=== PATIENT | female | born 2005 | race Caucasian/White ===

== ENCOUNTER 2024-12-19 14:57 | Emergency (ER) | payer OTHER, SELFPAY ==
[2024-12-19 14:59] VITALS: BP 91/61; PULSE 83; RESP 18; TEMP 36.4; O2SAT 100; BMI 17.6
--- NOTE | 2024-12-19 16:05 | ED.VIS.GI ---
HPI HPI - GI History of Present Illness Chief Complaint: Abd Pain Detail of Chief Complaint: Abdominal pain Informant: patient Narrative Narrative: Patient presents with abdominal pain started several days ago. She was seen by her [facility]LET [facility]ER in the office yesterday and had an ultrasound that showed cyst on her right ovary. Patient states that there was some dilatation of the bowel and there was some concern for appendicitis but was told monitor her symptoms. She has had some nausea but no vomiting. She denies fever. She denies diarrhea. She denies urinary symptoms. Today she continues to have cramping to the lower abdomen worse on the right and presents for evaluation. She thinks she is 5 weeks and 3 days . Her period was November 10. She is G1, P0. [facility] Medical History (Updated 12/19/24 @ 17:[address] Kelly Peterson, ) Abdominal pain Home Medications ?Medication ?Instructions ?Recorded ?Last Taken ?Type prochlorperazine maleate 10 mg 10 mg PO Q8H PRN nausea and 12/18/24 Unknown Rx tablet (Compazine) vomiting #90 tabs hydrocodone-acetaminophen 5-325mg 1 tab PO Q4H PRN PRN Pain 2 days 12/19/24 Unknown Rx 5mg-325mg #10 TABLETS Allergy/AdvReac Type Severity Reaction Status Date / Time No Known Allergies Allergy Verified 12/19/24 14:58 Social History Smoking Status: Unknown if ever smoked ROS ROS ED Review of Systems ROS Unobtainable: other Constitutional Constitutional ED: Reports lethargy; Denies chills, fever(s), sweats or weight loss Eyes Eyes: Denies blurry vision, change in vision or diplopia ENT ENT ED: Denies rhinorrhea or sore throat Cardiovascular Cardiovascular: Denies chest pain, orthopnea or racing heartbeat Respiratory/Chest Respiratory/Chest: Denies cough, dyspnea, dyspnea on exertion, orthopnea or sputum Gastrointestinal Gastrointestinal: Reports abdominal pain and nausea; Denies diarrhea or vomiting Genitourinary Genitourinary ED: Denies dysuria, hematuria or urinary frequency Musculoskeletal Musculoskeletal: Denies arthralgias, back pain, myalgias or neck pain Integumentary Denies abscess, Abrasions or rash Neurologic Neurologic: Denies headache(s) or weakness Psychiatric Psychiatric: Denies anxiety, depression or suicidal thoughts Endocrine Endocrinology: Denies polydipsia, polyphagia or polyuria Hematologic/Lymphatic Hematologic/Lymphatic: Denies easy bleeding, easy bruising or lymphadenopathy Allergic/Immunologic Allergic/Immunologic ED: Denies mouth swelling, tongue swelling or urticaria EXAM Physical Exam Const Vital Signs: 12/19/24 14:59 12/19/24 16:56 Temperature 97.6 F L 98.6 F Temperature Source Oral Oral Pulse Rate 83 66 Respiratory Rate 18 16 Blood Pressure 91/61 107/60 Blood Pressure Mean 71 75 Pulse Ox 100 100 Oxygen Delivery Method Room Air Room Air Positive well nourished and well developed General Appearance ED: well developed and NAD HEENT Reports TM's clear and moist mucous membranes normocephalic and atraumatic; Negative for trauma or tenderness Tympanic Membrane ED: Yes TM's clear Eyes PERRL and EOMs intact bilaterally General Eye ED: Negative for pale conjunctiva or scleral icterus Neck no lymphadenopathy, supple and no JVD General: Negative for tenderness Chest Wall inspection of chest normal and palpation of chest normal Chest: Negative for tenderness Resp normal respiratory effort and clear to auscultation bilaterally Effort and Inspection: Negative for respiratory distress or pain with movement Auscultation: Negative for rhonchi, wheezes or diminished lung sounds Cardio regular rate, regular rhythm, S1 normal heart sound, S2 normal heart sound and no murmurs Peripheral Pulses: pulses 2+ throughout GI normal to inspection, nondistended, normoactive bowel sounds, soft to palpation, non-distended and no masses GI Narrative: Mild diffuse tenderness over the right lower quadrant and left lower quadrant with some guarding. She has got a positive Tovar sign on the right. No rebound or rigidity. Back/Spine no CVA tenderness and no thoracic nor lumbar tenderness Extremity normal to inspection General Extremety ED: Negative for edema General Extremity: Negative for edema Neuro oriented x3, CN's II-XII intact bilaterally, no sensory deficits noted and gait normal Sensorium / Orientation: awake, alert, oriented to person, oriented to place and oriented to time Motor Exam: strength 5/5 throughout and strength abnormal Psych mental status grossly normal Skin no rashes or lesions noted and no wounds MDM MDM MDM Narrative Medical decision making narrative: Patient presents with abdominal pain and seen in the HYDRA[employer]ILLET MAKER's office yesterday and had an ultrasound that showed an intrauterine with cyst in the right ovary. Clinically she looks well. She has had no fever or vomiting although she has had some nausea. She is G1, P0. She has 5 weeks and 3 days . In the differential would be appendicitis versus UTI versus other etiology. IV line established. She was medicated with morphine and Zofran for pain. CBC with differential obtained showed white count of 5.2 with hemoglobin 12.6 and platelet count of 259. Sed rate was normal at 13. Chemistries unremarkable. Quantitative hCG was 4035. C-reactive protein was elevated at 9.6. Urinalysis showed 100 leukocyte esterase and 5-10 WBCs with +2 bacteria. She does not have UTI symptoms. I did send off a culture. Patient will be given a prescription for few [place] for pain. She will be seen by HYDRA[employer]ILLET MAKER in the office in 2 days. Patient is advised to return if worsening pain, fever, vomiting, or condition should worsen anyway. We discussed obtaining a CT scan of the abdomen pelvis versus expected waiting as suspicion for appendicitis is low at this time and given her state. Patient is comfortable with plan. Lab Data Attestation: I reviewed the patient's lab results. Labs: Laboratory Results - last 24 hr 12/19/24 12/19/24 16:00 16:31 WBC 5.2 RBC 3.99 L Hgb 12.6 Hct 38.0 MCV 95.2 MCH 31.6 MCHC 33.2 RDW Std Deviation 43.1 RDW Coeff of Kevin 12.4 Plt Count 259 MPV 9.8 Immature Gran % (Auto) 0.200 Neut % (Auto) 57.3 Lymph % (Auto) 31.2 [place] % (Auto) 10.5 H Eos % (Auto) 0.6 Baso % (Auto) 0.2 Absolute Neuts (auto) 3.0 Absolute Lymphs (auto) 1.61 Nucleated RBC % 0 ESR 13 Sodium 137 Potassium 3.8 Chloride 104 Carbon Dioxide 22.4 Anion Gap 11 BUN 10 Creatinine 0.69 L Estim Creat Clear Calc 96.11 Est GFR (MDRD) Non-Af 127 BUN/Creatinine Ratio 15.0 Glucose 83 Calcium 9.0 Total Bilirubin 0.21 AST 16 ALT 10 Alkaline Phosphatase 66 C-React Prot Ext Range 9.60 H Total Protein 7.7 Albumin 4.1 Globulin 3.5 Albumin/Globulin Ratio 1.2 HCG, Quant 4035 H Urine Color Yellow Urine Clarity Sl. Cloudy Urine pH 6.0 Ur Specific [place] 1.025 Urine Protein 15 H Urine Glucose (UA) Normal Urine Ketones 15 H Urine Occult Blood Negative Urine Nitrite Negative Urine Bilirubin Negative Urine Urobilinogen Normal Ur Leukocyte Esterase 100 H Urine RBC 0 SEEN Urine WBC 5-10 SEEN Ur Squamous Epith Cells 0-5 SEEN Urine Bacteria 2+ Urine Mucus 2+ Discharge Plan Triage Chief Complaint: Abd Pain ED Provider: Kelly Peterson Dx/Rx/DC Orders Clinical Impression: Abdominal pain Instructions: ED Abdominal Pain Unkn Cause Fem Prescriptions: New hydrocodone-acetaminophen 5-325 mg tablet 1 tab PO Q4H PRN PRN (Reason: Pain) 2 Days Qty: 10 0RF No Action prochlorperazine maleate [Compazine] 10 mg tablet 10 mg PO Q8H PRN (Reason: nausea and vomiting) Qty: 90 3RF Primary Care Provider: Care Physician,No Primary Referrals: Antonia Connolly MD [Med Staff - Active Staff] - 2 Days Care Physician,No Primary [Primary Care Provider] - Print Language: Ghanaian Disposition Disposition: Home, Self Care
[2024-12-19] MEDS: Morphine 4 MG/ML Syringe IV (16:14)
[2024-12-19] MEDS: 0.9% Normal Saline (1000mL) 1,000 ML 125 ML IV (16:14)
[2024-12-19 16:41] LABS: Red Blood Cells-Urine 0 SEEN /hpf (0-5)
[2024-12-19 16:42] LABS: ALB/GLOB Ratio 1.2 RATIO (0.9-2.4); AST(SGOT) 16 U/L (<=31); Alanine Aminotransfer ALT/SGPT 10 U/L (<=34); Albumin, Serum 4.1 g/dL (3.5-5.0); Alkaline Phosphatase 66 U/L (35-104); Anion Gap 11 (5-15); BUN 10 mg/dL (4-19); Carbon Dioxide 22.4 mmol/L (21.0-32.0); Chloride 104 mmol/L (98-108); Creatinine, Serum 0.69 mg/dL (0.70-1.20); EST Glomerular Filtration Rate 127 (>60); Estimated Creatinine Clearance 96.11 ml/min (50-250); Globulin 3.5 g/dL (2.2-4.2); Glucose 83 mg/dL (70-99); Potassium 3.8 mmol/L (3.3-5.1); Protein, Total 7.7 g/dL (5.9-8.4); Sodium Level 137 mmol/L (133-145); Total Bilirubin 0.21 mg/dL (0.00-1.30)
[2024-12-19 16:48] LABS: hCG Titer Quant., Serum 4035 mIU/mL (<9 non-preg)
[2024-12-19 16:51] LABS: Erythrocyte Sedimentation Rate 13 mm/hr (0-30)
[2024-12-19 16:54] LABS: Absolute Lymphocyte Count 1.61 X10^3/uL (0.83-4.51); Basophil# 0.01 X10^3/uL; Basophil% 0.2 % (0-1); Eosinophil# 0.03 X10^3/uL; Eosinophils% 0.6 % (0-5); Hemoglobin 12.6 g/dL (12.0-15.0); Lymphocyte # 1.61 X10^3/ul (0.83-4.51); Lymphocyte % 31.2 % (19-41); Mean Corp Hgb Conc 33.2 g/dL (32-36); Mean Corpuscular Hgb 31.6 pg (27.0-32.0); Mean Corpuscular Volume 95.2 fL (81-99); Mean Platelet Vol. 9.8 fl (6.2-12.0); Monocyte# 0.54 X10^3/uL; Monocyte% 10.5 % (0-10); NRBC Flagged by Analyzer 0 % (0-5); Neutrophil # 2.96 X10^3/uL (2.7-7.7); Neutrophil % 57.3 % (47-70); Platelet Count 259 K/mm3 (150-450); RBC Distribution Width CV 12.4 % (11.6-14.6); RBC Distribution Width SD 43.1 fl (35.1-43.9); Red Blood Count 3.99 M/mm3 (4.2-5.4); White Blood Count 5.2 K/mm3 (4.4-11.0)
[2024-12-19 16:56] VITALS: BP 107/60; PULSE 66; RESP 16; TEMP 37; O2SAT 100
[2024-12-19 16:56] LABS: Color, Urine Yellow (Yellow); Glucose, Dipstick Normal (Normal); Ketone-Dipstick 15 mg/dl (Negative); Leukocyte Esterase-Dipstick 100 /ul (Negative); Nitrite-Dipstick Negative (Negative); Occult Blood-Urine Negative /ul (Negative); Protein-Dipstick 15 mg/dl (Negative); Specific Gravity, Urine 1.025 (1.002-1.030); Urine Bilirubin Dipstick Negative (Negative); Urine Clarity Sl. Cloudy (Clear); Urine Urobilinogen Normal (Normal)
[2024-12-19 17:20] LABS: Bacteria 2+ /hpf (None Seen); Mucous, Urine 2+ /hpf (<or=2+); Squamous Epithelial Cells - UA 0-5 SEEN /hpf (5-10); White Blood Cells 5-10 SEEN /hpf (0-5)
[2024-12-19 17:55] VITALS: BP 101/66; PULSE 61; RESP 16; TEMP 36.8; O2SAT 99
== END 2024-12-19 17:56 | disposition home or self-care (01) ==
PROVIDERS: Emergency Provider Emergency Medicine; Visit Provider Emergency Medicine
DX: O99.891 Other specified diseases and conditions complicating pregnancy (principal); R79.82 Elevated C-reactive protein (CRP); Z3A.01 Less than 8 weeks gestation of pregnancy; R10.9 Unspecified abdominal pain
CPT/HCPCS: 80053; 81001; 84702; 85025; 85652; 86140; 87086; 87088; 96361; 96374; 99283; A4216

== ENCOUNTER 2024-12-30 17:37 | Emergency (ER) | payer OTHER, SELFPAY ==
[2024-12-30 17:38] VITALS: BP 95/65; PULSE 77; RESP 18; TEMP 36.8; O2SAT 100; BMI 18.0
--- NOTE | 2024-12-30 18:35 | US_ITS ---
PROCEDURE: TRANSVAGINAL W/PREG US 12/30/2024 REASON FOR EXAM: PELVIC PAIN TECHNIQUE: TRANSVAGINAL W/PREG US COMPARISON: None. FINDINGS Single live intrauterine which measures 6 weeks and 5 days by crown- rump length. heart rate of 121 beats per minute. A yolk sac is present. Estimated gestational age by last menstrual period of 7 weeks and 1 day. Uterus measures 7.6 x 4.7 x 3.7 cm. No visualized fibroids. Closed cervix. No fluid in the cul-de-sac. Right ovary measures 3.5 x 2.8 x 2.1 cm with preserved vascular flow. Right ovarian 2.1 x 1.9 cm heterogeneous lesion with peripheral color Doppler flow. No definite internal fluid or granulation to confirm a corpus luteum. Left ovary measures 2.4 x 1.5 x 1.4 cm with preserved vascular flow. US/Transvaginal w/Preg US IMPRESSION: Right ovarian lesion equivocal for a corpus luteum. Short interval follow-up u ltrasound to characterize is recommended. Single live intrauterine . Reading Location: [id number]
--- NOTE | 2024-12-30 18:43 | EX.ED.DYSGE1 ---
HPI History of Present Illness Chief Complaint: Abd Pain Narrative Narrative: Chief complaint and HPI: Lower abdominal pain. 19-year-old female who is and 7 weeks presents for evaluation of lower abdominal pain. Patient states she has been having lower abdominal pain for the past 2 to 3 weeks, worse on the right. States pain started around her positive test. Patient states she follows with [facility] in which she had an ultrasound a couple weeks ago that showed a cyst on her right ovary IUP. Patient states there was some dilation of the bowel and told her to monitor for symptoms of appendicitis. Patient states that the pain has continued intermittently. Patient states she was seen in our emergency department for the pain previously she states she had unremarkable laboratory workup and the ED physician have low suspicion for appendicitis so CT abdomen pelvis was foregone. Patient states she had another checkup with her [facility] today in which she saw a nurse. States she told them that the pain was continuing and then was told that she needs to come to emergency department for CT abdomen pelvis to rule out appendicitis. Patient denies any fever, chills, shortness of breath, chest pain, nausea, vomiting, constipation, diarrhea, dysuria, vaginal bleeding, vaginal discharge. States she is eating and drinking well. Review of systems: See HPI Medications: As listed on the chart Allergies: As listed on the chart PFSH: Per chart Vital signs: As listed on the chart. Reviewed. Physical exam: Gen: A&O x3, NAD Head: Normocephalic, atraumatic Eyes: No sclera icterus, conjunctiva clear ENT: Moist mucous membranes Neck: Trachea midline, No JVD CV: RRR, no murmurs, no peripheral edema Resp: Lungs CTA BL, no w/r/c GI: Abd soft, non-distended, mildly tender to palpation in the bilateral lower quadrant, negative McBurney sign, no r/r/g : No CVA tenderness Musc: Full ROM, no deformity Skin: Warm, dry Neuro: Alert, oriented, grossly intact, sensation intact Psych: Cooperative, appropriate mood and affect [facility] Medical History (Updated 12/30/24 @ 20:[address] Allan Clayton, DO) Abdominal pain Home Medications ?Medication ?Instructions ?Recorded ?Last Taken ?Type prochlorperazine maleate 10 mg 10 mg PO Q8H PRN nausea and 12/18/24 Unknown Rx tablet (Compazine) vomiting #90 tabs Allergy/AdvReac Type Severity Reaction Status Date / Time No Known Allergies Allergy Verified 12/30/24 17:40 Family History (Updated 12/30/24 @ 11:15 by Aicha Nieves RN) Grandmother Uterine cancer Diabetes Grandfather Brain aneurysm Diabetes Social History (Updated 12/30/24 @ 11:21 by Aicha Nieves RN) adopted: No household members: significant other and friend(s) number of children: 0 current occupational status: employed current occupation: [employer] current occupational exposures/hazards: No pets and animals: Yes pets and animals: dog(s) and other details: Duck (3) history of recent travel: No sexually active: Yes Smoking Status: Current some day smoker tobacco type: e-cigarettes second hand exposure: No quit status: considering quitting alcohol intake: current alcohol intake frequency: holidays/special occasions only details: Not while substance use type: does not use well-balanced diet: about half the time caffeine: No eating out: 4 or more times/week during the past year weight has: remained stable what type of physical activity do you participate in: walking frequency: 3-4 times per week duration: < 15 minutes/day sarah/mormon: Pentecostalism seatbelt use: always do you feel safe at home: Yes additional social history: BF: Jeremiah - Traffic systems mechanic/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 Patient states she has been having lower abdominal pain for the past 2 to 3 weeks, worse on the right. States pain started around her positive test. Patient states she follows with [facility] in which she had an ultrasound a couple weeks ago that showed a cyst on her right ovary with an IUP. On chart review, I was unable to find the ultrasound. Patient states there was some dilation of the bowel and told to monitor for symptoms of appendicitis. The pain is continued so she was seen in our emergency department on 12/19. I reviewed the ED note. Unremarkable labs and discharged home without CT abdomen pelvis. Patient states she sent in here today with CT abdomen/pelvis. Given that patient's symptoms have been ongoing for several weeks and coincide around the time she had a positive test, have a low suspicion for appendicitis. She denies fever, chills, nausea, vomiting, diarrhea, constipation. Her abdominal exam is not consistent with appendicitis. Patient was given the risks and benefits to CT scan to rule out appendicitis in . She was educated that without a CT abdomen and pelvis I cannot rule out appendicitis. Patient declined this. I do think this is reasonable. I suspect her pain is more pelvic in nature. Will get pelvic ultrasound with basic labs and urine. Differential diagnosis includes abdominal cramping in , ovarian cyst, ovarian torsion, UTI, low suspicion for pancreatitis, cholecystitis, appendicitis. Tylenol ordered for pain. CBC without leukocytosis or anemia. Platelets unremarkable. CMP unremarkable. Lipase unremarkable. UA negative for bacteria or UTI. Pelvic ultrasound shows right ovarian lesion equivocal for a corpus luteum. Single live IUP. No ovarian torsion. Given that patient has had this pain for multiple weeks and corresponds with test, I do think that her pain may be secondary to versus this corporal luteal cyst. Recommend following up with [facility]. Patient was updated of all results and the plan. Return precautions explained. Patient stable to discharge home. She confirmed understanding. Impression: 1. Chronic episodic pelvic pain 2. First trimester 3. Right corpus luteum cyst Lab Data Labs: Laboratory Results - last 24 hr 12/30/24 12/30/24 17:47 18:15 WBC 7.7 RBC 3.97 L Hgb 12.4 Hct 38.0 MCV 95.7 MCH 31.2 MCHC 32.6 RDW Std Deviation 43.9 RDW Coeff of Kevin 12.5 Plt Count 284 MPV 10.7 Immature Gran % (Auto) 0.100 Neut % (Auto) 62.4 Lymph % (Auto) 30.4 [place] % (Auto) 6.9 Eos % (Auto) 0.1 Baso % (Auto) 0.1 Absolute Neuts (auto) 4.8 Absolute Lymphs (auto) 2.35 Nucleated RBC % 0 Sodium 137 Potassium 3.8 Chloride 103 Carbon Dioxide 22.5 Anion Gap 11 BUN 12 Creatinine 0.53 L Estim Creat Clear Calc 127.61 Est GFR (MDRD) Non-Af 136 BUN/Creatinine Ratio 22.8 H Glucose 79 Calcium 9.3 Total Bilirubin 0.22 AST 14 ALT 10 Alkaline Phosphatase 54 Total Protein 7.6 Albumin 4.3 Globulin 3.3 Albumin/Globulin Ratio 1.3 Lipase 24 Urine Color Straw Urine Clarity Clear Urine pH 6.5 Ur Specific [place] 1.015 Urine Protein Negative Urine Glucose (UA) Normal Urine Ketones Negative Urine Occult Blood Negative Urine Nitrite Negative Urine Bilirubin Negative Urine Urobilinogen Normal Ur Leukocyte Esterase Negative Urine RBC 0-5 SEEN Urine WBC 0-5 SEEN Ur Squamous Epith Cells 0-5 SEEN Urine Bacteria RARE Urine Mucus 0 SEEN Radiography Diagnostic Testing: Clinical Impression(s) from Imaging Studies Obstetrics Ultrasound 12/30/24 18:35 IMPRESSION: Right ovarian lesion equivocal for a corpus luteum. Short interval follow-up ultrasound to characterize is recommended. Single live intrauterine . Reading Location: [place] [id number] Discharge Plan Triage Chief Complaint: Abd Pain ED Provider: Allan Clayton Dx/Rx/DC Orders Clinical Impression: Pelvic pain during Instructions: ED Pelvic Pain, Unknown Cause Prescriptions: No Action prochlorperazine maleate [Compazine] 10 mg tablet 10 mg PO Q8H PRN (Reason: nausea and vomiting) Qty: 90 3RF Primary Care Provider: Care Physician,No Primary Referrals: Antonia Connolly MD [Med Staff - Active Staff] - 3-5 Days Activity Restrictions/Additional Instructions: At this point in time, no clear reason for your pelvic pain although may be secondary to as well as your corpus luteum on your right ovary. Follow-up with your [facility]. Return back to the ED if symptoms change or worsen. Tylenol as needed for pain. You did receive Tylenol here in the emergency department. No Tylenol for 6 hours. Print Language: [place] Citizen Disposition Disposition: Home, Self Care
[2024-12-30 18:58] LABS: Mucous, Urine 0 SEEN /hpf (<or=2+)
[2024-12-30 19:09] LABS: Hematocrit 38.0 % (37-47); Hemoglobin 12.4 g/dL (12.0-15.0); Immature Granulocytes Count 0.010 X10^3/uL (0.0-0.0); Mean Corp Hgb Conc 32.6 g/dL (32-36); Mean Corpuscular Volume 95.7 fL (81-99); Mean Platelet Vol. 10.7 fl (6.2-12.0); NRBC Flagged by Analyzer 0 % (0-5); Platelet Count 284 K/mm3 (150-450); RBC Distribution Width CV 12.5 % (11.6-14.6); RBC Distribution Width SD 43.9 fl (35.1-43.9); Red Blood Count 3.97 M/mm3 (4.2-5.4); White Blood Count 7.7 K/mm3 (4.4-11.0)
[2024-12-30 19:14] LABS: Color, Urine Straw (Yellow); Glucose, Dipstick Normal (Normal); Ketone-Dipstick Negative (Negative); Leukocyte Esterase-Dipstick Negative /ul (Negative); Nitrite-Dipstick Negative (Negative); Occult Blood-Urine Negative /ul (Negative); Protein-Dipstick Negative (Negative); Specific Gravity, Urine 1.015 (1.002-1.030); Urine Bilirubin Dipstick Negative (Negative)
[2024-12-30 19:30] LABS: AST(SGOT) 14 U/L (<=31); Alanine Aminotransfer ALT/SGPT 10 U/L (<=34); Albumin, Serum 4.3 g/dL (3.5-5.0); Alkaline Phosphatase 54 U/L (35-104); Anion Gap 11 (5-15); BUN 12 mg/dL (4-19); BUN/Creat Ratio 22.8 RATIO (10-20); Calcium,Total 9.3 mg/dL (7.6-11.0); Carbon Dioxide 22.5 mmol/L (21.0-32.0); Chloride 103 mmol/L (98-108); Estimated Creatinine Clearance 127.61 ml/min (50-250); Globulin 3.3 g/dL (2.2-4.2); Glucose 79 mg/dL (70-99); Lipase 24 U/L (13-75); Potassium 3.8 mmol/L (3.3-5.1)
[2024-12-30 19:40] LABS: Red Blood Cells-Urine 0-5 SEEN /hpf (0-5); Squamous Epithelial Cells - UA 0-5 SEEN /hpf (5-10)
[2024-12-30 19:45] VITALS: BP 90/62; PULSE 62; RESP 16; O2SAT 100
[2024-12-30 20:45] VITALS: BP 96/62; PULSE 63; RESP 18; TEMP 36.3; O2SAT 100
== END 2024-12-30 20:50 | disposition home or self-care (01) ==
PROVIDERS: Emergency Provider Surgery; Visit Provider Surgery
DX: O26.891 Other specified pregnancy related conditions, first trimester (principal); R10.2 Pelvic and perineal pain; O34.81 Maternal care for other abnormalities of pelvic organs, first trimester; N83.11 Corpus luteum cyst of right ovary; Z3A.01 Less than 8 weeks gestation of pregnancy
CPT/HCPCS: 76817; 80053; 81001; 83690; 85025; 99282; A4216

== ENCOUNTER → 2025-01-12 | Outpatient (CLI) | payer OTHER, SELFPAY ==
[2025-01-14 05:07] LABS: Chlamydia By Nucleic Acid AMP Positive (Negative); Gonococcus By Nucleic Acid AMP Negative (Negative)
== END | disposition home or self-care (01) ==
LOC: LABSPEC 12:10
PROVIDERS: Referring Provider Obstetrics & Gynecology; Visit Provider Obstetrics & Gynecology
DX: Z34.90 Encounter for supervision of normal pregnancy, unspecified, unspecified trimester (principal)
CPT/HCPCS: 87086; 87491; 87591

== ENCOUNTER → 2025-01-20 | Outpatient (CLI) | payer OTHER, SELFPAY ==
[2025-01-20 12:33] LABS: Hematocrit 33.4 % (37-47); Hemoglobin 11.0 g/dL (12.0-15.0); Immature Granulocytes Count 0.010 X10^3/uL (0.0-0.0); Mean Corp Hgb Conc 32.9 g/dL (32-36); Mean Corpuscular Volume 94.6 fL (81-99); Mean Platelet Vol. 11.6 fl (6.2-12.0); NRBC Flagged by Analyzer 0 % (0-5); Platelet Count 165 K/mm3 (150-450); RBC Distribution Width CV 12.6 % (11.6-14.6); RBC Distribution Width SD 43.6 fl (35.1-43.9); Red Blood Count 3.53 M/mm3 (4.2-5.4); White Blood Count 6.0 K/mm3 (4.4-11.0)
[2025-01-20 13:26] LABS: Ferritin 193 ng/mL (22-378); HIV Nonreactive (Nonreactive); Hepatitis B Surface Antigen Nonreactive (Nonreactive); Hepatitis C Antibody Nonreactive (Nonreactive); Iron 111 ug/dL (50-170); Iron Binding Capacity,Total 254 ug/dL (250-450); Iron Binding Capacity,Unsat 143 ug/dL (228-428); Syphilis Antibodies Nonreactive (Nonreactive); Vitamin B12 393 pg/mL (180-914)
[2025-01-22 22:07] LABS: Vitamin B1, Thiamine 98.0 nmol/L (66.5-200.0)
== END | disposition home or self-care (01) ==
LOC: BWCLAB 10:13
PROVIDERS: Visit Provider Obstetrics & Gynecology
DX: O26.891 Other specified pregnancy related conditions, first trimester (principal); R63.6 Underweight; Z3A.00 Weeks of gestation of pregnancy not specified
CPT/HCPCS: 36415; 82607; 82728; 83540; 83550; 84425; 85025; 86703; 86762; 86780; 86803; 86850; 86900; 86901; 87340

== ENCOUNTER 2025-02-09 00:07 | Emergency (ER) | payer SELFPAY ==
[2025-02-09 00:08] VITALS: BP 100/62; PULSE 72; RESP 14; TEMP 37; O2SAT 100; BMI 21.2
--- NOTE | 2025-02-09 00:24 | EKG12_ITS ---
Test Reason : CP Blood Pressure : */* mmHG Vent. Rate : 65 BPM Atrial Rate : 65 BPM P-R Int : 96 ms QRS Dur : 82 ms QT Int : 400 ms P-R-T Axes : 24 66 59 degrees QTcB Int : 416 ms Sinus rhythm with short NH Otherwise normal ECG Confirmed by RACHAEL RABAGO, KIKI ([id number]), electronic news gathering editor [address] ([id number]) on 02/10/2025 6:13:20 AM Referred By: Confirmed By: KIKI CANO MD
--- NOTE | 2025-02-09 00:25 | EDS_ITS ---
HPI History of Present Illness Chief Complaint: Chest Pain Informant: patient Onset/Context/Timing Onset: Today Activity at onset: gradual Timing: Continuous Quality: Positive for Aching and Pain Location: Left Chest Current Severity: Mild Maximum Severity: Mild Worsened By: - (Worse supine. Not exertional.) Relieved By: Nothing Associated Symptoms: Negative for Nausea, Vomiting, Diaphoresis, Dyspnea, Cough, Fever, Lightheadedness, Acid Reflux or Palpitations Narrative Narrative: Healthy 20-year-old female currently 13 weeks , G1, P0 Ab0 with a due date of August 17, 2025. Tonight was at home chest discomfort on the left with palpitations. Said it was a burning at times it felt like heaviness. Did not radiate anywhere. No radiation to her jaw back or arm. No history of DVT or PE. Or other risk factors or . She has had no recent travel, surgery or hospitalization. Denies any calf pain or swelling. No hemoptysis. Pain is not pleuritic. She has had no recent exertional symptoms. Prior Similar Symptoms: No Recent Illness/Hospitalization: No CVD Risk Factors: Negative for Hypertension, Diabetes or Hypercholesterolemia PE Risk Factors: Negative for Recent Travel/Surgery, Recent Immobilization, Prior DVT or PE, Cancer or OCP + Smoking + >/=35 TAD Risk Factors: Negative for Marfan's Syndrome [facility] Medical History Abdominal pain Home Medications ?Medication ?Instructions ?Recorded ?Last Taken ?Type NK 02/09/25 Unknown History Allergy/AdvReac Type Severity Reaction Status Date / Time No Known Allergies Allergy Verified 01/12/25 10:43 Family History Grandmother Uterine cancer Diabetes Grandfather Brain aneurysm Diabetes Social History adopted: No household members: significant other and friend(s) number of children: 0 current occupational status: employed current occupation: [employer] current occupational exposures/hazards: No pets and animals: Yes pets and animals: dog(s) and other details: Duck (3) history of recent travel: No sexually active: Yes Smoking Status: Former smoker second hand exposure: No quit status: considering quitting alcohol intake: current alcohol intake frequency: holidays/special occasions only details: Not while substance use type: does not use well-balanced diet: about half the time caffeine: No eating out: 4 or more times/week during the past year weight has: remained stable what type of physical activity do you participate in: walking frequency: 3-4 times per week duration: < 15 minutes/day sarah/moravian: Worship seatbelt use: always do you feel safe at home: Yes additional social history: BF: Jeremiah - Traffic aircraft mechanic electrical and radio/construction ROS ROS ED ROS Narrative No recent illness. Chest pain tonight. Constitutional Constitutional ED: Denies chills or fever(s) Eyes Eyes: Reports none ENT ENT ED: Denies ear pain Cardiovascular Cardiovascular: Reports as per HPI, chest pain and palpitations; Denies orthopnea or paroxysmal nocturnal dyspnea Respiratory/Chest Respiratory/Chest: Denies cough, dyspnea, dyspnea on exertion, orthopnea, paroxysmal nocturnal dyspnea or sputum Gastrointestinal Gastrointestinal: Denies abdominal pain Genitourinary Genitourinary ED: Denies dysuria or hematuria Musculoskeletal Musculoskeletal: Denies arthralgias Integumentary Denies abscess Neurologic Neurologic: Denies headache(s) Psychiatric Psychiatric: Denies anxiety Endocrine Endocrinology: Denies cold intolerance Hematologic/Lymphatic Hematologic/Lymphatic: Denies easy bleeding, easy bruising or lymphadenopathy Allergic/Immunologic Allergic/Immunologic ED: Denies mouth swelling, tongue swelling or urticaria EXAM Physical Exam Narrative Exam Narrative: Well-appearing 20-year-old female. Vital signs stable afebrile. Pulse ox 100% on room air no hypoxia. Significant other at bedside. H EENT exam pupils round reactive light. Moist mucous membranes. Neck nontender no JVD. Back nontender. Lungs clear to auscultation bilaterally. Equal and symmetrical breath sounds bilaterally. Heart regular rhythm rate about 70 no murmur. Chest wall and ribs nontender. No ecchymosis or bruising. No rash. No crepitus or subcu air. No reproducible chest wall pain. Abdomen is soft, nontender, nondistended normal bowel sounds without peritoneal signs. Moving all 4 extremities. Nontender no edema. Calves are nontender without edema or cords. Normal dorsi plantarflexion. 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 Equal symmetrical radial pulses. Neurologically she is awake and alert. Answer questions following commands. Very benign exam. Const Vital Signs: 02/09/25 00:08 02/09/25 00:10 02/09/25 00:41 Temperature 98.6 F Temperature Source Oral Pulse Rate 72 Respiratory Rate 14 Respiratory Effort Normal Non-Labored Blood Pressure 100/62 Blood Pressure Mean 74 Pulse Ox 100 Oxygen Delivery Method Room Air Room Air Positive well nourished and well developed; Negative for obese, cachectic, contractures or unkempt General Appearance ED: well developed and NAD; Negative for unkempt, cachectic, contractures or pallor Nutritional Appearance: Negative for cachectic or obese HEENT Reports moist mucous membranes normocephalic and atraumatic Eyes PERRL and EOMs intact bilaterally Neck no lymphadenopathy, supple and no JVD Chest Wall inspection of chest normal and palpation of chest normal Resp normal respiratory effort and clear to auscultation bilaterally Cardio regular rate, regular rhythm, S1 normal heart sound, S2 normal heart sound and no murmurs Peripheral Pulses: pulses 2+ throughout GI normal to inspection, nondistended, normoactive bowel sounds, soft to palpation, non-tender, non-distended and no masses Back/Spine no CVA tenderness and no thoracic nor lumbar tenderness Extremity normal to inspection General Extremety ED: Negative for edema, pulses abnormal or tenderness General Extremity: Negative for edema or pulses abnormal Neuro oriented x3 and CN's II-XII intact bilaterally Sensorium / Orientation: awake, alert, oriented to person, oriented to place and oriented to time Motor Exam: strength 5/5 throughout Psych mental status grossly normal Appearance: Negative for unkempt Mood & Affect: Negative for depressed, anxious or tearful Skin no rashes or lesions noted and no wounds General Skin Exam: Negative for jaundice or pallor Heart Score History: Slightly/Non-Suspicious ECG: Normal Age: </= 45 years Risk Factors: No Risk Factors Troponin: </= Normal Limit Score: 0 MDM MDM MDM Narrative Medical decision making narrative: 20-year-old female with 13 weeks with atypical nonreproducible left-sided chest pain. Clinically it do not think this is cardiac. Does not appear to be pericarditis. Is not really reproducible such as chest wall pain. Clinically does not sound like a pulmonary embolus but that something considered given her . She undergo cardiac workup. And a D-dimer. I do not think she needs a chest x-ray currently. Repeat exam patient is doing well around 1:54 AM. We went over test results she clinically looks well. She will be discharged home with outpatient follow-up. Chest pain uncertain etiology. History & Record Review Discussion w/independent historian: Patient and Family Lab Data Attestation: I reviewed the patient's lab results. Lab results narrative: CBC shows white blood 5.6. H&H 10.8 and 32.3 she has had a similar anemia before. Platelets 218. Chemistries show a gap of 10. BUN and creatinine of 12 and 0.5. Glucose 103. Troponin less than 6. D dimer less than 0.27. Labs: Laboratory Results - last 24 hr 02/09/25 00:38 WBC 5.6 RBC 3.43 L Hgb 10.8 L Hct 32.3 L MCV 94.2 MCH 31.5 MCHC 33.4 RDW Std Deviation 44.5 H RDW Coeff of Kevin 12.8 Plt Count 218 MPV 9.7 Immature Gran % (Auto) 0.200 Neut % (Auto) 44.9 L Lymph % (Auto) 45.1 H Brewster % (Auto) 8.7 Eos % (Auto) 0.7 Baso % (Auto) 0.4 Absolute Neuts (auto) 2.5 Absolute Lymphs (auto) 2.53 Nucleated RBC % 0 D-Dimer Quant (PE/DVT) < 0.27 L Sodium 138 Potassium 3.7 Chloride 107 Carbon Dioxide 21.4 Anion Gap 10 BUN 12 Creatinine 0.51 L Estim Creat Clear Calc 150.68 Est GFR (MDRD) Non-Af 136 BUN/Creatinine Ratio 24.2 H Glucose 103 H Calcium 9.0 Troponin T High Sens < 6 Rhythm Strip Rhythm Strip: Sinus Rhythm Rate: 65 Ectopy: None EKG Initial EKG: Attestation: I personally reviewed and interpreted this EKG as follows: Interpretation: Sinus Rhythm and No Acute Injury Pattern Comments: Normal sinus rhythm rate of 65 no acute signs of LA or ischemia. Discharge Plan Triage Chief Complaint: Chest Pain ED Provider: Fredi Sorenson Dx/Rx/DC Orders Clinical Impression: Chest pain, First trimester Instructions: ED Chest Pain, Uncertain Cause Prescriptions: No Action NK Primary Care Provider: Care Physician,No Primary Referrals: Antonia Connolly MD [Med Staff - Active Staff] - As soon as possible Care Physician,No Primary [Primary Care Provider] - Activity Restrictions/Additional Instructions: Tylenol for pain. 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 Your labs tonight look good. Your heart enzyme was normal. Your D-dimer which is the test for a blood clot was negative also. Print Language: Upper Sorbian Disposition Disposition: Home, Self Care
--- OUTSIDE RECORDS SUMMARY | 2025-02-09 00:42 | XMS RPT_ITS | CCD ---
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 Comment on above: Performed By: #### L 509.4006, L3890.6102, L900.0098, L3890.6301, L3300.8000, L100.0100, L503.6030, BTS, L3890.6006, L503.0106, L509.8002, L503.6550 #### Laboratory [address] [place], [address] Vitamin B12 ser/plasOrdered By: Antonia Connolly on 01-20-2025 Cobalamin (Vitamin B12) [Mass/Vol] 393 pg/mL 180-914 White blood cell (WBC) count Ordered By: Antonia Connolly on 01-20-2025 WBC (Bld) [#/Vol] 6.0 10*3/uL 4.4-11.0 [facility] Chlamydia/GC DEVIKA aptimaon CHLAMY,NUC ACID Positive Abnormal Negative Comment on above: Result Comment: Clie nt Requested Flag Performed By: #### M 100.2200, L7000.1800 #### Laboratory [address] [place], [address] GC BY NUC ACID Negative Normal Negative Comment on above: Result Comment: Perf ormed at: =G - [facility] [address] [id number] Wrapper Stemmer Hand: Jacquelyn Clay MD, Phone: [phone] Performed By: #### M 100.2200, L7000.1800 #### Laboratory [address] [place], [address] Urine Cultureon 01-13-2025 URC Culture exhibits no growth. Normal Comment on above: Performed By: #### M 100.2200, L7000.1800 #### Laboratory [address] [place], [address] Chlamydia trachomatis rRNA d etection by probe and target amplification methodOrdered By: Antonia Connolly on 01-12-2025 C. trachomatis rRNA DEVIKA+probe Ql (Unsp spec) Positive High Negative Comment on above: Client Requested Fla g Neisseria gonorrhoeae nuclei c acid detection by amplified probe techniqueOrdered By: Antonia Connolly on 01-12-2025 N. gonorrhoeae DNA DEVIKA+probe Ql (Unsp spec) Negative Negative Comment on above: Performed at: =G - [facility] [address] [id number] Director: Jacquelyn Clay MD, Phone: [phone] Actuarial Associate Office Visit Reporton 01-12-2025 Actuarial Associate Office Visit Report [address], [address] [place] [address] OFFICE VISIT Date of Service: 01/12/25 MR#: [id number] Acct: [id number] Name: NORBERTO COTTON Rep #: [id number] : 2005 Provider: Dr. 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 Antonia Connolly MD) Abdominal pain Family History Grandmother Uterine cancer Diabetes Grandfather Brain aneurysm Diabetes Social History adopted: No household members: significant other and friend(s) number of children: 0 current occupational status: employed current occupation: [employer] current occupational exposures/hazards: No pets and animals: Yes pets and animals: dog(s) and other details: Duck (3) history of recent travel: No sexually active: Yes Smoking Status: Current some day smoker tobacco type: e-cigarettes second hand exposure: No quit status: considering quitting alcohol intake: current alcohol intake frequency: holidays/special occasions only details: Not while substance use type: does not use well-balanced diet: about half the time caffeine: No eating out: 4 or more times/week during the past year weight has: remained stable what type of physical activity do you participate in: walking frequency: 3-4 times per week duration: < 15 minutes/day sarah/buddhist: Druze seatbelt use: always do you feel safe at home: Yes additional social history: BF: Jeremiah - Traffic escalator service mechanic/construction History 1 Elective abortions 0 Hx Para 0 Spontaneous abortions 0 Hx # Term Pregnancies Ectopic pregnancies Hx # Pregnancies Multiple births # of living children 0 HPI *NEW* NEW OB LMP 11/10 TELLO 08/17 Details: NORBERTO COTTON is a 19 year old who presents for New OB visit. OB Visit TELLO Calculator Estimated Delivery Date Method Current WG Current Estimate 08/17/25 LMP (Certain) 9w 0d Other Estimates 08/18/25 Ultrasound #1 8w 6d Estimated Due Date: 08/17/25 Expected Delivery Route/Plan Labor Preferences- CB/BF classes: [] labor support person: [] labor intervention preferences: [] pain management options preferred: [] cut cord/dad catch: [] : [] PP control planned: [] discussed possible routes of delivery and associated risks: [] special requests: [] Specific Issue/Plans Covid status: [] Flu vaccine: [] Tdap vaccine: [] Rhogam: [] LARC form signed: [] Problem list reviewed and updated with the most current plan of care details and appropriate orders placed. Relevant counseling for the gestational age provided. Continue routine care and follow up unless otherwise noted in visit notes/problem list details Initial Weight: Not Recorded Date -???-???-???-???-???-???-? ??-???-???-???-???-???- EGA Weight BP Urine Prot -???-???-???-???-???-???-? ??-???-???-???-???-???- Glucose FHR FuHt Pres Dilation -???-???-???-???-???-???-? ??-???-???-???-???-???- Effaced St Visit Note 01/12/25 -???-???-???-???-???-???-? ??-???-???-???-???-???- 9w 0d 105 lb 8 oz 100/65 -???-???-???-???-???-???-? ??-???-???-???-???-???- 170 -???-???-???-???-???-???-? ??-???-???-???-???-???- SM- no vb no w, having some morning anxiety episodes. Menstrual History Last Menstrual Period: 11/10/24 Reported LMP: definite Normal amount/duration: Yes Frequency in days: 28 On hormonal BC at conception: No hCG+: 12/06/24 Antepartum Record Genetic Screening: Congenital Heart Defect: Other, Neural Tube Defect: Other, Hemoglobinopathy Or Carrier: Other, Cystic Fibrosis: Other, Chromosome Abnormality: Other, Brennen-Sachs: Other, Hemophilia: Other, Intellectual Disability/Autism: Other, Recurrent Loss/Stillbirth: Patient (Sister with multiple miscarriages), Other Structural Defect: Other, Other Genetic Disease: Other and Maternal Metabolic Disorder: Other Infection History: Live with someone with TB or Exposed to TB: No, Patient or Pa (more content not included)... Normal Urine cultureOrdered By: Shorty Connolly on 01-12-2025 Bacteria identified Cx Nom (U) Culture exhibits no growth. Absolute lymphocyte countOrd ered By: Allan Clayton on 12-30-2024 Lymphocytes Auto (Unsp spec) [#/Vol] 2.35 10*3/uL 0.83-4.51 Absolute neutrophil countOrd ered By: Allan Clayton on 12-30-2024 Neutrophils (Bld) [#/Vol] 4.8 10*3/uL 2.0-7.7 Anion gap in Serum or Plasma Ordered By: Allan Clayton on 12-30-2024 Anion gap [Moles/Vol] 11 mmol/L 5-15 [facility] Automated lymphocyte count a s percentage of total leukocytesOrdered By: Allan Clayton on 12-30-2024 Lymphocytes/100 WBC Auto (Unsp spec) 30.4 % 19-41 BUN/creatinine ratioOrdered By: Allannik Clayton on 12-30-2024 Urea nitrogen/Creatinine [Mass ratio] 22.8 mg/mg High 10-20 Basophil percentageOrdered B y: Allan Clayton on 12-30-2024 Basophils/100 WBC (Bld) 0.1 % 0-1 Bilirubin Test strip Ql (U)O rdered By: Allan Clayton on 12-30-2024 Bilirubin Ql (U) Negative Negative Bilirubin, totalOrdered By: Allan Clayton on 12-30-2024 Bilirubin [Mass/Vol] 0.22 mg/dL 0.00-1.30 [facility] CBC W/Diff, Automatedon Absolute Lymph 2.35 X10 3/uL Normal 0.83-4.51 Comment on above: Performed By: #### M 100.2200, L7000.1800 #### Laboratory [address] [place], [address] Absolute Neut 4.8 X10 3/uL Normal 2.0-7.7 Comment on above: Performed By: #### M 100.2200, L7000.1800 #### Laboratory [address] [place], [address] Basophils/100 WBC (Bld) 0.1 % Normal 0-1 Comment on above: Performed By: #### M 100.2200, L7000.1800 #### Laboratory [address] [facility] [place], [address] Eosinophils/100 WBC (Bld) 0.1 % Normal 0-5 Comment on above: Performed By: #### M 100.2200, L7000.1800 #### Laboratory [address] [place], [address] Erythrocyte distribution width (RBC) [Ratio] 12.5 % Normal 11.6-14.6 Comment on above: Performed By: #### M 100.2200, L7000.1800 #### Laboratory [address] [place], [address] Hematocrit (Bld) [Volume fraction] 38.0 % Normal 37-47 Comment on above: Performed By: #### M 100.2200, L7000.1800 #### Laboratory [address] [place], [address] Hemoglobin (Bld) [Mass/Vol] 12.4 g/dL Normal 12.0-15.0 Comment on above: Performed By: #### M 100.2200, L7000.1800 #### Laboratory [address] [place], [address] IG% 0.100 Normal 0.0-0.9 Comment on above: Result Comment: IG% - Immature Granulocytes (promyelocytes, myelocytes and metamyelocytes) > 1% indicates that a LEFT SHIFT is Present. Performed By: #### M 100.2200, L7000.1800 #### Laboratory [address] [place], [address] Lymphocytes/100 WBC (Bld) 30.4 % Normal 19-41 Comment on above: Performed By: #### M 100.2200, L7000.1800 #### Laboratory [address] [place], [address] MCH (RBC) [Entitic mass] 31.2 pg Normal 27.0-32.0 Comment on above: Performed By: #### M 100.2200, L7000.1800 #### Laboratory [address] [place], [address] MCHC (RBC) [Mass/Vol] 32.6 g/dL Normal 32-36 [facility] Comment on above: Performed By: #### M 100.2200, L7000.1800 #### Laboratory [address] [place], [address] MCV (RBC) [Entitic vol] 95.7 fL Normal 81-99 Comment on above: Performed By: #### M 100.2200, L7000.1800 #### Laboratory [address] [place], [address] Monocytes/100 WBC (Bld) 6.9 % Normal 0-10 Comment on above: Performed By: #### M 100.2200, L7000.1800 #### Laboratory [address] [place], [address] Neutrophils/100 WBC (Bld) 62.4 % Normal 47-70 Comment on above: Performed By: #### M 100.2200, L7000.1800 #### Laboratory [address] [place], [address] Nucleated RBC (Bld) [#/Vol] 0 10*3/uL Normal 0-5 Comment on above: Performed By: #### M 100.2200, L7000.1800 #### Laboratory [address] [place], [address] Platelet mean volume (Bld) [Entitic vol] 10.7 fL Normal 6.2-12.0 Comment on above: Performed By: #### M 100.2200, L7000.1800 #### Laboratory [address] [place], [address] Platelets (Bld) [#/Vol] 284 10*3/uL Normal 150-450 Comment on above: Performed By: #### M 100.2200, L7000.1800 #### Laboratory [address] [place], [address] RBC (Bld) [#/Vol] 3.97 10*6/uL Low 4.2-5.4 [facility] Comment on above: Performed By: #### M 100.2200, L7000.1800 #### Laboratory [address] [place], [address] RDW SD 43.9 fl Normal 35.1-43.9 Comment on above: Performed By: #### M 100.2200, L7000.1800 #### Laboratory [address] [place], [address] WBC (Bld) [#/Vol] 7.7 10*3/uL Normal 4.4-11.0 [facility] Comment on above: Performed By: #### M 100.2200, L7000.1800 #### Laboratory [address] [place], [address] Carbon dioxide, total [Moles /volume] in Central venous bloodOrdered By: Allan Clayton on 12-30-2024 CO2 [Moles/Vol] 22.5 mmol/L 21.0-32.0 Chloride assayOrdered By: Sergei Clayton on 12-30-2024 Chloride [Moles/Vol] 103 mmol/L 98-108 [facility] Comprehensive Metabolic Prof ilon 12-30-2024 Albumin [Mass/Vol] 4.3 g/dL Normal 3.5-5.0 [facility] Comment on above: Performed By: #### M 100.2200, L7000.1800 #### Laboratory [address] [place], [address] Albumin/Globulin [Mass ratio] 1.3 {ratio} Normal 0.9-2.4 Comment on above: Performed By: #### M 100.2200, L7000.1800 #### Laboratory [address] [place], [address] ALK PHOS 54 U/L Normal 35-104 Comment on above: Performed By: #### M 100.2200, L7000.1800 #### Laboratory [address] [place], [address] ALT [Catalytic activity/Vol] 10 U/L Normal <=34 Comment on above: Performed By: #### M 100.2200, L7000.1800 #### Laboratory [address] [place], [address] AST [Catalytic activity/Vol] 14 U/L Normal <=31 Comment on above: Performed By: #### M 100.2200, L7000.1800 #### Laboratory [address] [place], [address] Bilirubin [Mass/Vol] 0.22 mg/dL Normal 0.00-1.30 [facility] Comment on above: Performed By: #### M 100.2200, L7000.1800 #### Laboratory [address] [place], [address] BUN/CRE 22.8 RATIO High 10-20 Comment on above: Performed By: #### M 100.2200, L7000.1800 #### Laboratory [address] [place], [address] Calcium [Mass/Vol] 9.3 mg/dL Normal 7.6-11.0 [facility] Comment on above: Performed By: #### M 100.2200, L7000.1800 #### Laboratory [address] [place], [address] Chloride [Moles/Vol] 103 mmol/L Normal 98-108 [facility] Comment on above: Performed By: #### M 100.2200, L7000.1800 #### Laboratory [address] [place], [address] CO2 [Moles/Vol] 22.5 mmol/L Normal 21.0-32.0 Comment on above: Performed By: #### M 100.2200, L7000.1800 #### Laboratory [address] [place], [address] Creatinine [Mass/Vol] 0.53 mg/dL Low 0.70-1.20 [facility] Comment on above: Performed By: #### M 100.2200, L7000.1800 #### Laboratory [address] [place], [address] ECRCL 127.61 ml/min Normal 50-250 Comment on above: Performed By: #### M 100.2200, L7000.1800 #### Laboratory [address] [place], [address] GAP 11 Normal 5-15 Comment on above: Performed By: #### M 100.2200, L7000.1800 #### Laboratory [address] [place], [address] GFR/1.73 sq M.predicted among non-blacks MDRD (S/P/Bld) [Vol rate/Area] 136 mL/min/{1.73_m2} Normal >60 Comment on above: Result Comment: mL/m in/1.73m2 CKD-EPI Creatinine Equation (2020) Performed By: #### M 100.2200, L7000.1800 #### Laboratory [address] [place], [address] Globulin (S) [Mass/Vol] 3.3 g/dL Normal 2.2-4.2 Comment on above: Performed By: #### M 100.2200, L7000.1800 #### Laboratory [address] [place], [address] Glucose [Mass/Vol] 79 mg/dL Normal 70-99 [facility] Comment on above: Performed By: #### M 100.2200, L7000.1800 #### Laboratory [address] [place], [address] Potassium [Moles/Vol] 3.8 mmol/L Normal 3.3-5.1 [facility] Comment on above: Performed By: #### M 100.2200, L7000.1800 #### Laboratory [address] [place], [address] Sodium [Moles/Vol] 137 mmol/L Normal 133-145 [facility] Comment on above: Performed By: #### M 100.2200, L7000.1800 #### Laboratory [address] [place], [address] T PROT 7.6 g/dL Normal 5.9-8.4 Comment on above: Performed By: #### M 100.2200, L7000.1800 #### Laboratory [address] [place], [address] Urea nitrogen [Mass/Vol] 12 mg/dL Normal 4-19 Comment on above: Performed By: #### M 100.2200, L7000.1800 #### Laboratory [address] [place], [address] Emergency Department Summary on 12-30-2024 Emergency Department Summary [facility] Medical Records Department [address] [place] [address] Emergency Department Summary 12/30/24 MR#: [id number] Acct: [id number] Name: NORBERTO COTTON #: [id number] : 2005 19 From: Allan Clayton DO PCP: Care Physician,No Primary Status:REG ER Location: ED HPI History of Present Illness Chief Complaint: Abd Pain Narrative Narrative: Chief complaint and HPI: Lower abdominal pain. 19-year-old female who is and 7 weeks presents for evaluation of lower abdominal pain. Patient states she has been having lower abdominal pain for the past 2 to 3 weeks, worse on the right. States pain started around her positive test. Patient states she follows with [place] [facility] RN in which she had an ultrasound a couple weeks ago that showed a cyst on her right ovary IUP. Patient states there was some dilation of the bowel and told her to monitor for symptoms of appendicitis. Patient states that the pain has continued intermittently. Patient states she was seen in our emergency department for the pain previously she states she had unremarkable laboratory workup and the ED physician have low suspicion for appendicitis so CT abdomen pelvis was foregone. Patient states she had another checkup with her CRITICAL CARE RN today in which she saw a nurse. States she told them that the pain was continuing and then was told that she needs to come to emergency department for CT abdomen pelvis to rule out appendicitis. Patient denies any fever, chills, shortness of breath, chest pain, nausea, vomiting, constipation, diarrhea, dysuria, vaginal bleeding, vaginal discharge. States she is eating and drinking well. Review of systems: See HPI Medications: As listed on the chart Allergies: As listed on the chart PFSH: Per chart Vital signs: As listed on the chart. Reviewed. Physical exam: Gen: A O x3, NAD Head: Normocephalic, atraumatic Eyes: No sclera icterus, conjunctiva clear ENT: Moist mucous membranes Neck: Trachea midline, No JVD CV: RRR, no murmurs, no peripheral edema Resp: Lungs CTA BL, no w/r/c GI: Abd soft, non-distended, mildly tender to palpation in the bilateral lower quadrant, negative McBurney sign, no r/r/g : No CVA tenderness Musc: Full ROM, no deformity Skin: Warm, dry Neuro: Alert, oriented, grossly intact, sensation intact Psych: Cooperative, appropriate mood and affect [facility] Medical History (Updated 12/30/24 @ 20:[address] Allan Clayton, DO) Abdominal pain Home Medications ???Medication ???Instructions ???Recorded ???Last Taken ???Type prochlorperazine maleate 10 mg 10 mg PO Q8H PRN nausea and Unknown Rx tablet (Compazine) vomiting #90 tabs Allergy/AdvReac Type Severity Reaction Status Date / Time No Known Allergies Allergy Verified 12/30/24 17:40 Family History (Updated 12/30/24 @ 11:15 by Aicha Nieves RN) Grandmother Uterine cancer Diabetes Grandfather Brain aneurysm Diabetes Social History (Updated 12/30/24 @ 11:21 by Aicha Nieves RN) adopted: No household members: significant other and friend(s) number of children: 0 current occupational status: employed current occupation: [employer] current occupational exposures/hazards: No pets and animals: Yes pets and animals: dog(s) and other details: Duck (3) history of recent travel: No sexually active: Yes Smoking Status: Current some day smoker tobacco type: e-cigarettes second hand exposure: No quit status: considering quitting alcohol intake: current alcohol intake frequency: holidays/special occasions only details: Not while substance use type: does not use well-balanced diet: about half the time caffeine: No eating out: 4 or more times/week during the past year weight has: remained stable what type of physical activity do you participate in: walking frequency: 3-4 times per week duration: < 15 minutes/day sarah/buddhist: Druze seatbelt use: always do you feel safe at home: Yes additional social history: BF: Jeremiah - Traffic 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 Patient states she has been having lower abdominal pain for the past 2 to 3 weeks, worse on the right. States pain started around her positive test. Patient states she follows with [place] [facility] RN in which she had an ultr (more content not included)... Normal Eosinophil percentageOrdered By: Allan Clayton on 12-30-2024 Eosinophils/100 WBC (Bld) 0.1 % 0-5 Erythrocyte distribution wid th ratioOrdered By: Allannik Clayton on 12-30-2024 Erythrocyte distribution width (RBC) [Ratio] 12.5 % 11.6-14.6 Erythrocyte distribution wid th standard deviationOrdered By: Allan nina Busch on 12-30-2024 Erythrocyte distribution width (RBC) [Ratio] 43.9 fl 35.1-43.9 Glomerular filtration rate ( GFR) estimation/1.73 sq m using serum, plasma, or whole bOrdered By: Allan Clayton on 12-30-2024 GFR/1.73 sq M.predicted among non-blacks MDRD (S/P/Bld) [Vol rate/Area] 136 mL/min/{1.73_m2} >60 Comment on above: mL/min/1.73m2 CKD-EP I Creatinine Equation (2020) Hematocrit Auto (Bld) [Volum e fraction]Ordered By: Allan Clayton on 12-30-2024 Hematocrit (Bld) [Volume fraction] 38.0 % 37-47 Hemoglobin measurementOrdere d By: Allan Clayton on 12-30-2024 Hemoglobin (Bld) [Mass/Vol] 12.4 g/dL 12.0-15.0 Immature granulocytes/100 WB C Auto (Bld)Ordered By: Allan Clayton on 12-30-2024 Immature granulocytes/100 WBC (Bld) 0.100 % 0.0-0.9 Comment on above: IG% - Immature Granu locytes (promyelocytes, myelocytes and metamyelocytes) > 1% indicates that a LEFT SHIFT is Present. Ketones Test strip Ql (U)Ord ered By: Allan Clayton on 12-30-2024 Ketones Ql (U) Negative Negative Laboratory - Chemistry and C hemistry - challengeOrdered By: Allan Clayton on 12-30-2024 AST [Catalytic activity/Vol] 14 U/L <32 Laboratory - Chemistry and C hemistry - challengeOrdered By: Antonia Connolly on 12-30-2024 HCG ( test) Ql (U) Positive Lipaseon 12-30-2024 Lipase [Catalytic activity/Vol] 24 U/L Normal 13-75 Comment on above: Result Comment: Delfino franco note: LIPASE revised reference range effective 22. New Lipase methodology. Expected to produce lower values than the previous assay method. NEW Reference Range: 13 - 75 U/L Performed By: #### M 100.2200, L7000.1800 #### Laboratory [address] [place], [address] Lipase measurementOrdered By : Allan Clayton on 12-30-2024 Lipase [Catalytic activity/Vol] 24 U/L 13-75 Comment on above: Please note:LIPASE r evised reference range effective 22. New Lipase methodology. Expected to produce lower values than the previous assay method. NEW Reference Range: 13 - 75 U/L MCV (mean corpuscular volume ) determinationOrdered By: Allan Clayton on 12-30-2024 MCV (RBC) [Entitic vol] 95.7 fL 81-99 Mean corpuscular hemoglobin (MCH) determinationOrdered By: Allan Clayton on 12-30-2024 MCH (RBC) [Entitic mass] 31.2 pg 27.0-32.0 Mean corpuscular hemoglobin concentration (MCHC) determinationOrdered By: Allan Clayton on 12-30-2024 MCHC (RBC) [Mass/Vol] 32.6 g/dL 32-36 [facility] Mean platelet volume determi nationOrdered By: Allan Clayton on 12-30-2024 Platelet mean volume (Bld) [Entitic vol] 10.7 fL 6.2-12.0 Microscopic analysis of urin e for red blood cells (RBC)Ordered By: Allan Clayton on 12-30-2024 Microscopic analysis of urine for red blood cells (RBC) 0-5 SEEN /hpf 0-5 Monocyte percentageOrdered B y: Allan Clayton on 12-30-2024 Monocytes/100 WBC (Bld) 6.9 % 0-10 Mucus LM Ql (Urine sed)Order ed By: Allan Clayton on 12-30-2024 Mucus Ql (Urine sed) 0 SEEN /hpf [facility] Neutrophil percentageOrdered By: [facility] HospitalpedroCarlos AlbertoNarayan on 12-30-2024 Neutrophils/100 WBC (Bld) 62.4 % 47-70 Nitrite Test strip Ql (U)Ord ered By: Allan GaviriaNarayan on 12-30-2024 Nitrite Ql (U) Negative Negative Nucleated red blood cell per centageOrdered By: [facility] HospitalbárbaraNarayan on 12-30-2024 Nucleated RBC/100 WBC (Bld) [Ratio] 0 % 0-5 Office Visit Reporton 2024 Office Visit Report [facility] [address] [place] [address] OFFICE VISIT Date of Service: 12/30/24 MR#: [id number] Acct: [id number] Patient: NORBERTO COTTON Rep #: [id number] : 2005 Provider: TU khoury Age/Sex: 19/F Location: [facility] [facility] Status: Signed Intake Vital Signs 12/19/24 14:59 12/30/24 11:49 Height 5 ft 4 in 5 ft 4 in Weight: 105 lb 4 oz BMI 18.0 BP 90/62 Intake Visit Reasons: PNOB Confirm , Vitals Chief Complaint: Inperson PNOB Accompanied by: Friend Allergies No Known Allergies Allergy (Verified 12/30/24 11:50) Medications ???Medication ???Instructions ???Recorded ???Confirmed ???Type prochlorperazine maleate 10 mg 10 mg PO Q8H PRN nausea and 12/30/24 Rx tablet (Compazine) vomiting #90 tabs Is last menstrual period known: Yes Post menopausal: No Patient : Yes Nurse's Note: Pt here for secondary amenorrhea. Office UPT: positive. Vitals WNL. PNOB questions completed. Problem list, allergies, and medications updated. First trimester ACOG education completed. Results POC Urine Office , Urine Positive Last Edit by Aicha Nieves RN on 12/30/24 11:51 Assessment and Plan Assessment and Plan (1) Amenorrhea: Orders: Orders POC Urine Today N91.1 - Secondary amenorrhea CBC W/Diff, Automated Today Z34.90 - Encounter for supervision of normal , unspecified, unspecified trimester Type Screen Today Z34.90 - Encounter for supervision of normal , unspecified, unspecified trimester Rubella IgG Today Z34.90 - Encounter for supervision of normal , unspecified, unspecified trimester Hepatitis C Antibody Today Z34.90 - Encounter for supervision of normal , unspecified, unspecified trimester Hepatitis B Surface Antigen Today Z34.90 - Encounter for supervision of normal , unspecified, unspecified trimester Culture, Urine Today Z34.90 - Encounter for supervision of normal , unspecified, unspecified trimester Syphilis Antibodies Today Z34.90 - Encounter for supervision of normal , unspecified, unspecified trimester Chlamydia/GC DEVIKA aptima Today Z34.90 - Encounter for supervision of normal , unspecified, unspecified trimester HIV Today Z34.90 - Encounter for supervision of normal , unspecified, unspecified trimester FERNANDO Today Z34.90 - Encounter for supervision of normal , unspecified, unspecified trimester Vitamin B12 Today R63.6 - Underweight, Z34.90 - Encounter for supervision of normal , unspecified, unspecified trimester, Z68.1 - Body mass index [BMI] 19.9 or less, adult Vitamin B1, Thiamine Today R63.6 - Underweight, Z34.90 - Encounter for supervision of normal , unspecified, unspecified trimester, Z68.1 - Body mass index [BMI] 19.9 or less, adult Iron+Iron Binding Capacity Today R63.6 - Underweight, Z34.90 - Encounter for supervision of normal , unspecified, unspecified trimester, Z68.1 - Body mass index [BMI] 19.9 or less, adult Ferritin Today R63.6 - Underweight, Z34.90 - Encounter for supervision of normal , unspecified, unspecified trimester, Z68.1 - Body mass index [BMI] 19.9 or less, adult Plan Confirmed . RTO NOB appt 12/30/24 1323 Date Deepti Woosung CHEF PASSENGER VESSEL CHEF PASSENGER VESSEL-C Cosigner Signature: Date (if applicable) CC: Normal Platelet countOrdered By: Sergei Clayton on 12-30-2024 Platelets (Bld) [#/Vol] 284 10*3/uL 150-450 Potassium measurement (mass/ volume)Ordered By: Allan Clayton on 12-30-2024 Potassium (Unsp spec) [Mass/Vol] 3.8 mmol/L 3.3-5.1 Protein Test strip Ql (U)Ord ered By: Allan Clayton on 12-30-2024 Protein Ql (U) Negative Negative RBC Auto (Bld) [#/Vol]Ordere d By: Allan Clayton on 12-30-2024 RBC (Bld) [#/Vol] 3.97 10*6/uL Low 4.2-5.4 [facility] Serum creatinine measurement (mass/volume)Ordered By: Allan Clayton on 12-30-2024 Creatinine [Mass/Vol] 0.53 mg/dL Low 0.70-1.20 [facility] Serum globulin measurementOr dered By: Allan Clayton on 12-30-2024 Globulin (S) [Mass/Vol] 3.3 g/dL 2.2-4.2 Serum glucose measurement (m ass/volume)Ordered By: Allan Clayton on 12-30-2024 Glucose [Mass/Vol] 79 mg/dL 70-99 [facility] Serum or plasma alanine lozano otransferase (ALT) measurementOrdered By: Allan Clayton on 12-30-2024 ALT [Catalytic activity/Vol] 10 U/L <35 Serum or plasma albumin nancy urement (mass/volume)Ordered By: Allan Busch on 12-30-2024 Albumin [Mass/Vol] 4.3 g/dL 3.5-5.0 [facility] Serum or plasma albumin/glob ulin mass ratioOrdered By: Allan Clayton on 12-30-2024 Albumin/Globulin [Mass ratio] 1.3 {ratio} 0.9-2.4 Serum or plasma alkaline jose manuel sphatase measurementOrdered By: Allan Clayton on 12-30-2024 ALP [Catalytic activity/Vol] 54 U/L 35-104 Serum or plasma calcium nancy urement (mass/volume)Ordered By: Allan Busch on 12-30-2024 Calcium [Mass/Vol] 9.3 mg/dL 7.6-11.0 [facility] Serum or plasma urea nitroge n measurement (mass/volume)Ordered By: Allan Clayton on 12-30-2024 Urea nitrogen [Mass/Vol] 12 mg/dL 4-19 Sodium levelOrdered By: Dexter Clayton on 12-30-2024 Sodium [Moles/Vol] 137 mmol/L 133-145 [facility] Squamous epithelial cells de tection in urine sediment by light microscopyOrdered By: Allan Clayton on 12-30-2024 Epithelial cells.squamous LM Ql (Urine sed) 0-5 SEEN /hpf 5-10 Total proteinOrdered By: Constantino Clayton on 12-30-2024 Protein [Mass/Vol] 7.6 g/dL 5.9-8.4 [facility] Transvaginal w/Preg USon Transvaginal w/Preg US [facility] [address] [place], [place] [address] Transvaginal w/Preg US MR#: [id number] Acct: [id number] Name: NORBERTO COTTON Rep #: [id number] : 2005 F 19 From: Ezequiel Villanueva MD PCP: Care Physician,No Primary Status: REG ER Study: Transvaginal w/Preg US Date of Exam: 12/30/24 Exam# [id number] Ordering Dr: Allan Clayton DO PROCEDURE: TRANSVAGINAL W/PREG US 12/30/2024 REASON FOR EXAM: PELVIC PAIN TECHNIQUE: TRANSVAGINAL W/PREG US COMPARISON: None. FINDINGS Single live intrauterine which measures 6 weeks and 5 days by crown-rump length. heart rate of 121 beats per minute. A yolk sac is present. Estimated gestational age by last menstrual period of 7 weeks and 1 day. Uterus measures 7.6 x 4.7 x 3.7 cm. No visualized fibroids. Closed cervix. No fluid in the cul-de-sac. Right ovary measures 3.5 x 2.8 x 2.1 cm with preserved vascular flow. Right ovarian 2.1 x 1.9 cm heterogeneous lesion with peripheral color Doppler flow. No definite internal fluid or granulation to confirm a corpus luteum. Left ovary measures 2.4 x 1.5 x 1.4 cm with preserved vascular flow. US/Transvaginal w/Preg US IMPRESSION: Right ovarian lesion equivocal for a corpus luteum. Short interval follow-up ultrasound to characterize is recommended. Single live intrauterine . Reading Location: [id number] CC: Dr. Allan Clayton DO; No Primary Care Physician Social Work Associate: Signed Normal Urinalysis, Completeon 12-30 BACTERIA RARE Normal None Seen Comment on above: Order Comment: CLEAN CATCH Performed By: #### L 400.0001 #### Laboratory [address] [place], [address] EPI,SQUAMOUS 0-5 SEEN Normal 5-10 Comment on above: Order Comment: CLEAN CATCH Performed By: #### L 400.0001 #### Laboratory [address] [place], [address] RBC 0-5 SEEN Normal 0-5 Comment on above: Order Comment: CLEAN CATCH Performed By: #### L 400.0001 #### Laboratory [address] [place], [address] WBC 0-5 SEEN Normal 0-5 Comment on above: Order Comment: CLEAN CATCH Performed By: #### L 400.0001 #### Laboratory [address] [place], [address] Mucus Ql (Urine sed) 0 SEEN Normal [facility] Comment on above: Order Comment: CLEAN CATCH Performed By: #### L 400.0001 #### Laboratory [address] [place], [address] Urine clarityOrdered By: Constantino Clayton on 12-30-2024 Clarity (U) Clear Clear Urine color determinationOrd ered By: Allan Clayton on 12-30-2024 Color (U) Straw Yellow Urine glucose detectionOrder ed By: Allan Clayton on 12-30-2024 Glucose Ql (U) Normal mg/dl Normal Urine leukocyte esterase det ection by dipstickOrdered By: Allan Clayton on 12-30-2024 Leukocyte esterase Test strip Ql (U) Negative Negative Urine pHOrdered By: Allan Biggs on 12-30-2024 pH (U) 6.5 [pH] 5.0 - 8.0 Urine sediment bacteria coun t by microscopy (number/high power field)Ordered By: Allan Clayton on 12-30-2024 Bacteria LM.HPF (Urine sed) [#/Area] RARE /hpf None Seen Urine specific gravity measu rementOrdered By: Allan Clayton on 12-30-2024 Specific gravity (U) [Rel density] 1.015 1.002-1.030 Urine urobilinogen measureme ntOrdered By: Allan Clayton on 12-30-2024 Urobilinogen Ql (U) Normal mg/dl Normal [facility] White blood cell (WBC) count Ordered By: [facility] on 12-30-2024 WBC (Bld) [#/Vol] 7.7 10*3/uL 4.4-11.0 [facility] White blood cell countOrdere d By: Allan Clayton on 12-30-2024 White blood cell count 0-5 SEEN /hpf 0-5 Urine Cultureon 12-21-2024 URC Below infection leve l. Mixed Gram Positive Organisms [place]awk Count 1000-10,000 MIXC Mixed contaminants. Submit a new specimen if indicated. Normal Comment on above: Performed By: #### M 100.2200 #### Laboratory [address] [place], [address] Absolute lymphocyte countOrd ered By: Kelly Peterson on 12-19-2024 Lymphocytes Auto (Unsp spec) [#/Vol] 1.61 10*3/uL 0.83-4.51 Absolute neutrophil countOrd ered By: Remus Nicholas on 12-19-2024 Neutrophils (Bld) [#/Vol] 3.0 10*3/uL 2.0-7.7 Anion gap in Serum or Plasma Ordered By: Remus Nicholas on 12-19-2024 Anion gap [Moles/Vol] 11 mmol/L 5-15 [facility] Automated blood erythrocyte countOrdered By: Remus Nicholas on 12-19-2024 RBC (Bld) [#/Vol] 3.99 10*6/uL Low 4.2-5.4 [facility] Comment on above: Performed By: #### M 100.2200, L7000.1800 #### Laboratory [address] [place], [address] Automated blood hematocrit ( percentage)Ordered By: Kelly Peterson on 12-19-2024 Hematocrit (Bld) [Volume fraction] 38.0 % Normal 37-47 Comment on above: Performed By: #### M 100.2200, L7000.1800 #### Laboratory [address] [place], [place], [id number] Automated lymphocyte count a s percentage of total leukocytesOrdered By: Kelly Peterson on 12-19-2024 Lymphocytes/100 WBC Auto (Unsp spec) 31.2 % 19-41 BUN/creatinine ratioOrdered By: Kelly Peterson on 12-19-2024 Urea nitrogen/Creatinine [Mass ratio] 15.0 mg/mg 10-20 Basophil percentageOrdered B y: Kelly Peterson on 12-19-2024 Basophils/100 WBC (Bld) 0.2 % Normal 0-1 Comment on above: Performed By: #### M 100.2200, L7000.1800 #### Laboratory [address] [place], [place], [id number] Bilirubin Test strip Ql (U)O rdered By: Kelly Peterson on 12-19-2024 Bilirubin Ql (U) Negative Negative Bilirubin, totalOrdered By: Kelly Peterson on 12-19-2024 Bilirubin [Mass/Vol] 0.21 mg/dL Normal 0.00-1.30 [facility] Comment on above: Performed By: #### M 100.2200, L7000.1800 #### Laboratory [address] [place], [place], [id number] CBC W/Diff, Automatedon - Absolute Lymph 1.61 X10 3/uL Normal 0.83-4.51 Comment on above: Performed By: #### M 100.2200, L7000.1800 #### Laboratory [address] [place], [address] Absolute Neut 3.0 X10 3/uL Normal 2.0-7.7 Comment on above: Performed By: #### M 100.2200, L7000.1800 #### Laboratory [address] [place], [address] IG% 0.200 Normal 0.0-0.9 Comment on above: Result Comment: IG% - Immature Granulocytes (promyelocytes, myelocytes and metamyelocytes) > 1% indicates that a LEFT SHIFT is Present. Performed By: #### M 100.2200, L7000.1800 #### Laboratory [address] [place], [address] Lymphocytes/100 WBC (Bld) 31.2 % Normal 19-41 Comment on above: Performed By: #### M 100.2200, L7000.1800 #### Laboratory [address] [place], [address] Nucleated RBC (Bld) [#/Vol] 0 10*3/uL Normal 0-5 Comment on above: Performed By: #### M 100.2200, L7000.1800 #### Laboratory [address] [place], [address] RDW SD 43.1 fl Normal 35.1-43.9 Comment on above: Performed By: #### M 100.2200, L7000.1800 #### Laboratory [address] [place], [address] CRPon 12-19-2024 C-REACTIVE PROT 9.60 mg/L High 0.0-3.0 Comment on above: Performed By: #### M 100.2200, L7000.1800 #### Laboratory [address] [place], [address] Carbon dioxide, total [Moles /volume] in Central venous bloodOrdered By: Kelly Peterson on 12-19-2024 CO2 [Moles/Vol] 22.4 mmol/L Normal 21.0-32.0 Comment on above: Performed By: #### M 100.2200, L7000.1800 #### Laboratory [address] [place], [address] Chloride assayOrdered By: Leanne Peterson on 12-19-2024 Chloride [Moles/Vol] 104 mmol/L Normal 98-108 [facility] Comment on above: Performed By: #### M 100.2200, L7000.1800 #### Laboratory [address] [place], [address] Comprehensive Metabolic Prof ilon 12-19-2024 ALK PHOS 66 U/L Normal 35-104 Comment on above: Performed By: #### M 100.2200, L7000.1800 #### Laboratory [address] [place], [address] BUN/CRE 15.0 RATIO Normal 10-20 Comment on above: Performed By: #### M 100.2200, L7000.1800 #### Laboratory [address] [place], [address] ECRCL 96.11 ml/min Normal 50-250 Comment on above: Performed By: #### M 100.2200, L7000.1800 #### Laboratory [address] [place], [address] GAP 11 Normal 5-15 Comment on above: Performed By: #### M 100.2200, L7000.1800 #### Laboratory [address] [place], [address] Potassium [Moles/Vol] 3.8 mmol/L Normal 3.3-5.1 [facility] Comment on above: Performed By: #### M 100.2200, L7000.1800 #### Laboratory [address] [place], [address] T PROT 7.7 g/dL Normal 5.9-8.4 Comment on above: Performed By: #### M 100.2200, L7000.1800 #### Laboratory [address] [place], [address] Comprehensive Metabolic Prof ilOrdered By: Kelly Peterson on 12-19-2024 AST [Catalytic activity/Vol] 16 U/L Normal <=31 Comment on above: Performed By: #### M 100.2200, L7000.1800 #### Laboratory [address] [place], [address] Emergency Department Summary on 12-19-2024 Emergency Department Summary [facility] Medical Records Department [address] [place] [address] Emergency Department Summary 12/19/24 MR#: [id number] Acct: [id number] Name: NORBERTO COTTON Rep #: [id number] : 2005 19 From: Kelly Peterson DO PCP: Care Physician,No Primary Status:DEP ER Location: ED HPI HPI - GI History of Present Illness Chief Complaint: Abd Pain Detail of Chief Complaint: Abdominal pain Informant: patient Narrative Narrative: Patient presents with abdominal pain started several days ago. She was seen by her CRITICAL CARE RN in the office yesterday and had an ultrasound that showed cyst on her right ovary. Patient states that there was some dilatation of the bowel and there was some concern for appendicitis but was told monitor her symptoms. She has had some nausea but no vomiting. She denies fever. She denies diarrhea. She denies urinary symptoms. Today she continues to have cramping to the lower abdomen worse on the right and presents for evaluation. She thinks she is 5 weeks and 3 days . Her period was November 10. She is G1, P0. [facility] Medical History (Updated 12/19/24 @ 17:[address] Kelly Peterson, DO) Abdominal pain Home Medications ???Medication ???Instructions ???Recorded ???Last Taken ???Type prochlorperazine maleate 10 mg 10 mg PO Q8H PRN nausea and Unknown Rx tablet (Compazine) vomiting #90 tabs hydrocodone-acetaminophen 5-325mg 1 tab PO Q4H PRN PRN Pain 2 days 12/19/24 Unknown Rx 5mg-325mg #10 TABLETS Allergy/AdvReac Type Severity Reaction Status Date / Time No Known Allergies Allergy Verified 12/19/24 14:58 Social History Smoking Status: Unknown if ever smoked ROS ROS ED Review of Systems ROS Unobtainable: other Constitutional Constitutional ED: Reports lethargy; Denies chills, fever(s), sweats or weight loss Eyes Eyes: Denies blurry vision, change in vision or diplopia ENT ENT ED: Denies rhinorrhea or sore throat Cardiovascular Cardiovascular: Denies chest pain, orthopnea or racing heartbeat Respiratory/Chest Respiratory/Chest: Denies cough, dyspnea, dyspnea on exertion, orthopnea or sputum Gastrointestinal Gastrointestinal: Reports abdominal pain and nausea; Denies diarrhea or vomiting Genitourinary Genitourinary ED: Denies dysuria, hematuria or urinary frequency Musculoskeletal Musculoskeletal: Denies arthralgias, back pain, myalgias or neck pain Integumentary Denies abscess, Abrasions or rash Neurologic Neurologic: Denies headache(s) or weakness Psychiatric Psychiatric: Denies anxiety, depression or suicidal thoughts Endocrine Endocrinology: Denies polydipsia, polyphagia or polyuria Hematologic/Lymphatic Hematologic/Lymphatic: Denies easy bleeding, easy bruising or lymphadenopathy Allergic/Immunologic Allergic/Immunologic ED: Denies mouth swelling, tongue swelling or urticaria EXAM Physical Exam Const Vital Signs: 12/19/24 14:59 12/19/24 16:56 Temperature 97.6 F L 98.6 F Temperature Source Oral Oral Pulse Rate 83 66 Respiratory Rate 18 16 Blood Pressure 91/61 107/60 Blood Pressure Mean 71 75 Pulse Ox 100 100 Oxygen Delivery Method Room Air Room Air Positive well nourished and well developed General Appearance ED: well developed and NAD HEENT Reports TM's clear and moist mucous membranes normocephalic and atraumatic; Negative for trauma or tenderness Tympanic Membrane ED: Yes TM's clear Eyes PERRL and EOMs intact bilaterally General Eye ED: Negative for pale conjunctiva or scleral icterus Neck no lymphadenopathy, supple and no JVD General: Negative for tenderness Chest Wall inspection of chest normal and palpation of chest normal Chest: Negative for tenderness Resp normal respiratory effort and clear to auscultation bilaterally Effort and Inspection: Negative for respiratory distress or pain with movement Auscultation: Negative for rhonchi, wheezes or diminished lung sounds Cardio regular rate, regular rhythm, S1 normal heart sound, S2 normal heart sound and no murmurs Peripheral Pulses: pulses 2+ throughout GI normal to inspection, nondistended, normoactive bowel sounds, soft to palpation, non-distended and no masses GI Narrative: Mild diffuse tenderness over the right lower quadrant and left lower quadrant with some guarding. She has got a positive Tovar sign on the right. No rebound or rigidity. Back/Spine no CVA tenderness and no thoracic nor lumbar tenderness Extremity normal to inspection General Extremety ED: Negative for edema General Extremity: Negative for edema Neuro oriented x3, CN's II-XII intact bilaterally, no sensory deficits noted and gait normal Sensorium / Orientation: awake, alert, oriented to person, oriented to place and oriented to time Motor Exam: strength 5/5 throughout and strength abnor (more content not included)... Normal Eosinophil percentageOrdered By: Kelly Peterson on 12-19-2024 Eosinophils/100 WBC (Bld) 0.6 % Normal 0-5 Comment on above: Performed By: #### M 100.2200, L7000.1800 #### Laboratory [address] [place], [place], [id number] Erythrocyte Sed Rateon 12-19 SED RATE 13 mm/hr Normal 0-30 Comment on above: Performed By: #### M 100.2200, L7000.1800 #### Laboratory [address] [place], [address] Erythrocyte distribution wid th ratioOrdered By: Kelly Peterson on 12-19-2024 Erythrocyte distribution width (RBC) [Ratio] 12.4 % Normal 11.6-14.6 Comment on above: Performed By: #### M 100.2200, L7000.1800 #### Laboratory [address] [place], [place], [address] Erythrocyte distribution wid th standard deviationOrdered By: Kelly Peterson on 12-19-2024 Erythrocyte distribution width (RBC) [Ratio] 43.1 fl 35.1-43.9 Erythrocyte sedimentation ra teOrdered By: Kelly Peterson on 12-19-2024 ESR (Bld) [Velocity] 13 mm/h 0-30 [facility] Glomerular filtration rate ( GFR) estimation/1.73 sq m using serum, plasma, or whole bOrdered By: Kelly Peterson on 12-19-2024 GFR/1.73 sq M.predicted among non-blacks MDRD (S/P/Bld) [Vol rate/Area] 127 mL/min/{1.73_m2} Normal >60 Comment on above: mL/min/1.73m2 CKD-EP I Creatinine Equation (2020) Result Comment: mL/m in/1.73m2 CKD-EPI Creatinine Equation (2020) Performed By: #### M 100.2200, L7000.1800 #### Laboratory [address] [place], [place], [id number] Hemoglobin measurementOrdere d By: Kelly Peterson on 12-19-2024 Hemoglobin (Bld) [Mass/Vol] 12.6 g/dL Normal 12.0-15.0 Comment on above: Performed By: #### M 100.2200, L7000.1800 #### Laboratory [address] [facility] [place], [address] Immature granulocytes/100 WB C Auto (Bld)Ordered By: Kelly Peterson on 12-19-2024 Immature granulocytes/100 WBC (Bld) 0.200 % 0.0-0.9 Comment on above: IG% - Immature Granu locytes (promyelocytes, myelocytes and metamyelocytes) > 1% indicates that a LEFT SHIFT is Present. Ketones Test strip Ql (U)Ord ered By: Kelly Peterson on 12-19-2024 Ketones Ql (U) 15 mg/dl High Negative MCV (mean corpuscular volume ) determinationOrdered By: Kelly Peterson on 12-19-2024 MCV (RBC) [Entitic vol] 95.2 fL Normal 81-99 Comment on above: Performed By: #### M 100.2200, L7000.1800 #### Laboratory [address] [place], [place], [id number] Mean corpuscular hemoglobin (MCH) determinationOrdered By: Kelly Peterson on 12-19-2024 MCH (RBC) [Entitic mass] 31.6 pg Normal 27.0-32.0 Comment on above: Performed By: #### M 100.2200, L7000.1800 #### Laboratory [address] [place], [place], [address] Mean corpuscular hemoglobin concentration (MCHC) determinationOrdered By: Kelly Peterson on 12-19-2024 MCHC (RBC) [Mass/Vol] 33.2 g/dL Normal 32-36 [facility] Comment on above: Performed By: #### M 100.2200, L7000.1800 #### Laboratory [address] [place], [address] Mean platelet volume determi nationOrdered By: Kelly Peterson on 12-19-2024 Platelet mean volume (Bld) [Entitic vol] 9.8 fL Normal 6.2-12.0 Comment on above: Performed By: #### M 100.2200, L7000.1800 #### Laboratory [address] [place], [place], [id number] ([address] Microscopic analysis of urin e for red blood cells (RBC)Ordered By: Kelly Peterson on 12-19-2024 Microscopic analysis of urine for red blood cells (RBC) 0 SEEN /hpf 0-5 Monocyte percentageOrdered B y: Sabineus Valentinann on 12-19-2024 Monocytes/100 WBC (Bld) 10.5 % High 0-10 Comment on above: Performed By: #### M 100.2200, L7000.1800 #### Laboratory [address] [place], [place], [address] Mucus LM Ql (Urine sed)Order ed By: Kelly Peterson on 12-19-2024 Mucus Ql (Urine sed) 2+ /hpf [facility] Neutrophil percentageOrdered By: Kelly Peterson on 12-19-2024 Neutrophils/100 WBC (Bld) 57.3 % Normal 47-70 Comment on above: Performed By: #### M 100.2200, L7000.1800 #### Laboratory [address] [place], [place], [id number] Nitrite Test strip Ql (U)Ord ered By: Sabine Nicholas on 12-19-2024 Nitrite Ql (U) Negative Negative Nucleated red blood cell per centageOrdered By: Kelly Peterson on 12-19-2024 Nucleated RBC/100 WBC (Bld) [Ratio] 0 % 0-5 Platelet countOrdered By: Leanne Peterson on 12-19-2024 Platelets (Bld) [#/Vol] 259 10*3/uL Normal 150-450 Comment on above: Performed By: #### M 100.2200, L7000.1800 #### Laboratory [address] [place], [place], [address] Potassium measurement (mass/ volume)Ordered By: Kelly Peterson on 12-19-2024 Potassium (Unsp spec) [Mass/Vol] 3.8 mmol/L 3.3-5.1 Protein Test strip Ql (U)Ord ered By: Kelly Peterson on 12-19-2024 Protein Ql (U) 15 mg/dl High Negative Serum creatinine measurement (mass/volume)Ordered By: Kelly Peterson on 12-19-2024 Creatinine [Mass/Vol] 0.69 mg/dL Low 0.70-1.20 [facility] Comment on above: Performed By: #### M 100.2200, L7000.1800 #### Laboratory [address] [place], [place], [address] Serum globulin measurementOr dered By: Kelly Peterson on 12-19-2024 Globulin (S) [Mass/Vol] 3.5 g/dL Normal 2.2-4.2 Comment on above: Performed By: #### M 100.2200, L7000.1800 #### Laboratory [address] [place], [address] Serum glucose measurement (m ass/volume)Ordered By: Kelly Peterson on 12-19-2024 Glucose [Mass/Vol] 83 mg/dL Normal 70-99 [facility] Comment on above: Performed By: #### M 100.2200, L7000.1800 #### Laboratory [address] [facility] [place], [place], [address] Serum human chorionic gonado tropin detection for pregnancyOrdered By: Kelly Peterson on 12-19-2024 HCG ( test) Ql 4035 mIU/mL High <9 Comment on above: Gestational Age0.2-1 Week: 5-50 mIU/mL1-2 Weeks: 50-500 mIU/mL2-3 Weeks: 100-5000 mIU/mL3-4 Weeks: 500-10,000 mIU/mL4-5 Weeks:1000-50,000 mIU/mL5-6 Weeks: 10,000-100,000 mIU/mL6-8 Weeks: 15,000-200,000 mIU/mL2-3 Months:10,000-100,000 mIU/mL Serum or plasma C reactive p rotein measurement (mass/volume)Ordered By: Kelly Peterson on 12-19-2024 CRP [Mass/Vol] 9.60 mg/L High 0.0-3.0 Serum or plasma alanine lozano otransferase (ALT) measurementOrdered By: Remus Nicholas on 12-19-2024 ALT [Catalytic activity/Vol] 10 U/L Normal <=34 Comment on above: Performed By: #### M 100.2200, L7000.1800 #### Laboratory [address] [place], [address] Serum or plasma albumin nancy urement (mass/volume)Ordered By: Remus Nicholas on 12-19-2024 Albumin [Mass/Vol] 4.1 g/dL Normal 3.5-5.0 [facility] Comment on above: Performed By: #### M 100.2200, [id number] #### Laboratory [address] [place], [address] Serum or plasma albumin/glob ulin mass ratioOrdered By: Remus Nicholas on 12-19-2024 Albumin/Globulin [Mass ratio] 1.2 {ratio} Normal 0.9-2.4 Comment on above: Performed By: #### M 100.2200, L7000.1800 #### Laboratory [address] [place], [address] Serum or plasma alkaline jose manuel sphatase measurementOrdered By: Remus Nicholas on 12-19-2024 ALP [Catalytic activity/Vol] 66 U/L 35-104 Serum or plasma calcium nancy urement (mass/volume)Ordered By: Remus Ungann on 12-19-2024 Calcium [Mass/Vol] 9.0 mg/dL Normal 7.6-11.0 [facility] Comment on above: Performed By: #### M 100.2200, [id number] #### Laboratory [address] [place], [address] Serum or plasma urea nitroge n measurement (mass/volume)Ordered By: Remus Nicholas on 12-19-2024 Urea nitrogen [Mass/Vol] 10 mg/dL Normal 4-19 Comment on above: Performed By: #### M 100.2200, L7000.1800 #### Laboratory [address] [place], [address] Sodium levelOrdered By: Sabineu s Nicholas on 12-19-2024 Sodium [Moles/Vol] 137 mmol/L Normal 133-145 [facility] Comment on above: Performed By: #### M 100.2200, L7000.1800 #### Laboratory [address] [place], [address] Squamous epithelial cells de tection in urine sediment by light microscopyOrdered By: Remus Nicholas on 12-19-2024 Epithelial cells.squamous LM Ql (Urine sed) 0-5 SEEN /hpf 5-10 Total proteinOrdered By: Rem us Ungann on 12-19-2024 Protein [Mass/Vol] 7.7 g/dL 5.9-8.4 [facility] Urinalysis, Completeon 12-19 BACTERIA 2+ /hpf Normal None Seen Comment on above: Order Comment: CLEAN CATCH Performed By: #### M 100.2200, L7000.1800 #### Laboratory [address] [place], [address] EPI,SQUAMOUS 0-5 SEEN Normal 5-10 Comment on above: Order Comment: CLEAN CATCH Performed By: #### M 100.2200, L7000.1800 #### Laboratory [address] [place], [address] Mucus Ql (Urine sed) 2+ /hpf Normal [facility] Comment on above: Order Comment: CLEAN CATCH Performed By: #### M 100.2200, L7000.1800 #### Laboratory [address] [place], [address] WBC 5-10 SEEN Normal 0-5 Comment on above: Order Comment: CLEAN CATCH Performed By: #### M 100.2200, L7000.1800 #### Laboratory [address] [place], [address] RBC 0 SEEN Normal 0-5 Comment on above: Order Comment: CLEAN CATCH Performed By: #### M 100.2200, L7000.1800 #### Laboratory [address] [place], [place], [address] Urine clarityOrdered By: Rem us Nicholas on 12-19-2024 Clarity (U) Sl. Cloudy Clear Urine color determinationOrd ered By: Kelly Peterson on 12-19-2024 Color (U) Yellow Yellow Urine cultureOrdered By: Rem us Nicholas on 12-19-2024 Bacteria identified Cx Nom (U) Positive Abnormal Urine glucose detectionOrder ed By: Kelly Peterson on 12-19-2024 Glucose Ql (U) Normal mg/dl Normal Urine leukocyte esterase det ection by dipstickOrdered By: Remus Peterson on 12-19-2024 Leukocyte esterase Test strip Ql (U) 100 /ul High Negative Urine pHOrdered By: Kelly Un gur on 12-19-2024 pH (U) 6.0 [pH] 5.0 - 8.0 Urine sediment bacteria coun t by microscopy (number/high power field)Ordered By: Kelly Peterson on 12-19-2024 Bacteria LM.HPF (Urine sed) [#/Area] 2 /[HPF] None Seen Urine specific gravity measu rementOrdered By: Remus Nicholas on 12-19-2024 Specific gravity (U) [Rel density] 1.025 1.002-1.030 Urine urobilinogen measureme ntOrdered By: Remus Nicholas on 12-19-2024 Urobilinogen Ql (U) Normal mg/dl Normal [facility] White blood cell (WBC) count Ordered By: Remus Nicholas on 12-19-2024 WBC (Bld) [#/Vol] 5.2 10*3/uL Normal 4.4-11.0 [facility] Comment on above: Performed By: #### M 100.2200, L7000.1800 #### Laboratory [address] [place], [place], [address] White blood cell countOrdere d By: Kelly Peterson on 12-19-2024 White blood cell count 5-10 SEEN /hpf 0-5 hCG Titer Quant., Serumon HCG QUANT. 4035 mIU/mL High <9 non-preg Comment on above: Result Comment: Gest ational Age 0.2-1 Week: 5-50 mIU/mL 1-2 Weeks: 50-500 mIU/mL 2-3 Weeks: 100-5000 mIU/mL 3-4 Weeks: 500-10,000 mIU/mL 4-5 Weeks:1000-50,000 mIU/mL 5-6 Weeks: 10,000-100,000 mIU/mL 6-8 Weeks: 15,000-200,000 mIU/mL 2-3 Months:10,000-100,000 mIU/mL Performed By: #### M 100.2200, L7000.1800 #### Laboratory [address] [place], [place], [address] Laboratory - Chemistry and C hemistry - challengeOrdered By: Antonia Connolly on 12-18-2024 HCG ( test) Ql (U) Positive Actuarial Associate Office Visit Reporton 12-18-2024 Actuarial Associate Office Visit Report [facility] [address], [address] [place] [address] OFFICE VISIT Date of Service: 12/18/24 MR#: [id number] Acct: [id number] Name: NORBERTO COTTON Rep #: [id number] : 2005 Provider: Dr. Antonia lorenz MD Age/Sex: 19/F Location[place] [facility] [place] Status: Signed Intake Vital Signs 12/18/24 10:39 12/18/24 10:52 Height 5 ft 4 in 5 ft 4 in Weight: 104 lb 8 oz BMI 17.9 BP 97/66 Intake Visit Reasons: Confirm UPT, Vitals Chief Complaint: COnfirm UPT, vitals Soil Conservation Teacher Required: No Is patient in pain?: No Allergies No Known Allergies Allergy (Verified 12/18/24 10:38) Medications ???Medication ???Instructions ???Recorded ???Confirmed ???Type NK 12/18/24 12/18/24 History prochlorperazine maleate 10 mg 10 mg PO Q8H PRN nausea and 12/18/24 Rx tablet (Compazine) vomiting #90 tabs Is last menstrual period known: Yes Last Menstrual Period: 11/10/24 Post menopausal: No Patient : Yes : No HPI Confirm UPT, Vitals Details: NORBERTO COTTON is a 19 year old who presents for early . she is having pain on the right side for the last week intermittently. she hasn't taken anything for it, no bleeding. she denies any fevers, co some diizness. she co severe nausea and some emesis. bedside ultrasound shows early IUP 5w2d GS 5.6cm and with YS seen. left adnexa not well visualized no free fluid and right ovary has 1.9cm cyst seen Female Reproductive History Last Menstrual Period: 11/10/24 ROS Const Constitutional: Denies fatigue, fever(s), headache(s), increased appetite, poor appetite, weight gain or weight loss Cardio Card: Denies chest pain Resp Resp: Denies cough or dyspnea GI GI: Reports as per HPI; Denies constipation : Reports as per HPI Skin Skin/Breast: Denies change in hair, breast mass, breast pain or breast skin changes Exam Const General: cooperative, healthy appearing, comfortable, no acute distress and well developed Nutritional Appearance: average body habitus Orientation: alert HENMT Head: normal to inspection and normocephalic Neck Neck: normal visual inspection and trachea midline Thyroid: thyroid normal Resp Effort Inspection: normal respiratory effort GI Inspection: normal to inspection and non-distended Palpation: soft and no hepatosplenomegaly General: bladder normal to palpation External Female Exam: normal external appearance and normal appearance of the urethra Urethra: normal appearance of the urethra, normal palpation and no discharge Speculum Exam - Vagina: normal appearance of the vagina and normal vaginal discharge Speculum Exam - Cervix: normal appearance of the cervix and nontender Bimanual Exam- Vagina Uterus: normal bimanual exam, uterine size normal, bladder normal to palpation, uterine shape normal, No tender, uterine mobility normal, consistency normal, normal palpation and non-tender Bimanual Exam- Adnexa, other: normal adnexae, adnexae mobile, no masses and normal Pelvic Support: normal Skin General: no rashes or lesions noted Results POC Urine Office , Urine Positive Last Edit by Heidy Miller on 12/18/24 10:53 Coding Level of Care Code Off vis,new,level 3 Diagnoses Z34.90 Abdominal pain affecting O26.899; R10.9 Assessment and Plan Assessment and Plan (1) : Status: Acute (2) Abdominal pain affecting : Status: Acute Orders: Orders POC Urine Today N91.2 - Amenorrhea, unspecified Medications: New prochlorperazine maleate (Compazine) 10 mg PO Q8H PRN 90 tabs 3RF nausea and vomiting Plan Problem list updated and treatment plans were reviewed with the patient and relevant educational handouts given. See problem list details for specific plan information. reviewed precautions for appendicitis and recommend ER evaluation if develops signficiant RLQ pain fever or diarrhea 12/18/24 1117 Date Antonia Benoit Signature: Date (if applicable) CC: Normal CNOVon 06-29-2024 CNOV Office Visit ([facility] ) -- NORBERTO COTTON ([id number]) 3 F Date Time Provider Department 06/29/24 1:25 PM МАРИНА MILLER During your visit today, we recorded the following information about you: Temperature Pulse Blood pressure Weight 99.2 degrees 95/minute 105/80 46.8 kg Марина Miller APRN.CNP 06/29/2024 1:48 PM Signed This note was created using AppSame. Subjective Norberto Cotton is a 19 year old female. HPI by patient: Norberto Cotton is a 19 year old presenting to the office with the complaint of viral symptoms. Started approximately 4 days ago. Associated symptoms include cough, congestion, feeling hot/cold, body aches, fatigue, headaches, and ear pain. Covid Immunization Dates Overdue - Covid-19 Vaccine ( season) Never done No completion, postpone, frequency change, or communication history exists for this topic. Sick contacts: none. Smoking history/second hand smoke: none. OTC not helping. No antibiotic use in the last 60 days. ALLERGIES No Known Allergies No family history on file. Social History Tobacco Use Smoking status: Every Day Packs/day: 25.00 Types: Cigarettes Vaping Use Vaping status: current everyday user Substances: Nicotine, THC Alcohol use: Yes Comment: weekends no more than 5 at a time. Drug use: Yes Types: Marijuana Active Ambulatory Problems No Active Ambulatory Problems Resolved Ambulatory Problems No Resolved Ambulatory Problems No Additional Past Medical History Review of Systems Constitutional: Positive for chills and diaphoresis. HENT: Positive for congestion and ear pain. Eyes: Negative. Respiratory: Positive for cough. Cardiovascular: Negative. Gastrointestinal: Positive for diarrhea and nausea. Endocrine: Negative. Genitourinary: Negative. Musculoskeletal: Negative. Skin: Negative. Neurological: Positive for headaches. Hematological: Negative. Objective BP 105/80 Pulse 95 Temp 37.3 ?C (99.2 ?F) Wt 46.8 kg (103 lb 2.8 oz) LMP 01/27/2024 SpO2 98% BMI 17.71 kg/m? Physical Exam Vitals reviewed. Constitutional: General: She is not in acute distress. Appearance: She is ill-appearing. She is not toxic-appearing or diaphoretic. HENT: Head: Normocephalic and atraumatic. Right Ear: Tympanic membrane, ear canal and external ear normal. Left Ear: Tympanic membrane, ear canal and external ear normal. Nose: Nose normal. Right Sinus: No maxillary sinus tenderness or frontal sinus tenderness. Left Sinus: No maxillary sinus tenderness or frontal sinus tenderness. Mouth/Throat: Mouth: Mucous membranes are moist. Pharynx: Oropharynx is clear. No oropharyngeal exudate or posterior oropharyngeal erythema. Cardiovascular: Rate and Rhythm: Normal rate and regular rhythm. Pulmonary: Effort: Pulmonary effort is normal. Breath sounds: Normal breath sounds. Lymphadenopathy: Head: Right side of head: No submandibular or tonsillar adenopathy. Left side of head: No submandibular or tonsillar adenopathy. Cervical: Cervical adenopathy present. Right cervical: Superficial cervical adenopathy present. Left cervical: Superficial cervical adenopathy present. Psychiatric: Behavior: Behavior is cooperative. Assessment and Plan (J06.9) Viral upper respiratory tract infection with cough (primary encounter diagnosis) Plan: Brompheniramine-Pseudoeph- DM (BROMFED DM) 2-30-10 mg/5 mL syrup, COVID AND INFLUENZA A/B AND RSV PCR, ROUTINE (R19.7) Diarrhea, unspecified type Plan: COVID AND INFLUENZA A/B AND RSV PCR, ROUTINE (R11.0) Nausea Plan: ondansetron orally disintegrating (ZOFRAN ODT) 4 mg disintegrating tablet Education on viral vs bacterial infections. Most viral infections will last 10 days, sometimes 14. It is possible to have back to back viral infections. An antibiotic will not treat a virus. -Covid/flu/rsv test for rule out, results in 24 hours, isolation in the interim. [facility] -Bromfed for cough/congestion. -Drink lots of fluids and get plenty of rest. BRAT diet as tolerated. Zofran for nausea. -Vaporizers, cool mist humidifiers, warm showers, and warm fluids help open respiratory and sinus passages. Clean humidifiers daily. -OTC tylenol as directed on the bottle. -Saline nasal spray as needed. Flonase twice daily can help reduce inflammation through the sinus cavities. -Cough/deep breathing education, promote clearing of the airways and good lung expansion. -Make follow up with primary care for monitoring and resolution in symptoms. -Signs that warrant an ER evaluation: Sudden change/worsening in condition, lethargy, signs of dehydration, fever greater than 102 F that is not responding to Tylenol or ibuprofen (Motrin, Advil), drooling, difficulty swallowing, difficulty breathing, shortness of breath, chest pain, evidence of airway compromise (tripod posit (more content not included)... Normal [facility] COVID AND INFLUENZA A/B AND RSV PCR, ROUTINEon 06-29-2024 SARS-CoV-2 (COVID-19) RNA DEVIKA+probe Ql (Unsp spec) SARS-COV-2 (AGENT OF COVID-19) RNA: Not detected INFLUENZA A RNA: Detected INFLUENZA B RNA: Not detected RESPIRATORY SYNCYTIAL VIRUS (RSV) RNA: Not detected Abnormal [facility] Comment on above: Performed By: #### C VFLRS #### [facility] CLIA [id number] [address] [place] [address] [place] BASIC METABOLIC PANELon 11-2 Anion gap [Moles/Vol] 7 mmol/L Normal 3-13 [facility] Comment on above: Performed By: #### L [id number], LAB15 #### Pharmacy Graduate Intern: NAVA GONZALEZ ([id number]) [facility] ([facility]) [address] [place] [address] [place] Calcium [Mass/Vol] 9.9 mg/dL Normal 8.4-10.4 [facility] Comment on above: Performed By: #### L AB129, LAB15 #### Pharmacy Graduate Intern: NAVA GONZALEZ ([id number]) [facility] ([place]) [address] [place] [address] [place] Chloride [Moles/Vol] 105 mmol/L Normal 98-107 [facility] Comment on above: Performed By: #### L AB129, LAB15 #### Pharmacy Graduate Intern: NAVA GONZALEZ ([id number]) [facility] [place] ([place]) [address] [place] [address] [place] CO2 [Moles/Vol] 26 mmol/L Normal 22-30 [facility] Comment on above: Performed By: #### L AB129, LAB15 #### Pharmacy Graduate Intern: NAVA GONZALEZ ([id number]) [facility] ([place]) [address] [place] [address] Creatinine [Mass/Vol] 0.73 mg/dL Normal 0.52-1.04 [facility] Comment on above: Performed By: #### L AB129, LAB15 #### Pharmacy Graduate Intern: NAVA GONZALEZ ([id number]) [facility] [place] ([place]) [address] [place] [address] GLOMERULAR FILTRATION RATE ML/MIN/1.73 SQ M.PREDICTED >90.0 Normal >60.0 [facility] Comment on above: Result Comment: Calc ulation based on the Chronic Kidney Disease Epidemiology Collaboration (CKD-EPI) equation refit without adjustment for race Performed By: #### L AB129, LAB15 #### Pharmacy Graduate Intern: NAVA GONZALEZ ([id number]) [facility] [place] ([place]) [address] [place] [address] Glucose [Mass/Vol] 109 mg/dL High 70-100 [facility] Comment on above: Performed By: #### L AB129, LAB15 #### Pharmacy Graduate Intern: NAVA GONZALEZ ([id number]) [facility] [place] ([place]) [address] [place] [address] Potassium [Moles/Vol] 3.8 mmol/L Normal 3.5-5.1 [facility] Comment on above: Performed By: #### L AB129, LAB15 #### Pharmacy Graduate Intern: NAVA GONZALEZ ([id number]) [facility] [place] ([facility]) [address] [place] [address] [place] Sodium [Moles/Vol] 138 mmol/L Normal 135-145 [facility] Comment on above: Performed By: #### L AB129, LAB15 #### Pharmacy Graduate Intern: NAVA GONZALEZ ([id number]) [facility] [place] ([place]) [address] [place] [address] [place] Urea nitrogen [Mass/Vol] 14 mg/dL Normal 7-17 [facility] Comment on above: Performed By: #### L AB129, LAB15 #### Pharmacy Graduate Intern: NAVA GONZALEZ ([id number]) [facility] ([facility]) [address] Basic metabolic 1998 panelon 05-19-2024 Anion gap [Moles/Vol] 7 mmol/L 3 - 13 mmol/L [facility] Calcium [Mass/Vol] 9.9 mg/dL 8.4 - 10. 4 mg/dL [facility] Chloride [Moles/Vol] 105 mmol/L 98 - 10 7 mmol/L [facility] CO2 [Moles/Vol] 26 mmol/L 22 - 30 mmol/L [facility] Creatinine [Mass/Vol] 0.73 mg/dL 0.52 - 1.04 mg/dL [facility] GFR/1.73 sq M.predicted (S/P/Bld) [Vol rate/Area] - PINF [facility] Comment on above: Calculation based on the Chronic Kidney Disease Epidemiology Collaboration (CKD-EPI) equation refit without adjustment for race Glucose [Mass/Vol] 109 mg/dL High 70 - 100 mg/dL [facility] Interpretation and review of laboratory results Abnormal [facility] Potassium [Moles/Vol] 3.8 mmol/L 3.5 - 5.1 mmol/L [facility] Sodium [Moles/Vol] 138 mmol/L 135 - 145 mmol/L [facility] Urea nitrogen [Mass/Vol] 14 mg/dL 7 - 17 mg/dL [facility] CBC W Auto Differential pane l (Bld)on 05-19-2024 Basophils (Bld) [#/Vol] 0 10*3/uL 0.0 - 0.2 10*3/uL [facility] Basophils/100 WBC (Bld) 0.1 % 0.0 - 2.0 % [facility] Eosinophils (Bld) [#/Vol] 0 10*3/uL 0.0 - 0.5 10*3/uL [facility] Eosinophils/100 WBC (Bld) 0.1 % 0.0 - 6.0 % [facility] Erythrocyte distribution width (RBC) [Ratio] 12.5 % 11.5 - 15.0 % [facility] Hematocrit (Bld) [Volume fraction] 36.4 % 35.0 - 47.0 % [facility] Hemoglobin (Bld) [Mass/Vol] 12.2 g/dL 11.7 - 16.0 g/dL [facility] Immature granulocytes (Bld) [#/Vol] 0 10*3/uL NINF - 0.1 10*3/uL [facility] Immature granulocytes/100 WBC (Bld) 0.1 % 0.0 - 2.0 % [facility] Interpretation and review of laboratory results Normal [facility] Lymphocytes (Bld) [#/Vol] 1.5 10*3/uL 1.0 - 4.3 10*3/uL [facility] Lymphocytes/100 WBC (Bld) 22 % 15.0 - 45.0 % [facility] MCH (RBC) [Entitic mass] 31.9 pg 26.0 - 34.0 pg [facility] MCHC (RBC) [Mass/Vol] 33.5 % 30.5 - 36.0 % [facility] MCV (RBC) [Entitic vol] 95 fL 77.0 - 99.0 fL [facility] Monocytes (Bld) [#/Vol] 0.6 10*3/uL 0.0 - 0.9 10*3/uL [facility] Monocytes/100 WBC (Bld) 8.6 % 5.0 - 13.0 % [facility] Neutrophils (Bld) [#/Vol] 4.6 10*3/uL 1.8 - 7.5 10*3/uL [facility] Neutrophils/100 WBC (Bld) 69.1 % 38.0 - 82.0 % [facility] Nucleated RBC/100 WBC (Bld) [Ratio] 0 % [facility] Platelet mean volume (Bld) [Entitic vol] 9.4 fL 9.0 - 12.7 fL [facility] Comment on above: MPV is a calculated measurement using platelet volume ratio Platelets (Bld) [#/Vol] 261 10*3/uL 140 - 440 10*3/uL [facility] RBC (Bld) [#/Vol] 3.83 10*6/uL 3.80 - 5.2 0 10*6/uL [facility] WBC (Bld) [#/Vol] 6.7 10*3/uL 3.6 - 10.7 10*3/uL [facility] CBC WITH AUTO DIFFERENTIALon 05-19-2024 Basophils (Bld) [#/Vol] 0.0 10*3/uL Normal 0.0-0.2 [facility] Comment on above: Performed By: #### L [id number] #### Pharmacy Graduate Intern: NAVA GONZALEZ ([id number]) [facility] [address] [place] [address] [place] Basophils/100 WBC (Bld) 0.1 % Normal 0.0-2.0 [facility] Comment on above: Performed By: #### L [id number] #### Pharmacy Graduate Intern: NAVA GONZALEZ ([id number]) [facility] [address] [place] [address] Eosinophils (Bld) [#/Vol] 0.0 10*3/uL Normal 0.0-0.5 [facility] Comment on above: Performed By: #### L [id number] #### Pharmacy Graduate Intern: NAVA GONZALEZ ([id number]) [facility] [address] [place] [address] Eosinophils/100 WBC (Bld) 0.1 % Normal 0.0-6.0 [facility] Comment on above: Performed By: #### L [id number] #### Pharmacy Graduate Intern: NAVA GONZALEZ ([id number]) [facility] [address] [place] [address] Erythrocyte distribution width (RBC) [Ratio] 12.5 % Normal 11.5-15.0 [facility] Comment on above: Performed By: #### L [id number] #### Pharmacy Graduate Intern: NAVA GONZALEZ ([id number]) [facility] [address] [place] [address] Hematocrit (Bld) [Volume fraction] 36.4 % Normal 35.0-47.0 [facility] Comment on above: Performed By: #### L [id number] #### Pharmacy Graduate Intern: NAVA GONZALEZ ([id number]) [facility] ([facility]) [address] [place] [address] Hemoglobin (Bld) [Mass/Vol] 12.2 g/dL Normal 11.7-16.0 [facility] Comment on above: Performed By: #### L [id number] #### Pharmacy Graduate Intern: NAVA GONZALEZ ([id number]) [facility] [facility] ([facility]) [address] [place] [address] IMMATURE GRANS % 0.1 % Normal 0.0-2.0 [facility] Comment on above: Performed By: #### L [id number] #### Pharmacy Graduate Intern: NAVA GONZALEZ ([id number]) [facility] ([facility]) [address] [place] [address] IMMATURE GRANS ABSOLUTE 0.0 10*3/uL Normal <0.1 [facility] Comment on above: Performed By: #### L [id number] #### Pharmacy Graduate Intern: NAVA GONZALEZ ([id number]) [facility] ([facility]) [address] [place] [address] Lymphocytes (Bld) [#/Vol] 1.5 10*3/uL Normal 1.0-4.3 [facility] Comment on above: Performed By: #### L [id number] #### Pharmacy Graduate Intern: NAVA GONZALEZ ([id number]) [facility] ([facility]) [address] [place] [address] [place] Lymphocytes/100 WBC (Bld) 22.0 % Normal 15.0-45.0 [facility] Comment on above: Performed By: #### L [id number] #### Pharmacy Graduate Intern: NAVA GONZALEZ ([id number]) [facility] ([facility]) [address] [place] [address] MCH (RBC) [Entitic mass] 31.9 pg Normal 26.0-34.0 [facility] Comment on above: Performed By: #### L [id number] #### Pharmacy Graduate Intern: NAVA GONZALEZ ([id number]) [facility] [place] ([facility]) [address] [place] [address] MCHC 33.5 % Normal 30.5-36.0 [facility] Comment on above: Performed By: #### L [id number] #### Pharmacy Graduate Intern: NAVA GONZALEZ ([id number]) [facility]) [address] [place] [address] MCV (RBC) [Entitic vol] 95.0 fL Normal 77.0-99.0 [facility] Comment on above: Performed By: #### L [id number] #### Pharmacy Graduate Intern: NAVA GONZALEZ ([id number]) [facility] ([facility] [address] [place] [address] [place] Monocytes (Bld) [#/Vol] 0.6 10*3/uL Normal 0.0-0.9 [facility] Comment on above: Performed By: #### L [id number] #### Pharmacy Graduate Intern: NAVA GONZALEZ ([id number]) [facility] ([facility]) [address] [place] [address] [place] Monocytes/100 WBC (Bld) 8.6 % Normal 5.0-13.0 [facility] Comment on above: Performed By: #### L [id number] #### Pharmacy Graduate Intern: NAVA GONZALEZ ([id number]) [facility] ([facility]) [address] [place] [address] [place] NEUTROPHILS ABSOLUTE 4.6 10*3/uL Normal 1.8-7.5 [facility] Comment on above: Performed By: #### L [id number] #### Pharmacy Graduate Intern: NAVA GONZALEZ ([id number]) [facility] ([facility]) [address] [place] [address] [place] Neutrophils/100 WBC (Bld) 69.1 % Normal 38.0-82.0 [facility] Comment on above: Performed By: #### L [id number] #### Pharmacy Graduate Intern: NAVA GONZALEZ ([id number]) [facility] ([facility]) [address] [place] [address] NRBC 0.0 /100 WBCs Normal 0.0-2.0 [facility] Comment on above: Performed By: #### L [id number] #### Pharmacy Graduate Intern: NAVA GONZALEZ ([id number]) [facility] ([facility]) [address] [place] [address] Platelet mean volume (Bld) [Entitic vol] 9.4 fL Normal 9.0-12.7 [facility] Comment on above: Result Comment: MPV is a calculated measurement using platelet volume ratio Performed By: #### L [id number] #### Pharmacy Graduate Intern: NAVA GONZALEZ ([id number]) [facility] ([facility]) [address] [place] [address] [place] Platelets (Bld) [#/Vol] 261 10*3/uL Normal 140-440 [facility] Comment on above: Performed By: #### L [id number] #### Pharmacy Graduate Intern: NAVA GONZALEZ ([id number]) [facility] ([facility]) [address] [place] [address] [place] RBC (Bld) [#/Vol] 3.83 10*6/uL Normal 3.80-5.20 [facility] Comment on above: Performed By: #### L [id number] #### Pharmacy Graduate Intern: NAVA GONZALEZ ([id number]) [facility] ([facility]) [address] [place] [address] [place] WBC (Bld) [#/Vol] 6.7 10*3/uL Normal 3.6-10.7 [facility] Comment on above: Performed By: #### L [id number] #### Pharmacy Graduate Intern: NAVA GONZALEZ ([id number]) [facility] ([facility]) [address] ECG 12-LEADon 05-19-2024 ECG 12-LEAD IMPRESSION: Sinus rhythm RSR' in V1 or V2, probably normal variant Borderline T wave abnormalities No significant changes from previous ECG Electronically Signed On 05-19-2024 01:11:01 EST by Rashad Carbajal [facility] ED Provider Noteon ED Provider Note EMERGENCY DEPARTMENT ENCOUNTER Pt Name: Norberto Cotton Birthdate 2005 Date of evaluation: 05/19/2024 ED Provider: Rashad Carbajal MD CHIEF COMPLAINT No chief complaint on file. HISTORY OF PRESENT ILLNESS (Location/Symptom, Timing/Onset, Context/Setting, Quality, Duration, Modifying Factors, Severity) Note limiting factors. I wore appropriate PPE for the entirety of this encounter. HPI Norberto Cotton is a 19 y.o. who presents to the emergency department with chief complaint of patient with a history of anxiety not on medications has episodes of palpitations and rapid heartbeat intermittent over the last month but got worse today. She is also had some upper sharp chest wall pain into her neck. That is since resolved. No shortness of breath, nausea, vomiting, diarrhea or fever. Denies cough. Last menstrual period was May 05 denies possible . She has no leg swelling and no current chest pain Nursing Notes were reviewed. Limitations to history: None Outside historians: None REVIEW OF SYSTEMS Review of Systems Constitutional: Negative for chills and fever. HENT: Negative for ear pain and sore throat. Eyes: Negative for pain and visual disturbance. Respiratory: Positive for chest tightness. Negative for cough, shortness of breath and wheezing. Cardiovascular: Positive for palpitations. Negative for chest pain. Gastrointestinal: Negative for abdominal pain and vomiting. Genitourinary: Negative for dysuria, hematuria and vaginal bleeding. Musculoskeletal: Negative for arthralgias and back pain. Skin: Negative for color change and rash. Neurological: Negative for dizziness, syncope, light-headedness, numbness and headaches. Psychiatric/Behavioral: Negative for behavioral problems. The patient is nervous/anxious. All other systems reviewed and are negative. Pertinent positives and negatives as per HPI. PAST MEDICAL HISTORY Past Medical History: Diagnosis Date ? Asthma SURGICAL HISTORY No past surgical history on file. CURRENT MEDICATIONS Previous Medications No medications on file ALLERGIES Patient has no known allergies. FAMILY HISTORY No family history on file. SOCIAL HISTORY Social History Socioeconomic History ? Marital status: Single Tobacco Use ? Smoking status: Never ? Smokeless tobacco: Never Substance and Sexual Activity ? Alcohol use: Yes ? Drug use: Not Currently Types: Marijuana SCREENINGS PHYSICAL EXAM ED Triage Vitals [05/19/24 0112] Temp Heart Rate Resp BP 37.2 ?C (98.9 ?F) 85 12 116/74 SpO2 Temp Source Heart Rate Source Patient Position 100 %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 has been noted to have enlarged tonsils. She reports a history of tonsil stones. She occasionally snores, mostly when sick. There has not been witnessed apnea events. She does not have chronic nasal congestion. Norberto is not a 'mouth breather'. She has not had episodes of enuresis. She is a restless sleeper. Norberto does display signs of excessive daytime somnolence or irritability. She has not displayed signs of environmental allergies. She has not had recurring episodes of purulent drainage/sinusitis. She has not had recurring episodes of Strep tonsillitis (2 strep infections 2 years ago). History reviewed. No pertinent past medical history. History reviewed. No pertinent surgical history. Meds: No current outpatient medications on file. Current Facility-Administered Medications: medroxyPROGESTERone (DEPO-PROVERA) injection 150 mg, 150 mg, Intramuscular, L.A.M., Rashad Bajwa MD, 150 mg at 05/14/23 1528 Allergies: No Known Allergies Family History Problem Relation Age of Onset No known problems Father Anesth Problems Neg Hx Bleeding Disorder Neg Hx Social History Socioeconomic History Marital status: Single Spouse name: Not on file Number of children: Not on file Years of education: Not on file Highest education level: Not on file Occupational History Not on file Tobacco Use Smoking status: Never Passive exposure: Never Smokeless tobacco: Never Substance and Sexual Activity Alcohol use: Not on file Drug use: Not on file Sexual activity: Not on file Other Topics Concern Not on file Social History Narrative Not on file : REVIEW OF SYSTEMS: Eyes: Within normal limits Ears: Within normal limits Nose: Within normal limits Throat: Frequent sore throat and tonsil stones Lungs: Within normal limits Heart: Within normal limits Gastrointestinal: Within normal limits Genitourinary: Within normal limits Nervous System: Within normal limits Endocrine: Within normal limits Hematology: Within normal limits Musculoskeletal: Within normal limits PHYSICAL EXAM: On physical examination, this is a well developed well nourished child in no apparent distress. Height is 163 cm (48 %, Z= -0.05, Source: [facility] (Girls, 2-20 Years)). Weight is (!) 48.5 kg (11 %, Z= -1.23, Source: [facility] (Girls, 2-20 Years)). Cranium is normocephalic. Eyes show normal extraocular mobility without nystagmus, and the sclerae are clear. The auricles are normal in size, shape, and position bilaterally. The right external auditory canal is without swelling, cerumen impaction, or otorrhea. The tympanic membrane is intact. There is no effusion present in the middle ear. The left external auditory canal is without swelling, cerumen impaction, or otorrhea. The tympanic membrane is intact. There is no effusion present in the middle ear. The external nose is without deformity by visualization and palpation. Anterior rhinoscopy reveals a midline septum, inferior turbinates that are normal size and position, a patent nasal airway bilaterally, and no mucoid drainage bilaterally. There is no drainage from the nasopharynx. There is normal mandibular position with no trismus. Oral examination shows pink mucosa withoutlesions, tonsils that are 2+ bilaterally without exudate, and a palate that is intact and rises symmetrically. Palpation of the neck reveals no masses or lymphadenopathy, a midline trachea, and thyroid gland without nodules or enlargement. Breathing unlabored and well perfused. Carotid pulses are normal. Major salivary glands are without masses or tenderness to palpation. Cranial nerves II-XII are grossly intact. Vocalizations are normal without stridor or stertor. There are no retractions and no wheezing. Cutaneous exam reveals no jaundice or cyanosis. IMPRESSION/PLAN: Norberto is a 18 y.o. female with a history of tonsil stones, restless sleep, and daytime sleepiness. I have placed an order for a sleep study. She does not have tonsillar hypertrophy, sleep disordered breathing, or recurrent strep infections. Therefore, I do not recommend tonsillectomy. I encouraged her to increase hydration, gargle salt water, and do not pick at her tonsil stones as this can increase the amount of tonsil stones. We will contact her after her sleep study with the results. We will see her back as needed. 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 female. Her chief complaint(s) include: Pharyngitis Assessment 1. Sore throat 2. Tonsillith Plan Norberto was seen today for pharyngitis. Diagnoses and associated orders for this visit: Sore throat - POCT ID NOW Rapid Strep A NAAT Tonsillith - AMB Referral To ENT; Future Discussed salt gargles. Pt would like referral to ent Return if symptoms worsen or fail to improve. Subjective HPI Comments: 18 y/o here for sore throat States she has tonsil stones and it has been bothering her. On and off for a long time She is unaccompanied. Pharyngitis The patient's symptoms have included no fever, no congestion, no rhinorrhea, no shortness of breath, no abdominal pain (no reflux. no burning sensation upwards), no vomiting, no diarrhea and no decreased urination. (tonsil stones, saids she feels the stones). The patient has been exposed to no sick contacts. Primary Care Review of Systems Objective Vital Signs 07/06/23 1314 Temp: 36.7 C (98 F) TempSrc: Temporal Weight: (!) 47.6 kg There is no height or weight on file to calculate BMI. Physical Exam Constitutional: She appears well. She is active. No distress. HENT: Head: Atraumatic. Ears: Right Ear: Tympanic membrane normal. Left Ear: Tympanic membrane normal. Nose: No nasal discharge. Mouth/Throat: Mucous membranes are moist. Pharynx erythema (mild erythema) present. No tonsillar exudate. Cardiovascular: Normal rate, regular rhythm, S1 normal and S2 normal. Heart murmur not heard. Pulmonary/Chest: Effort normal and breath sounds normal. There is normal air entry. No stridor. No respiratory distress. Air movement is not decreased. She has no wheezes. She has no rhonchi. She has no rales. Exhibits no retraction. Musculoskeletal: Cervical back: Normal range of motion. Lymphadenopathy: No right anterior cervical adenopathy present. No left anterior cervical adenopathy present. Neurological: She is alert. Skin: Capillary refill takes less than 3 seconds. Skin is warm. Vitals reviewed: Temperature 36.7 C (98 F), temperature source Temporal, weight (!) 47.6 kg. Last Result POCT ID NOW Rapid Strep A NAAT Collection Time: 07/06/23 1:35 PM Result Value Ref Range STREP A POC RESULT Negative Negative PROCEDURAL CONTROL POCT Control - Valid Lot Number [id number] Normal [facility] C. trachomatis/GC PCR Panel on Gene[employer] 05-14-2023 C. trachomatis/GC PCR Panel on GeneXpert Reason for preventing automatic release->Other Is this specimen being sent to an external lab?->No Release to patient->Manual release only [id number]&Urine^^^Urine&Urine C. trachomatis PCR on GeneXpert: NEGATIVE-Chlamydia trachomatis DNA: NOT DETECTED. Source: URINE Collected: 05/14/23 15:09 Site: Urine Received : 05/14/23 20:38 C. trachomatis PCR on Gene[employer]pert FINAL 05/15/23 09:35 NEGATIVE-Chlamydia trachomatis DNA: NOT DETECTED. - GC PCR on GeneXpert FINAL 05/15/23 09:35 NEGATIVE-Neisseria gonorrhea DNA: NOT DETECTED. - Method: DNA detection by RT PCR on a GeneXpert analyzer. - NOTE: This Amplified DNA Assay should not be used for the evaluation of suspected sexual abuse or for other medico-legal indications. - Screening urine specimens for Chlamydia trachomatis and Neisseria gonorrhoeae using nucleic acid amplification is an accurate and sensitive method compared to standard techniques of detection of these pathogens. Because the pathogen is diluted in urine, it is somewhat less sensitive than a direct swab specimen evaluated by nucleic acid amplification techniques. Interpret results with caution! Volume of urine submitted for testing was greater than 50mL, which may result in reduced assay sensitivity. Normal [facility] Comment on above: Performed By: #### C TNG #### [place] [address] Ferritinon 05-14-2023 Ferritin [Mass/Vol] 135 ng/mL Normal 22-378 [facility] Comment on above: Order Comment: TIBC will not be run. Is this specimen being sent to an external lab?->No Release to patient->Automatic [id number]&Blood^\S\^Venous&Venous TIBC will be run. Is this specimen being sent to an external lab?->No Release to patient->Automatic [id number]&Blood^\S\^Venous&Venous Performed By: #### F ERTN #### [place] [address] Hemogramon 05-14-2023 Erythrocyte distribution width (RBC) [Ratio] 12.9 % Normal 0.0-14.4 [facility] Comment on above: Order Comment: Is th is specimen being sent to an external lab?->No Release to patient->Automatic [id number]&Blood^\S\^Venous&Venous Performed By: #### H EGRM #### [place] [address] Hematocrit (Bld) [Volume fraction] 42.1 % Normal 36.0-44.0 [facility] Comment on above: Order Comment: Is th is specimen being sent to an external lab?->No Release to patient->Automatic 07754&Blood^\S\^Venous&Venous Performed By: #### H EGRM #### [place] [address] Hemoglobin (Bld) [Mass/Vol] 13.7 g/dL Normal 12.0-15.0 [facility] Comment on above: Order Comment: Is th is specimen being sent to an external lab?->No Release to patient->Automatic [id number]&Blood^\S\^Venous&Venous Performed By: #### H EGRM #### [place] [address] MCH (RBC) [Entitic mass] 30.9 pg Normal 26.0-34.0 [facility] Comment on above: Order Comment: Is th is specimen being sent to an external lab?->No Release to patient->Automatic [id number]&Blood^\S\^Venous&Venous Performed By: #### H EGRM #### [place] [address] MCHC 32.5 % Normal 31.0-37.0 [facility] Comment on above: Order Comment: Is th is specimen being sent to an external lab?->No Release to patient->Automatic 25940&Blood^\S\^Venous&Venous Performed By: #### H EGRM #### [place] [address] MCV (RBC) [Entitic vol] 95.0 fL Normal 80.0-100.0 [facility] Comment on above: Order Comment: Is th is specimen being sent to an external lab?->No Release to patient->Automatic [id number]&Blood^\S\^Venous&Venous Performed By: #### H EGRM #### [place] [address] Nucleated RBC/100 WBC (Bld) [Ratio] 0.0 % Normal -1.0-0.0 [facility] Comment on above: Order Comment: Is th is specimen being sent to an external lab?->No Release to patient->Automatic [id number]&Blood^\S\^Venous&Venous Performed By: #### H EGRM #### [address] [id number] Platelet mean volume (Bld) [Entitic vol] 10.7 fL Normal [facility] Comment on above: Order Comment: Is th is specimen being sent to an external lab?->No Release to patient->Automatic 78210&Blood^\S\^Venous&Venous Result Comment: MPV is platelet range and age dependent Performed By: #### H EGRM #### [place] [address] Platelets (Bld) [#/Vol] 234 10*3/uL Normal 150-450 [facility] Comment on above: Order Comment: Is th is specimen being sent to an external lab?->No Release to patient->Automatic [id number]&Blood^\S\^Venous&Venous Performed By: #### H EGRM #### [address] [address] RBC 4.43 10E12/L Normal 4.00-4.90 [facility] Comment on above: Order Comment: Is th is specimen being sent to an external lab?->No Release to patient->Automatic [id number]&Blood^\S\^Venous&Venous Performed By: #### H EGRM #### [address] [id number] WBC (Bld) [#/Vol] 7.1 10*3/uL Normal 4.5-11.0 [facility] Comment on above: Order Comment: Is th is specimen being sent to an external lab?->No Release to patient->Automatic 45076&Blood^\S\^Venous&Venous Performed By: #### H EGRM #### [place] [address] Ironon 05-14-2023 %Saturation 30 % Normal 13-59 [facility] Comment on above: Order Comment: TIBC will not be run. Is this specimen being sent to an external lab?->No Release to patient->Automatic 25427&Blood^\S\^Venous&Venous TIBC will be run. Is this specimen being sent to an external lab?->No Release to patient->Automatic 72242&Blood^\S\^Venous&Venous Performed By: #### I KATELYN #### [place] [address] TIBC 292 ug/dL Normal 228-428 [facility] Comment on above: Order Comment: TIBC will not be run. Is this specimen being sent to an external lab?->No Release to patient->Automatic 79882&Blood^\S\^Venous&Venous TIBC will be run. Is this specimen being sent to an external lab?->No Release to patient->Automatic 15793&Blood^\S\^Venous&Venous Performed By: #### I KATELYN #### [place] [address] Iron [Mass/Vol] 88 ug/dL Normal 30-160 [facility] Comment on above: Order Comment: TIBC will not be run. Is this specimen being sent to an external lab?->No Release to patient->Automatic 23821&Blood^\S\^Venous&Venous TIBC will be run. 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 female. Her chief complaint(s) include: Loss of Consciousness (Fainted 2 times on (05/10/23). She states she has been dizzy & lightheaded for the last 2 weeks.) Assessment 1. Syncope, unspecified syncope type 2. Nausea 3. Encounter for surveillance of injectable contraceptive Plan Norberto was seen today for loss of consciousness. Diagnoses and associated orders for this visit: Syncope, unspecified syncope type - Orthostatic blood pressure - Venipuncture - Complete Blood Count without Differential (Hemogram) (Clinic Collect) - Ferritin (Clinic Collect) - Vitamin D 25 hydroxy (Clinic Collect) - Iron & TIBC (Clinic Collect) Nausea - POCT urine HCG - C.trachomatis/GC PCR Panel Encounter for surveillance of injectable contraceptive - medroxyPROGESTERone (DEPO-PROVERA) injection 150 mg No follow-ups on file. - Orthostatic vitals positive for HR. - Will obtain iron studies, a CBC, and vitamin D level to look for other causes of syncope, lightheadedness. - Wanted to restart Depo today so ordered. - Return with worsening symptoms. I saw patient [id number] with Rashad Bajwa MD in the PM. Roberta Terry, 05/14/2023 3:34 PM Subjective HPI Comments: Over the past 2 weeks, has been lightheaded and dizzy. She's had nausea and decreased appetite over the past month. It's been hard to eat. She's lost 10lbs in the past month. No particular food triggers. She had a low-grade fever to 100F early last week. Also with hot flashes for 1 week. On last week, had 2 episodes of syncope. She felt lightheaded before passing out. No vision changes prior. Had been on the cough, got up and walked up the stairs and then passed out. Had vomiting x1 that morning. She has congestion and watery eyes since the weekend. Has occasional blurred vision. Denies chest pain, palpitations. Admits that she isn't that great at staying hydrated - drinks 2 bottles of water daily. Has occasional shortness of breath but thinks it's related to anxiety. Notes that she has been bruising easily the last few weeks. Notices bruises on her arms/legs. Has gum bleeding but this is not new. Getting monthly periods but they've been different - more dark, rust-colored discharge instead of blood. Most recent was 1 week ago. She's sexually active with 1 male partner. Intermittently using condoms. Denies STI concerns. Wanting to restart Depo shot, last received in 07/2022. No new medications. No prior episodes of syncope. No known FHx of arrhthymias. She is unaccompanied. Loss of Consciousness The patient's symptoms have included decreased appetite and congestion. The patient's symptoms have included no decreased fluid intake, no cough, no abdominal pain, no diarrhea and no rash. Review of Systems Cardiovascular: Positive for syncope. Objective Vital Signs 05/14/23 1415 05/14/23 1452 BP: 113/67 Pulse: 92 Temp: 36.3 C (97.3 F) Weight: (!) 46.6 kg Blood pressure (lay flat for > or equal to 5 minutes): 100/65 Pulse (lay flat for > or equal to 5 minutes): 64 Blood Pressure (stand at 1 minute interval): 105/72 Pulse (stand at 1 minute interval): 98 Blood Pressure (stand at 3 minute interval): 114/73 Pulse (stand at 3 minute interval): 107 There is no height or weight on file to calculate BMI. Physical Exam Constitutional: She appears well. She is active. No distress. HENT: Head: Atraumatic. Ears: Right Ear: Tympanic membrane and external ear normal. Left Ear: Tympanic membrane and external ear normal. Nose: Nose normal. Mouth/Throat: Mucous membranes are moist. Dentition is normal. No pharynx erythema. No tonsillar exudate. Oropharynx is clear. Eyes: EOM are normal. Pupils are equal, round, and reactive to light. Neck: Neck supple. Thyroid normal. Cardiovascular: Normal rate, regular rhythm, S1 normal and S2 normal. Pulses are palpable. Heart murmur not heard. Pulmonary/Chest: Effort normal and breath sounds normal. There is normal air entry. No respiratory distress. Air movement is not decreased. She has no wheezes. She has no rhonchi. She has no rales. Exhibits no deformity. Abdominal: Soft. Bowel sounds are normal. She exhibits no distension and no mass. There is no hepatosplenomegaly. There is abdominal tenderness (diffuse, mild). Musculoskeletal: Cervical back: Normal range of motion and neck supple. General: Normal range of motion. Lymphadenopathy: No right anterior cervical adenopathy present. No left anterior cervical adenopathy present. Neurological: She is alert. She has normal strength. She exhibits normal muscle tone. Gait normal. Skin: Skin is warm. Skin is not pale. Findings: No rash. Last Result POCT urine HCG Collection Time: 05/14/23 3:11 PM Result Value Ref Range hCG Urine POCT Negative Negative Control Line *Present Clear Background *Present LOT # [id number] Rashad Bajwa MD Normal [facility] Vitamin D 25 OHon 05-14-2023 25 OH Vitamin D 21 ng/mL Low 30-100 [facility] Comment on above: Order Comment: TIBC will not be run. Is this specimen being sent to an external lab?->No Release to patient->Automatic [id number]&Blood^\S\^Venous&Venous TIBC will be run. Is this specimen being sent to an external lab?->No Release to patient->Automatic [id number]&Blood^\S\^Venous&Venous Result Comment: Refe rence ranges provided by [facility] are based on Endocrine Society Guidelines: Level: Characterization < 21 ng/mL: Vitamin D deficiency 21-29 ng/mL: Suboptimal Vitamin D status 30-100 ng/mL: Optimal Vitamin D status >100 ng/mL: Potentially toxic Vitamin D effects Performed By: #### V 25DH #### [address] [address] GASTROINTESTINAL PCR PANELon 02-04-2022 GASTROINTESTINAL PCR PANEL GASTROINTESTINAL PCR PANEL --> Status: F POSITIVE: Cryptosporidium. _ The [employer] Gastrointestinal PCR Panel can detect the following targets: Campylobacter, Plesiomonas shigelloides, Salmonella, Vibrio species, Vibrio cholerae, Yersinia enterocolitica, Shiga toxin-producing E coli (STEC) including E coli O157, Enterotoxigenic E coli (ETEC), Shigella/Enteroinvasive E coli (EIEC), Cryptosporidium, Cyclospora cayetanensis, Entamoeba histolytica, Giardia lamblia, Adenovirus F 40/41, Astrovirus, Norovirus GI/GII, Rotavirus A, Sapovirus _ The [employer] Gastrointestinal PCR Panel can detect the following targets: Campylobacter, Plesiomonas shigelloides, Salmonella, Vibrio species, Vibrio cholerae, Yersinia enterocolitica, Shiga toxin-producing E coli (STEC) including E coli O157, Enterotoxigenic E coli (ETEC), Shigella/Enteroinvasive E coli (EIEC), Cryptosporidium, Cyclospora cayetanensis, Entamoeba histolytica, Giardia lamblia, Adenovirus F 40/41, Astrovirus, Norovirus GI/GII, Rotavirus A, Sapovirus Abnormal [facility] Comment on above: Performed By: #### B FGI #### [facility] [address] [place] [address] Basic Metabolic Panel 01-23 eGFR Not Calculated Normal >60 [facility] Comment on above: Performed By: #### B MP3 #### [facility] [address] [place] [address] eGFR OTHER Not Calculated Normal >60 [facility] Comment on above: Result Comment: KDIG O guidelines provide the following GFR categories: Stage GFR(ml/min/1.73 m2) Terms G1 >=90 Normal or high G2 60-89 Mildly decreased* G3a 45-59 Mildly to moderately decreased G3b 30-44 Moderately to severely decreased G4 15-29 Severely decreased G5 <15 Kidney failure *Relative to young adult level. In the absence of evidence of kidney damage, neither GFR category G1 nor G2 fulfill the criteria for CKD. The CKD-EPI equation is validated in individuals 18 years of age and older. Currently the best equation for estimating glomerular filtration rate (GFR) from serum creatinine in children is the Bedside Campuzano equation. It is less accurate in patients with extremes of muscle mass, restriction of dietary protein, ingestion of creatine, extra-renal metabolism of creatinine, or treatment with medications that affect renal tubular creatinine secretion. Performed By: #### B MP3 #### [facility] [address] [place] [address] Calcium [Mass/Vol] 9.3 mg/dL Normal 8.4-10.4 [facility] Comment on above: Performed By: #### B MP3 #### [facility] [address] [place] [address] Anion gap [Moles/Vol] 9 mmol/L Normal 3-13 [facility] Comment on above: Performed By: #### B MP3 #### [facility] [address] [place] [address] CO2 [Moles/Vol] 25 mmol/L Normal 22-30 [facility] Comment on above: Performed By: #### B MP3 #### [facility] [address] [place] [address] Creatinine [Mass/Vol] 0.80 mg/dL Normal 0.52-1.25 [facility] Comment on above: Performed By: #### B MP3 #### [facility] [address] [place] [address] Glucose [Mass/Vol] 91 mg/dL Normal 70-100 [facility] Comment on above: Performed By: #### B MP3 #### [facility] [address] [place] [address] Urea nitrogen [Mass/Vol] 17 mg/dL Normal 9-20 [facility] Comment on above: Performed By: #### B MP3 #### [facility] [address] [place] [address] Chloride [Moles/Vol] 100 mmol/L Normal 98-107 [facility] Comment on above: Performed By: #### B MP3 #### [facility] [address] [place] [address] Potassium [Moles/Vol] 3.7 mmol/L Normal 3.5-5.1 [facility] Comment on above: Performed By: #### B MP3 #### [facility] [address] [place] [address] Sodium [Moles/Vol] 134 mmol/L Low 135-145 [facility] Comment on above: Performed By: #### B MP3 #### [facility] [address] [place] [address] Anion gap [Moles/Vol] 9 mmol/L 3 - 13 mmol/L [facility] Work Phone: Calcium [Mass/Vol] 9.3 mg/dL 8.4 - 10. 4 mg/dL [facility] Work Phone: Chloride [Moles/Vol] 100 mmol/L 98 - 10 7 mmol/L [facility] Work Phone: [phone] CO2 [Moles/Vol] 25 mmol/L 22 - 30 mmol/L [facility] Work Phone: [phone] Creatinine [Mass/Vol] 0.8 mg/dL 0.52 - 1.25 mg/dL [facility] Work Phone: [phone] eGFR Not Calculated 60 - PINF mL/min [facility] Work Phone: )[phone] EGFR IF NonAfrican Northern Irish Not Calculated 60 - PINF mL/min [facility] Work Phone: [phone] Comment on above: KDIGO guidelines pro vide the following GFR categories: Stage GFR(ml/min/1.73 m2) Terms G1 >=90 Normal or high G2 60-89 Mildly decreased* G3a 45-59 Mildly to moderately decreased G3b 30-44 Moderately to severely decreased G4 15-29 Severely decreased G5 <15 Kidney failure *Relative to young adult level. In the absence of evidence of kidney damage, neither GFR category G1 nor G2 fulfill the criteria for CKD. The CKD-EPI equation is validated in individuals 18 years of age and older. Currently the best equation for estimating glomerular filtration rate (GFR) from serum creatinine in children is the Bedside Campuzano equation. It is less accurate in patients with extremes of muscle mass, restriction of dietary protein, ingestion of creatine, extra-renal metabolism of creatinine, or treatment with medications that affect renal tubular creatinine secretion. Glucose [Mass/Vol] 91 mg/dL 70 - 100 mg/dL [facility] Work Phone: Interpretation and review of laboratory results Abnormal [facility] Work Phone: [phone] Potassium [Moles/Vol] 3.7 mmol/L 3.5 - 5.1 mmol/L [facility] Work Phone: [phone] Sodium [Moles/Vol] 134 mmol/L Low 135 - 145 mmol/L [facility] Work Phone: [phone] Urea nitrogen (BldV) [Mass/Vol] 17 mg/dL 9 - 20 mg/dL [facility] Work Phone: Test Performed by [facility], [facility] [place] , [address] [facility] Work Phone: Complete Urinalysison 2021 Bacteria Few (1-5) Abnormal Negative [facility] Comment on above: Result Comment: . Performed By: #### H CGANN, CUA2 #### [facility] [address] [place] [address] RBC, Urine 0 - 2 Normal 0-2 [facility] Comment on above: Result Comment: . Performed By: #### H CGANN, CUA2 ####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 signed by Allan Clayton DO> Cosigner Signature (if applicable): CC: No Primary Care Physician ~ Signed Work Phone: 1(460) 116-128206-26-2025 Evaluation note* Diagnosis Onset Date Resolution Status Admit Date Abdominal pain affecting acute December 18, 2024 10:51am acute December 18 10:51am Work Phone: 1(886) 782-908406-26-2025 Evaluation note* Diagnosis Onset Date Resolution Status Admit Date Abdominal pain affecting acute December 18, 2024 10:51am acute December 18 10:51am Amenorrhea noneactive December 30, 2024 10:58am Work Phone: 1(486) 743-907606-26-2025 Evaluation note* Diagnosis Onset Date Resolution Status Admit Date acute December 18 10:51am Abdominal pain affecting resolved December 18, 2024 10:51am Amenorrhea noneactive December 30, 2024 10:58am Depression with anxiety acute J 2024 10:40am acute January 12 10:40am Supervision of normal acute January 12, 2025 10:40am Underweight (BMI < 18.5) acute January 12, 2025 10:40am [facility] Work Phone: 1([phone]) 252-488501-05-2025 Instructions* Patient Instructions* Марина Miller APRN.MARQUET[employer] WORKER - 06/29/2024 1:41 PM EST (J06.9) Viral upper respiratory tract infection with cough (primary encounter diagnosis) Plan: Lyawfwfpwxymwbg-Zxdhyndwh-QI (BROMFED DM) 2-30-10 mg/5 mL syrup, COVID & INFLUENZA A/B & RSV PCR, ROUTINE (R19.7) Diarrhea, unspecified type Plan: COVID & INFLUENZA A/B & RSV PCR, ROUTINE (R11.0) Nausea Plan: ondansetron orally disintegrating (ZOFRAN ODT) 4 mg disintegrating tablet Education on viral vs bacterial infections. Most viral infections will last 10 days, sometimes 14. It is possible to have back to back viral infections. An antibiotic will not treat a virus. -Covid/flu/rsv test for rule out, results in 24 hours, isolation in the interim. Result to mychart. -Bromfed for cough/congestion. -Drink lots of fluids and get plenty of rest. BRAT diet as tolerated. Zofran for nausea. -Vaporizers, cool mist humidifiers, warm showers, and warm fluids help open respiratory and sinus passages. Clean humidifiers daily. -OTC tylenol as directed on the bottle. -Saline nasal spray as needed. Flonase twice daily can help reduce inflammation through the sinus cavities. -Cough/deep breathing education, promote clearing of the airways and good lung expansion. -Make follow up with primary care for monitoring and resolution in symptoms. -Signs that warrant an ER evaluation: Sudden change/worsening in condition, lethargy, signs of dehydration, fever greater than 102 F thatis not responding to Tylenol or ibuprofen (Motrin, Advil), drooling, difficulty swallowing, difficulty breathing, shortness of breath, chest pain, evidence of airway compromise (tripod position, neck extension, retractions), seizures, changes in mental status, or other concerns. BRAT DIET Bananas Applesauce [place] Saltine Cracker Animal Crackers Vanilla Wafers Pretzels Oatmeal Unsweetened Dry Cereal (Rice Krispies,Cheerios) Plain Baked or Boiled Potato Plain White Rice Plain Noodles All clear liquids listed below CLEAR LIQUID DIET Broth Keanu Popsiholley Pedialyte Gatorade NO Juices No milk or diary products documented [facility] NoteHNO ID: [id number] Author: МАРИНА MILLER APRN.KINA Service: ? Author Type: Nurse Practitioner Type: Progress Notes Filed: 06/29/2024 13:48 Note Text: This note was created using Rocawearriter. Subjective Norberto Cotton is a 19 year old female. HPI by patient: Norberto Cotton is a 19 year old presenting to the office with the complaint of viral symptoms. Started approximately 4 days ago. Associated symptoms include cough, congestion, feeling hot/cold, body aches, fatigue, headaches, and ear pain. Covid Immunization Dates Overdue - Covid-19 Vaccine () Never done No completion, postpone, frequency change, or communication history exists for this topic. Sick contacts: none. Smoking history/second hand smoke: none. OTC not helping. No antibiotic use in the last 60 days. ALLERGIES No Known Allergies No family history on file. Social History Tobacco Use Smoking status: Every Day Packs/day: 25.00 Types: Cigarettes Vaping Use Vaping status: current everyday user Substances: Nicotine, THC Alcohol use: Yes Comment: weekends no more than 5 at a time. Drug use: Yes Types: Marijuana Active Ambulatory Problems No Active Ambulatory Problems Resolved Ambulatory Problems No Resolved Ambulatory Problems No Additional Past Medical History Review of Systems Constitutional: Positive for chills and diaphoresis. HENT: Positive for congestion and ear pain. Eyes: Negative. Respiratory: Positive for cough. Cardiovascular: Negative. Gastrointestinal: Positive for diarrhea and nausea. Endocrine: Negative. Genitourinary: Negative. Musculoskeletal: Negative. Skin: Negative. Neurological: Positive for headaches. Hematological: Negative. Objective BP 105/80 Pulse 95 Temp 37.3 ?C (99.2 ?F) Wt 46.8 kg (103 lb 2.8 oz) LMP 01/27/2024 SpO2 98% BMI 17.71 kg/m? Physical Exam Vitals reviewed. Constitutional: General: She is not in acute distress. Appearance: She is ill-appearing. She is not toxic-appearing or diaphoretic. HENT: Head: Normocephalic and atraumatic. Right Ear: Tympanic membrane, ear canal and external ear normal. Left Ear: Tympanic membrane, ear canal and external ear normal. Nose: Nose normal. Right Sinus: No maxillary sinus tenderness or frontal sinus tenderness. Left Sinus: No maxillary sinus tenderness or frontal sinus tenderness. Mouth/Throat: Mouth: Mucous membranes are moist. Pharynx: Oropharynx is clear. No oropharyngeal exudate or posterior oropharyngeal erythema. Cardiovascular: Rate and Rhythm: Normal rate and regular rhythm. Pulmonary: Effort: Pulmonary effort is normal. Breath sounds: Normal breath sounds. Lymphadenopathy: Head: Right side of head: No submandibular or tonsillar adenopathy. Left side of head: No submandibular or tonsillar adenopathy. Cervical: Cervical adenopathy present. Right cervical: Superficial cervical adenopathy present. Left cervical: Superficial cervical adenopathy present. Psychiatric: Behavior: Behavior is cooperative. Assessment and Plan (J06.9) Viral upper respiratory tract infection with cough (primary encounter diagnosis) Plan: Qinmsiensdsrbbm-Chdrmlasb-AG (BROMFED DM) 2-30-10 mg/5 mL syrup, COVID AND INFLUENZA A/B AND RSV PCR, ROUTINE (R19.7) Diarrhea, unspecified type Plan: COVID AND INFLUENZA A/B AND RSV PCR, ROUTINE (R11.0) Nausea Plan: ondansetron orally disintegrating (ZOFRAN ODT) 4 mg disintegrating tablet Education on viral vs bacterial infections. Most viral infections will last 10 days, sometimes 14. It is possible to have back to back viral infections. An antibiotic will not treat a virus. -Covid/flu/rsv test for rule out, results in 24 hours, isolation in the interim. Result to [facility]. -Bromfed for cough/congestion. -Drink lots of fluids and get plenty of rest. BRAT diet as tolerated. Zofran for nausea. -Vaporizers, cool mist humidifiers, warm showers, and warm fluids help open respiratory and sinus passages. Clean humidifiers daily. -OTC tylenol as directed on the bottle. -Saline nasal spray as needed. Flonase twice daily can help reduce inflammation through the sinus cavities. -Cough/deep breathing education, promote clearing of the airways and good lung expansion. -Make follow up with primary care for monitoring and resolution in symptoms. -Signs that warrant an ER evaluation: Sudden change/worsening in condition, lethargy, signs of dehydration, fever greater than 102 F that is not responding to Tylenol or ibuprofen (Motrin, Advil), drooling, difficulty swallowing, difficulty breathing, shortness of breath, chest pain, evidence of airway compromise (tripod position, neck extension, retractions), seizures, changes in mental status, or other concerns. The patient will pursue further outpatient evaluation with the primary care physician or another Urgent Care/Express Care as outlined in the after visit summa (more content not included)...[facility]01-05-2025 History of Present illness Narrative* Марина Miller APRN.[facility] - 06/29/2024 1:34 PM EST This note was created using AppSame. Subjective Norberto Cotton is a 19 year old female. HPI by patient: Norberto Cotton is a 19 year old presenting to the office with the complaint of viral symptoms. Started approximately 4 days ago. Associated symptoms include cough, congestion, feeling hot/cold, body aches, fatigue, headaches, and ear pain. Covid Immunization Dates Overdue - Covid-19 Vaccine ( season) Never done No completion, postpone, frequency change, or communication history exists for this topic. Sick contacts: none. Smoking history/second hand smoke: none. OTC not helping. No antibiotic use in the last 60 days. ALLERGIES No Known Allergies No family history on file. Social History Tobacco Use Smoking status: Every Day Packs/day: 25.00 Types: Cigarettes Vaping Use Vaping status: current everyday user Substances: Nicotine, THC Alcohol use: Yes Comment: weekends no more than 5 at a time. Drug use: Yes Types: Marijuana Active Ambulatory Problems No Active Ambulatory Problems Resolved Ambulatory Problems No Resolved Ambulatory Problems No Additional Past Medical History Review of Systems Constitutional: Positive for chills and diaphoresis. HENT: Positive for congestion and ear pain. Eyes: Negative. Respiratory: Positive for cough. Cardiovascular: Negative. Gastrointestinal: Positive for diarrhea and nausea. Endocrine: Negative. Genitourinary: Negative. Musculoskeletal: Negative. Skin: Negative. Neurological: Positive for headaches. Hematological: Negative. Objective BP 105/80 Pulse 95 Temp 37.3 C (99.2 F) Wt 46.8 kg (103 lb 2.8 oz) LMP 01/27/2024 SpO2 98% BMI 17.71 kg/m Physical Exam Vitals reviewed. Constitutional: General: She is not in acute distress. Appearance: She is ill-appearing. She is not toxic-appearing or diaphoretic. HENT: Head: Normocephalic and atraumatic. Right Ear: Tympanic membrane, ear canal and external ear normal. Left Ear: Tympanic membrane, ear canal and external ear normal. Nose: Nose normal. Right Sinus: No maxillary sinus tenderness or frontal sinus tenderness. Left Sinus: No maxillary sinus tenderness or frontal sinus tenderness. Mouth/Throat: Mouth: Mucous membranes are moist. Pharynx: Oropharynx is clear. No oropharyngeal exudate or posterior oropharyngeal erythema. Cardiovascular: Rate and Rhythm: Normal rate and regular rhythm. Pulmonary: Effort: Pulmonary effort is normal. Breath sounds: Normal breath sounds. Lymphadenopathy: Head: Right side of head: No submandibular or tonsillar adenopathy. Left side of head: No submandibular or tonsillar adenopathy. Cervical: Cervical adenopathy present. Right cervical: Superficial cervical adenopathy present. Left cervical: Superficial cervical adenopathy present. Psychiatric: Behavior: Behavior is cooperative. Assessment and Plan (J06.9) Viral upper respiratory tract infection with cough (primary encounter diagnosis) Plan: Seymdylupdjasxb-Ogfghbiss-BH (BROMFED DM) 2-30-10 mg/5 mL syrup, COVID & INFLUENZA A/B & RSV PCR, ROUTINE (R19.7) Diarrhea, unspecified type Plan: COVID & INFLUENZA A/B & RSV PCR, ROUTINE (R11.0) Nausea Plan: ondansetron orally disintegrating (ZOFRAN ODT) 4 mg disintegrating tablet Education on viral vs bacterial infections. Most viral infections will last 10 days, sometimes 14. It is possible to have back to back viral infections. An antibiotic will not treat a virus. -Covid/flu/rsv test for rule out, results in 24 hours, isolation in the interim. Result to mychart. -Bromfed for cough/congestion. -Drink lots of fluids and get plenty of rest. BRAT diet as tolerated. Zofran for nausea. -Vaporizers, cool mist humidifiers, warm showers, and warm fluids help open respiratory and sinus passages. Clean humidifiers daily. -OTC tylenol as directed on the bottle. -Saline nasal spray as needed. Flonase twice daily can help reduce inflammation through the sinus cavities. -Cough/deep breathing education, promote clearing of the airways and good lung expansion. -Make follow up with primary care for monitoring and resolution in symptoms. -Signs that warrant an ER evaluation: Sudden change/worsening in condition, lethargy, signs of dehydration, fever greater than 102 F thatis not responding to Tylenol or ibuprofen (Motrin, Advil), drooling, difficulty swallowing, difficulty breathing, shortness of breath, chest pain, evidence of airway compromise (tripod position, neck extension, retractions), seizures, changes in mental status, or other concerns. The patient will pursue further outpatient evaluation with the primary care physician or another Urgent Care/Express Care as outlined in the after visit summary. The patient is agreeable to this planof care and follow-up instructions have been explained in detail. The patient has received these instructions in written format and have expressed an understanding of the after visit summary. Medical Decision Making: Level: 4 - Moderate I spent a total of 20 minutes on the date of the service which included preparing to see the patient, [id number] patient care, completing clinical documentation, obtaining and/or reviewing separately obtained history, performing a medically appropriate examination, counseling and educating the pat ient/family/caregiver, and ordering medications, tests, or procedures. This patient encounter involved the screening or treatment of novel coronavirus infection (COVID-19). [facility]* Discharge Instructions* Rashad Carbajal MD - 05/19/2024 2:38 AM EST Make sure you hydrate yourself well. Should you have worsening chest pain return to the emergency department or call your primary care physician * Attachments The following attachments cannot be sent through Care Everywhere. * Palpitations Discharge Instructions (Indonesian) documented in this [facility]11-25-2024 Emergency department Note* Rashad Carbajal MD - 05/19/2024 12:59 AM EST EMERGENCY DEPARTMENT ENCOUNTER Pt Name: Norberto Cotton Birthdate 2005 Date of evaluation: 05/19/2024 ED Provider: Rashad Carbajal MD CHIEF COMPLAINT No chief complaint on file. HISTORY OF PRESENT ILLNESS (Location/Symptom, Timing/Onset, Context/Setting, Quality, Duration, Modifying Factors, Severity) Note limiting factors. I wore appropriate PPE for the entirety of this encounter. HPI Norberto Cotton is a 19 y.o. who presents to the emergency department with chief complaint of patientwith a history of anxiety not on medications has episodes of palpitations and rapid heartbeat intermittent over the last month but got worse today. She is also had some upper sharp chest wall pain into her neck. That is since resolved. No shortness of breath, nausea, vomiting, diarrhea or fever. Den ies cough. Last menstrual period was May 05 denies possible . She has no leg swellingand no current chest pain Nursing Notes were reviewed. Limitations to history: None Outside historians: None REVIEW OF SYSTEMS Review of Systems Constitutional: Negative for chills and fever. HENT: Negative for ear pain and sore throat. Eyes: Negative for pain and visual disturbance. Respiratory: Positive for chest tightness. Negative for cough, shortness of breath and wheezing. Cardiovascular: Positive for palpitations. Negative for chest pain. Gastrointestinal: Negative for abdominal pain and vomiting. Genitourinary: Negative for dysuria, hematuria and vaginal bleeding. Musculoskeletal: Negative for arthralgias and back pain. Skin: Negative for color change and rash. Neurological: Negative for dizziness, syncope, light-headedness, numbness and headaches. Psychiatric/Behavioral: Negative for behavioral problems. The patient is nervous/anxious. All other systems reviewed and are negative. Pertinent positives and negatives as per HPI. PAST MEDICAL HISTORY Past Medical History: Diagnosis Date Asthma SURGICAL HISTORY No past surgical history on file. CURRENT MEDICATIONS Previous Medications No medications on file ALLERGIES Patient has no known allergies. FAMILY HISTORY No family history on file. SOCIAL HISTORY Social History Socioeconomic History Marital status: Single Tobacco Use Smoking status: Never Smokeless tobacco: Never Substance and Sexual Activity Alcohol use: Yes Drug use: Not Currently Types: Marijuana SCREENINGS PHYSICAL EXAM ED Triage Vitals [05/19/24 0112] Temp Heart Rate Resp BP 37.2 C (98.9 F) 85 12 116/74 SpO2 Temp Source Heart Rate Source Patient Position 100 % Oral Monitor Sitting BP Location FiO2 (%) Right arm -- Physical Exam Vitals and nursing note reviewed. Constitutional: Appearance: Normal appearance. HENT: Head: Normocephalic and atraumatic. Nose: Nose normal. No rhinorrhea. Mouth/Throat: Mouth: Mucous membranes are moist. Pharynx: No posterior oropharyngeal erythema. Eyes: Extraocular Movements: Extraocular movements intact. Conjunctiva/sclera: Conjunctivae normal. Pupils: Pupils are equal, round, and reactive to light. Cardiovascular: Rate and Rhythm: Normal rate. Heart sounds: No murmur heard. Pulmonary: Effort: No respiratory distress. Breath sounds: Normal breath sounds. No wheezing. Abdominal: General: Abdomen is flat. Palpations: Abdomen is soft. Tenderness: There is no abdominal tenderness. There is no rebound. Musculoskeletal: General: Normal range of motion. Cervical back: Normal range of motion and neck supple. Right lower leg: No edema. Left lower leg: No edema. Skin: General: Skin is warm and dry. Capillary Refill: Capillary refill takes less than 2 seconds. Findings: No rash. Neurological: General: No focal deficit present. Mental Status: She is alert and oriented to person, place, and time. Sensory: No sensory deficit. Motor: No weakness. Psychiatric: Mood and Affect: Mood normal. Behavior: Behavior normal. DIAGNOSTIC RESULTS Procedures/EKG: ECG notes normal sinus rhythm with a rate 83. There is an RR RR prime pattern in V1 V2 which probable normal variant. There is no ST or T wave changes but does have some flattening of the T waves in V1 through V3 EKG was reviewed by myself. Physician EKG interpretation can be found in [facility] RADIOLOGY (Per Emergency Physician): Interpretation per the Radiologist below, if available at the time of this note: No orders to display ED BEDSIDE ULTRASOUND: Performed by ED Physician - none LABS: Labs Reviewed CBC WITH AUTO DIFFERENTIAL - Normal Result Value Auto WBC 6.7 RBC 3.83 Hemoglobin 12.2 Hematocrit 36.4 MCV 95.0 MCH 31.9 MCHC 33.5 RDW 12.5 Platelets 261 MPV 9.4 nRBC 0.0 Neutrophils Relative 69.1 Lymphocytes Relative 22.0 Monocytes Relative 8.6 Eosinophils Relative 0.1 Basophils Relative 0.1 Immature Grans % 0.1 Neutrophils Absolute 4.6 Lymphocytes Absolute 1.5 Monocytes Absolute 0.6 Eosinophils Absolute 0.0 Basophils Absolute 0.0 Immature Grans Absolute 0.0 BASIC METABOLIC PANEL HCG QUALITATIVE URINE THYROID STIMULATING HORMONE All other labs were within normal range or not returned as of this dictation. EMERGENCY DEPARTMENT COURSE and DIFFERENTIAL DIAGNOSIS/MDM: Vitals: Vitals: 05/19/24 0112 BP: 116/74 BP Location: Right arm Patient Position: Sitting Pulse: 85 Resp: 12 Temp: 37.2 C (98.9 F) TempSrc: Oral SpO2: 100% Weight: 47.6 kg (105 lb) Height: 1.626 m (5' 4) Diagnoses as of 05/19/24 0652 Palpitations The patient presented with chief complaint of patient presents with tachycardia palpitations and episode of chest pain which is all resolved now. Does have a history of anxiety not on medications. The differential diagnosis associated with this patient's presentation includes palpitations, electrolyte abnormality, anxiety less likely would be thyroid disease was even unlikely would be acute coronary syndrome. Our workup consisted of ordering/reviewing: CBC BMP TSH and EKG. Will also give her a liter of fluid. Diagnostic tests considered but not performed: Does not need a chest x-ray at this point To aid in management, I performed an independent interpretation of EKG(s) as [facility] I also reviewed external records from Outpatient labs and studies past medical history and medications. The patient will be Discharged. Patient is in agreement with this plan. Medications sodium chloride 0.9 % bolus 1,000 mL (1,000 mL IntraVENous New Bag 05/19/24 0134) REVAL: Reexam 30: Patient is feeling better after liter fluid. CBC BMP TSH and test are all normal EKG is normal. Feel that she can be discharged home went over her instructions make sure she hydrates well. If she continues to have palpitations she should follow-up with her primary care physician. Patient creased plan to be discharged. CRITICAL CARE TIME None CONSULTS: None PROCEDURES: Unless otherwise noted below, none Procedures Patients symptoms are consistent with sepsis, severe sepsis, or septic shock (If yes use .sepsiscoremeasure): no FINAL IMPRESSION No diagnosis found. DISPOSITION PATIENT REFERRED TO: No follow-up provider specified. DISCHARGE MEDICATIONS: New Prescriptions No medications on file (Comment: Please note this report has been produced using speech recognition software and may contain errors related to that system including errors in grammar, punctuation, and spelling, as well as words and phrases that may be inappropriate. If there are any questions or concerns please feel freeto contact the dictating provider for clarification.) Rashad Carbajal MD (electronically signed) Emergency Medicine Provider Rashad Carbajal MD 05/19/24 0652 documented in this [facility]11-25-2024 Physician Emergency department Note* Rashad Carbajal MD - 05/19/2024 12:59 AM EST EMERGENCY DEPARTMENT ENCOUNTER Pt Name: Norberto Cotton Birthdate 2005 Date of evaluation: 05/19/2024 ED Provider: Rashad Carbajal MD CHIEF COMPLAINT No chief complaint on file. HISTORY OF PRESENT ILLNESS (Location/Symptom, Timing/Onset, Context/Setting, Quality, Duration, Modifying Factors, Severity) Note limiting factors. I wore appropriate PPE for the entirety of this encounter. HPI Norberto Cotton is a 19 y.o. who presents to the emergency department with chief complaint of patientwith a history of anxiety not on medications has episodes of palpitations and rapid heartbeat intermittent over the last month but got worse today. She is also had some upper sharp chest wall pain into her neck. That is since resolved. No shortness of breath, nausea, vomiting, diarrhea or fever. Den ies cough. Last menstrual period was May 05 denies possible . She has no leg swellingand no current chest pain Nursing Notes were reviewed. Limitations to history: None Outside historians: None REVIEW OF SYSTEMS Review of Systems Constitutional: Negative for chills and fever. HENT: Negative for ear pain and sore throat. Eyes: Negative for pain and visual disturbance. Respiratory: Positive for chest tightness. Negative for cough, shortness of breath and wheezing. Cardiovascular: Positive for palpitations. Negative for chest pain. Gastrointestinal: Negative for abdominal pain and vomiting. Genitourinary: Negative for dysuria, hematuria and vaginal bleeding. Musculoskeletal: Negative for arthralgias and back pain. Skin: Negative for color change and rash. Neurological: Negative for dizziness, syncope, light-headedness, numbness and headaches. Psychiatric/Behavioral: Negative for behavioral problems. The patient is nervous/anxious. All other systems reviewed and are negative. Pertinent positives and negatives as per HPI. PAST MEDICAL HISTORY Past Medical History: Diagnosis Date Asthma SURGICAL HISTORY No past surgical history on file. CURRENT MEDICATIONS Previous Medications No medications on file ALLERGIES Patient has no known allergies. FAMILY HISTORY No family history on file. SOCIAL HISTORY Social History Socioeconomic History Marital status: Single Tobacco Use Smoking status: Never Smokeless tobacco: Never Substance and Sexual Activity Alcohol use: Yes Drug use: Not Currently Types: Marijuana SCREENINGS PHYSICAL EXAM ED Triage Vitals [05/19/24 0112] Temp Heart Rate Resp BP 37.2 C (98.9 F) 85 12 116/74 SpO2 Temp Source Heart Rate Source Patient Position 100 % Oral Monitor Sitting BP Location FiO2 (%) Right arm -- Physical Exam Vitals and nursing note reviewed. Constitutional: Appearance: Normal appearance. HENT: Head: Normocephalic and atraumatic. Nose: Nose normal. No rhinorrhea. Mouth/Throat: Mouth: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 ered Medications (unrecognized section and content) Medication Order 07/23/2021 07/24/2021 07/25/2021 amoxicillin-clavulanate (AUGMENTIN) 875-125 MG per tablet 1 tablet 1 tablet, Oral, EVERY 12 HOURS SCHEDULED (2 times per day), First dose on 07/25/21 at 2207 2218 (Given - Provid er: Yolette Epperson RN) Scheduled Medication Order 02/01/2022 02/02/202202/03/2022 0.9 % sodium chloride bolus (COMPLETED) 1,000 mL, IntraVENous, at 983.6 mL/hr, Administer over 61 Minutes, ONCE, On Sun02/03/22 at 1721, For 1 dose 1746 (New Bag - Prov ider: Parul Veliz RN)1858 (Stopped - Provider: Parul Veliz RN) 0.9 % sodium chloride bolus (COMPLETED) 1,000 mL (20 mL/kg), IntraVENous, at 983.6 mL/hr, Administer over 61 Minutes, ONCE, On Sun02/03/22 at 1840, For 1 dose 1858 (New Bag - Prov ider: Parul Veliz RN)1959 (Stopped - Provider: Lucy Sanchez RN) ondansetron (ZOFRAN) injection 4 mg (COMPLETED) 4 mg, IntraVENous, ONCE, 1 dose, On Sun02/03/22 at 1721 1747 (Given - Provid er: Parul Veliz RN) Scheduled Medication Order 05/17/2024 05/18/2024 05/19/2024 sodium chloride 0.9 % bolus 1,000 mL (COMPLETED) 1,000 mL, IntraVENous, at 1,000 mL/hr, Administer over 1 Hours, Once, On 05/19/24 at 0125, For 1 dose 0134 (New Bag - Prov ider: Martina Cowan)0234 (Stopped - Provider: Ivy Clemente RN) Care Teams (unrecognized sec tion and content) Ostomy Rn Relationship Specialty Start Date End Date Rashad Bajwa MD [address] [place] [address] PCP - General 07/29/16 Ostomy Rn Relationship Specialty Start Date End Date Rashad Bajwa MD [address] [place] [address] PCP - General 07/29/16 Ostomy Rn Relationship Specialty Start Date End Date Rashad Bajwa MD [address] [place] [address] PCP - General 07/29/16 Ostomy Rn Relationship Specialty Start Date End Date Laverne Chapman [address] [place] [address] [place] [id number] PCP - General Pediatrics 07/28/23 Ostomy Rn Relationship Specialty Start Date End Date [facility], [place] [address] [place] [address] PCP - General Pediatrics 12/09/23 Team Status: Inactive Member Role Status Dates Dr. Antonia Connolly MD Attending Provider Active Start: December 18, 2024 End: December 18, 2024 Team Status: Active Member Role/Relationship Status Dates No Primary Care Physician Primary Care Provider Active Team Status: Inactive Member Role/Relationship Status Dates Dr. Antonia Connolly MD Attending Provider Active Start: December 18, 2024 End: December 18, 2024 Team Status: Inactive Member Role/Relationship Status Dates Dr. Kelly Peterson DO Emergency Provider Active S tart: December 19, 2024 End: December 19, 2024 No Primary Care Physician Primary Care Provider Active Start: December 19, 2024 End: December 19, 2024 Team Status: Inactive Member Role/Relationship Status Dates Dr. Kelly Peterson DO Attending Provider Active S tart: December 19, 2024 End: December 19, 2024 Dr. Kelly Peterson DO Emergency Provider Active S tart: December 19, 2024 End: December 19, 2024 No Primary Care Physician Primary Care Provider Active Start: December 19, 2024 End: December 19, 2024 Team Status: Inactive Member Role/Relationship Status Dates No Primary Care Physician Primary Care Provider Active Start: December 30, 2024 End: December 30, 2024 No Primary Care Physician Referring Provider Active Start: December 30, 2024 End: December 30, 2024 Deepti Snyder NP, CHEF PASSENGER VESSEL-C Attending Provider Active Start: December 30, 2024 End: December 30, 2024 Team Status: Inactive Member Role/Relationship Status Dates No Primary Care Physician Primary Care Provider Active Start: December 30, 2024 End: December 30, 2024 Dr. Allan Clayton DO Emergency Provider Activ e Start: December 30, 2024 End: December 30, 2024 Team Status: Inactive Member Role/Relationship Status Dates No Primary Care Physician Primary Care Provider Active Start: December 30, 2024 End: December 30, 2024 Dr. Allan Clayton , DO Attending Provider Activ e Start: December 30, 2024 End: December 30, 2024 Dr. Allan Clayton , DO Emergency Provider Activ e Start: December 30, 2024 End: December 30, 2024 Team Status: Inactive Member Role/Relationship Status Dates Dr. Antonia Connolly MD Attending Provider Active Start: January 12, 2025 End: January 12, 2025 No Primary Care Physician Primary Care Provider Active Start: January 12, 2025 End: January 12, 2025 No Primary Care Physician Referring Provider Active Start: January 12, 2025 End: January 12, 2025 Team Status: Inactive Member Role/Relationship Status Dates No Primary Care Physician Primary Care Provider Active Start: January 12, 2025 End: January 12, 2025 Dr. Antonia Connolly MD Attending Provider Active Start: January 12, 2025 End: January 12, 2025 Dr. Antonia Connolly MD Referring Provider Active Start: January 12, 2025 End: January 12, 2025 Team Status: Inactive Member Role/Relationship Status Dates No Primary Care Physician Primary Care Provider Active Start: January 20, 2025 End: January 20, 2025 Dr. Antonia Connolly MD Attending Provider Active Start: January 20, 2025 End: January 20, 2025 INFORMATION SOURCE (unrecogn ized section and content) DATE CREATED AUTHOR 02/15/2022 [employer] DATE CREATED AUTHOR AUTHOR'S ORGANIZ ATION 02/26/2024 [facility] DATE CREATED AUTHOR AUTHOR'S ORGANIZ ATION 03/06/2024 [facility] DATE CREATED AUTHOR AUTHOR'S ORGANIZ ATION 05/20/2024 [employer] [facility] DATE CREATED AUTHOR AUTHOR'S ORGANIZ ATION 07/06/2024 [facility] DATE CREATED AUTHOR AUTHOR'S ORGANIZ ATION 2025 [facility] Source Comments (unrecognize d section and content) In the event this informatio n is protected by the Federal Confidentiality of Alcohol and Drug Abuse Patient Records regulations: The Federal rules restrict any use of the information to criminally investigate or prosecute any alcohol or drug abuse patient.[facility] Goals (unrecognized section and content) Goals may be documented in a n alternate sectionGoals may be documented in an alternate sectionGoals may be documented in an alternate sectionGoals may be documented in an alternate sectionGoals may be documented in an alternate sectionGoals may be documented in an alternate sectionGoals may be documented in an alternate section FOR RECORDS PERTAINING TO PATIENTS WHO ARE OR HAVE BEEN ENROLLED IN A CHEMICAL DEPENDENCY/SUBSTANCEABUSE PROGRAM, SOME INFORMATION MAY BE OMITTED. This clinical summary was aggregated from multiple sources. Caution should be exercised in using it in the provision of clinical care. This summary normalizes information from multiple sources, and as a consequence, information in this document may materially change the coding, format and clinical context of patient data. In addition, data may be omitted in some cases. CLINICAL DECISIONS SHOULD BE BASED ON THE PRIMARY CLINICAL RECORDS. [employer] [facility]. provides no warranty or guarantee of the accuracy or completeness of information in this document.
[2025-02-09 00:44] LABS: Hematocrit 32.3 % (37-47); Hemoglobin 10.8 g/dL (12.0-15.0); Immature Granulocytes Count 0.010 X10^3/uL (0.0-0.0); Mean Corp Hgb Conc 33.4 g/dL (32-36); Mean Corpuscular Volume 94.2 fL (81-99); Mean Platelet Vol. 9.7 fl (6.2-12.0); NRBC Flagged by Analyzer 0 % (0-5); Platelet Count 218 K/mm3 (150-450); RBC Distribution Width CV 12.8 % (11.6-14.6); RBC Distribution Width SD 44.5 fl (35.1-43.9); Red Blood Count 3.43 M/mm3 (4.2-5.4); White Blood Count 5.6 K/mm3 (4.4-11.0)
[2025-02-09 01:03] LABS: Anion Gap 10 (5-15); BUN 12 mg/dL (4-19); BUN/Creat Ratio 24.2 RATIO (10-20); Calcium,Total 9.0 mg/dL (7.6-11.0); Carbon Dioxide 21.4 mmol/L (21.0-32.0); Chloride 107 mmol/L (98-108); Estimated Creatinine Clearance 150.68 ml/min (50-250); Glucose 103 mg/dL (70-99); Potassium 3.7 mmol/L (3.3-5.1); Troponin T High Sensitivity < 6 ng/L (<=14)
[2025-02-09 01:12] LABS: D-Dimer Quantitative (DVT/PE) < 0.27 FEU/ug/m (0.27-0.49)
[2025-02-09 02:06] VITALS: BP 92/61; PULSE 73; RESP 18; TEMP 36.6; O2SAT 99
== END 2025-02-09 02:10 | disposition home or self-care (01) ==
PROVIDERS: Emergency Provider Emergency Medicine; Visit Provider Emergency Medicine
DX: O99.891 Other specified diseases and conditions complicating pregnancy (principal); R07.9 Chest pain, unspecified; Z3A.13 13 weeks gestation of pregnancy; Z87.891 Personal history of nicotine dependence
CPT/HCPCS: 80048; 84484; 85025; 85379; 93005; 99283; A4216

== ENCOUNTER 2025-02-12 06:09 | Day surgery (SDC) | payer MEDICAID, SELFPAY ==
--- NOTE | 2025-02-11 12:49 | PAT.ANE_ITS ---
Pre-Assessment Diagnosis/Proposed Procedure Planned Operative Procedure(s): SUCTION D&C Anesthesia History Anesthesia History - seismology technical officer: Anesthesia History - seismology technical officer Hx Hospitalization No 02/11/25 08:12 Any Problems With Anesthesia No 02/11/25 08:12 Cholinesterase deficiency No 02/11/25 08:12 You/Your Family Experience No 02/11/25 08:12 fever (hyperthermia) with Relationship Recent Exposure to Contagious Disease Does patient have nerve No 02/11/25 08:12 stimulator Patient instructed to have device shut off --Does patient have Pacemaker or ICD? When Was Last Pacemaker Check QUESTION #4 FULL TEXT: You/Your Family Experience fever (hyperthermia) with Anesthesia Last Oral Intake Last Oral intake: Last Oral Intake NPO since Meds taken in AM with sips of water? Meds patient instructed to take am of surgery PONV PONV - seismology technical officer: PONV - seismology technical officer Female Yes 02/11/25 08:12 HX of Motion Sickness No 02/11/25 08:12 HX of N/V After Surgery No 02/11/25 08:12 Non-Smoker Yes 02/11/25 08:12 Duration of Surgery greater No 02/11/25 08:12 than 60 minutes Number of Risk Factors 2 02/11/25 08:12 PONV Score Moderate Risk 02/11/25 08:12 Height & Weight Height & Weight: Anesthesia: Height & Weight Height 5 ft 4 in 02/10/25 14:09 Respiratory Assessment Respiratory Assessment - seismology technical officer: Respiratory Tract Infection Hx - seismology technical officer Hx Respiratory Tract Infection No 02/11/25 08:12 STOP Sleep Apnea STOP Sleep Apnea - seismology technical officer: STOP Sleep Apnea - seismology technical officer Hx Hypertension No 02/11/25 08:12 Hx Sleep Apnea No 02/11/25 08:12 CPAP BIPAP Do you snore loudly (louder No 02/11/25 08:12 than talking or can be heard Do you often feel tired/ No 02/11/25 08:12 fatigued/ sleepy during daytime? Has anyone observed you stop No 02/11/25 08:12 breathing during sleep? STOP Results Negative 02/11/25 08:12 QUESTION #5 FULL TEXT : Do you snore loudly (louder than talking or can be heard through closed doors)? Tobacco Use History Tobacco Use History - seismology technical officer: Tobacco Use History - seismology technical officer Tobacco Use Smoking Status Former smoker 02/11/25 08:12 Hx Tobacco Use No 02/11/25 08:12 Years Smoking Packs Smoked per Day Smoking Cessation Date was Yes - quit smoking within 15 02/11/25 08:12 within the last 15 years years Hx Smoking Cessation Date Hx Smoking Cessation Counseling Hematologic Medial History Hematologic Hx - seismology technical officer: Hematologic Medical Hx - repertoire manager Hx of Blood Transfusion No 02/11/25 08:12 Hx of Transfusion in last 3 No 02/11/25 08:12 Months Date of Last Transfusion (if within last 3 months) Ever experience any problems No 02/11/25 08:12 with transfusion(s)? Specify any problems Hx of Preganancy in last 3 No 02/11/25 08:12 Months Nurse Filling Out Transfusion [email or web address] 02/11/25 08:12 & Questions: Date: 02/11/25 02/11/25 08:12 Time: 08:16 02/11/25 08:12 Patient unable to answer at this time (ie. confused, unrespo /Reproduction History /Reproductive History - seismology technical officer: /Reproductive Hx- seismology technical officer Hx Now SUCTION D&C 02/11/25 08:12 Gestational Age (in weeks): EDC: Hx Hx Para Hx Section SAB No 02/10/25 14:09 Active Medications Active Medications: Current Medications Generic Name Dose Route Start Last Admin Trade Name Freq PRN Reason Stop Dose Admin Doxycycline Monohydrate 100 mg 02/12/25 07:00 Doxycycline 100 Mg Capsule PO X1 DARNELL PFSH Medical History (Updated 02/11/25 @ 08:20 by Alli Guerra) Depression Anxiety History of Holter monitoring Chest pain Abdominal pain Home Medications ?Medication ?Instructions ?Recorded ?Last Taken ?Type NK 02/09/25 Unknown History Allergy/AdvReac Type Severity Reaction Status Date / Time No Known Allergies Allergy Verified 02/11/25 08:12 Family History Grandmother Uterine cancer Diabetes Grandfather Brain aneurysm Diabetes Social History adopted: No household members: significant other and friend(s) number of children: 0 current occupational status: employed current occupation: [employer] current occupational exposures/hazards: No pets and animals: Yes pets and animals: dog(s) and other details: Duck (3) history of recent travel: No sexually active: Yes Smoking Status: Former smoker second hand exposure: No quit status: considering quitting alcohol intake: current alcohol intake frequency: holidays/special occasions only details: Not while substance use type: does not use well-balanced diet: about half the time caffeine: No eating out: 4 or more times/week during the past year weight has: remained stable what type of physical activity do you participate in: walking frequency: 3-4 times per week duration: < 15 minutes/day sarah/bahai: Restoration seatbelt use: always do you feel safe at home: Yes additional social history: BF: 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 Sinus rhythm with short OK interval. Otherwise normal EKG. Recommendation Anesthesia Recommendation Anesthesia recommendation: OPTIMIZED for anesthesia
[2025-02-12] VITALS (10 sets, daily range): BP systolic 95–125; BP diastolic 61–79; PULSE 58–75; RESP 16; TEMP 36.2–36.9; O2SAT 95–100; BMI 18.3
--- OUTSIDE RECORDS SUMMARY | 2025-02-12 06:16 | XMS RPT_ITS | CCD ---
Author Organization [facility] CliniSyme Care Team Providers Care Inbound Call Center Agent Name Role Phone Rashad Bajwa MD Primary Care Provider [phone] Laverne Chapman Primary Care Provider RICHARD YODER Attending Unavailable REFERRED, SELF Referring Unavailable RASHAD BAJWA Attending Unavailable CHAPMAN, LAVERNE Primary Care Unavailable REFERRED, SELF Referring Unavailable CHAPMAN, LAVERNE Primary Care Unavailable CHAPMAN, LAVERNE Attending Unavailable MELINDA FAIRCHILDISSA Cliff Attending Unavailable CHAPMAN, LAVERNE Primary Care Unavailable [...] Attending Unavailable CHAPMAN, LAVERNE Primary Care Unavailable [facility], [facility] Care Provider Dr. Antonia Connolly MD Attending Provider Dr. Kelly Peterson DO Emergency Provider [phone] Care Physician, No Primary Primary Care Provider Unavailable Dr. Kelly Peterson DO Attending Provider Care Physician, No Primary Referring Provider Un available Deepti Mon Attending Provider Dr. Allan Clayton DO Emergency Provider Dr. Allan Clayton DO Attending Provider Dr. Antonia Connolly MD Referring Provider Dr. Fredi Sorenson MD Emergency Provider [phone] Dr. Daisy Garner DO Attending Provider Care Physician, No Primary Primary Care Unava ilable Antonia Connolly Attending Unavailable Care Physician, No Primary Referring Unava ilable Care Physician, No Primary Referring Unava ilable Care Physician, No Primary Primary Care Unava ilable Daisy Garner Attending Unavailabl e Care Physician, No Primary Primary Care Unava ilable Allan Clayton Attending Unavailabl e Care Physician, No Primary Primary Care Unava ilable Cathleen, Antonia Attending Unavailable Cathleen, Antonia Referring Unavailable Care Physician, No Primary Primary Care Unava ilable Cathleen, Antonia Attending Unavailable Care Physician, No Primary Primary Care Unava ilable Cathleen, Antonia Attending Unavailable Delta, Fredi Attending Unavailable Care Physician, No Primary Primary Care Unava ilable Care Physician, No Primary Primary Care Unava ilable Kelly Peterson Attending Unavailable Cathleen, Antonia Attending Unavailable Care Physician, No Primary Primary Care Unava ilable Care Physician, No Primary Referring Unava ilable Claudio CONTACT CENTRE SUPERVISOR, Deepti Attending Unavailable Medications Current Medications Medication Drug Class(es) Dates [...] days 20 tablet 0 07/25/2021 08/04/2021 Active brompheniramine maleate 0.4 mg/ml / dextromethorphan hydrobromide 2 mg/ml / pseudoephedrine hydrochloride 6 mg/ml oral solution (1 source) alpha-Adrenergic Agonist, Uncompetitive I-asuxen-H-aspartate Receptor Antagonist, Sigma-1 Agonist Start: 06-29-2024 take 10 mL by mouth four times daily as needed Buzrvcevqxwrsxc-Snziuhezl-DZ (BROMFED DM) 2-30-10 mg/5 mL syrup Indications: Viral upper respiratory tract infection with cough Take 10 mL by mouth four times a day as needed. 118 mL 06/29/2024 Active [place] (Nk) (3 sources) Start: 02-09-2025 [place] (Nk) Active February 09, 2025 12:00am Start: 12-18-2024 [place] (Nk) A ctive December 18, 2024 12:00am ondansetron 4 mg [...] or Vomiting 21 tablet 0 02/03/2022 Active Completed/Discontinued Medications Medication Drug Class(es) Dates Sig (Normalized) Sig (Original) acetaminophen 325 mg / HYDROcodone bitartrate 5 mg oral tablet (8 sources) Opioid Agonist Start: 12-19-2024 End: 12-30-2024 Hydrocodone-Acetamin ophen 5-325 mg tablet Discontinued 1 {tbl} PO EVERY 4 HOURS NEEDED as needed for Pain 10 2 0 December 19, 2024 December 30, 2024 11:11am Abdominal pain Unspecified abdominal pain azithromycin 500 mg oral tablet (8 sources) Macrolide Antimicrobial Start: 01-15-2025 End: 02-09-2025 take 2 tablets by mouth once Azithromycin 500 mg tablet Discontinued 1000 mg PO ONCE 2 0 January 16, 2025 3:50pm February 09, 2025 12:09am prochlorperazine 10 mg oral tablet (9 sources) Phenothiazine Start: 12-18-2024 End: 02-09-2025 take 1 tablet by mouth every eight hours as needed for nausea and vomiting Prochlorperazine Maleate (Compazine) 10 mg tablet Discontinued 10 mg PO Q8H as needed for nausea and vomiting 90 3 December 18, 2024 12:00am February 09, 2025 12:09am 50 ml sodium chloride 9 mg/ml injection (4 sources) Start: 05-19-2024 End: 05-19-2024 1,000 mL, IntraVENous, at 1,000 mL/hr, Administer over 1 Hours, Once, On Sun05/19/24 at 0125, For 1 dose Start: 02-03-2022 End: 02-03-2022 0.9 % sodium chloride bolus Problems Active Problems Problem Classification Problem Date Documented Da te Episodic/Chronic Abdominal pain (9 sources) Abdominal pain; Translations: [Unspecified abdominal pain] Onset: 01-05-2025 12-19-2024 Episodic Anxiety disorders (13 sources) Mixed anxiety and depressive disorder; Translations: [Other specified anxiety disorders] 12-30-2024 Chronic Comment on above: refer to counseling Cardiac dysrhythmias (8 sources) Palpitations; Translations: [Palpitations] Onset: 05-19-2024 05-19-2024 Episodic Fluid and electrolyte disorders (1 source) Dehydration; Translations: [Dehydration] Episodic Menstrual disorders (8 sources) Amenorrhea; Translations: [Amenorrhea, unspecified] Onset: 12-30-2024 12-30-2024 Chronic Nausea and vomiting (2 sources) Nausea; Translations: [Nausea] Episodic Nonspecific chest pain (3 sources) Chest pain; Translations: [Chest pain, unspecified] 02-09-2025 Episodic Other complications of (2 sources) Anemia of ; Translations: [Anemia complicating , unspecified trimester] 02-10-2025 Chronic Other complications of (18 sources) Abdominal pain in ; Translations: [Other specified related conditions, unspecified trimester] 12-18-2024 Episodic Other complications of (6 sources) Pain in female pelvis; Translations: [Other specified related conditions, unspecified trimester] 12-30-2024 Episodic Other complications of (5 sources) Infectious disease in mother complicating , childbirth AND/OR puerperium; Translations: [Other maternal infectious and parasitic diseases complicating , first trimester] 01-15-2025 Episodic Comment on above: Pt/Partner tx azythr o, retest in 6w and 36w Other complications [...] Episodic Other nutritional; endocrine; and metabolic disorders (12 sources) Underweight; Translations: [Underweight] 12-30-2024 Episodic Comment [...] esting, low risk, gender female. Horizon neg. 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 Daisy Pacheco DO Age/Sex: 20/F Location: [facility] [place] Status: Signed Intake Vital Signs 12/19/24 14:59 02/09/25 00:08 02/10/25 14:09 Height 5 ft 4 in 5 ft 4 in 5 ft 4 in Weight: 106 lb 5 oz BMI 18.2 BP 98/64 Intake Visit Reasons: 13wk OB, discuss recent tx for STD Chief Complaint: 13 Week OB/discuss tx for std Heat Set Operator Required: No Is patient in pain?: No Allergies No Known Allergies Allergy (Verified 02/10/25 14:10) Medications ???Medication ???Instructions ???Recorded ???Confirmed ???Type NK 02/09/25 02/10/25 History Last Menstrual Period: 11/10/24 Zika: Zika virus screening: Negative : No PFSH PFSH Medical History Abdominal pain Family History Grandmother Uterine cancer Diabetes Grandfather Brain aneurysm Diabetes Social History adopted: No household members: significant other and friend(s) number of children: 0 current occupational status: employed current occupation: [employer] current occupational exposures/hazards: No pets and animals: Yes pets and animals: dog(s) and other details: Duck (3) history of recent travel: No sexually active: Yes Smoking Status: Former smoker second hand exposure: No quit status: considering [...] times per week duration: < 15 minutes/day sarah/amish: Mormon seatbelt use: always do you feel safe at home: Yes additional social history: BF: Jeremiah - Traffic appliance mechanic/construction History 1 Elective abortions 0 Hx Para 0 Spontaneous abortions 0 Hx # Term Pregnancies Ectopic pregnancies Hx # Pregnancies Multiple births # of living children 0 HPI 13wk OB, discuss recent tx for STD Details: NORBERTO COTTON is a 20 year old who presents for routine OB visit. OB Visit TELLO Calculator Estimated Delivery Date Method Current WG Current Estimate 08/17/25 LMP (Certain) 13w 1d Other Estimates 08/18/25 Ultrasound #1 13w 0d Expected Delivery Route/Plan Labor Preferences- CB/BF classes: [...] no w, having some morning anxiety episodes. 02/10/25 -???-???-???-???-???-???-? ??-???-???-???-???-???- 13w 1d 106 lb 5 oz 98/64 Negative -???-???-???-???-???-???-? ??-???-???-???-???-???- Negative -???-???-???-???-???-???-? ??-???-???-???-???-???- JV- PHOEBE darell calixto is measuring weeks 1 day without heart tones. No signs of DARNELL. patient denies bleeding or cramping. She was seen in the ER recently for heart burn but had no OB complaints. Plan is for suction D C. grief counseling offered and zsjzae-ft-wyw basket given. ACOG First Trimester First Trimester: Desire for , Alcohol, Tobacco Cessation, Illicit/Recreational Drug/Substance Use, Intimate Partner Violence, Barriers to care, Unstable Housing, Communication Barriers, Environmental/Work Hazards, Anticipated Course of Care, Toxoplasmosis P (more content not included)... Normal [facility] 12 Lead EKGon 02-09-2025 12 Lead EKG [facility] Cardiovascular Services [address] [place] [address] 12 Lead EKG 02/09/25 0015 MR#: [id number] Acct: [id number] Name: NORBERTO COTTON Rep #: [id number] : 2005 20 From: Yoshi Downs MD Attending Dr: Status: DEP ER Ordering Dr: Fredi Sorenson MD Date: 02/09/25 Location: ED Sex: F C Admitted: Test Reason : CP Blood Pressure : */* mmHG Vent. Rate : 65 BPM Atrial Rate : 65 BPM P-R Int : 96 ms QRS Dur : 82 ms QT Int : 400 ms P-R-T Axes : 24 66 59 degrees QTcB Int : 416 ms Sinus rhythm with short ID Otherwise normal ECG Confirmed by YOSHI DOWNS MD ([id number]), digital editor [address] ([id number]) on 02/10/2025 6:13:20 AM Referred By: Confirmed By: YOSHI DOWNS MD 02/10/25 0613 Date Yoshi Downs MD CC: Dr. Fredi Sorenson MD; No Primary Care Physician Signed [facility] Absolute lymphocyte countOrd ered By: Fredi Sorenson on 02-09-2025 Lymphocytes Auto (Unsp spec) [#/Vol] 2.53 10*3/uL 0.83-4.51 [facility] Absolute neutrophil countOrd ered By: Fredi Sorenson on 02-09-2025 Neutrophils (Bld) [#/Vol] 2.5 10*3/uL 2.0-7.7 [facility] Anion gap in Serum or Plasma Ordered By: Fredi Sorenson on 02-09-2025 Anion gap [Moles/Vol] 10 mmol/L 5-15 [facility] Automated lymphocyte count a s percentage of total leukocytesOrdered By: Fredi Sorenson on 02-09-2025 Lymphocytes/100 WBC Auto (Unsp spec) 45.1 % High 19-41 [facility] BUN/creatinine ratioOrdered By: Fredi Sorenson on 02-09-2025 Urea nitrogen/Creatinine [Mass ratio] 24.2 mg/mg High 10-20 [facility] Basic Metabolic Profile (BMP )on 02-09-2025 BUN/CRE 24.2 RATIO High - [facility] Comment on above: Performed By: #### L 501.4021, L300.8000, L100.0100, L500.2500 #### [facility] [address] [place], [address] Calcium [Mass/Vol] 9.0 mg/dL Normal 7.6-11.0 [facility] Comment on above: Performed By: #### L 501.4021, L300.8000, L100.0100, L500.2500 #### [facility] [address] [place], [address] Chloride [Moles/Vol] 107 mmol/L Normal 98-108 [facility] Comment on above: Performed By: #### L 501.4021, L300.8000, L100.0100, L500.2500 #### [facility] [address] [place], [address] CO2 [Moles/Vol] 21.4 mmol/L Normal 21.0-32.0 [facility] Comment on above: Performed By: #### L 501.4021, L300.8000, L100.0100, L500.2500 #### [facility] [address] [place], [address] Creatinine [Mass/Vol] 0.51 mg/dL Low 0.70-1.20 [facility] Comment on above: Performed By: #### L 501.4021, L300.8000, L100.0100, L500.2500 #### [facility] [address] [place], [address] ECRCL 150.68 ml/min Normal 50-250 [facility] Comment on above: Performed By: #### L 501.4021, L300.8000, L100.0100, L500.2500 #### [facility] [address] [place], [address] GAP 10 Normal 5-15 [facility] Comment on above: Performed By: #### L 501.4021, L300.8000, L100.0100, L500.2500 #### [facility] [address] [place], [address] GFR/1.73 sq M.predicted among non-blacks MDRD (S/P/Bld) [Vol rate/Area] 136 mL/min/{1.73_m2} Normal >60 [facility] Comment on above: Result Comment: mL/m in/1.73m2 CKD-EPI Creatinine Equation (2020) Performed By: #### L 501.4021, L300.8000, L100.0100, L500.2500 #### [facility] [address] [place], [address] Glucose [Mass/Vol] 103 mg/dL High 70-99 [facility] Comment on above: Performed By: #### L 501.4021, L300.8000, L100.0100, L500.2500 #### [facility] [address] [place], [address] Potassium [Moles/Vol] 3.7 mmol/L Normal 3.3-5.1 [facility] Comment on above: Performed By: #### L 501.4021, L300.8000, L100.0100, L500.2500 #### [facility] [address] [place], [address] Sodium [Moles/Vol] 138 mmol/L Normal 133-145 [facility] Comment on above: Performed By: #### L 501.4021, L300.8000, L100.0100, L500.2500 #### [facility] [address] [place], [address] Urea nitrogen [Mass/Vol] 12 mg/dL Normal 4-19 [facility] Comment on above: Performed By: #### L 501.4021, L300.8000, L100.0100, L500.2500 #### [facility] [address] [place], [address] Basophil percentageOrdered B y: Fredi Sorenson on 02-09-2025 Basophils/100 WBC (Bld) 0.4 % 0-1 [facility] CBC W/Diff, Automatedon 01-23 Absolute Lymph 2.53 X10 3/uL Normal 0.83-4.51 [facility] Comment on above: Performed By: #### L 501.4021, L300.8000, L100.0100, L500.2500 #### [facility] [address] [place], [address] Absolute Neut 2.5 X10 3/uL Normal 2.0-7.7 [facility] Comment on above: Performed By: #### L 501.4021, L300.8000, L100.0100, L500.2500 #### [facility] [address] [place], [address] Basophils/100 WBC (Bld) 0.4 % Normal 0-1 [facility] Comment on above: Performed By: #### L 501.4021, L300.8000, L100.0100, L500.2500 #### [facility] [address] [place], [address] Eosinophils/100 WBC (Bld) 0.7 % Normal 0-5 [facility] Comment on above: Performed By: #### L 501.4021, L300.8000, L100.0100, L500.2500 #### [facility] [address] [place], [address] Erythrocyte distribution width (RBC) [Ratio] 12.8 % Normal 11.6-14.6 [facility] Comment on above: Performed By: #### L 501.4021, L300.8000, L100.0100, L500.2500 #### [facility] [address] [place], [address] Hematocrit (Bld) [Volume fraction] 32.3 % Low 37-47 [facility] Comment on above: Performed By: #### L 501.4021, L300.8000, L100.0100, L500.2500 #### [facility] [address] [place], [address] Hemoglobin (Bld) [Mass/Vol] 10.8 g/dL Low 12.0-15.0 [facility] Comment on above: Performed By: #### L 501.4021, L300.8000, L100.0100, L500.2500 #### [facility] [address] [place], [address] IG% 0.200 Normal 0.0-0.9 [facility] Comment on above: Result Comment: IG% - Immature Granulocytes (promyelocytes, myelocytes and metamyelocytes) > 1% indicates that a LEFT SHIFT is Present. Performed By: #### L 501.4021, L300.8000, L100.0100, L500.2500 #### [facility] [address] [place], [address] Lymphocytes/100 WBC (Bld) 45.1 % High 19-41 [facility] Comment on above: Performed By: #### L 501.4021, L300.8000, L100.0100, L500.2500 #### [facility] [address] [place], [address] MCH (RBC) [Entitic mass] 31.5 pg Normal 27.0-32.0 [facility] Comment on above: Performed By: #### L 501.4021, L300.8000, L100.0100, L500.2500 #### [facility] [address] [place], [address] MCHC (RBC) [Mass/Vol] 33.4 g/dL Normal 32-36 [facility] Comment on above: Performed By: #### L 501.4021, L300.8000, L100.0100, L500.2500 #### [facility] [address] [place], [address] MCV (RBC) [Entitic vol] 94.2 fL Normal 81-99 [facility] Comment on above: Performed By: #### L 501.4021, L300.8000, L100.0100, L500.2500 #### [facility] [address] [place], [address] Monocytes/100 WBC (Bld) 8.7 % Normal 0-10 [facility] Comment on above: Performed By: #### L 501.4021, L300.8000, L100.0100, L500.2500 #### [facility] [address] [place], [address] Neutrophils/100 WBC (Bld) 44.9 % Low 47-70 [facility] Comment on above: Performed By: #### L 501.4021, L300.8000, L100.0100, L500.2500 #### [facility] [address] [place], [address] Nucleated RBC (Bld) [#/Vol] 0 10*3/uL Normal 0-5 [facility] Comment on above: Performed By: #### L 501.4021, L300.8000, L100.0100, L500.2500 #### [facility] [address] [place], [address] Platelet mean volume (Bld) [Entitic vol] 9.7 fL Normal 6.2-12.0 [facility] Comment on above: Performed By: #### L 501.4021, L300.8000, L100.0100, L500.2500 #### [facility] [address] [place], [address] Platelets (Bld) [#/Vol] 218 10*3/uL Normal 150-450 [facility] Comment on above: Performed By: #### L 501.4021, L300.8000, L100.0100, L500.2500 #### [facility] [address] [place], [address] RBC (Bld) [#/Vol] 3.43 10*6/uL Low 4.2-5.4 [facility] Comment on above: Performed By: #### L 501.4021, L300.8000, L100.0100, L500.2500 #### [facility] [address] [place], [address] RDW SD 44.5 fl High 35.1-43.9 [facility] Comment on above: Performed By: #### L 501.4021, L300.8000, L100.0100, L500.2500 #### [facility] [address] [place], [address] WBC (Bld) [#/Vol] 5.6 10*3/uL Normal 4.4-11.0 [facility] Comment on above: Performed By: #### L 501.4021, L300.8000, L100.0100, L500.2500 #### [facility] [address] [place], [address] Carbon dioxide, total [Moles /volume] in Central venous bloodOrdered By: Fredi Sorenson on 02-09-2025 CO2 [Moles/Vol] 21.4 mmol/L 21.0-32.0 [facility] Chloride assayOrdered By: Nate Sorenson on 02-09-2025 Chloride [Moles/Vol] 107 mmol/L 98-108 [facility] D-Dimer Quantitative (DVT/PE )on 02-09-2025 D-DIMER QUANT < 0.27 Low 0.27-0.49 [facility] Comment on above: Result Comment: NORM AL D-Dimer level (<0.50) indicates no DVT or PE. Performed By: #### L 501.4021, L300.8000, L100.0100, L500.2500 #### [facility] [address] [place], [address] Emergency Department Summary on 02-09-2025 Emergency Department Summary [facility] Medical Records Department [address] [place] [address] Emergency Department Summary 02/09/25 MR#: [id number] Acct: [id number] Name: NORBERTO COTTON Rep #: [id number] : 2005 20 From: Fredi Sorenson MD PCP: Care Physician,No Primary Status:REG ER Location: ED HPI History of Present Illness Chief Complaint: Chest Pain Informant: patient Onset/Context/Timing Onset: Today Activity at onset: gradual Timing: Continuous Quality: Positive for Aching and Pain Location: Left Chest Current Severity: Mild Maximum Severity: Mild Worsened By: - (Worse supine. Not exertional.) Relieved By: Nothing Associated Symptoms: Negative for Nausea, Vomiting, Diaphoresis, Dyspnea, Cough, Fever, Lightheadedness, Acid Reflux or Palpitations Narrative Narrative: Healthy 20-year-old female currently 13 weeks , G1, P0 Ab0 with a due date of August 17, 2025. Tonight was at home chest discomfort on the left with palpitations. Said it was a burning at times it felt like heaviness. Did not radiate anywhere. No radiation to her jaw back or arm. No history of DVT or PE. Or other risk factors or . She has had no recent travel, surgery or hospitalization. Denies any calf pain or swelling. No hemoptysis. Pain is not pleuritic. She has had no recent exertional symptoms. Prior Similar Symptoms: No Recent Illness/Hospitalization: No CVD Risk Factors: Negative for Hypertension, Diabetes or Hypercholesterolemia PE Risk Factors: Negative for Recent Travel/Surgery, Recent Immobilization, Prior DVT or PE, Cancer or OCP + Smoking + >/=35 TAD Risk Factors: Negative for Marfan's Syndrome PFSH [facility] Medical History Abdominal pain Home Medications ???Medication ???Instructions ???Recorded ???Last Taken ???Type NK 02/09/25 Unknown History Allergy/AdvReac Type Severity Reaction Status Date / Time No Known Allergies Allergy Verified 01/12/25 10:43 Family History Grandmother Uterine cancer Diabetes Grandfather Brain aneurysm Diabetes Social History adopted: No household members: significant other and friend(s) number of children: 0 current occupational status: employed current occupation: [employer] current occupational exposures/hazards: No pets and animals: Yes pets and animals: dog(s) and other details: Duck (3) history of recent travel: No sexually active: Yes Smoking Status: Former smoker second hand exposure: No quit status: considering [...] times per week duration: < 15 minutes/day sarah/amish: Mormon seatbelt use: always do you feel safe at home: Yes additional social history: BF: Jeremiah - Traffic appliance mechanic/construction ROS ROS ED ROS Narrative No recent illness. Chest pain tonight. Constitutional Constitutional ED: Denies chills or fever(s) Eyes Eyes: Reports none ENT ENT ED: Denies ear pain Cardiovascular Cardiovascular: Reports as per HPI, chest pain and palpitations; Denies orthopnea or paroxysmal nocturnal dyspnea Respiratory/Chest Respiratory/Chest: Denies cough, dyspnea, dyspnea on exertion, orthopnea, paroxysmal nocturnal dyspnea or sputum Gastrointestinal Gastrointestinal: Denies abdominal pain Genitourinary Genitourinary ED: Denies dysuria or hematuria Musculoskeletal Musculoskeletal: Denies arthralgias Integumentary Denies abscess Neurologic Neurologic: Denies headache(s) Psychiatric Psychiatric: Denies anxiety Endocrine Endocrinology: Denies cold intolerance Hematologic/Lymphatic Hematologic/Lymphatic: Denies easy bleeding, easy bruising or lymphadenopathy Allergic/Immunologic Allergic/Immunologic ED: Denies mouth swelling, tongue swelling or urticaria EXAM Physical Exam Narrative Exam Narrative: Well-appearing 20-year-old female. Vital signs stable afebrile. Pulse ox 100% on room air no hypoxia. Significant other at bedside. H EENT exam pupils round reactive light. Moist mucous membranes. Neck nontender no JVD. Back nontender. Lungs clear to auscultation bilaterally. Equal and symmetrical breath sounds bilaterally. Heart regular rhythm rate about 70 no murmur. Chest wall and ribs nontender. No ecchymosis or bruising. No rash. No crepitus or subcu air. No reproducible chest wall pain. Abdomen is soft, nontender, nondistended (more content not included)... Normal [facility] Eosinophil percentageOrdered By: Fredi Sorenson on 02-09-2025 Eosinophils/100 WBC (Bld) 0.7 % 0-5 [facility] Erythrocyte distribution wid th ratioOrdered By: Fredi Sorenson on 02-09-2025 Erythrocyte distribution width (RBC) [Ratio] 12.8 % 11.6-14.6 [facility] Erythrocyte distribution wid th standard deviationOrdered By: Fredi Sorenson on 02-09-2025 Erythrocyte distribution width (RBC) [Ratio] 44.5 fl High 35.1-43.9 [facility] Glomerular filtration rate ( GFR) estimation/1.73 sq m using serum, plasma, or whole bOrdered By: Fredi Sorenson on 02-09-2025 GFR/1.73 sq M.predicted among non-blacks MDRD (S/P/Bld) [Vol rate/Area] 136 mL/min/{1.73_m2} >60 [facility] Comment on above: mL/min/1.73m2 CKD-EP I Creatinine Equation (2020) Hematocrit Auto (Bld) [Volum e fraction]Ordered By: Fredi Sorenson on 02-09-2025 Hematocrit (Bld) [Volume fraction] 32.3 % Low 37-47 [facility] Hemoglobin measurementOrdere d By: Fredi Sorenson on 02-09-2025 Hemoglobin (Bld) [Mass/Vol] 10.8 g/dL Low 12.0-15.0 [facility] Immature granulocytes/100 WB C Auto (Bld)Ordered By: Fredi Sorenson on 02-09-2025 Immature granulocytes/100 WBC (Bld) 0.200 % 0.0-0.9 [facility] Comment on above: IG% - Immature Granu locytes (promyelocytes, myelocytes and metamyelocytes) > 1% indicates that a LEFT SHIFT is Present. L501.4021on 02-09-2025 Trop T High Sen < 6 Normal <=14 [facility] Comment on above: Performed By: #### L 501.4021, L300.8000, L100.0100, L500.2500 #### [facility] [place], [address] MCV (mean corpuscular volume ) determinationOrdered By: Fredi Sorenson on 02-09-2025 MCV (RBC) [Entitic vol] 94.2 fL 81-99 [facility] Mean corpuscular hemoglobin (MCH) determinationOrdered By: Fredi Sorenson on 02-09-2025 MCH (RBC) [Entitic mass] 31.5 pg 27.0-32.0 [facility] Mean corpuscular hemoglobin concentration (MCHC) determinationOrdered By: Fredi Sorenson on 02-09-2025 MCHC (RBC) [Mass/Vol] 33.4 g/dL 32-36 [facility] Mean platelet volume determi nationOrdered By: Fredi Sorenson on 02-09-2025 Platelet mean volume (Bld) [Entitic vol] 9.7 fL 6.2-12.0 [facility] Monocyte percentageOrdered B y: Fredi Sorenson on 02-09-2025 Monocytes/100 WBC (Bld) 8.7 % 0-10 [facility] Neutrophil percentageOrdered By: Fredi Sorenson on 02-09-2025 Neutrophils/100 WBC (Bld) 44.9 % Low 47-70 [facility] Nucleated red blood cell per centageOrdered By: Fredi Sorenson on 02-09-2025 Nucleated RBC/100 WBC (Bld) [Ratio] 0 % 0-5 [facility] Platelet countOrdered By: Nate Sorenson on 02-09-2025 Platelets (Bld) [#/Vol] 218 10*3/uL 150-450 [facility] Potassium measurement (mass/ volume)Ordered By: Fredi Sorenson on 02-09-2025 Potassium (Unsp spec) [Mass/Vol] 3.7 mmol/L 3.3-5.1 [facility] RBC Auto (Bld) [#/Vol]Ordere d By: Fredi Sorenson on 02-09-2025 RBC (Bld) [#/Vol] 3.43 10*6/uL Low 4.2-5.4 [facility] Serum creatinine measurement (mass/volume)Ordered By: Fredi Sorenson on 02-09-2025 Creatinine [Mass/Vol] 0.51 mg/dL Low 0.70-1.20 [facility] Serum glucose measurement (m ass/volume)Ordered By: Fredi Sorenson on 02-09-2025 Glucose [Mass/Vol] 103 mg/dL High 70-99 [facility] Serum or plasma calcium nancy urement (mass/volume)Ordered By: Fredi Sorenson on 02-09-2025 Calcium [Mass/Vol] 9.0 mg/dL 7.6-11.0 [facility] Serum or plasma urea nitroge n measurement (mass/volume)Ordered By: Fredi Sorenson on 02-09-2025 Urea nitrogen [Mass/Vol] 12 mg/dL 4-19 [facility] Sodium levelOrdered By: Fredi Sorenson on 02-09-2025 Sodium [Moles/Vol] 138 mmol/L 133-145 [facility] Troponin T HS 2 HRon 025 Trop T High Sen Normal <=14 [facility] Comment on above: Result Comment: Shelby cordoba via OM: Ordered Performed By: #### L 499.0042 ####[facility] [address] [place], [place], [id number] Troponin T.cardiac [Mass/vol ume] in Serum or Plasma by High sensitivity methodOrdered By: Fredi Sorenson on 02-09-2025 Troponin T.cardiac High sensitivity method [Mass/Vol] < 6 ng/L <14 [facility] White blood cell (WBC) count Ordered By: Fredi Sorenson on 02-09-2025 WBC (Bld) [#/Vol] 5.6 10*3/uL 4.4-11.0 [facility] Vitamin B1, Thiamineon 01-22 VIT B1 THIAMINE 98.0 nmol/L Normal 66.5-200.0 [facility] Comment on above: Order Comment: Test( s) 610359-Mdi. B1, Whole Bloodwas developed and its performance characteristicsdetermined by [employer]. It has not been cleared or approvedby the Food and Drug Administration.NIPT w/gender Result Comment: Perf ormed at: - [facility] [id number] [employer] Supervisor: Elaine Hernández MD, Phone: [phone] Performed By: #### M 100.5641 #### [facility] [address] [place] [address]. [place], [place], [address] Absolute lymphocyte countOrd ered By: Antonia Connolly on 01-20-2025 Lymphocytes Auto (Unsp spec) [#/Vol] 1.87 10*3/uL 0.83-4.51 [facility] Absolute neutrophil countOrd ered By: Antonia Connolly on 01-20-2025 Neutrophils (Bld) [#/Vol] 3.7 10*3/uL 2.0-7.7 [facility] Automated lymphocyte count a s percentage of total leukocytesOrdered By: Antonia Connolly on 01-20-2025 Lymphocytes/100 WBC Auto (Unsp spec) 31.4 % 19-41 [facility] Basophil percentageOrdered B y: Antonia Connolly on 01-20-2025 Basophils/100 WBC (Bld) 0.3 % 0-1 [facility] CBC W/Diff, Automatedon 12-24 Absolute Lymph 1.87 X10 3/uL Normal 0.83-4.51 [facility] Comment on above: Performed By: #### B TS, L3890.6006, L503.6550, L509.4006, L3890.6102, L900.0098, L3890.6301, L3300.8000, L100.0100, L503.6030, L503.0106, L509.8002 ####[facility] [address] [place], [address] Absolute Neut 3.7 X10 3/uL Normal 2.0-7.7 [facility] Comment on above: Performed By: #### B TS, L3890.6006, L503.6550, L509.4006, L3890.6102, L900.0098, L3890.6301, L3300.8000, L100.0100, L503.6030, L503.0106, L509.8002 ####[facility] [address] [place], [place], [phone]) Basophils/100 WBC (Bld) 0.3 % Normal 0-1 [facility] Comment on above: Performed By: #### B TS, L3890.6006, L503.6550, L509.4006, L3890.6102, L900.0098, L3890.6301, L3300.8000, L100.0100, L503.6030, L503.0106, L509.8002 ####[facility] [address] [place], [place], [phone]) Eosinophils/100 WBC (Bld) 0.2 % Normal 0-5 [facility] Comment on above: Performed By: #### B TS, L3890.6006, L503.6550, L509.4006, L3890.6102, L900.0098, L3890.6301, L3300.8000, L100.0100, L503.6030, L503.0106, L509.8002 ####[facility] [address] [place], [place], [phone](105) Erythrocyte distribution width (RBC) [Ratio] 12.6 % Normal 11.6-14.6 [facility] Comment on above: Performed By: #### B TS, L3890.6006, L503.6550, L509.4006, L3890.6102, L900.0098, L3890.6301, L3300.8000, L100.0100, L503.6030, L503.0106, L509.8002 ####[facility] [address] [place], [place], [phone]) Hematocrit (Bld) [Volume fraction] 33.4 % Low 37-47 [facility] Comment on above: Performed By: #### B TS, L3890.6006, L503.6550, L509.4006, L3890.6102, L900.0098, L3890.6301, L3300.8000, L100.0100, L503.6030, L503.0106, L509.8002 ####[facility] [address] [place], [place], [phone]) Hemoglobin (Bld) [Mass/Vol] 11.0 g/dL Low 12.0-15.0 [facility] Comment on above: Performed By: #### B TS, L3890.6006, L503.6550, L509.4006, L3890.6102, L900.0098, L3890.6301, L3300.8000, L100.0100, L503.6030, L503.0106, L509.8002 ####[facility] [address] [place], [place], [address] IG% 0.200 Normal 0.0-0.9 [facility] Comment on above: Result Comment: IG% - Immature Granulocytes (promyelocytes, myelocytes and metamyelocytes) > 1% indicates that a LEFT SHIFT is Present. Performed By: #### B TS, L3890.6006, L503.6550, L509.4006, L3890.6102, L900.0098, L3890.6301, L3300.8000, L100.0100, L503.6030, L503.0106, L509.8002 ####[facility] [address] [place], [address] Lymphocytes/100 WBC (Bld) 31.4 % Normal 19-41 [facility] Comment on above: Performed By: #### B TS, L3890.6006, L503.6550, L509.4006, L3890.6102, L900.0098, L3890.6301, L3300.8000, L100.0100, L503.6030, L503.0106, L509.8002 ####[facility] [address] [facility] [place], [address] MCH (RBC) [Entitic mass] 31.2 pg Normal 27.0-32.0 [facility] Comment on above: Performed By: #### B TS, L3890.6006, L503.6550, L509.4006, L3890.6102, L900.0098, L3890.6301, L3300.8000, L100.0100, L503.6030, L503.0106, L509.8002 ####[facility] [address] [place], [address] MCHC (RBC) [Mass/Vol] 32.9 g/dL Normal 32-36 [facility] Comment on above: Performed By: #### B TS, L3890.6006, L503.6550, L509.4006, L3890.6102, L900.0098, L3890.6301, L3300.8000, L100.0100, L503.6030, L503.0106, L509.8002 ####[facility] [address] [place], [address] MCV (RBC) [Entitic vol] 94.6 fL Normal 81-99 [facility] Comment on above: Performed By: #### B TS, L3890.6006, L503.6550, L509.4006, L3890.6102, L900.0098, L3890.6301, L3300.8000, L100.0100, L503.6030, L503.0106, L509.8002 ####[facility] [address] [place], [address] Monocytes/100 WBC (Bld) 5.9 % Normal 0-10 [facility] Comment on above: Performed By: #### B TS, L3890.6006, L503.6550, L509.4006, L3890.6102, L900.0098, L3890.6301, L3300.8000, L100.0100, L503.6030, L503.0106, L509.8002 ####[facility] [address] [place], [address] Neutrophils/100 WBC (Bld) 62.0 % Normal 47-70 [facility] Comment on above: Performed By: #### B TS, L3890.6006, L503.6550, L509.4006, L3890.6102, L900.0098, L3890.6301, L3300.8000, L100.0100, L503.6030, L503.0106, L509.8002 ####[facility] [address] [place], [address] Nucleated RBC (Bld) [#/Vol] 0 10*3/uL Normal 0-5 [facility] Comment on above: Performed By: #### B TS, L3890.6006, L503.6550, L509.4006, L3890.6102, L900.0098, L3890.6301, L3300.8000, L100.0100, L503.6030, L503.0106, L509.8002 ####[facility] [address] [place], [address] Platelet mean volume (Bld) [Entitic vol] 11.6 fL Normal 6.2-12.0 [facility] Comment on above: Performed By: #### B TS, L3890.6006, L503.6550, L509.4006, L3890.6102, L900.0098, L3890.6301, L3300.8000, L100.0100, L503.6030, L503.0106, L509.8002 ####[facility] [address] [place], [address] Platelets (Bld) [#/Vol] 165 10*3/uL Normal 150-450 [facility] Comment on above: Performed By: #### B TS, L3890.6006, L503.6550, L509.4006, L3890.6102, L900.0098, L3890.6301, L3300.8000, L100.0100, L503.6030, L503.0106, L509.8002 ####[facility] [address] [place], [address] RBC (Bld) [#/Vol] 3.53 10*6/uL Low 4.2-5.4 [facility] Comment on above: Performed By: #### B TS, L3890.6006, L503.6550, L509.4006, L3890.6102, L900.0098, L3890.6301, L3300.8000, L100.0100, L503.6030, L503.0106, L509.8002 ####[facility] [address] [place], [address] RDW SD 43.6 fl Normal 35.1-43.9 [facility] Comment on above: Performed By: #### B TS, L3890.6006, L503.6550, L509.4006, L3890.6102, L900.0098, L3890.6301, L3300.8000, L100.0100, L503.6030, L503.0106, L509.8002 ####[facility] [address] [place], [address] WBC (Bld) [#/Vol] 6.0 10*3/uL Normal 4.4-11.0 [facility] Comment on above: Performed By: #### B TS, L3890.6006, L503.6550, L509.4006, L3890.6102, L900.0098, L3890.6301, L3300.8000, L100.0100, L503.6030, L503.0106, L509.8002 ####[facility] [address] [place], [address] Eosinophil percentageOrdered By: Antonia Connolly on 01-20-2025 Eosinophils/100 WBC (Bld) 0.2 % 0-5 [facility] Erythrocyte distribution wid th ratioOrdered By: Antonia Connolly on 01-20-2025 Erythrocyte distribution width (RBC) [Ratio] 12.6 % 11.6-14.6 [facility] Erythrocyte distribution wid th standard deviationOrdered By: Antonia Connolly on 01-20-2025 Erythrocyte distribution width (RBC) [Ratio] 43.6 fl 35.1-43.9 [facility] Ferritinon 01-20-2025 Ferritin [Mass/Vol] 193 ng/mL Normal 22-378 [facility] Comment on above: Performed By: #### M 100.2200 #### [facility] [address] [place], [address] HIVon 01-20-2025 HIV Non-Reactive Normal Nonreactive [facility] Comment on above: Result Comment: Non- Reactive Reactive Repeatedly reactive samples must be confirmed according to CDC recommended confirmatory algorithms. The subresults for either HIVAG or AHIV can be used as an aid in the selection of the confirmation algorithm for reactive samples. Send out specimens with Reactive results to [facility] for confirmation. Order the HIV antibody detection and differentiation: lc#[id number] Performed By: #### M 100.2200 #### [facility] [address] [place], [place], [address] Hematocrit Auto (Bld) [Volum e fraction]Ordered By: Antonia Connolly on 01-20-2025 Hematocrit (Bld) [Volume fraction] 33.4 % Low 37-47 [facility] Hemoglobin measurementOrdere d By: Antonia Connolly on 01-20-2025 Hemoglobin (Bld) [Mass/Vol] 11.0 g/dL Low 12.0-15.0 [facility] Hepatitis C Antibodyon 01-20 Hepatitis C Ab Non-Reactive Normal Nonreactive [facility] Comment on above: Result Comment: Reac tive: Presumptive evidence of antibodies to HCV. Follow CDC recommendations for supplemental testing. Non-Reactive: Antibodies to HCV were not detected; does not exclude the possibility of exposure to HCV Reactive Results are presumptive evidence of antibodies to HCV. Follow CDC recommendations for supplemental testing. Order confirmation testing: HCV Quant by PCR testing - HCVPCR #[id number] Non Reactive: < 0.8 Equivocal: >/= 0.8 to < 1.0 Reactive: >/= 1.0 The CDC requires that a reactive/equivocal HCV antibody result be sent out for confirmation. HCV Quant by PCR testing. Performed By: #### M 100.2200 #### [facility] [address] [place], [place], [id number] [phone] Immature granulocytes/100 WB C Auto (Bld)Ordered By: Antonia Connolly on 01-20-2025 Immature granulocytes/100 WBC (Bld) 0.200 % 0.0-0.9 [facility] Comment on above: IG% - Immature Granu locytes (promyelocytes, myelocytes and metamyelocytes) > 1% indicates that a LEFT SHIFT is Present. Iron measurement (mass/mass) Ordered By: Antonia Connolly on 01-20-2025 Iron (Unsp spec) [Mass/Mass] 111 ug/dL 50-170 [facility] Iron+Iron Binding Capacityon 01-20-2025 Iron [Mass/Vol] 111 ug/dL Normal 50-170 [facility] Comment on above: Order Comment: NIPT w/gender Performed By: #### M 100.2200 #### [facility] [address] [place], [address] IRON SATURATION 44.0 Normal 13-59 [facility] Comment on above: Order Comment: NIPT w/gender Performed By: #### M 100.2200 #### [facility] [address] [place], [address] TIBC 254 ug/dL Normal 250-450 [facility] Comment on above: Order Comment: NIPT w/gender Performed By: #### M 100.2200 #### [facility] [address] [place], [address] UIBC 143 ug/dL Low 228-428 [facility] Comment on above: Order Comment: NIPT w/gender Performed By: #### M 100.2200 #### [facility] [address] [place], [address] L3890.6102on 01-20-2025 HEP B Surf Ag Non-Reactive Normal Nonreactive [facility] Comment on above: Result Comment: Reac tive: Presumptive evidence of HBV. Repeatedly reactive samples must be confirmed using a neutralization test ([facility] HBsAg Confirmatory Test) Non-Reactive: HBsAg not detected; does not exclude the possibility of exposure to HBV Performed By: #### M 100.2200 #### [facility] [address] [place], [address] L509.4006on 01-20-2025 Rubella IgG REAC Normal Nonreactive [facility] Comment on above: Result Comment: Anti body Result: Interpretation Non-Reactive: Non-Immune Reactive: Immune The following results were obtained with the [employer] Rubella IgG assay. Results from assays of other manufacturers cannot be used interchangeably. Performed By: #### M 100.2200 #### [facility] [address] [place], [address] Laboratory - Microbiology an d Antimicrobial susceptibilityOrdered By: Antonia Connolly on 01-20-2025 HBV surface Ag Ql (S) Non-Reactive Nonreactive [facility] Comment on above: Reactive: Presumptiv e evidence of HBV. Repeatedly reactive samples must be confirmed using a neutralization test ([employer] HBsAg Confirmatory Test)Non-Reactive: HBsAg not detected; does not exclude the possibility of exposure to HBV MCV (mean corpuscular volume ) determinationOrdered By: Antonia Connolly on 01-20-2025 MCV (RBC) [Entitic vol] 94.6 fL 81-99 [facility] Mean corpuscular hemoglobin (MCH) determinationOrdered By: Antonia Connolly on 01-20-2025 MCH (RBC) [Entitic mass] 31.2 pg 27.0-32.0 [facility] Mean corpuscular hemoglobin concentration (MCHC) determinationOrdered By: Antonia Connolly on 01-20-2025 MCHC (RBC) [Mass/Vol] 32.9 g/dL 32-36 [facility] Mean platelet volume determi nationOrdered By: Antonia Connolly on 01-20-2025 Platelet mean volume (Bld) [Entitic vol] 11.6 fL 6.2-12.0 [facility] Monocyte percentageOrdered B y: Antonia Connolly on 01-20-2025 Monocytes/100 WBC (Bld) 5.9 % 0-10 [facility] NATERAon 01-20-2025 NATURA SEE SCANNED REPORT Normal [facility] Comment on above: Order Comment: Comme nts: NIPT w/gender Performed By: #### B TS, L3890.6006, L503.6550, L509.4006, L3890.6102, L900.0098, L3890.6301, L3300.8000, L100.0100, L503.6030, L503.0106, L509.8002 ####[facility] [address] [place], [address] Neutrophil percentageOrdered By: Antonia Connolly on 01-20-2025 Neutrophils/100 WBC (Bld) 62.0 % 47-70 [facility] No Panel InformationOrdered By: Antonia Connolly on 01-20-2025 HIV (1&2) Antibody Non-Reactive Nonreactive [facility] Comment on above: Non-ReactiveReactive Repeatedly reactive samples must be confirmed according to CDC recommended confirmatory algorithms. The subresults for either HIVAG or AHIV can be used as an aid in the selection of the confirmation algorithm for reactive samples.Send out specimens with Reactive results to [facility] for confirmation.Order the HIV antibody detection and differentiation: #[id number] Unsaturated Iron Binding Capacity 143 ug/dL Low 228-428 [facility] Nucleated red blood cell per centageOrdered By: Antonia Connolly on 01-20-2025 Nucleated RBC/100 WBC (Bld) [Ratio] 0 % 0-5 [facility] Platelet countOrdered By: Juanita Connolly on 01-20-2025 Platelets (Bld) [#/Vol] 165 10*3/uL 150-450 [facility] RBC Auto (Bld) [#/Vol]Ordere d By: Antonia Connolly on 01-20-2025 RBC (Bld) [#/Vol] 3.53 10*6/uL Low 4.2-5.4 [facility] Serum or plasma ferritin cameron surement (mass/volume)Ordered By: Antonia Connolly on 01-20-2025 Ferritin [Mass/Vol] 193 ng/mL 22-378 [facility] Serum or plasma iron saturat ion measurement (mass fraction)Ordered By: Antonia Connolly on 01-20-2025 Iron saturation [Mass fraction] 44.0 % 13-59 [facility] Serum or plasma thiamine cameron surement (mass/volume)Ordered By: Antonia Connolly on 01-20-2025 Thiamine [Mass/Vol] 98.0 nmol/L 66.5-200.0 [facility] Comment on above: Performed at: [facility] [address] [id number] Director: Elaine Hernández MD, Phone: [phone] Syphilis Antibodieson 2024 Syphilis Abs Non-Reactive Normal Nonreactive [facility] Comment on above: Performed By: #### M 100.2200 #### [facility] [address] [place], [address] Type AND Screenon 01-20-2025 Ab SCREEN GEL Negative Normal [facility] Comment on above: Order Comment: PN Performed By: #### M 100.2200 #### [facility] [address] [place], [address] Vitamin B12on 01-20-2025 Cobalamin (Vitamin B12) [Mass/Vol] 393 pg/mL Normal 180-914 [facility] Comment on above: Performed By: #### B TS, L3890.6006, L503.6550, L509.4006, L3890.6102, L900.0098, L3890.6301, L3300.8000, L100.0100, L503.6030, L503.0106, L509.8002 ####[facility] [address] [place], [address] Vitamin B12 ser/plasOrdered By: Antonia Connolly on 01-20-2025 Cobalamin (Vitamin B12) [Mass/Vol] 393 pg/mL 180-914 [facility] White blood cell (WBC) count Ordered By: Antonia Connolly on 01-20-2025 WBC (Bld) [#/Vol] 6.0 10*3/uL 4.4-11.0 [facility] Chlamydia/GC DEVIKA aptimaon CHLAMY,NUC ACID Positive Abnormal Negative [facility] Comment on above: Result Comment: Clie nt Requested Flag Performed By: #### L 400.0001 #### [facility] [address] [place], [address] GC BY NUC ACID Negative Normal Negative [facility] Comment on above: Result Comment: Perf ormed at: =G - [facility] [address] [id number] [employer] Supervisor: Jacquelyn Clay MD, Phone: [phone] Performed By: #### L 400.0001 #### [facility] [address] [place], [place], [address] Urine Cultureon 01-13-2025 URC Culture exhibits no growth. Normal [facility] Comment on above: Performed By: #### L 400.0001 #### [facility] [address] [place], [place], [id number] Chlamydia trachomatis rRNA d etection by probe and target amplification methodOrdered By: Antonia Connolly on 01-12-2025 C. trachomatis rRNA DEVIKA+probe Ql (Unsp spec) Positive High Negative [facility] Comment on above: Client Requested [place] g Neisseria gonorrhoeae nuclei c acid detection by amplified probe techniqueOrdered By: Antonia Connolly on 01-12-2025 N. 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 Normal [facility] Urine cultureOrdered By: Shorty Connolly on 01-12-2025 Bacteria identified Cx Nom (U) Culture exhibits no growth. [facility] Absolute lymphocyte countOrd ered By: Allan Clayton on 12-30-2024 Lymphocytes Auto (Unsp spec) [#/Vol] 2.35 10*3/uL 0.83-4.51 [facility] Absolute neutrophil countOrd ered By: Benedicta Matilde on 12-30-2024 Neutrophils (Bld) [#/Vol] 4.8 10*3/uL 2.0-7.7 [facility] Anion gap in Serum or Plasma Ordered By: Allannik Clayton on 12-30-2024 Anion gap [Moles/Vol] 11 mmol/L 5-15 [facility] Automated lymphocyte count a s percentage of total leukocytesOrdered By: Allan Clayton on 12-30-2024 Lymphocytes/100 WBC Auto (Unsp spec) 30.4 % 19-41 [facility] BUN/creatinine ratioOrdered By: Allan Clayton on 12-30-2024 Urea nitrogen/Creatinine [Mass ratio] 22.8 mg/mg High 10-20 [facility] Basophil percentageOrdered B y: Allan Clayton on 12-30-2024 Basophils/100 WBC (Bld) 0.1 % 0-1 [facility] Bilirubin Test strip Ql (U)O rdered By: Allan Clayton on 12-30-2024 Bilirubin Ql (U) Negative Negative [facility] Bilirubin, totalOrdered By: Allan Claytno on 12-30-2024 Bilirubin [Mass/Vol] 0.22 mg/dL 0.00-1.30 [facility] CBC W/Diff, Automatedon 07-0 8-2024 Absolute Lymph 2.35 X10 3/uL Normal 0.83-4.51 [facility] Comment on above: Performed By: #### L 500.4050, L100.0100, L501.2450 ####[facility] [address] [place], [address] Absolute Neut 4.8 X10 3/uL Normal 2.0-7.7 [facility] Comment on above: Performed By: #### L 500.4050, L100.0100, L501.2450 ####[facility] [address] [place], [address] Basophils/100 WBC (Bld) 0.1 % Normal 0-1 [facility] Comment on above: Performed By: #### L 500.4050, L100.0100, L501.2450 ####[facility] [address] [place], [address] Eosinophils/100 WBC (Bld) 0.1 % Normal 0-5 [facility] Comment on above: Performed By: #### L 500.4050, L100.0100, L501.2450 ####[facility] [address] [place], [address] Erythrocyte distribution width (RBC) [Ratio] 12.5 % Normal 11.6-14.6 [facility] Comment on above: Performed By: #### L 500.4050, L100.0100, L501.2450 ####[facility] [address] [place], [address] Hematocrit (Bld) [Volume fraction] 38.0 % Normal 37-47 [facility] Comment on above: Performed By: #### L 500.4050, L100.0100, L501.2450 ####[facility] [address] [place], [address] Hemoglobin (Bld) [Mass/Vol] 12.4 g/dL Normal 12.0-15.0 [facility] Comment on above: Performed By: #### L 500.4050, L100.0100, L501.2450 ####[facility] [address] [place], [address] IG% 0.100 Normal 0.0-0.9 [facility] Comment on above: Result Comment: IG% - Immature Granulocytes (promyelocytes, myelocytes and metamyelocytes) > 1% indicates that a LEFT SHIFT is Present. Performed By: #### L 500.4050, L100.0100, L501.2450 ####[facility] [address] [place], [address] Lymphocytes/100 WBC (Bld) 30.4 % Normal 19-41 [facility] Comment on above: Performed By: #### L 500.4050, L100.0100, L501.2450 ####[facility] [address] [place], [address] MCH (RBC) [Entitic mass] 31.2 pg Normal 27.0-32.0 [facility] Comment on above: Performed By: #### L 500.4050, L100.0100, L501.2450 ####[facility] [address] [place], [address] MCHC (RBC) [Mass/Vol] 32.6 g/dL Normal 32-36 [facility] Comment on above: Performed By: #### L 500.4050, L100.0100, L501.2450 ####[facility] [address] [place], [address] MCV (RBC) [Entitic vol] 95.7 fL Normal 81-99 [facility] Comment on above: Performed By: #### L 500.4050, L100.0100, L501.2450 ####[facility] [address] [place], [address] Monocytes/100 WBC (Bld) 6.9 % Normal 0-10 [facility] Comment on above: Performed By: #### L 500.4050, L100.0100, L501.2450 ####[facility] [address] [place], [address] Neutrophils/100 WBC (Bld) 62.4 % Normal 47-70 [facility] Comment on above: Performed By: #### L 500.4050, L100.0100, L501.2450 ####[facility] [address] [place], [address] Nucleated RBC (Bld) [#/Vol] 0 10*3/uL Normal 0-5 [facility] Comment on above: Performed By: #### L 500.4050, L100.0100, L501.2450 ####[facility] [address] [place], [address] Platelet mean volume (Bld) [Entitic vol] 10.7 fL Normal 6.2-12.0 [facility] Comment on above: Performed By: #### L 500.4050, L100.0100, L501.2450 ####[facility] [address] [place], [address] Platelets (Bld) [#/Vol] 284 10*3/uL Normal 150-450 [facility] Comment on above: Performed By: #### L 500.4050, L100.0100, L501.2450 ####[facility] [address] [place], [address] RBC (Bld) [#/Vol] 3.97 10*6/uL Low 4.2-5.4 [facility] Comment on above: Performed By: #### L 500.4050, L100.0100, L501.2450 ####[facility] [address] [place], [address] RDW SD 43.9 fl Normal 35.1-43.9 [facility] Comment on above: Performed By: #### L 500.4050, L100.0100, L501.2450 ####[facility] [address] [place], [address] WBC (Bld) [#/Vol] 7.7 10*3/uL Normal 4.4-11.0 [facility] Comment on above: Performed By: #### L 500.4050, L100.0100, L501.2450 ####[facility] [address] [place], [address] Carbon dioxide, total [Moles /volume] in Central venous bloodOrdered By: Allan Clayton on 12-30-2024 CO2 [Moles/Vol] 22.5 mmol/L 21.0-32.0 [facility] Chloride assayOrdered By: Sergei Clayton on 12-30-2024 Chloride [Moles/Vol] 103 mmol/L 98-108 [facility] Comprehensive Metabolic Prof ilon 12-30-2024 Albumin [Mass/Vol] 4.3 g/dL Normal 3.5-5.0 [facility] Comment on above: Performed By: #### L 500.4050, L100.0100, L501.2450 ####[facility] [address] [place], [address] Albumin/Globulin [Mass ratio] 1.3 {ratio} Normal 0.9-2.4 [facility] Comment on above: Performed By: #### L 500.4050, L100.0100, L501.2450 ####[facility] [address] [place], [address] ALK PHOS 54 U/L Normal 35-104 [facility] Comment on above: Performed By: #### L 500.4050, L100.0100, L501.2450 ####[facility] [address] [place], [address] ALT [Catalytic activity/Vol] 10 U/L Normal <=34 [facility] Comment on above: Performed By: #### L 500.4050, L100.0100, L501.2450 ####[facility] [address] [place], [address] AST [Catalytic activity/Vol] 14 U/L Normal <=31 [facility] Comment on above: Performed By: #### L 500.4050, L100.0100, L501.2450 ####[facility] [address] [place], [address] Bilirubin [Mass/Vol] 0.22 mg/dL Normal 0.00-1.30 [facility] Comment on above: Performed By: #### L 500.4050, L100.0100, L501.2450 ####[facility] [address] [place], [address] BUN/CRE 22.8 RATIO High 10-20 [facility] Comment on above: Performed By: #### L 500.4050, L100.0100, L501.2450 ####[facility] [address] [place], [address] Calcium [Mass/Vol] 9.3 mg/dL Normal 7.6-11.0 [facility] Comment on above: Performed By: #### L 500.4050, L100.0100, L501.2450 ####[facility] [address] [place], [address] Chloride [Moles/Vol] 103 mmol/L Normal 98-108 [facility] Comment on above: Performed By: #### L 500.4050, L100.0100, L501.2450 ####[facility] [address] [place], [address] CO2 [Moles/Vol] 22.5 mmol/L Normal 21.0-32.0 [facility] Comment on above: Performed By: #### L 500.4050, L100.0100, L501.2450 ####[facility] [address] [place], [address] Creatinine [Mass/Vol] 0.53 mg/dL Low 0.70-1.20 [facility] Comment on above: Performed By: #### L 500.4050, L100.0100, L501.2450 ####[facility] [address] [place], [address] ECRCL 127.61 ml/min Normal 50-250 [facility] Comment on above: Performed By: #### L 500.4050, L100.0100, L501.2450 ####[facility] [address] [place], [address] GAP 11 Normal 5-15 [facility] Comment on above: Performed By: #### L 500.4050, L100.0100, L501.2450 ####[facility] [address] [place], [address] GFR/1.73 sq M.predicted among non-blacks MDRD (S/P/Bld) [Vol rate/Area] 136 mL/min/{1.73_m2} Normal >60 [facility] Comment on above: Result Comment: mL/m in/1.73m2 CKD-EPI Creatinine Equation (2020) Performed By: #### L 500.4050, L100.0100, L501.2450 ####[facility] [address] [place], [address] Globulin (S) [Mass/Vol] 3.3 g/dL Normal 2.2-4.2 [facility] Comment on above: Performed By: #### L 500.4050, L100.0100, L501.2450 ####[facility] [address] [place], [address] Glucose [Mass/Vol] 79 mg/dL Normal 70-99 [facility] Comment on above: Performed By: #### L 500.4050, L100.0100, L501.2450 ####[facility] [address] [place], [address] Potassium [Moles/Vol] 3.8 mmol/L Normal 3.3-5.1 [facility] Comment on above: Performed By: #### L 500.4050, L100.0100, L501.2450 ####[facility] [address] [place], [address] Sodium [Moles/Vol] 137 mmol/L Normal 133-145 [facility] Comment on above: Performed By: #### L 500.4050, L100.0100, L501.2450 ####[facility] [address] [place], [address] T PROT 7.6 g/dL Normal 5.9-8.4 [facility] Comment on above: Performed By: #### L 500.4050, L100.0100, L501.2450 ####[facility] [address] [place], [address] Urea nitrogen [Mass/Vol] 12 mg/dL Normal 4-19 [facility] Comment on above: Performed By: #### L 500.4050, L100.0100, L501.2450 ####[facility] [address] [place], [address] Emergency Department Summary on 12-30-2024 Emergency Department Summary [facility] Medical Records Department [address] [place] [address] Emergency Department Summary 12/30/24 MR#: [id number] Acct: [id number] Name: NORBERTO COTTON Rep #: [id number] : 2005 19 From: Allan Clayton DO [...] positive test. Patient states she follows with [place] [facility] in which she had an ultrasound a [...] states she had another checkup with her [facility] today in which she saw a nurse. 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 Patient states she follows with [place] [facility] in which she had an ultr (more content not included)... Normal [facility] Eosinophil percentageOrdered By: Allan Clayton on 12-30-2024 Eosinophils/100 WBC (Bld) 0.1 % 0-5 [facility] Erythrocyte distribution wid th ratioOrdered By: Allan Clayton on 12-30-2024 Erythrocyte distribution width (RBC) [Ratio] 12.5 % 11.6-14.6 [facility] Erythrocyte distribution wid th standard deviationOrdered By: Allan Busch on 12-30-2024 Erythrocyte distribution width (RBC) [Ratio] 43.9 fl 35.1-43.9 [facility] Glomerular filtration rate ( GFR) estimation/1.73 sq m using serum, plasma, or whole bOrdered By: Allan Clayton on 12-30-2024 GFR/1.73 sq M.predicted among non-blacks MDRD (S/P/Bld) [Vol rate/Area] 136 mL/min/{1.73_m2} >60 [facility] Comment on above: mL/min/1.73m2 CKD-EP I Creatinine Equation (2020) Hematocrit Auto (Bld) [Volum e fraction]Ordered By: Allan Clayton on 12-30-2024 Hematocrit (Bld) [Volume fraction] 38.0 % 37-47 [facility] Hemoglobin measurementOrdere d By: Allan Clayton on 12-30-2024 Hemoglobin (Bld) [Mass/Vol] 12.4 g/dL 12.0-15.0 [facility] Immature granulocytes/100 WB C Auto (Bld)Ordered By: Allan Clayton on 12-30-2024 Immature granulocytes/100 WBC (Bld) 0.100 % 0.0-0.9 [facility] Comment on above: IG% - Immature Granu locytes (promyelocytes, myelocytes and metamyelocytes) > 1% indicates that a LEFT SHIFT is Present. Ketones Test strip Ql (U)Ord ered By: Allan Clayton on 12-30-2024 Ketones Ql (U) Negative Negative [facility] Laboratory - Chemistry and C hemistry - challengeOrdered By: Allan Clayton on 12-30-2024 AST [Catalytic activity/Vol] 14 U/L <32 [facility] - Chemistry and C hemistry - challengeOrdered By: Antonia Connolly on 12-30-2024 HCG ( test) Ql (U) Positive [facility] Lipaseon 12-30-2024 Lipase [Catalytic activity/Vol] 24 U/L Normal 13-75 [facility] Comment on above: Result Comment: Delfino franco note: LIPASE revised reference range effective 22. New Lipase methodology. Expected to produce lower values than the previous assay method. NEW Reference Range: 13 - 75 U/L Performed By: #### L 500.4050, L100.0100, L501.2450 ####[facility] [address] [place], [address] Lipase measurementOrdered By : Allan Clayton on 12-30-2024 Lipase [Catalytic activity/Vol] 24 U/L 13-75 [facility] Comment on above: Please note:LIPASE r evised reference range effective 22. New Lipase methodology. Expected to produce lower values than the previous assay method. NEW Reference Range: 13 - 75 U/L MCV (mean corpuscular volume ) determinationOrdered By: Allan Clayton on 12-30-2024 MCV (RBC) [Entitic vol] 95.7 fL 81-99 [facility] Mean corpuscular hemoglobin (MCH) determinationOrdered By: Allan Clayton on 12-30-2024 MCH (RBC) [Entitic mass] 31.2 pg 27.0-32.0 [facility] Mean corpuscular hemoglobin concentration (MCHC) determinationOrdered By: Allan Clayton on 12-30-2024 MCHC (RBC) [Mass/Vol] 32.6 g/dL 32-36 [facility] Mean platelet volume determi nationOrdered By: Allan Clayton on 12-30-2024 Platelet mean volume (Bld) [Entitic vol] 10.7 fL 6.2-12.0 [facility] Microscopic analysis of urin e for red blood cells (RBC)Ordered By: Allan Clayton on 12-30-2024 Microscopic analysis of urine for red blood cells (RBC) 0-5 SEEN /hpf 0-5 [facility] Monocyte percentageOrdered B y: Allan Clayton on 12-30-2024 Monocytes/100 WBC (Bld) 6.9 % 0-10 [facility] Mucus LM Ql (Urine sed)Order ed By: Allannik Clayton on 12-30-2024 Mucus Ql (Urine sed) 0 SEEN /hpf [facility] Neutrophil percentageOrdered By: Benedicta EveretteNarayan on 12-30-2024 Neutrophils/100 WBC (Bld) 62.4 % 47-70 [facility] Nitrite Test strip Ql (U)Ord ered By: Allannik GaviriaNarayan on 12-30-2024 Nitrite Ql (U) Negative Negative [facility] Nucleated red blood cell per centageOrdered By: [facility] HospitalDian on 12-30-2024 Nucleated RBC/100 WBC (Bld) [Ratio] 0 % 0-5 [facility] Office Visit Reporton 2024 Office Visit Report [facility] [address] [place] [address] OFFICE VISIT Date of Service: 12/30/24 MR#: [id number] Acct: [id number] Patient: NORBERTO COTTON Rep #: [id number] : 2005 Provider: TU khoury Age/Sex: 19/F Location: [facility] [place] Status: Signed Intake Vital Signs 12/19/24 14:59 [...] RTO NOB appt 12/30/24 1323 Date Deepti Claudio CONTACT CENTRE SUPERVISOR CONTACT CENTRE SUPERVISOR-C Cosigner Signature: Date (if applicable) CC: Normal [facility] Platelet countOrdered By: Sergei Clayton on 12-30-2024 Platelets (Bld) [#/Vol] 284 10*3/uL 150-450 [facility] Potassium measurement (mass/ volume)Ordered By: Allan Clayton on 12-30-2024 Potassium (Unsp spec) [Mass/Vol] 3.8 mmol/L 3.3-5.1 [facility] Protein Test strip Ql (U)Ord ered By: Allan Clayton on 12-30-2024 Protein Ql (U) Negative Negative [facility] RBC Auto (Bld) [#/Vol]Ordere d By: Allan Clayton on 12-30-2024 RBC (Bld) [#/Vol] 3.97 10*6/uL Low 4.2-5.4 [facility] Serum creatinine measurement (mass/volume)Ordered By: Allan Clayton on 12-30-2024 Creatinine [Mass/Vol] 0.53 mg/dL Low 0.70-1.20 [facility] Serum globulin measurementOr dered By: Allan Clayton on 12-30-2024 Globulin (S) [Mass/Vol] 3.3 g/dL 2.2-4.2 [facility] Serum glucose measurement (m ass/volume)Ordered By: Allan Clayton on 12-30-2024 Glucose [Mass/Vol] 79 mg/dL 70-99 [facility] Serum or plasma alanine lozano otransferase (ALT) measurementOrdered By: Allan Clayton on 12-30-2024 ALT [Catalytic activity/Vol] 10 U/L <35 [facility] Serum or plasma albumin nancy urement (mass/volume)Ordered By: Allan Busch on 12-30-2024 Albumin [Mass/Vol] 4.3 g/dL 3.5-5.0 [facility] Serum or plasma albumin/glob ulin mass ratioOrdered By: Allan Clayton on 12-30-2024 Albumin/Globulin [Mass ratio] 1.3 {ratio} 0.9-2.4 [facility] Serum or plasma alkaline jose manuel sphatase measurementOrdered By: Allan Clayton on 12-30-2024 ALP [Catalytic activity/Vol] 54 U/L 35-104 [facility] Serum or plasma calcium nancy urement (mass/volume)Ordered By: Allan Busch on 12-30-2024 Calcium [Mass/Vol] 9.3 mg/dL 7.6-11.0 [facility] Serum or plasma urea nitroge n measurement (mass/volume)Ordered By: Allan Clayton on 12-30-2024 Urea nitrogen [Mass/Vol] 12 mg/dL 4-19 [facility] Sodium levelOrdered By: Dexter Clayton on 12-30-2024 Sodium [Moles/Vol] 137 mmol/L 133-145 [facility] Squamous epithelial cells de tection in urine sediment by light microscopyOrdered By: Allan Clayton on 12-30-2024 Epithelial cells.squamous LM Ql (Urine sed) 0-5 SEEN /hpf 5-10 [facility] Total proteinOrdered By: Constantino Clayton on 12-30-2024 Protein [Mass/Vol] 7.6 g/dL 5.9-8.4 [facility] Transvaginal w/Preg USon Transvaginal w/Preg US [facility] [address] [place] [address] Transvaginal w/Preg US MR#: [id number] Acct: [id number] Name: ONRBERTO COTTON Rep #: [id number] : 2005 F 19 From: Ezequiel Villanueva MD PCP: Care Physician,No Primary Status: REG ER Study: Transvaginal w/Preg US Date of Exam: 12/30/24 Exam# [id number] Ordering Dr: Allan Clayton DO PROCEDURE: TRANSVAGINAL [...] recommended. Single live intrauterine . Reading Location: [id number] CC: Dr. Allan Clayton DO; No Primary Care Physician Manager Planning: Signed Normal [facility] Urinalysis, Completeon 12-30 BACTERIA RARE Normal None Seen [facility] Comment on above: Order Comment: CLEAN CATCH Performed By: #### L 400.0001 #### [facility] [address] [place], [address] EPI,SQUAMOUS 0-5 SEEN Normal 5-10 [facility] Comment on above: Order Comment: CLEAN CATCH Performed By: #### L 400.0001 #### [facility] [address] [facility] [address] RBC 0-5 SEEN Normal 0-5 [facility] Comment on above: Order Comment: CLEAN CATCH Performed By: #### L 400.0001 #### [facility] [address] [place], [address] WBC 0-5 SEEN Normal 0-5 [facility] Comment on above: Order Comment: CLEAN CATCH Performed By: #### L 400.0001 #### [facility] [address] [place], [address] Mucus Ql (Urine sed) 0 SEEN Normal [facility] Comment on above: Order Comment: CLEAN CATCH Performed By: #### L 400.0001 #### [facility] [address] [place], [address] Urine clarityOrdered By: Constantino Clayton on 12-30-2024 Clarity (U) Clear Clear [facility] Urine color determinationOrd ered By: Allan Clayton on 12-30-2024 Color (U) Straw Yellow [facility] Urine glucose detectionOrder ed By: Allan Clayton on 12-30-2024 Glucose Ql (U) Normal mg/dl Normal [facility] Urine leukocyte esterase det ection by dipstickOrdered By: Allan Clayton on 12-30-2024 Leukocyte esterase Test strip Ql (U) Negative Negative [facility] Urine pHOrdered By: Allan Biggs on 12-30-2024 pH (U) 6.5 [pH] 5.0 - 8.0 [facility] Urine sediment bacteria coun t by microscopy (number/high power field)Ordered By: Allan Clayton on 12-30-2024 Bacteria LM.HPF (Urine sed) [#/Area] RARE /hpf None Seen [facility] Urine specific gravity measu rementOrdered By: [facility] HospitalSanjay on 12-30-2024 Specific gravity (U) [Rel density] 1.015 1.002-1.030 [facility] Urine urobilinogen measureme ntOrdered By: [facility] HospitalChapito on 12-30-2024 Urobilinogen Ql (U) Normal mg/dl Normal [facility] White blood cell (WBC) count Ordered By: [facility] HospitalCarlos AlbertoNarayan on 12-30-2024 WBC (Bld) [#/Vol] 7.7 10*3/uL 4.4-11.0 [facility] White blood cell countOrdere d By: Allan Josephnorthern navajo medical centerSanjay on 12-30-2024 White blood cell count 0-5 SEEN /hpf 0-5 [facility] Urine Cultureon 12-21-2024 URC Below infection leve l. Mixed Gram Positive Organisms [place] Count 1000-10,000 MIXC Mixed contaminants. Submit a new specimen if indicated. Normal [facility] Comment on above: Performed By: #### M 100.4520 #### [facility] [place], [address] Absolute lymphocyte countOrd ered By: Sabineus Nicholas on 12-19-2024 Lymphocytes Auto (Unsp spec) [#/Vol] 1.61 10*3/uL 0.83-4.51 [facility] Absolute neutrophil countOrd ered By: Remus Ungann on 12-19-2024 Neutrophils (Bld) [#/Vol] 3.0 10*3/uL 2.0-7.7 [facility] Anion gap in Serum or Plasma Ordered By: Sabineus Nicholas on 12-19-2024 Anion gap [Moles/Vol] 11 mmol/L 5-15 [facility] Automated blood erythrocyte countOrdered By: Sabineus Nicholas on 06-27-2025 RBC (Bld) [#/Vol] 3.99 10*6/uL Low 4.2-5.4 [facility] Comment on above: Performed By: #### L 700.8000, L500.4050, L100.0100 ####[facility] [address] [place], [address] Automated blood hematocrit ( percentage)Ordered By: Kelly Peterson on 12-19-2024 Hematocrit (Bld) [Volume fraction] 38.0 % Normal 37-47 [facility] Comment on above: Performed By: #### L 700.8000, L500.4050, L100.0100 ####[facility] [address] [place], [place], [id number] Automated lymphocyte count a s percentage of total leukocytesOrdered By: Kelly Peterson on 12-19-2024 Lymphocytes/100 WBC Auto (Unsp spec) 31.2 % 19-41 [facility] BUN/creatinine ratioOrdered By: [facility] Clinic Foundationus Peterson on 12-19-2024 Urea nitrogen/Creatinine [Mass ratio] 15.0 mg/mg 10-20 [facility] Basophil percentageOrdered B y: Kelly Peterson on 12-19-2024 Basophils/100 WBC (Bld) 0.2 % Normal 0-1 [facility] Comment on above: Performed By: #### L 700.8000, L500.4050, L100.0100 ####[facility] [address] [place], [address] Bilirubin Test strip Ql (U)O rdered By: Kelly Peterson on 12-19-2024 Bilirubin Ql (U) Negative Negative [facility] Bilirubin, totalOrdered By: Kelly Peterson on 12-19-2024 Bilirubin [Mass/Vol] 0.21 mg/dL Normal 0.00-1.30 [facility] Comment on above: Performed By: #### L 700.8000, L500.4050, L100.0100 ####[facility] [facility] [address] [place], [address] CBC W/Diff, Automatedon 06-2 Absolute Lymph 1.61 X10 3/uL Normal 0.83-4.51 [facility] Comment on above: Performed By: #### L 700.8000, L500.4050, L100.0100 ####[facility] [address] [place], [address] Absolute Neut 3.0 X10 3/uL Normal 2.0-7.7 [facility] Comment on above: Performed By: #### L 700.8000, L500.4050, L100.0100 ####[facility] [address] [place], [address] IG% 0.200 Normal 0.0-0.9 [facility] Comment on above: Result Comment: IG% - Immature Granulocytes (promyelocytes, myelocytes and metamyelocytes) > 1% indicates that a LEFT SHIFT is Present. Performed By: #### L 700.8000, L500.4050, L100.0100 ####[facility] [address] [place], [address] Lymphocytes/100 WBC (Bld) 31.2 % Normal 19-41 [facility] Comment on above: Performed By: #### L 700.8000, L500.4050, L100.0100 ####[facility] [address] [place], [address] Nucleated RBC (Bld) [#/Vol] 0 10*3/uL Normal 0-5 [facility] Comment on above: Performed By: #### L 700.8000, L500.4050, L100.0100 ####[facility] [address] [place], [address] RDW SD 43.1 fl Normal 35.1-43.9 [facility] Comment on above: Performed By: #### L 700.8000, L500.4050, L100.0100 ####[facility] [address] [place], [address] CRPon 12-19-2024 C-REACTIVE PROT 9.60 mg/L High 0.0-3.0 [facility] Comment on above: Performed By: #### L 101.9900, L501.6710 #### [facility] [address] [place], [address] Carbon dioxide, total [Moles /volume] in Central venous bloodOrdered By: Kelly Peterson on 12-19-2024 CO2 [Moles/Vol] 22.4 mmol/L Normal 21.0-32.0 [facility] Comment on above: Performed By: #### L 700.8000, L500.4050, L100.0100 ####[facility] [address] [place], [address] Chloride assayOrdered By: Leanne Peterson on 12-19-2024 Chloride [Moles/Vol] 104 mmol/L Normal 98-108 [facility] Comment on above: Performed By: #### L 700.8000, L500.4050, L100.0100 ####[facility] [address] [place], [address] Comprehensive Metabolic Prof ilon 12-19-2024 ALK PHOS 66 U/L Normal 35-104 [facility] Comment on above: Performed By: #### L 700.8000, L500.4050, L100.0100 ####[facility] [address] [place], [address] BUN/CRE 15.0 RATIO Normal 10-20 [facility] Comment on above: Performed By: #### L 700.8000, L500.4050, L100.0100 ####[facility] [address] [place], [address] ECRCL 96.11 ml/min Normal 50-250 [facility] Comment on above: Performed By: #### L 700.8000, L500.4050, L100.0100 ####[facility] [address] [place], [address] GAP 11 Normal 5-15 [facility] Comment on above: Performed By: #### L 700.8000, L500.4050, L100.0100 ####[facility] [address] [place], [address] Potassium [Moles/Vol] 3.8 mmol/L Normal 3.3-5.1 [facility] Comment on above: Performed By: #### L 700.8000, L500.4050, L100.0100 ####[facility] [address] [place], [address] T PROT 7.7 g/dL Normal 5.9-8.4 [facility] Comment on above: Performed By: #### L 700.8000, L500.4050, L100.0100 ####[facility] [address] [place], [address] Comprehensive Metabolic Prof ilOrdered By: Kelly Peterson on 12-19-2024 AST [Catalytic activity/Vol] 16 U/L Normal <=31 [facility] Comment on above: Performed By: #### L 700.8000, L500.4050, L100.0100 ####[facility] [address] [place], [address] Emergency Department Summary on 12-19-2024 Emergency Department Summary [facility] Medical Records Department [address] [place] [address] Emergency Department Summary 12/19/24 MR#: [id number] Acct: [id number] Name: NORBERTO COTTON Rep #: [id number] : 2005 19 From: Kelly Peterson DO PCP: Care Physician,No Primary Status:DEP ER Location: ED HPI HPI - GI History of Present Illness Chief Complaint: Abd Pain Detail of Chief Complaint: Abdominal pain Informant: patient Narrative Narrative: Patient presents with abdominal pain started several days ago. She was seen by her CILNICAL SCIENTIST in the office yesterday and had an [...] was November 10. She is G1, P0. [facility] Medical History (Updated 12/19/24 @ 17:44 by [...] strength abnor (more content not included)... Normal [facility] Eosinophil percentageOrdered By: Kelly Peterson on 12-19-2024 Eosinophils/100 WBC (Bld) 0.6 % Normal 0-5 [facility] Comment on above: Performed By: #### L 700.8000, L500.4050, L100.0100 ####[facility] [address] [place], [address] Erythrocyte Sed Rateon 12-19 SED RATE 13 mm/hr Normal 0-30 [facility] Comment on above: Performed By: #### L 101.9900, L501.6710 #### [facility] [address] [place], [address] Erythrocyte distribution wid th ratioOrdered By: Remus Ungann on 12-19-2024 Erythrocyte distribution width (RBC) [Ratio] 12.4 % Normal 11.6-14.6 [facility] Comment on above: Performed By: #### L 700.8000, L500.4050, L100.0100 ####[facility] [address] [place], [address] Erythrocyte distribution wid th standard deviationOrdered By: Remus Ungann on 12-19-2024 Erythrocyte distribution width (RBC) [Ratio] 43.1 fl 35.1-43.9 [facility] Erythrocyte sedimentation ra teOrdered By: Remus Ungann on 12-19-2024 ESR (Bld) [Velocity] 13 mm/h 0-30 [facility] Glomerular filtration rate ( GFR) estimation/1.73 sq m using serum, plasma, or whole bOrdered By: Remus Ungann on 12-19-2024 GFR/1.73 sq M.predicted among non-blacks MDRD (S/P/Bld) [Vol rate/Area] 127 mL/min/{1.73_m2} Normal >60 [facility] Comment on above: mL/min/1.73m2 CKD-EP I Creatinine Equation (2020) Result Comment: mL/m in/1.73m2 CKD-EPI Creatinine Equation (2020) Performed By: #### L 700.8000, L500.4050, L100.0100 ####[facility] [address] [place], [address] Hemoglobin measurementOrdere d By: Remus Ungann on 12-19-2024 Hemoglobin (Bld) [Mass/Vol] 12.6 g/dL Normal 12.0-15.0 [facility] Comment on above: Performed By: #### L 700.8000, L500.4050, L100.0100 ####[facility] [address] [place], [address] Immature granulocytes/100 WB C Auto (Bld)Ordered By: Kelly Peterson on 12-19-2024 Immature granulocytes/100 WBC (Bld) 0.200 % 0.0-0.9 [facility] Comment on above: IG% - Immature Granu locytes (promyelocytes, myelocytes and metamyelocytes) > 1% indicates that a LEFT SHIFT is Present. Ketones Test strip Ql (U)Ord ered By: Kelly Peterson on 12-19-2024 Ketones Ql (U) 15 mg/dl High Negative [facility] MCV (mean corpuscular volume ) determinationOrdered By: Kelly Peterson on 12-19-2024 MCV (RBC) [Entitic vol] 95.2 fL Normal 81-99 [facility] Comment on above: Performed By: #### L 700.8000, L500.4050, L100.0100 ####[facility] [address] [place], [address] Mean corpuscular hemoglobin (MCH) determinationOrdered By: Kelly Peterson on 12-19-2024 MCH (RBC) [Entitic mass] 31.6 pg Normal 27.0-32.0 [facility] Comment on above: Performed By: #### L 700.8000, L500.4050, L100.0100 ####[facility] [address] [place], [address] Mean corpuscular hemoglobin concentration (MCHC) determinationOrdered By: Kelly Peterson on 12-19-2024 MCHC (RBC) [Mass/Vol] 33.2 g/dL Normal 32-36 [facility] Comment on above: Performed By: #### L 700.8000, L500.4050, L100.0100 ####[facility] [address] [place], [place], [address] Mean platelet volume determi nationOrdered By: Kelly Peterson on 12-19-2024 Platelet mean volume (Bld) [Entitic vol] 9.8 fL Normal 6.2-12.0 [facility] Comment on above: Performed By: #### L 700.8000, L500.4050, L100.0100 ####[facility] [address] [place], [place], [address] Microscopic analysis of urin e for red blood cells (RBC)Ordered By: Kelly Peterson on 12-19-2024 Microscopic analysis of urine for red blood cells (RBC) 0 SEEN /hpf 0-5 [facility] Monocyte percentageOrdered B y: Kelly Peterson on 12-19-2024 Monocytes/100 WBC (Bld) 10.5 % High 0-10 [facility] Comment on above: Performed By: #### L 700.8000, L500.4050, L100.0100 ####[facility] [address] [place], [place], [address] Mucus LM Ql (Urine sed)Order ed By: Kelly Peterson on 12-19-2024 Mucus Ql (Urine sed) 2+ /hpf [facility] Neutrophil percentageOrdered By: Kelly Peterson on 12-19-2024 Neutrophils/100 WBC (Bld) 57.3 % Normal 47-70 [facility] Comment on above: Performed By: #### L 700.8000, L500.4050, L100.0100 ####[facility] [address] [place], [place], [address] Nitrite Test strip Ql (U)Ord ered By: Kelly Peterson on 12-19-2024 Nitrite Ql (U) Negative Negative [facility] Nucleated red blood cell per centageOrdered By: Kelly Peterson on 12-19-2024 Nucleated RBC/100 WBC (Bld) [Ratio] 0 % 0-5 [facility] Platelet countOrdered By: Leanne Peterson on 12-19-2024 Platelets (Bld) [#/Vol] 259 10*3/uL Normal 150-450 [facility] Comment on above: Performed By: #### L 700.8000, L500.4050, L100.0100 ####[facility] [address] [place], [address] Potassium measurement (mass/ volume)Ordered By: Kelly Peterson on 12-19-2024 Potassium (Unsp spec) [Mass/Vol] 3.8 mmol/L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 to patient->Manual release only [id number]&Urine^^^Urine&Urine C. trachomatis PCR on [employer]: NEGATIVE-Chlamydia trachomatis [...] may result in reduced assay sensitivity. Normal [facility] Comment on above: Performed By: #### C TN #### [place] [address] Ferritinon 05-14-2023 Ferritin [Mass/Vol] 135 ng/mL Normal 22-378 [facility] Comment on above: Order Comment: TIBC will not be run. Is this specimen being sent to an external lab?->No Release to patient->Automatic 15790&Blood^\S\^Venous&Venous TIBC will be run. Is this specimen being sent to an external lab?->No Release to patient->Automatic 15526&Blood^\S\^Venous&Venous Performed By: #### F ERTN #### [place] [address] Hemogramon 05-14-2023 Erythrocyte distribution width (RBC) [Ratio] 12.9 % Normal 0.0-14.4 [facility] Comment on above: Order Comment: Is th is specimen being sent to an external lab?->No Release to patient->Automatic 85153&Blood^\S\^Venous&Venous Performed By: #### H EGRM #### [place] [address] Hematocrit (Bld) [Volume fraction] 42.1 % Normal 36.0-44.0 [facility] Comment on above: Order Comment: Is th is specimen being sent to an external lab?->No Release to patient->Automatic 86491&Blood^\S\^Venous&Venous Performed By: #### H EGRM #### [place] [address] Hemoglobin (Bld) [Mass/Vol] 13.7 g/dL Normal 12.0-15.0 [facility] Comment on above: Order Comment: Is th is specimen being sent to an external lab?->No Release to patient->Automatic 37051&Blood^\S\^Venous&Venous Performed By: #### H EGRM #### [place] [address] MCH (RBC) [Entitic mass] 30.9 pg Normal 26.0-34.0 [facility] Comment on above: Order Comment: Is th is specimen being sent to an external lab?->No Release to patient->Automatic 82267&Blood^\S\^Venous&Venous Performed By: #### H EGRM #### [place] [address] MCHC 32.5 % Normal 31.0-37.0 [facility] Comment on above: Order Comment: Is th is specimen being sent to an external lab?->No Release to patient->Automatic 79598&Blood^\S\^Venous&Venous Performed By: #### H EGRM #### [place] [address] MCV (RBC) [Entitic vol] 95.0 fL Normal 80.0-100.0 [facility] Comment on above: Order Comment: Is th is specimen being sent to an external lab?->No Release to patient->Automatic 79142&Blood^\S\^Venous&Venous Performed By: #### H EGRM #### [place] [address] Nucleated RBC/100 WBC (Bld) [Ratio] 0.0 % Normal -1.0-0.0 [facility] Comment on above: Order Comment: Is th is specimen being sent to an external lab?->No Release to patient->Automatic 82132&Blood^\S\^Venous&Venous Performed By: #### H EGRM #### [place] [address] Platelet mean volume (Bld) [Entitic vol] 10.7 fL Normal [facility] Comment on above: Order Comment: Is th is specimen being sent to an external lab?->No Release to patient->Automatic 77045&Blood^\S\^Venous&Venous Result Comment: MPV is platelet range and age dependent Performed By: #### H EGRM #### [place] [address] Platelets (Bld) [#/Vol] 234 10*3/uL Normal 150-450 [facility] Comment on above: Order Comment: Is th is specimen being sent to an external lab?->No Release to patient->Automatic 72419&Blood^\S\^Venous&Venous Performed By: #### H EGRM #### [place] [address] RBC 4.43 10E12/L Normal 4.00-4.90 [facility] Comment on above: Order Comment: Is th is specimen being sent to an external lab?->No Release to patient->Automatic 46736&Blood^\S\^Venous&Venous Performed By: #### H EGRM #### [place] [address] WBC (Bld) [#/Vol] 7.1 10*3/uL Normal 4.5-11.0 [facility] Comment on above: Order Comment: Is th is specimen being sent to an external lab?->No Release to patient->Automatic 54293&Blood^\S\^Venous&Venous Performed By: #### H EGRM #### [place] [address] Ironon 05-14-2023 %Saturation 30 % Normal 13-59 [facility] Comment on above: Order Comment: TIBC will not be run. Is this specimen being sent to an external lab?->No Release to patient->Automatic 58639&Blood^\S\^Venous&Venous TIBC will be run. Is this specimen being sent to an external lab?->No Release to patient->Automatic 82117&Blood^\S\^Venous&Venous Performed By: #### I KATELYN #### [place] [address] TIBC 292 ug/dL Normal 228-428 [facility] Comment on above: Order Comment: TIBC will not be run. Is this specimen being sent to an external lab?->No Release to patient->Automatic 63188&Blood^\S\^Venous&Venous TIBC will be run. Is this specimen being sent to an external lab?->No Release to patient->Automatic 56852&Blood^\S\^Venous&Venous Performed By: #### I KATELYN #### [place] [id number] Iron [Mass/Vol] 88 ug/dL Normal 30-160 [facility] Comment on above: Order Comment: TIBC will not be run. Is this specimen being sent to an external lab?->No Release to patient->Automatic 52338&Blood^\S\^Venous&Venous TIBC will be run. Is this specimen being sent to an external lab?->No Release to patient->Automatic 43731&Blood^\S\^Venous&Venous Performed By: #### I KATELYN #### [facility] of [address] [address] Progress Noteon 05-14-2023 [employer] Authentication Interface Message Text Patient ID: Norberto [...] Return with worsening symptoms. I saw patient [id number] with Rashad Bajwa MD in the PM. [...] Line *Present Clear Background *Present LOT # [id number] Rashad Bajwa MD Normal [facility] Vitamin D 25 OHon 05-14-2023 25 OH Vitamin D 21 ng/mL Low 30-100 [facility] Comment on above: Order Comment: TIBC will not be run. Is this specimen being sent to an external lab?->No Release to patient->Automatic 13714&Blood^\S\^Venous&Venous TIBC will be run. Is this specimen being sent to an external lab?->No Release to patient->Automatic 90245&Blood^\S\^Venous&Venous Result Comment: Refe rence ranges provided by [facility] are based on Endocrine Society Guidelines: Level: Characterization < 21 ng/mL: Vitamin D deficiency 21-29 ng/mL: Suboptimal Vitamin D status 30-100 ng/mL: Optimal Vitamin D status >100 ng/mL: Potentially toxic Vitamin D effects Performed By: #### V 25DH #### [place] [id number] GASTROINTESTINAL PCR PANELon 02-04-2022 GASTROINTESTINAL PCR PANEL GASTROINTESTINAL PCR PANEL --> Status: F POSITIVE: Cryptosporidium. _ The [employer] Gastrointestinal PCR Panel can detect the following targets: Campylobacter, Plesiomonas shigelloides, Salmonella, Vibrio species, Vibrio cholerae, Yersinia enterocolitica, Shiga toxin-producing E coli (STEC) including E coli O157, Enterotoxigenic E coli (ETEC), Shigella/Enteroinvasive E coli (EIEC), Cryptosporidium, Cyclospora cayetanensis, Entamoeba histolytica, Giardia lamblia, Adenovirus F 40/41, Astrovirus, Norovirus GI/GII, Rotavirus A, Sapovirus _ The [employer] Gastrointestinal PCR Panel can detect the following targets: Campylobacter, Plesiomonas shigelloides, Salmonella, Vibrio species, Vibrio cholerae, Yersinia enterocolitica, Shiga toxin-producing E coli (STEC) including E coli O157, Enterotoxigenic E coli (ETEC), Shigella/Enteroinvasive E coli (EIEC), Cryptosporidium, Cyclospora cayetanensis, Entamoeba histolytica, Giardia lamblia, Adenovirus F 40/41, Astrovirus, Norovirus GI/GII, Rotavirus A, Sapovirus Abnormal [facility] [employer] [facility] Comment on above: Performed By: #### B FGI #### [facility] [address] [place] [address] Basic Metabolic Panelon 01-23 eGFR Not Calculated Normal >60 [facility] Comment on above: Performed By: #### B MP3 #### [facility] [address] [place] [address] eGFR OTHER Not Calculated Normal >60 [facility] Comment on above: Result Comment: KDIG [...] secretion. Performed By: #### B MP3 #### [facility] [address] [place] [address] Calcium [Mass/Vol] 9.3 mg/dL Normal 8.4-10.4 [facility] Comment on above: Performed By: #### B MP3 #### [facility] [address] [place] [address] Anion gap [Moles/Vol] 9 mmol/L Normal 3-13 [facility] Comment on above: Performed By: #### B MP3 #### [facility] [address] [place] [address] CO2 [Moles/Vol] 25 mmol/L Normal 22-30 [facility] Comment on above: Performed By: #### B MP3 #### [facility] [address] [place] [address] Creatinine [Mass/Vol] 0.80 mg/dL Normal 0.52-1.25 [facility] Comment on above: Performed By: #### B MP3 #### [facility] [address] [place] [address] Glucose [Mass/Vol] 91 mg/dL Normal 70-100 [facility] Comment on above: Performed By: #### B MP3 #### [facility] [address] [place] [address] Urea nitrogen [Mass/Vol] 17 mg/dL Normal 9-20 [facility] [facility] Comment on above: Performed By: #### B MP3 #### [facility] [address] [place] [address] Chloride [Moles/Vol] 100 mmol/L Normal 98-107 [facility] Comment on above: Performed By: #### B MP3 #### [facility] [address] [place] [address] Potassium [Moles/Vol] 3.7 mmol/L Normal 3.5-5.1 [facility] Comment on above: Performed By: #### B MP3 #### [facility] [address] [place] [address] Sodium [Moles/Vol] 134 mmol/L Low 135-145 [facility] Comment on above: Performed By: #### B MP3 #### [facility] [address] [place] [address] Anion gap [Moles/Vol] 9 mmol/L 3 - 13 mmol/L [facility] Work Phone: Calcium [Mass/Vol] 9.3 mg/dL 8.4 - 10. 4 mg/dL [facility] Work Phone: Chloride [Moles/Vol] 100 mmol/L 98 - 10 7 mmol/L [facility] Work Phone: CO2 [Moles/Vol] 25 mmol/L 22 - 30 mmol/L [facility] Work Phone: Creatinine [Mass/Vol] 0.8 mg/dL 0.52 - 1.25 mg/dL [facility] Work Phone: eGFR Not Calculated 60 - PINF mL/min [facility] Work Phone: EGFR IF NonAfrican Syrian Not Calculated 60 - PINF mL/min [facility] Work Phone: Comment on above: KDIGO guidelines pro vide [...] [Mass/Vol] 91 mg/dL 70 - 100 mg/dL [facility] Work Phone: Interpretation and review of laboratory results Abnormal [facility] Work Phone: Potassium [Moles/Vol] 3.7 mmol/L 3.5 - 5.1 mmol/L [facility] Work Phone: Sodium [Moles/Vol] 134 mmol/L Low 135 - 145 mmol/L [facility] Work Phone: Urea nitrogen (BldV) [Mass/Vol] 17 mg/dL 9 - 20 mg/dL [facility] Work Phone: Test Performed by [facility], [address] , [place], [place] [id number] [place] [address] [facility] Work Phone: Complete Urinalysison 2021 Bacteria Few (1-5) Abnormal Negative [facility] Comment on above: Result Comment: . Performed By: #### H JOHN, CUA2 #### [facility] [address] [place] [address] RBC, Urine 0 - 2 Normal 0-2 [facility] Comment on above: Result Comment: . Performed By: #### H JOHN, CUA2 #### [facility] [address] [place] [address] Squamous Epithelial 6 - 10 Abnormal 3-5 [facility] Comment on above: Result Comment: . Performed By: #### H JOHN, CUA2 #### [facility] [address] [place] [address] VOLUME, URINE 12 ml Normal [facility] Comment on above: Result Comment: . Performed By: #### H CGANN, CUA2 #### [facility] [address] [place] [address] WBC, Urine 6 - 10 Abnormal 0-5 [facility] Comment on above: Result Comment: . Performed By: #### H CGANN, CUA2 #### [facility] [address] [place] [address] Appearance (U) Clear Normal Clear [facility] Comment on above: Result Comment: . Performed By: #### H CGUR, CUA2 #### [facility] [address] [place] [address] Bilirubin,Urine Negative Normal Negative [facility] Comment on above: Result Comment: . Performed By: #### H CGUR, CUA2 #### [facility] [address] [place] [address] Color (U) YELLOW Normal Lt. Yellow [facility] Comment on above: Result Comment: . Performed By: #### H CGUR, CUA2 #### [facility] [address] [place] [address] Glucose Ql (U) Normal Normal Normal (<70) [facility] Comment on above: Result Comment: . Performed By: #### H CGUR, CUA2 #### [facility] [address] [place] [address] Ketone,Urine > 150 Abnormal Negative [facility] Comment on above: Result Comment: . Performed By: #### H CGANN, CUA2 #### [facility] [address] [place] [address] Leukocytes,Urine Negative Normal Negative [facility] Comment on above: Result Comment: . Performed By: #### H CGANN, CUA2 #### [facility] [address] [place] [address] Nitrites,Urine Negative Normal Negative [facility] Comment on above: Result Comment: . Performed By: #### H CGANN, CUA2 #### [facility] [address] [place] [address] Occult Blood,Urine Negative Normal Negative [facility] Comment on above: Result Comment: . Performed By: #### H CGUR, CUA2 #### [facility] [address] [place] [address] pH,Urine 6.0 Normal 5.0-8.0 [facility] Comment on above: Result Comment: . Performed By: #### H CGUR, CUA2 #### [facility] [address] [place] [address] Protein (U) [Mass/Vol] 30 mg/dL Abnormal Negative [facility] Comment on above: Result Comment: . Performed By: #### H CGANN, CUA2 #### [facility] [address] [place] [address] Specific Knippa,Urine > 1.030 Abnormal 1.005 - 1.030 [facility] Comment on above: Result Comment: . Performed By: #### H CGANN, CUA2 #### [facility] [address] [place] [address] Urobilinogen,Urine 2 mg/dL Abnormal Normal (0-1) [facility] Comment on above: Result Comment: . Performed By: #### H CGANN, CUA2 #### [facility] [address] [place] [address] HCG,Urine Qualon 02-03-2022 Beta HCG ( test) Ql (U) Negative Normal Negative [facility] Comment on above: Result Comment: Plea se note: Very dilute urine specimens, as indicated by a low specific gravity, may not contain b2b outside sales representative levels of hCG. If is still suspected, a first morning urine specimen should be collected 48 hours later and tested. is the most common reason for HCG in urine, although choriocarcinoma, hydatidiform mole, and certain nontropho- blastic malignancies also result in detectable urinary HCG levels. Sensitivity = 20mIU/mL. Performed By: #### H CGANN, CUA2 #### [facility] [address] [place] [address] HGC Urine Qual [place] 2021 Beta HCG ( test) Ql (U) Negative Negative NA [facility] Work Phone: Comment on above: Please note: Very di lute urine specimens, as indicated by a low specific gravity, may not contain b2b outside sales representative levels of hCG. If is still suspected, a first morning urine specimen should be collected 48 hours later and tested. is the most common reason for HCG in urine, although choriocarcinoma, hydatidiform mole, and certain nontropho- blastic malignancies also result in detectable urinary HCG levels. Sensitivity = 20mIU/mL. Test Performed by [facility], [address] , [address] [facility] Work Phone: Urinalysison 02-03-2022 Appearance (U) Clear Clear NA [facility] Work Phone: Comment on above: . Bacteria, UA Few (1-5) Abnormal Negative /[HPF] [facility] Work Phone: Comment on above: . Bilirubin Urine Negative Negative mg/dL [facility] Work Phone: Comment on above: . Color (U) YELLOW Lt. Yellow NA [facility] Work Phone: Comment on above: . Glucose, Ur Normal Normal (<70) mg/dL [facility] Work Phone: Comment on above: . Interpretation and review of laboratory results Abnormal [facility] Work Phone: Ketones Ql (U) >150 Abnormal Negative mg/dL [facility] Work Phone: Comment on above: . LEUKOCYTES, UA Negative Negative Spencer/uL [facility] Work Phone: Comment on above: . Nitrite, Urine Negative Negative NA [facility] Work Phone: Comment on above: . Occult Blood,Urine Negative Negative mg/dL [facility] Work Phone: Comment on above: . pH (U) 6.0 [pH] [facility] Work Phone: Comment on above: . Protein (U) [Mass/Vol] 30 mg/dL Abnormal Negative [facility] Work Phone: Comment on above: . RBC, UA /[HPF] 0 - 2 /[HPF] [facility] Work Phone: Comment on above: . Specific Knippa, Urine Abnormal [facility] Work Phone: Comment on above: . Squam Epithel, UA 6-10 Abnormal 3 - 5 /[HPF] [facility] Work Phone: Comment on above: . Urobilinogen, Urine 2 mg/dL Abnormal Normal (0-1) [facility] Work Phone: Comment on above: . Volume 12 ml [facility] Work Phone: Comment on above: . WBC, UA /[HPF] Abnormal 0 - 5 /[HPF] [facility] Work Phone: Comment on above: . Test Performed by [facility], [address] , [address] [facility] Work Phone: CR Knee 3 Views Lefton 09-01 CR Knee 3 Views Left Patient Name: NORBERTO COTTON Diagnostic Radiology ACCESSION EXAM DATE/TIME PROCEDURE ORDERING PROVIDER [id number] 09/01/2021 20:30 EST CR Knee 3 Views Left MD PETERSEN VIJAY CPT code 09704 Reason For Exam (CR Knee 3 Views Left) knee pain Report Left knee three views HISTORY: Injury, pain No fracture or dislocation. No obvious joint effusion. IMPRESSION: Normal examination. Report Dictated on Final Dictating Physician: MD MURPHY MALAY Signed Date and Time: 09/01/2021 8:33 pm Signed by: MD MURPHY MALAY Transcribed Date and Time: 09/01/2021 8:34 Normal [facility] XR KNEE LEFT (3 VIEWS)on Patient Name: NORBERTO COTTON Diagnostic Radiology ACCESSION EXAM DATE/TIME PROCEDURE ORDERING PROVIDER [id number] 09/01/2021 20:30 EST CR Knee 3 Views Left MD PETERSEN VIJAY CPT code 92550 Reason For Exam (CR Knee 3 Views [...] Radiology ACCESSION EXAM DATE/TIME PROCEDURE ORDERING PROVIDER [id number] 09/01/2021 20:30 EST CR Knee 3 Views Left MD PETERSEN VIJAY CPT code 61825 Reason For Exam (CR Knee 3 Views [...] Radiology Study observation (narrative) [facility] Work Phone: XR KNEE LEFT (3 VIEWS)Ordere d By: Speedy Murphy on 09-01-2021 [facility] Work Phone: CT Head WO Contraston 2021 Patient Name: NORBERTO COTTON Computed Tomography ACCESSION EXAM DATE/TIME PROCEDURE ORDERING PROVIDER [id number] 07/25/2021 21:[address] Head or Brain w/o 5787 -PORTIA PATRICIA Contrast CPT code 51244 Reason For Exam (CT Head or Brain [...] [place] Transcribed Date and Time: 07/25/2021 10:03 [facility] Yusuf Sparrow MD - 07/25/2021 Patient Name: NORBERTO COTTON Computed Tomography ACCESSION EXAM DATE/TIME PROCEDURE ORDERING PROVIDER [id number] 07/25/2021 21:[address] Head or Brain w/o PATRICIA TORO Contrast CPT code 96879 Reason For Exam (CT Head or Brain [...] [place] Transcribed Date and Time: 07/25/2021 10:03 [facility] Work Phone: Radiology Study observation (narrative) [facility] Work Phone: CT Head WO ContrastOrdered B y: Yusuf Sparrow on 07-25-2021 [facility] Work Phone: CT Head or Brain w/o Contras ton 07-25-2021 CT Head or Brain w/o Contrast Patient Name: NORBERTO COTTON Computed Tomography ACCESSION EXAM DATE/TIME PROCEDURE ORDERING PROVIDER [id number] 07/25/2021 21:[address] Head or Brain w/o PATRICIA TORO Contrast CPT code 57085 Reason For Exam (CT Head or Brain [...] Report Dictated on Final Dictating Physician: MD SPARROW WASSIM [place] Signed Date and Time: 07/25/2021 10:02 pm Signed by: MD SPARROW WASSIM [place] Transcribed Date and Time: 07/25/2021 10:03 Normal [facility] ED Provider Noteon 01-31-202 2 ED Provider Note [facility] ED EMERGENCY DEPARTMENT ENCOUNTER Pt Name: Norberto [...] ? Drug use: Not Currently Types: Marijuana ([employer]) ? Sexual activity: Yes Other Topics Concern [...] and Family: Not on file ? Attends Judaism Services: Not on file ? Active Member [...] distress. Marley (more content not included)... Normal [facility] Vital Signs Date Time Vital Sign Value Performing Clinician Faci lity 02-10-2025 14:09-0400 Body height 162.[address] Kelly Peterson DO Work Phone: 4(287)927-877226 [place] [address] 02-10-2025 14:09-0400 Body mass index (BMI) [Ratio] 18.2 kg/m2 Dr. Kelly Peterson DO Work Phone: 3(707)447-635826 [place] [address] 02-10-2025 14:09-0400 Body weight 48.[address] Kelly Peterson DO Work Phone: 7(695)082-915626 [place] [address] 02-10-2025 14:09-0400 Diastolic blood pressure 64 mm[Hg] Dr. Kelly Peterson DO Work Phone: 0(092)037-618926 [place] [address] 02-10-2025 14:09-0400 Systolic blood pressure 98 mm[Hg] Dr. Kelly Peterson DO Work Phone: 8(351)689-260826 [place] [address] 02-09-2025 02:06-0400 Body temperature 97.8 [degF] Dr. Kelly Peterson DO Work Phone: 8(902)805-541826 [place] [address] 02-09-2025 02:06-0400 Diastolic blood pressure 61 mm[Hg] Dr. Kelly Peterson DO Work Phone: 6(425)048-365426 [place] [address] 02-09-2025 02:06-0400 Heart rate 73 /min Dr. Kelly Peterson DO Work Phone: 7(080)710-169426 [place] [address] 02-09-2025 02:06-0400 Respiratory rate 18 /min Dr. Kelly Peterson DO Work Phone: 0(752)716-675826 [place] [address] 02-09-2025 02:06-0400 SaO2% (BldA) [Mass fraction] 99 % Dr. Kelly Peterson DO Work Phone: 8(059)825-544326 [place] [address] 02-09-2025 02:06-0400 Systolic blood pressure 92 mm[Hg] Dr. Kelly Peterson DO Work Phone: 5(957)974-464426 [place] [address] 02-09-2025 00:08-0400 Body height 162.[address] Kelly Peterson DO Work Phone: 7(064)620-999526 [place] [address] 02-09-2025 00:08-0400 Body mass index (BMI) [Ratio] 21.2 kg/m2 Dr. Kelly Peterson DO Work Phone: 1(791)724-795826 [place] [address] 02-09-2025 00:08-0400 Body weight [address] Kelly Peterson DO Work Phone: 5(837)106-094226 [place] [address] 01-12-2025 10:42-0400 Body height 162.[address] Kelly Peterson DO Work Phone: 7(663)289-530426 [place] [address] 01-12-2025 10:42-0400 Body mass index (BMI) [Ratio] 18.1 kg/m2 Dr. Kelly Peterson DO Work Phone: 3(458)514-107926 [place] [address] 01-12-2025 10:42-0400 Body weight 47.[address] Kelly Peterson DO Work Phone: 9(061)980-782426 [place] [address] 01-12-2025 10:42-0400 Diastolic blood pressure 65 mm[Hg] Dr. Kelly Peterson DO Work Phone: 0(341)794-792826 [place] [address] 01-12-2025 10:42-0400 Systolic blood pressure 100 mm[Hg] Dr. Kelly Peterson DO Work Phone: 1(519)111-542226 [place] [address] 12-30-2024 20:45-0400 Body temperature 97.3 [degF] Dr. Kelly Peterson DO Work Phone: 1(404)669-350445 [place] [address] 12-30-2024 20:45-0400 Diastolic blood pressure 62 mm[Hg] Dr. Kelly Peterson DO Work Phone: 0(068)607-416445 [place] [address] 12-30-2024 20:45-0400 Heart rate 63 /min Dr. Kelly Peterson DO Work Phone: 6(778)209-382541 [address] 12-30-2024 20:45-0400 Respiratory rate 18 /min Dr. Kelly Peterson DO Work Phone: 2(514)972-250726 [place] [address] 12-30-2024 20:45-0400 SaO2% (BldA) [Mass fraction] 100 % Dr. Kelly Peterson DO Work Phone: 6(184)352-190826 [place] [address] 12-30-2024 20:45-0400 Systolic blood pressure 96 mm[Hg] Dr. Kelly Peterson DO Work Phone: 7(246)019-106826 [place] [address] 12-30-2024 17:38-0400 Body height 162.[address] Kelly Peterson DO Work Phone: 7(176)072-411326 [place] [address] 12-30-2024 17:38-0400 Body mass index (BMI) [Ratio] 18 kg/m2 Dr. Kelly Peterson DO Work Phone: 3(768)704-184226 [place] [address] 12-30-2024 17:38-0400 Body weight 47.[address] Kelly Peterson DO Work Phone: 4(630)711-922026 [place] [address] 12-30-2024 11:49-0400 Body mass index (BMI) [Ratio] 18 kg/m2 Dr. Kelly Peterson DO Work Phone: 3(598)448-387926 [place] [address] 12-30-2024 11:49-0400 Body weight 47.[address] Kelly Peterson DO Work Phone: 0(763)070-612326 [place] [address] 12-30-2024 11:49-0400 Diastolic blood pressure 62 mm[Hg] Dr. Kelly Peterson DO Work Phone: 0(113)789-901926 [place] [address] 12-30-2024 11:49-0400 Systolic blood pressure 90 mm[Hg] Dr. Kelly Peterson DO Work Phone: 5(122)078-014226 [place] [address] 12-19-2024 17:55-0400 Body temperature 98.2 [degF] Dr. Kelly Peterson DO Work Phone: 7(419)961-147326 [place] [address] 12-19-2024 17:55-0400 Diastolic blood pressure 66 mm[Hg] Dr. Kelly Peterson DO Work Phone: 7(589)069-410245 [place] [address] 12-19-2024 17:55-0400 Heart rate 61 /min Dr. Kelly Peterson DO Work Phone: 2(648)239-545826 [place] [address] 12-19-2024 17:55-0400 Respiratory rate 16 /min Dr. Kelly Peterson DO Work Phone: 7(687)764-451626 [place] [address] 12-19-2024 17:55-0400 SaO2% (BldA) [Mass fraction] 99 % Dr. Kelly Peterson DO Work Phone: 6(970)195-862726 [place] [address] 12-19-2024 17:55-0400 Systolic blood pressure 101 mm[Hg] Dr. Kelly Peterson DO Work Phone: 9(826)304-396826 [place] [address] 12-19-2024 14:59-0400 Body height 162.[address] Kelly Peterson DO Work Phone: 1(327)790-157226 [place] [address] 12-19-2024 14:59-0400 Body mass index (BMI) [Ratio] 17.6 kg/m2 Dr. Kelly Peterson DO Work Phone: 5(726)330-575526 [place] [address] 12-19-2024 14:59-0400 Body weight 46.[address] Kelly Peterson DO Work Phone: 5(832)452-644626 [place] [address] 12-18-2024 10:52-0400 Body height 162.[address] Antonia Connolly MD Work Phone: 1(854)314-460099 [place] [address] 12-18-2024 10:39-0400 Body mass index (BMI) [Ratio] 17.9 kg/m2 Dr. Antonia Connolly MD Work Phone: [facility] 12-18-2024 10:39-0400 Body weight 47.[address] Antonia Connolly MD Work Phone: 3(248)277-868099 [place] [address] 12-18-2024 10:39-0400 Diastolic blood pressure 66 mm[Hg] Dr. Antonia Connolly MD Work Phone: [facility] 12-18-2024 10:39-0400 Systolic blood pressure 97 mm[Hg] Dr. Antonia Connolly MD Work Phone: [facility] 06-29-2024 13:34-0500 Body mass index (BMI) [Ratio] 17.71 kg/m2 Марина Miller [employer]MATTR[employer]ER Work Phone: [facility] 06-29-2024 13:34-0500 Body temperature 99.19 [degF] Марина Miller [employer]MATTRESS F[employer]ER Work Phone: [facility] 06-29-2024 13:34-0500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
[2025-02-12] MEDS: Lactated Ringers 1,000 ML 15 ML IV (07:10)
--- NOTE | 2025-02-12 07:15 | HP.PCM.OB_ITS ---
HPI - General HPI Narrative NORBERTO COTTON, is a 20 F who presents with missed ab measuring 9-10 weeks but was supposed to be 13-14. no vb abnormal discharge. recently treated for chlamydia. Maternal Data Information TELLO Calculator Estimated Delivery Date Method Current WG Current Estimate 08/17/25 LMP (Certain) 13w 3d Other Estimates 08/18/25 Ultrasound #1 13w 2d PFSH PFSH Medical History (Updated 02/11/25 @ 08:20 by Alli Guerra) Depression Anxiety History of Holter monitoring Chest pain Abdominal pain Home Medications ?Medication ?Instructions ?Recorded ?Last Taken ?Type NK 02/09/25 Unknown History Allergy/AdvReac Type Severity Reaction Status Date / Time No Known Allergies Allergy Verified 02/12/25 06:54 Family History Grandmother Uterine cancer Diabetes Grandfather Brain aneurysm Diabetes Social History adopted: No household members: significant other and friend(s) number of children: 0 current occupational status: employed current occupation: [employer] current occupational exposures/hazards: No pets and animals: Yes pets and animals: dog(s) and other details: Duck (3) history of recent travel: No sexually active: Yes Smoking Status: Former smoker second hand exposure: No quit status: considering quitting alcohol intake: current alcohol intake frequency: holidays/special occasions only details: Not while substance use type: does not use well-balanced diet: about half the time caffeine: No eating out: 4 or more times/week during the past year weight has: remained stable what type of physical activity do you participate in: walking frequency: 3-4 times per week duration: < 15 minutes/day sarah/restoration: Hoahaoism seatbelt use: always do you feel safe at home: Yes additional social history: BF: Jeremiah - Traffic mechanical ordnance assembler/construction History 1 Elective abortions 0 Hx Para 0 Spontaneous abortions 0 Hx # Term Pregnancies Ectopic pregnancies Hx # Pregnancies Multiple births # of living children 0 Visit Details Expected Delivery Route/Plan Labor Preferences- CB/BF classes: [] labor support person: [] labor intervention preferences: [] pain management options preferred: [] cut cord/dad catch: [] : [] PP control planned: [] discussed possible routes of delivery and associated risks: [] special requests: [] Plans Covid status: [] Flu vaccine: [] Tdap vaccine: [] Rhogam: [] LARC form signed: [] Problem list reviewed and updated with the most current plan of care details and appropriate orders placed. Relevant counseling for the gestational age provided. Continue routine care and follow up unless otherwise noted in visit notes/problem list details OB Flowsheet Initial Weight: Not Recorded Date -?-?-?-?-?-?-?-?-?-?-?-?- EGA Weight BP Urine Prot -?-?-?-?-?-?-?-?-?-?-?-?- Glucose FHR FuHt Pres Dilation -?-?-?-?-?-?-?-?-?-?-?-?- Effaced St Visit Note 01/12/25 -?-?-?-?-?-?-?-?-?-?-?-?- 9w 0d 105 lb 8 oz 100/65 -?-?-?-?-?-?-?-?-?-?-?-?- 170 -?-?-?-?-?-?-?-?-?-?-?-?- SM- no vb now, h aving some morning anxiety episodes. 02/10/25 -?-?-?-?-?-?-?-?-?-?-?-?- 13w 1d 106 lb 5 oz 98/64 Nega tive -?-?-?-?-?-?-?-?-?-?-?-?- Negative -?-?-?-?-?-?-?-?-?-?-?-?- JV- CRL today is measuring weeks 1 day without heart tones. No signs of DARNELL. patient denies bleeding or cramping. She was seen in the ER recently for heart burn but had no OB complaints. Plan is for suction D&C. grief counseling offered and [id number] basket given. ROS Constitutional Constitutional: Reports systems reviewed and no addt'l complaints, except as documented; Denies as per HPI, change in weight, fatigue, fever(s), malaise, weakness or other Eyes Eyes: Reports systems reviewed and no addt'l complaints, except as documented; Denies as per HPI, change in vision or other ENT HEENT: Reports systems reviewed and no addt'l complaints, except as documented Respiratory/Chest Respiratory/Chest: Reports systems reviewed and no addt'l complaints, except as documented Gastrointestinal Gastrointestinal: Reports systems reviewed and no addt'l complaints, except as documented and as per HPI Genitourinary Genitourinary: Reports as per HPI Musculoskeletal Musculoskeletal: Reports systems reviewed and no addt'l complaints, except as documented Neurologic Neurologic: Reports systems reviewed and no addt'l complaints, except as documented Psychiatric Psychiatric: Reports systems reviewed and no addt'l complaints, except as documented Endocrine Endocrinology: Reports systems reviewed and no addt'l complaints, except as documented Hematologic/Lymphatic Hematologic/Lymphatic: Reports systems reviewed and no addt'l complaints, except as documented Vital Signs Vital Signs Vital Signs: 02/12/25 06:55 02/12/25 06:56 Temperature 98.5 F Temperature Source Temporal Pulse Rate 75 Respiratory Rate 16 Respiratory Pattern Normal Blood Pressure 95/71 Blood Pressure Mean 79 Blood Pressure Source Monitor Blood Pressure Position Semi-Fowlers Blood Pressure Location Right Arm Pulse Ox 100 Oxygen Delivery Method Room Air Weight Weight: 107 lb Body Mass Index (BMI) 18.3 Physical Exam Const alert, oriented x3 and no apparent distress HEENT normocephalic Head and Scalp: atraumatic Eyes EOMs intact bilaterally and conjunctivae normal Neck full ROM, no lymphadenopathy, supple and thyroid normal General: trachea midline Lymph Lymphatic: no lymphadenopathy noted Resp normal respiratory effort, no retractions, no use of accessory muscles and clear to auscultation bilaterally Cardio regular rhythm GI normal to inspection, nondistended, normoactive bowel sounds, soft to palpation, non-distended and no masses Inspection: Negative for abdominal distention Back/Spine no CVA tenderness Extremity normal to inspection Skin no rashes or lesions noted Neuro moves all extremities and deep tendon reflexes 2+ bilaterally Psych mental status grossly normal Labs Labs Labs: Blood Type A POSITIVE Antibody Screen NEGATIVE Hct 32.3 % (37-47) L Hgb 10.8 g/dL (12.0-15.0) L Obstetrics Ultrasound Syphilis Total Ab Nonreactive (Nonreactive) Rubella IgG Antibody REAC (Nonreactive) Hep Bs Antigen Nonreactive (Nonreactive) Hepatitis C Antibody Nonreactive (Nonreactive) Chlamydia DNA (DEVIKA) Positive (Negative) H N.gonorrhoeae DNA (DEVIKA) Negative (Negative) HIV 1&2 Antibody Nonreactive (Nonreactive) Assessment & Plan (1) Missed with demise before 20 completed weeks of gestation: PLAN: Plan proceed with suction d and c . After discussing the patient's diagnosis and treatment plan options, patient wishes to proceed with surgical management. I have discussed with the patient the risks, benefits, and alternatives of the procedure which include but are not limited to risks of anesthesia, bleeding, infection, possible damage to bowel, bladder, or surrounding vasculature which could lead to additional surgery to evaluate any complications. Patient agrees to procedure and wishes to proceed. ACOG/uptodate references given for additional information regarding procedure. UPDATE- I have seen the patient and performed any clinically relevant updates to the history and physical exam. Antonia Connolly MD
--- NOTE | 2025-02-12 07:30 | POC_PTH ---
PATIENT: NORBERTO COTTON LOC: [facility] [place][id number] AGE/SX: ROOM: RE02/12/[address]: Dr. Antonia Connolly MD : 2005 BED: DIS: 02/12/2025 SPEC #: [id number] RECD: 02/12/25 08:24 STATUS: DAMARIS RERylee #: [id number] ZIA: 02/12/25 07:[address]: Antonia Connolly DEPT: SURGICAL PATHOLOGY RECD BY: Zachary Wall ENTERED: 02/12/25 09:48 SP TYPE: PROD CONC OTHR DR: No Primary Care Phys Tissues: A - Product of conception, NOS Procedures: Surgery Specimen Level IV HEADER OPERATION: Dilation and curettage, suction PRE-OP DIAGNOSIS: Missed TISSUE SUBMITTED: A- Products of conception - ANORA TESTING MICROSCOPIC DIAGNOSIS A. Uterine contents: * Inflamed and degenerating decidua with chorionic villi and tissue consistent with intrauterine products of conception MICROSCOPIC DESCRIPTION Slides are reviewed. GROSS DESCRIPTION A. Received fresh and subsequently placed in formalin labeled with the patient's name and date of . Designated as products of conception for Anora testing is a 23.5 g, 7.0 x 5.8 x 1.4 cm aggregate of ferrell-pink soft tissue fragments, minimal blood clot and papilliferous tissue fragments. Chorionic villi is identified. parts are present. Assistant Pastry Chef sections are collected fresh for Anora testing. Assistant Pastry Chef sections are submitted in 3 cassettes, to include the parts in cassette A3. SD 02/12/2025 CPT:68083
--- NOTE | 2025-02-12 07:34 | PCM.PRE.AN2 ---
ASA Classification* ASA Classification ASA Classification: 2 Assessment & Plan Anesthesia* Anesthesia Assessment Anesthesia Assessment: Discussed sedation and/or anesthesia options, risks, benefits, and alternatives with patient/parents/legal guardian/POA. Questions invited. The patient/parents/legal guardian/POA seems to understand and agrees to proceed with anesthesia plan. Reviewed the physical assessment, medical history, allergy history and patient home medications list prior to surgery/procedure/anesthetic and documented any changes. Performed airway and anesthesia risk assessments. Anesthesia Type Anesthesia Type: MAC History Source History Obtained from:: Patient and Chart Anesthesia Focused Assessment* Temperature: 98.5 F Pulse Rate: 75 Blood Pressure: 95/71 Respiratory Rate: 16 Pulse Ox: 100 Oxygen Delivery Method: Room Air Airway Assessment Mouth opens: >3 cm Mallampati Score: III Teeth Condition: Intact Labs Anesthesia Preop lab: CBC WBC 5.6 K/mm3 (4.4-11.0) 02/09/25 00:38 02/09/25 RBC 3.43 M/mm3 (4.2-5.4) L 02/09/25 00:38 02/09/25 Hgb 10.8 g/dL (12.0-15.0) L 02/09/25 00:38 02/09/25 Hct 32.3 % (37-47) L 02/09/25 00:38 02/09/25 Plt Count 218 K/mm3 (150-450) 02/09/25 00:38 02/09/25 CHEMISTRY Potassium 3.7 mmol/L (3.3-5.1) 02/09/25 00:38 02/09/25 Sodium 138 mmol/L (133-145) 02/09/25 00:38 02/09/25 BUN 12 mg/dL (4-19) 02/09/25 00:38 02/09/25 Creatinine 0.51 mg/dL (0.70-1.20) L 02/09/25 00:38 02/09/25 Glucose 103 mg/dL (70-99) H 02/09/25 00:38 02/09/25 COAG HCG, Quant 4035 mIU/mL (<9 non-preg) H 12/19/24 16:00 12/19/24 Tst Clinic Positive 12/30/24 11:51 12/30/24 Pre-Assessment Diagnosis/Proposed Procedure Planned Operative Procedure(s): SUCTION D&C Anesthesia History 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 When Was Last Pacemaker Check QUESTION #4 FULL TEXT: You/Your Family Experience fever (hyperthermia) with Anesthesia Last Oral Intake Last Oral intake: Last Oral Intake NPO since 01:00 02/12/25 06:56 Meds taken in AM with sips of No 02/12/25 06:56 water? Meds patient instructed to take am of surgery PONV PONV - brine plant operator: PONV - brine plant operator Female Yes 02/11/25 08:12 HX of Motion Sickness No 02/11/25 08:12 HX of N/V After Surgery No 02/11/25 08:12 Non-Smoker Yes 02/11/25 08:12 Duration of Surgery greater No 02/11/25 08:12 than 60 minutes Number of Risk Factors 2 02/11/25 08:12 PONV Score Moderate Risk 02/11/25 08:12 Height & Weight Height & Weight: Anesthesia: Height & Weight Height 5 ft 4 in 02/12/25 06:56 Weight: 48.534 kg 02/12/25 06:56 Body Mass Index (BMI) 18.3 02/12/25 06:56 Respiratory Assessment Respiratory Assessment - brine plant operator: Respiratory Tract Infection Hx - brine plant operator Hx Respiratory Tract Infection No 02/11/25 08:12 STOP Sleep Apnea STOP Sleep Apnea - brine plant operator: STOP Sleep Apnea - brine plant operator Hx Hypertension No 02/11/25 08:12 Hx Sleep Apnea No 02/11/25 08:12 CPAP BIPAP Do you snore loudly (louder No 02/11/25 08:12 than talking or can be heard Do you often feel tired/ No 02/11/25 08:12 fatigued/ sleepy during daytime? Has anyone observed you stop No 02/11/25 08:12 breathing during sleep? STOP Results Negative 02/11/25 08:12 QUESTION #5 FULL TEXT : Do you snore loudly (louder than talking or can be heard through closed doors)? 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 Specify any problems Hx of Preganancy in last 3 No 02/11/25 08:12 Months Nurse Filling Out Transfusion [email or web address] 02/11/25 08:12 & Questions: Date: 02/11/25 02/11/25 08:12 Time: 08:16 02/11/25 08:12 Patient unable to answer at this time (ie. confused, unrespo /Reproduction History /Reproductive History - brine plant operator: /Reproductive Hx- brine plant operator Hx Now SUCTION D&C 02/11/25 08:12 Gestational Age (in weeks): EDC: Hx Hx Para Hx Section SAB No 02/10/25 14:09 Active Medications Active Medications: Current Medications Generic Name Dose Route Start Last Admin Trade Name Freq PRN Reason Stop Dose Admin Doxycycline Monohydrate 100 mg 02/12/25 07:00 02/12/25 06:58 Doxycycline 100 Mg Capsule PO 100 mg X1 DARNELL Administration Lactated Ringer's 1,000 mls @ 15 mls/hr 02/12/25 06:30 02/12/25 07:10 IV 15 mls/hr .Q48H DARNELL Administration PFSH Medical History (Updated 02/11/25 @ 08:20 by Alli Guerra) Depression Anxiety History of Holter monitoring Chest pain Abdominal pain Home Medications ?Medication ?Instructions ?Recorded ?Last Taken ?Type NK 02/09/25 Unknown History Allergy/AdvReac Type Severity Reaction Status Date / Time No Known Allergies Allergy Verified 02/12/25 06:54 Family History Grandmother Uterine cancer Diabetes Grandfather Brain aneurysm Diabetes Social History adopted: No household members: significant other and friend(s) number of children: 0 current occupational status: employed current occupation: [employer] current occupational exposures/hazards: No pets and animals: Yes pets and animals: dog(s) and other details: Duck (3) history of recent travel: No sexually active: Yes Smoking Status: Former smoker second hand exposure: No quit status: considering quitting alcohol intake: current alcohol intake frequency: holidays/special occasions only details: Not while substance use type: does not use well-balanced diet: about half the time caffeine: No eating out: 4 or more times/week during the past year weight has: remained stable what type of physical activity do you participate in: walking frequency: 3-4 times per week duration: < 15 minutes/day sarah/voodoo: Alevism seatbelt use: always do you feel safe at home: Yes additional social history: BF: Jeremiah - Traffic body mechanic apprentice/construction Review of Systems (Anesthesia) ROS Narrative System reviewed and no additional complaints, except as documented.
[2025-02-12] MEDS: Midazolam 2 MG/2 ML Syringe IV (07:44)
[2025-02-12] MEDS: Lidocaine 1% (5 ml sdv) 5 ML Vial IV (07:46)
--- NOTE | 2025-02-12 07:51 | PCM.OPRPT ---
Problems Associated Problem List Diagnoses (1) Missed with demise before 20 completed weeks of gestation: (2) H/O dilation and curettage: Procedures Urinary/Genital 52xxx-59xxx: 58086 Trmt of incomplete Ab, any TM Operative Report (Standard) Operative Information Date of Procedure: 02/12/25 Pre-Operative Diagnosis: see problem list comments Post-Operative Diagnosis: same Surgery/Procedure Performed: suction dilation and curettage line patroller: No Type of Anesthesia: IV Sedation and Local RN Documented Start/Stop Times: Operation Date: 02/12/25 07:30 Case Time Into Pre-Op 02/12/25 06:15 Out of Pre-Op 02/12/25 07:36 Procedure Start Time: 08:00 Procedure Stop Time: 08:06 Select all DRAINS/GRAFTS/IMPLANTS that apply: None Estimated Blood Loss: 100 Specimen collected: Yes Description of specimen(s) removed: retained POC Description of surgery: Patient was taken to the operating room and placed under MAC local anesthesia. She was prepped and draped in the normal sterile fashion the dorsal lithotomy position. Bladder was drained of clear urine and anterior lip of the cervix was grasped and the uterus sounded to 9cm. Cervix was progressively dilated to allow passage of a 9mm suction curette. Progressive passes were made removing the retained products of conception without complication. Sharp curettage confirmed complete removal of the retained products. All instruments were removed from the vagina and excellent hemostasis was noted and the patient was taken to recovery in stable condition. Surgical Findings: 9 week missed ab supposed to be 13 Complications Complications: No
[2025-02-12] MEDS: fentaNYL 100 MCG/2 ML Ampul IV (07:53)
--- NOTE | 2025-02-12 07:53 | DCINST_ITS ---
Discharge Instructions DC O2, CPAP, BIPAP needs Home O2 Discharge instructions: No Dressing / Incision Discharge Activity: Return to Normal Activity, May Shower and May Take a Tub Bath (after 1 week) May resume sexual activity in: 1-2 weeks Weight Bearing Status: Weight bearing as tolerated Lifting Restrictions: none Dressing / Incision Call your doctor if you observe: Fever of 101 or Higher, Using more than 1 pad per hour, Shortness of breath and Uncontrolled pain Follow Up Care Please Follow Up With: Antonia Connolly MD When: Call [phone] to schedule appointment. Test Results: Test results from this visit will be discussed in further detail at your follow- up appointment, if applicable. Discharge Plan Admission Attending Provider: Antonia Connolly Primary Care Provider: Care Physician,No Primary Instructions Print Language: Pashto Discharge Orders/Prescriptions Prescriptions: No Action NK Referrals / Follow Up: Care Physician,No Primary [Primary Care Provider] - Disposition Disposition (needs filled in before D/C Order can be placed): Home, Self Care
[2025-02-12] MEDS: HYDROcodone Bitartrate/Apap 5/325 Tablet PO (09:14)
--- NOTE | 2025-02-12 09:29 | PCM.POST.ANE ---
Anesthesia: Postop Eval I Current Vital Signs Temperature: 97.2 F Pulse Rate: 64 Blood Pressure: 99/63 Respiratory Rate: 16 Pulse Ox: 96 Oxygen Delivery Method: Room Air Assessment Airway patent: Yes Spontaneous unlabored respirations: Yes Mental status: Awake and Calm nausea: No Vomiting: No Anesthesia Complication: No Fluid Hydration Crystalloid volume administer (ml): 600 Total IV fluid infused: 600 Progress Note Anesthesia document: Postop Eval 1 completed: Yes
--- NOTE | 2025-02-12 09:34 | POSTOPAN2_ITS ---
Anesthesia Postop Eval I Sum Postop Eval Completion status Anesthesia document: Postop Eval 1 completed: Yes Anesthesia Postop Eval I Summary Anesthesia Postop Eval I Summary: Anesthesia Postop Eval I: Assessment Summary Airway patent Yes 02/12/25 09:30 [email or web address] Spontaneous unlabored Yes 02/12/25 09:30 [email or web address] respirations Mental status Awake,Calm 02/12/25 09:30 [email or web address] nausea No 02/12/25 09:30 [email or web address] Vomiting No 02/12/25 09:30 [email or web address] Anesthesia Postop Eval I: Fluid Summary Crystalloid volume administer 600 02/12/25 09:30 [email or web address] (ml) Colloids volume administered ( ml) Blood Product volume administered (ml) Total IV fluid infused 600 02/12/25 09:30 [email or web address] Anesthesia Postop Eval I: Summary Notes Anesthesia Complication No 02/12/25 09:30 [email or web address] Anesthesia Complication Comment: Post-operative progress note Anesthesia: Postop Eval II Evaluation Mental status: Awake Pain Level: 0 nausea: No Vomiting: No Complications Anesthesia Complication: No
--- NOTE | 2025-02-12 09:34 | PCM.POSTANE2 ---
Anesthesia Postop Eval I Sum Postop Eval Completion status Anesthesia document: Postop Eval 1 completed: Yes Anesthesia Postop Eval I Summary Anesthesia Postop Eval I Summary: Anesthesia Postop Eval I: Assessment Summary Airway patent Yes 02/12/25 09:30 [email or web address] Spontaneous unlabored Yes 02/12/25 09:30 [email or web address] [email or web address] respirations Mental status Awake,Calm 02/12/25 09:30 [email or web address] nausea No 02/12/25 09:30 [email or web address] Vomiting No 02/12/25 09:30 [email or web address] Anesthesia Postop Eval I: Fluid Summary Crystalloid volume administer 600 02/12/25 09:30 [email or web address] (ml) Colloids volume administered ( ml) Blood Product volume administered (ml) Total IV fluid infused 600 02/12/25 09:30 [email or web address] Anesthesia Postop Eval I: Summary Notes Anesthesia Complication No 02/12/25 09:30 [email or web address] Anesthesia Complication Comment: Post-operative progress note Anesthesia: Postop Eval II Evaluation Mental status: Awake Pain Level: 0 nausea: No Vomiting: No Complications Anesthesia Complication: No
[2025-02-16 08:13] LABS: Pathology Specimen OB SEE PATHOLOGY REPORT
== END 2025-02-12 09:24 | disposition home or self-care (01) ==
LOC: SDC 06:12 → AC 06:13
PROVIDERS: Referring Provider Obstetrics & Gynecology; Visit Provider Obstetrics & Gynecology
PROC: (CPT 59820; principal; 2025-02-12 07:15)
DX: O02.1 Missed abortion (principal); Z86.19 Personal history of other infectious and parasitic diseases; Z87.891 Personal history of nicotine dependence
CPT/HCPCS: 59820; 01965; 86850; 86900; 86901; 88305; J2405

== ENCOUNTER → 2025-02-26 | Outpatient (CLI) | payer MEDICAID, SELFPAY | END | disposition home or self-care (01) | LOC: LABSPEC 11:33 | PROVIDERS: Referring Provider Obstetrics & Gynecology; Visit Provider Obstetrics & Gynecology | DX: O98.311 Other infections with a predominantly sexual mode of transmission complicating pregnancy, first trimester (principal); A74.9 Chlamydial infection, unspecified; Z3A.00 Weeks of gestation of pregnancy not specified | CPT/HCPCS: 87491; 87591 ==

== ENCOUNTER 2025-04-24 18:18 | Emergency (ER) | payer MEDICAID, SELFPAY ==
[2025-04-24 18:19] VITALS: BP 105/70; PULSE 72; RESP 16; TEMP 35.9; O2SAT 98; BMI 18.8
[2025-04-24 18:37] VITALS: BP 108/74; PULSE 66; RESP 16; O2SAT 99
--- NOTE | 2025-04-24 18:50 | ED.RN ---
Pt endorses normal colored vaginal discharge, states It is the normal color, but just a lot more of it
--- NOTE | 2025-04-24 19:11 | CT_ITS ---
PROCEDURE: CT/Abdomen/Pelvis W IV Cont ONLY
--- NOTE | 2025-04-24 19:12 | ED.VIS.GI ---
HPI HPI - GI History of Present Illness Chief Complaint: Abd Pain Informant: patient Abdominal Pain/Flank Pain Onset: Days (5) Context: Gradual Onset Timing: Continuous Quality: Aching and Cramping Location: RLQ and LLQ Worsened by: Nothing Relieved by: Nothing Nausea/Vomiting/Emesis GI Symptom: Positive for Nausea; Negative for Vomiting Diarrhea/Melena/Hematochezia GI Symptom: Negative for Diarrhea, Melena or Hematochezia Associated Symptoms Associated Symptoms: Negative for Dysuria, Frequency or Hematuria LMP: 5 days ago Narrative Narrative: Patient presents with abdominal pain that has been getting worse over the past 5 days. Patient states it is constant. Patient states it is gradually getting worse. Patient describes it as aching and cramping. Patient states it is mainly over the pelvis but is now starting to move up to the right mid abdomen. Patient states nothing makes it better and nothing makes it worse. Patient admits to some nausea but denies any vomiting. Patient denies any diarrhea, melena, or hematochezia. Patient denies any dysuria, frequency, or hematuria. Patient states her last menstrual period was 5 days ago just before her pain started. PFSH PFS Medical History Depression Anxiety History of Holter monitoring Chest pain Abdominal pain Home Medications ?Medication ?Instructions ?Recorded ?Last Taken ?Type NK 04/24/25 Unknown History Allergy/AdvReac Type Severity Reaction Status Date / Time No Known Allergies Allergy Verified 04/24/25 18:19 Family History Grandmother Uterine cancer Diabetes Grandfather Brain aneurysm Diabetes Surgical History H/O dilation and curettage Social History adopted: No household members: significant other and friend(s) number of children: 0 current occupational status: employed current occupation: [employer] current occupational exposures/hazards: No pets and animals: Yes pets and animals: dog(s) and other details: Duck (3) history of recent travel: No sexually active: Yes Smoking Status: Current every day smoker tobacco type: e-cigarettes second hand exposure: No quit status: considering quitting alcohol intake: current alcohol intake frequency: holidays/special occasions only details: Not while substance use type: does not use well-balanced diet: about half the time caffeine: No eating out: 4 or more times/week during the past year weight has: remained stable what type of physical activity do you participate in: walking frequency: 3-4 times per week duration: < 15 minutes/day sarah/uatsdin: Mosque seatbelt use: always do you feel safe at home: Yes additional social history: BF: 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 ROS ROS ED Constitutional Constitutional ED: Denies chills or fever(s) Eyes Eyes: Denies blurry vision or change in vision ENT ENT ED: Denies rhinorrhea or sore throat Cardiovascular Cardiovascular: Denies chest pain or palpitations Respiratory/Chest Respiratory/Chest: Denies cough or dyspnea Gastrointestinal Gastrointestinal: Reports abdominal pain and nausea; Denies vomiting Genitourinary Genitourinary ED: Denies dysuria or hematuria Musculoskeletal Musculoskeletal: Denies back pain or neck pain Integumentary Denies abscess or rash Neurologic Neurologic: Denies headache(s) or weakness Allergic/Immunologic Allergic/Immunologic ED: Denies mouth swelling or urticaria EXAM Physical Exam Const Vital Signs: 04/24/25 18:19 04/24/25 18:37 04/24/25 20:13 Temperature 96.7 F L Temperature Source Temporal Pulse Rate 72 66 65 Respiratory Rate 16 16 16 Blood Pressure 105/70 108/74 105/77 Blood Pressure Mean 81 85 86 Pulse Ox 98 99 100 Oxygen Delivery Method Room Air Room Air Room Air Positive well nourished and well developed Constitutional Narrative: BMI is 18.8. General Appearance ED: well developed and NAD HEENT Reports moist mucous membranes normocephalic and atraumatic Neck supple and no JVD Resp normal respiratory effort and clear to auscultation bilaterally Cardio regular rate and regular rhythm GI non-distended Palpation: soft and tender LLQ, RLQ, periumbilical and suprapubic; Negative for guarding or rebound tenderness present Extremity full ROM General Extremety ED: Negative for edema or tenderness General Extremity: Negative for edema Neuro CN's II-XII intact bilaterally, moves all extremities and no sensory deficits noted Motor Exam: strength 5/5 throughout Psych mental status grossly normal MDM MDM MDM Narrative Medical decision making narrative: Differential diagnosis includes but is not limited to urinary tract infection, pyelonephritis, ovarian cyst, ectopic , appendicitis, ureteral calculus, pyelonephritis, dehydration, electrolyte abnormality, bowel obstruction, and perforation. CBC will be obtained to assess for leukocytosis and anemia. Basic metabolic profile will be obtained to assess for electrolyte abnormality and renal function. Serum hCG will be obtained to assess for . Urinalysis will be obtained to assess for urinary tract infection and hematuria. CT scan of the abdomen and pelvis will be obtained to assess for bowel obstruction, perforation, and ovarian cyst. Lab Data Attestation: I reviewed the patient's lab results. Lab results narrative: CBC was reviewed and was within normal limits. Basic metabolic profile was reviewed and was within normal limits. Serum hCG was reviewed and was negative. Urinalysis was reviewed. There is no evidence of urinary tract infection or hematuria. Labs: Laboratory Results - last 24 hr 04/24/25 04/24/25 18:50 19:27 WBC 5.4 RBC 4.22 Hgb 13.5 Hct 40.0 MCV 94.8 MCH 32.0 MCHC 33.8 RDW Std Deviation 42.5 RDW Coeff of Kevin 12.3 Plt Count 241 MPV 10.4 Immature Gran % (Auto) 0.200 Neut % (Auto) 51.5 Lymph % (Auto) 39.7 [place] % (Auto) 8.0 Eos % (Auto) 0.4 Baso % (Auto) 0.2 Absolute Neuts (auto) 2.8 Absolute Lymphs (auto) 2.13 Nucleated RBC % 0 Sodium 141 Potassium 3.7 Chloride 106 Carbon Dioxide 25.6 Anion Gap 9 BUN 15 Creatinine 0.65 L Estim Creat Clear Calc 107.35 Est GFR (MDRD) Non-Af 128 BUN/Creatinine Ratio 23.4 H Glucose 103 H Calcium 9.5 Serum , Qual NEGATIVE Urine Color Straw Urine Clarity Clear Urine pH 8.0 Ur Specific [place] 1.015 Urine Protein 15 H Urine Glucose (UA) Normal Urine Ketones Negative Urine Occult Blood Negative Urine Nitrite Negative Urine Bilirubin Negative Urine Urobilinogen Normal Ur Leukocyte Esterase Negative Urine RBC 0-5 SEEN Urine WBC 0-5 SEEN Ur Squamous Epith Cells 5-10 SEEN Urine Bacteria 0 SEEN Urine Mucus 0 SEEN Radiography Diagnostic Testing: Clinical Impression(s) from Imaging Studies Abdomen/Pelvis CT 04/24/25 19:11 IMPRESSION: No acute abnormality Reading Location: [facility] CT scan of the abdomen and pelvis was obtained. There is no acute abnormality noted. There is no free air or free fluid. This was interpreted by the radiologist and was also independently reviewed by myself. Treatment and Re-Evaluation :: Patient was given IV fluids, morphine, and Zofran. Patient had minimal improvement with this. Patient was given a repeat dose of morphine. Patient was given a dose of Toradol. Patient was feeling better on reevaluation. Patient was advised of her findings. Patient was instructed to start with a liquid diet and advance as tolerated. Patient was instructed to follow-up with her primary care physician in 5 to 7 days for further evaluation. Patient understood and was agreeable with the plan. All questions were answered. Discharge Plan Triage Chief Complaint: Abd Pain ED Provider: Tree Jones Dx/Rx/DC Orders Clinical Impression: Abdominal pain, Nicotine vapor product user Instructions: ED Abdominal Pain Unkn Cause Fem Prescriptions: No Action NK Primary Care Provider: Care Physician,No Primary Referrals: Ruma Padilla DO [Med Staff - Active Staff, Family Practice] - 5-7 Days Care Physician,No Primary [Primary Care Provider, Medical] Print Language: Ukrainian Disposition Disposition: Home, Self Care
[2025-04-24] MEDS: 0.9% Normal Saline (1000mL) 1,000 ML 1000 ML IV (19:24)
[2025-04-24 19:31] LABS: Mucous, Urine 0 SEEN /hpf (<or=2+)
[2025-04-24 19:37] LABS: Color, Urine Straw (Yellow); Glucose, Dipstick Normal (Normal); Ketone-Dipstick Negative (Negative); Leukocyte Esterase-Dipstick Negative /ul (Negative); Nitrite-Dipstick Negative (Negative); Occult Blood-Urine Negative /ul (Negative); Protein-Dipstick 15 mg/dl (Negative); Specific Gravity, Urine 1.015 (1.002-1.030); Urine Bilirubin Dipstick Negative (Negative)
[2025-04-24 19:46] LABS: Anion Gap 9 (5-15); BUN 15 mg/dL (4-19); BUN/Creat Ratio 23.4 RATIO (10-20); Calcium,Total 9.5 mg/dL (7.6-11.0); Carbon Dioxide 25.6 mmol/L (21.0-32.0); Chloride 106 mmol/L (98-108); Estimated Creatinine Clearance 107.35 ml/min (50-250); Glucose 103 mg/dL (70-99); Potassium 3.7 mmol/L (3.3-5.1)
[2025-04-24 19:49] LABS: Red Blood Cells-Urine 0-5 SEEN /hpf (0-5); Squamous Epithelial Cells - UA 5-10 SEEN /hpf (5-10)
[2025-04-24 20:01] LABS: Hematocrit 40.0 % (37-47); Hemoglobin 13.5 g/dL (12.0-15.0); Immature Granulocytes Count 0.010 X10^3/uL (0.0-0.0); Mean Corp Hgb Conc 33.8 g/dL (32-36); Mean Corpuscular Volume 94.8 fL (81-99); Mean Platelet Vol. 10.4 fl (6.2-12.0); NRBC Flagged by Analyzer 0 % (0-5); Platelet Count 241 K/mm3 (150-450); RBC Distribution Width CV 12.3 % (11.6-14.6); RBC Distribution Width SD 42.5 fl (35.1-43.9); Red Blood Count 4.22 M/mm3 (4.2-5.4); White Blood Count 5.4 K/mm3 (4.4-11.0)
[2025-04-24 20:13] VITALS: BP 105/77; PULSE 65; RESP 16; O2SAT 100
[2025-04-24 20:13] LABS: Internal QC Validated? YES +Cl - CLEAR BKGD; Pregnancy, Serum, hCG Quali. NEGATIVE Negative; Record Kit Lot#, Serum Preg. 980607
[2025-04-24] MEDS: Ketorolac 30 MG/ML Syringe 15 MG IV (21:25)
[2025-04-24 21:45] VITALS: BP 105/77; PULSE 68; RESP 17; TEMP 35.9; O2SAT 99
== END 2025-04-24 21:50 | disposition home or self-care (01) ==
PROVIDERS: Emergency Provider Emergency Medicine; Visit Provider Emergency Medicine
DX: R10.9 Unspecified abdominal pain (principal); R10.20 Pelvic and perineal pain unspecified side; R11.0 Nausea; Z20.2 Contact with and (suspected) exposure to infections with a predominantly sexual mode of transmission; F17.290 Nicotine dependence, other tobacco product, uncomplicated
CPT/HCPCS: 74177; 80048; 81001; 84703; 85025; 87070; 87205; 87491; 87591; 96361; 96374; 96375; 99284; Q9967; A4216; J2405

== ENCOUNTER → 2025-04-24 | Outpatient (CLI) | payer MEDICAID, SELFPAY ==
--- OUTSIDE RECORDS SUMMARY | 2025-04-24 12:11 | XMS RPT_ITS | CCD ---
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 Intake NPO since Meds taken in AM with sips of water? 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 Female Yes 02/11/25 08:12 HX of Motion Sickness No 02/11/25 08:12 HX of N/V After Surgery No 02/11/25 08:12 Non-Smoker Yes 02/11/25 08:12 Duration of Surgery greater No 02/11/25 08:12 than 60 minutes Number of Risk Factors 2 02/11/25 08:12 PONV Score Moderate Risk 02/11/25 08:12 Height Weight Height Weight: Anesthesia: Height Weight Height 5 ft 4 in 02/10/25 14:09 Respiratory Assessment Respiratory Assessment - production solderer: Respiratory Tract Infection Hx - production solderer Hx Respiratory Tract Infection No 02/11/25 08:12 STOP Sleep Apnea STOP Sleep Apnea - production solderer: STOP Sleep Apnea - production solderer Hx Hypertension No 02/11/25 08:12 Hx Sleep Apnea No 02/11/25 08:12 CPAP BIPAP Do you snore loudly (louder No 02/11/25 08:12 than talking or can be heard Do you often feel tired/ No 02/11/25 08:12 fatigued/ sleepy during daytime? Has anyone observed you stop No 02/11/25 08:12 breathing during sleep? STOP Results Negative 02/11/25 08:12 QUESTION #5 FULL TEXT : Do you snore loudly (louder than talking or can be heard through closed doors)? 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 Specify any problems Hx of Preganancy in last 3 No 02/11/25 08:12 Months Nurse Filling Out Transfusion [email or web address] 02/11/25 08:12 Questions: Date: 02/11/25 02/11/25 08:12 Time: 08:16 02/11/25 08:12 Patient unable to answer at this time (ie. confused, unrespo /Reproduction History /Reproductive History - production solderer: /Reproductive Hx- production solderer Hx Now SUCTION D C 02/11/25 08:12 Gestational Age (in weeks): EDC: Hx Hx Para Hx Section SAB No 02/10/25 14:09 Active Medications Active Medications: Current Medications Generic Name Dose Route Start Last Admin Trade Name Freq PRN Reason Stop Dose Admin Doxycycline Monohydrate 100 mg 02/12/25 07:00 Doxycycline 100 Mg Capsule PO X1 DARNELL PFSH Medical History (Updated 02/11/25 @ 08:20 by Alli Guerra) Depression Anxiety History of Holter monitoring Chest pain Abdominal pain Home Medications ???Medication ???Instructions ???Recorded ???Last Taken ???Type NK 02/09/25 Unknown History Allergy/AdvReac Type Severity Reaction Status Date / Time No Known Allergies Allergy Verified 02/11/25 08:12 Family History Grandmother Uterine cancer Diabetes Grandfather Brain aneurysm Diabetes Social History adopted: No household members: significant other and friend(s) nu (more content not included)... Normal [facility] Control Operator Office Visit Reporton 02-10-2025 Control Operator Office Visit Report [facility] [address], [address] [place] [address] OFFICE VISIT Date of Service: 02/10/25 MR#: [id number] Acct: [id number] Name: NORBERTO COTTON Rep #: [id number] : 2005 Provider: Dr. Daisy Pacheco DO Age/Sex: 20/F Location: [facility] Status: Signed Intake Vital Signs 12/19/24 14:59 02/09/25 00:08 02/10/25 14:09 Height 5 ft 4 in 5 ft 4 in 5 ft 4 in Weight: 106 lb 5 oz BMI 18.2 BP 98/64 Intake Visit Reasons: 13wk OB, discuss recent tx for STD Chief Complaint: 13 Week OB/discuss tx for std Supervisor Ore Dressing Required: No Is patient in pain?: No [...] occupational status: employed current occupation: [employer] [place] current occupational exposures/hazards: No pets and animals: [...] times per week duration: < 15 minutes/day sarah/rastafarian: Scientologist seatbelt use: always do you feel safe at home: Yes additional social history: BF: Jeremiah - 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 ??-???-???-???-???-???- Negative -???-???-???-???-???-???-? ??-???-???-???-???-???- JV- CRL darell y is measuring weeks 1 day without heart tones. No signs of DARNELL. patient denies bleeding or cramping. She was seen in the ER recently for heart burn but had no OB complaints. Plan is for suction D C. grief counseling offered and [id number] basket given. ACOG First Trimester First Trimester: Desire for , Alcohol, Tobacco Cessation, Illicit/Recreational Drug/Substance Use, Intimate Partner Violence, Barriers to care, Unstable Housing, Communication Barriers, Environmental/Work Hazards, Anticipated Course of Care, Toxoplasmosis P (more content not included)... Normal [facility] 12 Lead EKGon 02-09-2025 12 Lead EKG [facility] Cardiovascular Services [address] [place] [address] 12 Lead EKG 02/09/25 0015 MR#: [id number] Acct: [id number] Name: LULANORBERTOMARCO ANTONIO BRITO Rep #: [id number] : 2005 20 From: Yoshi Downs MD [...] : 416 ms Sinus rhythm with short WI Otherwise normal ECG Confirmed by RACHAEL RABAGO, YOSHI ([id number]), assignment editor [address] ([id number]) on 02/10/2025 6:13:20 AM Referred By: Confirmed By: YOSHI DOWNS MD 02/10/25 0613 Date Yoshi Downs MD CC: Dr. Fredi Sorenson MD; No Primary Care Physician Signed Normal [facility] Absolute lymphocyte countOrd ered By: Fredi Sorenson on 02-09-2025 Lymphocytes Auto (Unsp spec) [#/Vol] 2.53 10*3/uL 0.83-4.51 [facility] Absolute neutrophil countOrd ered By: Fredi Sorenson on 02-09-2025 Neutrophils (Bld) [#/Vol] 2.5 10*3/uL 2.0-7.7 [facility] Anion gap in Serum or Plasma Ordered By: Fredi Sorensno on 02-09-2025 Anion gap [Moles/Vol] 10 mmol/L 5-15 [facility] Automated lymphocyte count a s percentage of total leukocytesOrdered By: Fredi Sorenson on 02-09-2025 Lymphocytes/100 WBC Auto (Unsp spec) 45.1 % High - [facility] BUN/creatinine ratioOrdered By: Fredi Sorenson on 02-09-2025 Urea nitrogen/Creatinine [Mass ratio] 24.2 mg/mg High 04-13 [facility] Basic Metabolic Profile (BMP )on 02-09-2025 BUN/CRE 24.2 RATIO High 04-13 [facility] Comment on above: Performed By: #### L 100.0100, L500.4050, L501.2450 #### [facility] [address] [place], [address] Calcium [Mass/Vol] 9.0 mg/dL Normal 7.6-11.0 [facility] Comment on above: Performed By: #### L 100.0100, L500.4050, L501.2450 #### [facility] [address] [place], [address] Chloride [Moles/Vol] 107 mmol/L Normal 98-108 [facility] Comment on above: Performed By: #### L 100.0100, L500.4050, L501.2450 #### [facility] [address] [place], [address] CO2 [Moles/Vol] 21.4 mmol/L Normal 21.0-32.0 [facility] Comment on above: Performed By: #### L 100.0100, L500.4050, L501.2450 #### [facility] [address] [place], [address] Creatinine [Mass/Vol] 0.51 mg/dL Low 0.70-1.20 [facility] Comment on above: Performed By: #### L 100.0100, L500.4050, L501.2450 #### [facility] [address] [place], [address] ECRCL 150.68 ml/min Normal 50-250 [facility] Comment on above: Performed By: #### L 100.0100, L500.4050, L501.2450 #### [facility] [address] [place], [address] GAP 10 Normal 5-15 [facility] Comment on above: Performed By: #### L 100.0100, L500.4050, L501.2450 #### [facility] [address] [place], [address] GFR/1.73 sq M.predicted among non-blacks MDRD (S/P/Bld) [Vol rate/Area] 136 mL/min/{1.73_m2} Normal >60 [facility] Comment on above: Result Comment: mL/m in/1.73m2 CKD-EPI Creatinine Equation (2020) Performed By: #### L 100.0100, L500.4050, L501.2450 #### [facility] [address] [place], [address] Glucose [Mass/Vol] 103 mg/dL High 70-99 [facility] Comment on above: Performed By: #### L 100.0100, L500.4050, L501.2450 #### [facility] [address] [place], [address] Potassium [Moles/Vol] 3.7 mmol/L Normal 3.3-5.1 [facility] Comment on above: Performed By: #### L 100.0100, L500.4050, L501.2450 #### [facility] [address] [place], [address] Sodium [Moles/Vol] 138 mmol/L Normal 133-145 [facility] Comment on above: Performed By: #### L 100.0100, L500.4050, L501.2450 #### [facility] [address] [place], [address] Urea nitrogen [Mass/Vol] 12 mg/dL Normal 4-19 [facility] Comment on above: Performed By: #### L 100.0100, L500.4050, L501.2450 #### [facility] [address] [place], [address] Basophil percentageOrdered B y: Fredi Sorenson on 02-09-2025 Basophils/100 WBC (Bld) 0.4 % 0-1 [facility] CBC W/Diff, Automatedon 01-23 Absolute Lymph 2.53 X10 3/uL Normal 0.83-4.51 [facility] Comment on above: Performed By: #### L 100.0100, L500.4050, L501.2450 #### [facility] [address] [place], [address] Absolute Neut 2.5 X10 3/uL Normal 2.0-7.7 [facility] Comment on above: Performed By: #### L 100.0100, L500.4050, L501.2450 #### [facility] [address] [place], [address] Basophils/100 WBC (Bld) 0.4 % Normal 0-1 [facility] Comment on above: Performed By: #### L 100.0100, L500.4050, L501.2450 #### [facility] [address] [place], [address] Eosinophils/100 WBC (Bld) 0.7 % Normal 0-5 [facility] Comment on above: Performed By: #### L 100.0100, L500.4050, L501.2450 #### [facility] [address] [place], [address] Erythrocyte distribution width (RBC) [Ratio] 12.8 % Normal 11.6-14.6 [facility] Comment on above: Performed By: #### L 100.0100, L500.4050, L501.2450 #### [facility] [address] [place], [address] Hematocrit (Bld) [Volume fraction] 32.3 % Low 37-47 [facility] Comment on above: Performed By: #### L 100.0100, L500.4050, L501.2450 #### [facility] [address] [place], [address] Hemoglobin (Bld) [Mass/Vol] 10.8 g/dL Low 12.0-15.0 [facility] Comment on above: Performed By: #### L 100.0100, L500.4050, L501.2450 #### [facility] [address] [place], [address] IG% 0.200 Normal 0.0-0.9 [facility] Comment on above: Result Comment: IG% - Immature Granulocytes (promyelocytes, myelocytes and metamyelocytes) > 1% indicates that a LEFT SHIFT is Present. Performed By: #### L 100.0100, L500.4050, L501.2450 #### [facility] [address] [place], [address] Lymphocytes/100 WBC (Bld) 45.1 % High 19-41 [facility] Comment on above: Performed By: #### L 100.0100, L500.4050, L501.2450 #### [facility] [address] [place], [address] MCH (RBC) [Entitic mass] 31.5 pg Normal 27.0-32.0 [facility] Comment on above: Performed By: #### L 100.0100, L500.4050, L501.2450 #### [facility] [address] [place], [address] MCHC (RBC) [Mass/Vol] 33.4 g/dL Normal 32-36 [facility] Comment on above: Performed By: #### L 100.0100, L500.4050, L501.2450 #### [facility] [address] [place], [address] MCV (RBC) [Entitic vol] 94.2 fL Normal 81-99 [facility] Comment on above: Performed By: #### L 100.0100, L500.4050, L501.2450 #### [facility] [address] [place], [address] Monocytes/100 WBC (Bld) 8.7 % Normal 0-10 [facility] Comment on above: Performed By: #### L 100.0100, L500.4050, L501.2450 #### [facility] [address] [place], [address] Neutrophils/100 WBC (Bld) 44.9 % Low 47-70 [facility] Comment on above: Performed By: #### L 100.0100, L500.4050, L501.2450 #### [facility] [address] [place], [address] Nucleated RBC (Bld) [#/Vol] 0 10*3/uL Normal 0-5 [facility] Comment on above: Performed By: #### L 100.0100, L500.4050, L501.2450 #### [facility] [address] [place], [address] Platelet mean volume (Bld) [Entitic vol] 9.7 fL Normal 6.2-12.0 [facility] Comment on above: Performed By: #### L 100.0100, L500.4050, L501.2450 #### [facility] [address] [place], [address] Platelets (Bld) [#/Vol] 218 10*3/uL Normal 150-450 [facility] Comment on above: Performed By: #### L 100.0100, L500.4050, L501.2450 #### [facility] [address] [place], [address] RBC (Bld) [#/Vol] 3.43 10*6/uL Low 4.2-5.4 [facility] Comment on above: Performed By: #### L 100.0100, L500.4050, L501.2450 #### [facility] [address] [place], [address] RDW SD 44.5 fl High 35.1-43.9 [facility] Comment on above: Performed By: #### L 100.0100, L500.4050, L501.2450 #### [facility] [address] [place], [address] WBC (Bld) [#/Vol] 5.6 10*3/uL Normal 4.4-11.0 [facility] Comment on above: Performed By: #### L 100.0100, L500.4050, L501.2450 #### [facility] [address] [place], [address] Carbon dioxide, total [Moles /volume] in Central venous bloodOrdered By: Fredi Sorenson on 02-09-2025 CO2 [Moles/Vol] 21.4 mmol/L 21.0-32.0 [facility] Chloride assayOrdered By: Nate Sorenson on 02-09-2025 Chloride [Moles/Vol] 107 mmol/L 98-108 [facility] D-Dimer Quantitative (DVT/PE )on 02-09-2025 D-DIMER QUANT < 0.27 Low 0.27-0.49 [facility] Comment on above: Result Comment: NORM AL D-Dimer level (<0.50) indicates no DVT or PE. Performed By: #### L 100.0100, L500.4050, L501.2450 #### [facility] [address] [place], [address] Emergency Department Summary on 02-09-2025 Emergency Department Summary [facility] Medical Records Department [address] [place] [address] Emergency Department Summary 02/09/25 MR#: [id number] Acct: [id number] Name: NORBERTO COTTON Rep #: [id number] : 2005 20 From: Fredi Sorenson MD [...] TAD Risk Factors: Negative for Marfan's Syndrome [facility] Medical History Abdominal pain Home Medications ???Medication ???Instructions ???Recorded ???Last Taken ???Type NK 02/09/25 Unknown History Allergy/AdvReac Type Severity Reaction Status Date / Time No Known Allergies Allergy Verified 01/12/25 10:43 Family History Grandmother Uterine cancer Diabetes Grandfather Brain aneurysm Diabetes Social History adopted: No household members: significant other and friend(s) number of children: 0 current occupational status: employed current occupation: [employer] [place] current occupational exposures/hazards: No pets and animals: [...] times per week duration: < 15 minutes/day sarah/rastafarian: Scientologist seatbelt use: always do you feel safe at home: Yes additional social history: BF: 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 Normal [facility] Eosinophil percentageOrdered By: Fredi Sorenson on 02-09-2025 Eosinophils/100 WBC (Bld) 0.7 % 0-5 [facility] Erythrocyte distribution wid th ratioOrdered By: Fredi Sorenson on 02-09-2025 Erythrocyte distribution width (RBC) [Ratio] 12.8 % 11.6-14.6 [facility] Erythrocyte distribution wid th standard deviationOrdered By: Fredi Sorenson on 02-09-2025 Erythrocyte distribution width (RBC) [Ratio] 44.5 fl High 35.1-43.9 [facility] Glomerular filtration rate ( GFR) estimation/1.73 sq m using serum, plasma, or whole bOrdered By: Fredi Sorenson on 02-09-2025 GFR/1.73 sq M.predicted among non-blacks MDRD (S/P/Bld) [Vol rate/Area] 136 mL/min/{1.73_m2} >60 [facility] Comment on above: mL/min/1.73m2 CKD-EP I Creatinine Equation (2020) Hematocrit Auto (Bld) [Volum e fraction]Ordered By: Fredi Sorenson on 02-09-2025 Hematocrit (Bld) [Volume fraction] 32.3 % Low 37-47 [facility] Hemoglobin measurementOrdere d By: Fredi Sorenson on 02-09-2025 Hemoglobin (Bld) [Mass/Vol] 10.8 g/dL Low 12.0-15.0 [facility] Immature granulocytes/100 WB C Auto (Bld)Ordered By: Fredi Sorenson on 02-09-2025 Immature granulocytes/100 WBC (Bld) 0.200 % 0.0-0.9 [facility] Comment on above: IG% - Immature Granu locytes (promyelocytes, myelocytes and metamyelocytes) > 1% indicates that a LEFT SHIFT is Present. L501.4021on 02-09-2025 Trop T High Sen < 6 Normal <=14 [facility] Comment on above: Performed By: #### L 100.0100, L500.4050, L501.2450 #### [facility] [address] [place], [address] MCV (mean corpuscular volume ) determinationOrdered By: Fredi Sorenson on 02-09-2025 MCV (RBC) [Entitic vol] 94.2 fL 81-99 [facility] Mean corpuscular hemoglobin (MCH) determinationOrdered By: Fredi Sorenson on 02-09-2025 MCH (RBC) [Entitic mass] 31.5 pg 27.0-32.0 [facility] Mean corpuscular hemoglobin concentration (MCHC) determinationOrdered By: Fredi Sorenson on 02-09-2025 MCHC (RBC) [Mass/Vol] 33.4 g/dL 32-36 [facility] Mean platelet volume determi nationOrdered By: Fredi Sorenson on 02-09-2025 Platelet mean volume (Bld) [Entitic vol] 9.7 fL 6.2-12.0 [facility] Monocyte percentageOrdered B y: Fredi Sorenson on 02-09-2025 Monocytes/100 WBC (Bld) 8.7 % 0-10 [facility] Neutrophil percentageOrdered By: Fredi Sorenson on 02-09-2025 Neutrophils/100 WBC (Bld) 44.9 % Low 47-70 [facility] Nucleated red blood cell per centageOrdered By: Fredi Sorenson on 02-09-2025 Nucleated RBC/100 WBC (Bld) [Ratio] 0 % 0-5 [facility] Platelet countOrdered By: Nate Sorenson on 02-09-2025 Platelets (Bld) [#/Vol] 218 10*3/uL 150-450 [facility] Potassium measurement (mass/ volume)Ordered By: Fredi Sorenson on 02-09-2025 Potassium (Unsp spec) [Mass/Vol] 3.7 mmol/L 3.3-5.1 [facility] RBC Auto (Bld) [#/Vol]Ordere d By: Fredi Sorenson on 02-09-2025 RBC (Bld) [#/Vol] 3.43 10*6/uL Low 4.2-5.4 [facility] Serum creatinine measurement (mass/volume)Ordered By: Fredi Sorenson on 02-09-2025 Creatinine [Mass/Vol] 0.51 mg/dL Low 0.70-1.20 [facility] Serum glucose measurement (m ass/volume)Ordered By: Fredi Sorenson on 02-09-2025 Glucose [Mass/Vol] 103 mg/dL High 70-99 [facility] Serum or plasma calcium nancy urement (mass/volume)Ordered By: Fredi Sorenson on 02-09-2025 Calcium [Mass/Vol] 9.0 mg/dL 7.6-11.0 [facility] Serum or plasma urea nitroge n measurement (mass/volume)Ordered By: Fredi Sorenson on 02-09-2025 Urea nitrogen [Mass/Vol] 12 mg/dL 4-19 [facility] Sodium levelOrdered By: Fredi Sorenson on 02-09-2025 Sodium [Moles/Vol] 138 mmol/L 133-145 [facility] Troponin T HS 2 HRon 025 Trop T High Sen Normal <=14 [facility] Comment on above: Result Comment: Candarren cordoba via OM: Ordered Performed By: #### L 499.0042 #### [facility] [address] [place], [address] Troponin T.cardiac [Mass/vol ume] in Serum or Plasma by High sensitivity methodOrdered By: Fredi Sorenson on 02-09-2025 Troponin T.cardiac High sensitivity method [Mass/Vol] < 6 ng/L <14 [facility] White blood cell (WBC) count Ordered By: Fredi Sorenson on 02-09-2025 WBC (Bld) [#/Vol] 5.6 10*3/uL 4.4-11.0 [facility] Vitamin B1, Thiamineon 01-22 VIT B1 THIAMINE 98.0 nmol/L Normal 66.5-200.0 [facility] Comment on above: Order Comment: Test( s) 974250-Eem. B1, Whole Bloodwas developed and its performance characteristicsdetermined by [facility]. It has not been cleared or approvedby the Food and Drug Administration.NIPT w/gender Result Comment: Perf ormed at: [facility] [address] [id number] Grooming Assistant: Elaine Hernández MD, Phone: [phone] Performed By: #### L 100.0100, L500.9640, L501.7178 #### [facility] [address] [place], [address] Absolute lymphocyte countOrd ered By: Antonia Connolly on 01-20-2025 Lymphocytes Auto (Unsp spec) [#/Vol] 1.87 10*3/uL 0.83-4.51 [facility] Absolute neutrophil countOrd ered By: Antonia Connolly on 01-20-2025 Neutrophils (Bld) [#/Vol] 3.7 10*3/uL 2.0-7.7 [facility] Automated lymphocyte count a s percentage of total leukocytesOrdered By: Antonia Connolly on 01-20-2025 Lymphocytes/100 WBC Auto (Unsp spec) 31.4 % 19-41 [facility] Basophil percentageOrdered B y: Antonia Connolly on 01-20-2025 Basophils/100 WBC (Bld) 0.3 % 0-1 [facility] CBC W/Diff, Automatedon 12-24 Absolute Lymph 1.87 X10 3/uL Normal 0.83-4.51 [facility] Comment on above: Performed By: #### L 499.0042 #### [facility] [address] [place], [address] Absolute Neut 3.7 X10 3/uL Normal 2.0-7.7 [facility] Comment on above: Performed By: #### L 499.0042 #### [facility] [address] [place], [address] Basophils/100 WBC (Bld) 0.3 % Normal 0-1 [facility] Comment on above: Performed By: #### L 499.0042 #### [facility] [address] [place], [address] Eosinophils/100 WBC (Bld) 0.2 % Normal 0-5 [facility] Comment on above: Performed By: #### L 499.0042 #### [facility] [address] [place], [address] Erythrocyte distribution width (RBC) [Ratio] 12.6 % Normal 11.6-14.6 [facility] Comment on above: Performed By: #### L 499.0042 #### [facility] [address] [place], [address] Hematocrit (Bld) [Volume fraction] 33.4 % Low 37-47 [facility] Comment on above: Performed By: #### L 499.0042 #### [facility] [address] [place], [address] Hemoglobin (Bld) [Mass/Vol] 11.0 g/dL Low 12.0-15.0 [facility] Comment on above: Performed By: #### L 499.0042 #### [facility] [address] [place], [address] IG% 0.200 Normal 0.0-0.9 [facility] Comment on above: Result Comment: IG% - Immature Granulocytes (promyelocytes, myelocytes and metamyelocytes) > 1% indicates that a LEFT SHIFT is Present. Performed By: #### L 499.0042 #### [facility] [address] [place], [address] Lymphocytes/100 WBC (Bld) 31.4 % Normal 19-41 [facility] Comment on above: Performed By: #### L 499.0042 #### [facility] [address] [place], [address] MCH (RBC) [Entitic mass] 31.2 pg Normal 27.0-32.0 [facility] Comment on above: Performed By: #### L 499.0042 #### [facility] [address] [place], [address] MCHC (RBC) [Mass/Vol] 32.9 g/dL Normal 32-36 [facility] Comment on above: Performed By: #### L 499.0042 #### [facility] [address] [place], [address] MCV (RBC) [Entitic vol] 94.6 fL Normal 81-99 [facility] Comment on above: Performed By: #### L 499.0042 #### [facility] [address] [place], [address] Monocytes/100 WBC (Bld) 5.9 % Normal 0-10 [facility] Comment on above: Performed By: #### L 499.0042 #### [facility] [address] [place], [address] Neutrophils/100 WBC (Bld) 62.0 % Normal 47-70 [facility] Comment on above: Performed By: #### L 499.0042 #### [facility] [address] [place], [address] Nucleated RBC (Bld) [#/Vol] 0 10*3/uL Normal 0-5 [facility] Comment on above: Performed By: #### L 499.0042 #### [facility] [address] [place], [address] Platelet mean volume (Bld) [Entitic vol] 11.6 fL Normal 6.2-12.0 [facility] Comment on above: Performed By: #### L 499.0042 #### [facility] [address] [place], [address] Platelets (Bld) [#/Vol] 165 10*3/uL Normal 150-450 [facility] Comment on above: Performed By: #### L 499.0042 #### [facility] [address] [place], [address] RBC (Bld) [#/Vol] 3.53 10*6/uL Low 4.2-5.4 [facility] Comment on above: Performed By: #### L 499.0042 #### [facility] [address] [place], [address] RDW SD 43.6 fl Normal 35.1-43.9 [facility] Comment on above: Performed By: #### L 499.0042 #### [facility] [address] [place], [address] WBC (Bld) [#/Vol] 6.0 10*3/uL Normal 4.4-11.0 [facility] Comment on above: Performed By: #### L 499.0042 #### [facility] [address] [place], [address] Eosinophil percentageOrdered By: Antonia Connolly on 01-20-2025 Eosinophils/100 WBC (Bld) 0.2 % 0-5 [facility] Erythrocyte distribution wid th ratioOrdered By: Antonia Connolly on 01-20-2025 Erythrocyte distribution width (RBC) [Ratio] 12.6 % 11.6-14.6 [facility] Erythrocyte distribution wid th standard deviationOrdered By: Antonia Connolly on 01-20-2025 Erythrocyte distribution width (RBC) [Ratio] 43.6 fl 35.1-43.9 [facility] Ferritinon 01-20-2025 Ferritin [Mass/Vol] 193 ng/mL Normal 22-378 [facility] Comment on above: Performed By: #### L 499.0042 #### [facility] [address] [place], [address] HIVon 01-20-2025 HIV Non-Reactive Normal Nonreactive [facility] Comment on above: Result Comment: Non- Reactive Reactive Repeatedly reactive samples must be confirmed according to CDC recommended confirmatory algorithms. The subresults for either HIVAG or AHIV can be used as an aid in the selection of the confirmation algorithm for reactive samples. Send out specimens with Reactive results to [facility] for confirmation. Order the HIV antibody detection and differentiation: #[id number] Performed By: #### L 499.0042 #### [facility] [address] [place], [address] Hematocrit Auto (Bld) [Volum e fraction]Ordered By: Antonia Connolly on 01-20-2025 Hematocrit (Bld) [Volume fraction] 33.4 % Low 37-47 [facility] Hemoglobin measurementOrdere d By: Antonia Connolly on 01-20-2025 Hemoglobin (Bld) [Mass/Vol] 11.0 g/dL Low 12.0-15.0 [facility] Hepatitis C Antibodyon 01-20 Hepatitis C Ab Non-Reactive Normal Nonreactive [facility] Comment on above: Result Comment: Reac tive: Presumptive evidence of antibodies to HCV. Follow CDC recommendations for supplemental testing. Non-Reactive: Antibodies to HCV were not detected; does not exclude the possibility of exposure to HCV Reactive Results are presumptive evidence of antibodies to HCV. Follow CDC recommendations for supplemental testing. Order confirmation testing: HCV Quant by PCR testing - HCVPCR #[id number] Non Reactive: < 0.8 Equivocal: >/= 0.8 to < 1.0 Reactive: >/= 1.0 The [facility] requires that a reactive/equivocal HCV antibody result be sent out for confirmation. HCV Quant by PCR testing. Performed By: #### L 100.0100, L500.4050, L501.2450 #### [facility] [address] [place], [place], [address] Immature granulocytes/100 WB C Auto (Bld)Ordered By: Antonia Connolly on 01-20-2025 Immature granulocytes/100 WBC (Bld) 0.200 % 0.0-0.9 [facility] Comment on above: IG% - Immature Granu locytes (promyelocytes, myelocytes and metamyelocytes) > 1% indicates that a LEFT SHIFT is Present. Iron measurement (mass/mass) Ordered By: Antonia Connolly on 01-20-2025 Iron (Unsp spec) [Mass/Mass] 111 ug/dL 50-170 [facility] Iron+Iron Binding Capacityon 01-20-2025 Iron [Mass/Vol] 111 ug/dL Normal 50-170 [facility] Comment on above: Order Comment: NIPT w/gender Performed By: #### L 499.0042 #### [facility] [address] [place], [place], [address] IRON SATURATION 44.0 Normal 13-59 [facility] Comment on above: Order Comment: NIPT w/gender Performed By: #### L 499.0042 #### [facility] [address] [facility] [address] TIBC 254 ug/dL Normal 250-450 [facility] Comment on above: Order Comment: NIPT w/gender Performed By: #### L 499.0042 #### [facility] [address] [place], [address] UIBC 143 ug/dL Low 228-428 [facility] Comment on above: Order Comment: NIPT w/gender Performed By: #### L 499.0042 #### [facility] [address] [place], [address] L3890.6102on 01-20-2025 HEP B Surf Ag Non-Reactive Normal Nonreactive [facility] Comment on above: Result Comment: Reac tive: Presumptive evidence of HBV. Repeatedly reactive samples must be confirmed using a neutralization test ([employer] HBsAg Confirmatory Test) Non-Reactive: HBsAg not detected; does not exclude the possibility of exposure to HBV Performed By: #### L 499.0042 #### [facility] [address] [place], [address] L509.4006on 01-20-2025 Rubella IgG REAC Normal Nonreactive [facility] Comment on above: Result Comment: Anti body Result: Interpretation Non-Reactive: Non-Immune Reactive: Immune The following results were obtained with the [employer] Rubella IgG assay. Results from assays of other manufacturers cannot be used interchangeably. Performed By: #### L 499.0042 #### [facility] [address] [place], [address] Laboratory - Microbiology an d Antimicrobial susceptibilityOrdered By: Antonia Connolly on 01-20-2025 HBV surface Ag Ql (S) Non-Reactive Nonreactive [facility] Comment on above: Reactive: Presumptiv e evidence of HBV. Repeatedly reactive samples must be confirmed using a neutralization test ([employer] HBsAg Confirmatory Test)Non-Reactive: HBsAg not detected; does not exclude the possibility of exposure to HBV MCV (mean corpuscular volume ) determinationOrdered By: Antonia Connolly on 01-20-2025 MCV (RBC) [Entitic vol] 94.6 fL 81-99 [facility] Mean corpuscular hemoglobin (MCH) determinationOrdered By: Antonia Connolly on 01-20-2025 MCH (RBC) [Entitic mass] 31.2 pg 27.0-32.0 [facility] Mean corpuscular hemoglobin concentration (MCHC) determinationOrdered By: Antonia Connolly on 01-20-2025 MCHC (RBC) [Mass/Vol] 32.9 g/dL 32-36 [facility] Mean platelet volume determi nationOrdered By: Antonia Connolly on 01-20-2025 Platelet mean volume (Bld) [Entitic vol] 11.6 fL 6.2-12.0 [facility] Monocyte percentageOrdered B y: Antonia Connolly on 01-20-2025 Monocytes/100 WBC (Bld) 5.9 % 0-10 [facility] NATERAon 01-20-2025 NATURA SEE SCANNED REPORT Normal [facility] Comment on above: Order Comment: Comme nts: NIPT w/gender Performed By: #### L 499.0042 #### [facility] [address] [place] [address], [address] Neutrophil percentageOrdered By: Antonia Connolly on 01-20-2025 Neutrophils/100 WBC (Bld) 62.0 % 47-70 [facility] No Panel InformationOrdered By: Antonia Connolly on 01-20-2025 HIV (1&2) Antibody Non-Reactive Nonreactive [facility] Comment on above: Non-ReactiveReactive Repeatedly reactive samples must be confirmed according to CDC recommended confirmatory algorithms. The subresults for either HIVAG or AHIV can be used as an aid in the selection of the confirmation algorithm for reactive samples.Send out specimens with Reactive results to [facility] for confirmation.Order the HIV antibody detection and differentiation: #[id number] Unsaturated Iron Binding Capacity 143 ug/dL Low 228-428 [facility] Nucleated red blood cell per centageOrdered By: Antonia Connolly on 01-20-2025 Nucleated RBC/100 WBC (Bld) [Ratio] 0 % 0-5 [facility] Platelet countOrdered By: Juanita Connolly on 01-20-2025 Platelets (Bld) [#/Vol] 165 10*3/uL 150-450 [facility] RBC Auto (Bld) [#/Vol]Ordere d By: Antoniakelly Connolly on 01-20-2025 RBC (Bld) [#/Vol] 3.53 10*6/uL Low 4.2-5.4 [facility] Serum or plasma ferritin cameron surement (mass/volume)Ordered By: Antonia Connolly on 01-20-2025 Ferritin [Mass/Vol] 193 ng/mL 22-378 [facility] Serum or plasma iron saturat ion measurement (mass fraction)Ordered By: Antonia Connolly on 01-20-2025 Iron saturation [Mass fraction] 44.0 % 13-59 [facility] Serum or plasma thiamine cameron surement (mass/volume)Ordered By: Antoina Connolly on 01-20-2025 Thiamine [Mass/Vol] 98.0 nmol/L 66.5-200.0 [facility] Comment on above: Performed at: [address] [id number] Director: Elaine Hernández MD, Phone: [phone] Syphilis Antibodieson 2024 Syphilis Abs Non-Reactive Normal Nonreactive [facility] Comment on above: Performed By: #### L 499.0042 #### [facility] [address] [place], [place], [address] Type AND Screenon 01-20-2025 Ab SCREEN GEL Negative Normal [facility] Comment on above: Order Comment: PN Performed By: #### L 100.0100, L500.4050, L501.2450 #### [facility] [address] [place], [address] Vitamin B12on 01-20-2025 Cobalamin (Vitamin B12) [Mass/Vol] 393 pg/mL Normal 180-914 [facility] Comment on above: Performed By: #### L 499.0042 #### [facility] [address] [place], [address] Vitamin B12 ser/plasOrdered By: Antonia Connolly on 01-20-2025 Cobalamin (Vitamin B12) [Mass/Vol] 393 pg/mL 180-914 [facility] White blood cell (WBC) count Ordered By: Antonia Connolly on 01-20-2025 WBC (Bld) [#/Vol] 6.0 10*3/uL 4.4-11.0 [facility] Chlamydia/GC DEVIKA aptimaon CHLAMY,NUC ACID Positive Abnormal Negative [facility] Comment on above: Result Comment: Clie nt Requested Flag Performed By: #### L 100.0100, L500.4050, L501.2450 #### [facility] [address] [place], [place], [address] GC BY NUC ACID Negative Normal Negative [facility] Comment on above: Result Comment: Perf ormed at: =G - [facility] [address] [id number] Grooming Assistant: Jacquelyn Clay MD, Phone: [phone] Performed By: #### L 100.0100, L500.4050, L501.2450 #### [facility] [address] [place], [address] Urine Cultureon 01-13-2025 URC Culture exhibits no growth. Normal [facility] Comment on above: Performed By: #### L 100.0100, L500.4050, L501.2450 #### [facility] [address] [place], [address] Chlamydia trachomatis rRNA d etection by probe and target amplification methodOrdered By: Antonia Connolly on 01-12-2025 C. trachomatis rRNA DEVIKA+probe Ql (Unsp spec) Positive High Negative [facility] Comment on above: Client Requested Fla g Neisseria gonorrhoeae nuclei c acid detection by amplified probe techniqueOrdered By: Antonia Connolly on 01-12-2025 N. gonorrhoeae DNA DEVIKA+probe Ql (Unsp spec) Negative Negative [facility] Comment on above: Performed at: =G - [address] [place] [id number] Director: Jacquelyn Clay MD, Phone: [phone] Control Operator Office Visit Reporton 01-12-2025 Control Operator Office Visit Report [facility] [address], [address] [place] [address] OFFICE VISIT Date of Service: 01/12/25 MR#: [id number] Acct: [id number] Name: NORBERTO COTTON Rep #: [id number] 1 : 2005 Provider: Dr. Antonia lorenz MD Age/Sex: 19/F Location: [facility] Status: Signed Intake Vital Signs 12/30/24 17:38 01/12/25 10:42 Height 5 ft 4 in 5 ft 4 in Weight: 105 lb 8 oz BMI 18.1 BP 100/65 Intake Visit Reasons: *NEW* NEW OB LMP 11/10 TELLO 08/17 Supervisor Ore Dressing Required: No Is patient in pain?: No [...] occupational status: employed current occupation: [employer] current occupational exposures/hazards: No pets [...] times per week duration: < 15 minutes/day sarah/rastafarian: Scientologist seatbelt use: always do you feel safe at home: Yes additional social history: BF: Jeremiah - Traffic musical instrument mechanic/construction History 1 Elective abortions 0 Hx [...] or Pa (more content not included)... Normal [facility] Urine cultureOrdered By: Shorty Connolly on 01-12-2025 Bacteria identified Cx Nom (U) Culture exhibits no growth. [facility] Absolute lymphocyte countOrd ered By: Allan Clayton on 12-30-2024 Lymphocytes Auto (Unsp spec) [#/Vol] 2.35 10*3/uL 0.83-4.51 [facility] Absolute neutrophil countOrd ered By: Allannik Clayton on 12-30-2024 Neutrophils (Bld) [#/Vol] 4.8 10*3/uL 2.0-7.7 [facility] Anion gap in Serum or Plasma Ordered By: Allan Clayton on 12-30-2024 Anion gap [Moles/Vol] 11 mmol/L 5-15 [facility] Automated lymphocyte count a s percentage of total leukocytesOrdered By: Allannik Clayton on 12-30-2024 Lymphocytes/100 WBC Auto (Unsp spec) 30.4 % 19-41 [facility] BUN/creatinine ratioOrdered By: Milan Matilde on 12-30-2024 Urea nitrogen/Creatinine [Mass ratio] 22.8 mg/mg High 10-20 [facility] Basophil percentageOrdered B y: Allan Clayton on 12-30-2024 Basophils/100 WBC (Bld) 0.1 % 0-1 [facility] Bilirubin Test strip Ql (U)O rdered By: Allannik Clayton on 12-30-2024 Bilirubin Ql (U) Negative Negative [facility] Bilirubin, totalOrdered By: Allannik Clayton on 12-30-2024 Bilirubin [Mass/Vol] 0.22 mg/dL 0.00-1.30 [facility] CBC W/Diff, Automatedon Absolute Lymph 2.35 X10 3/uL Normal 0.83-4.51 [facility] Comment on above: Performed By: #### L 100.0100, L500.4050, L501.2450 #### [facility] [address] [place], [address] Absolute Neut 4.8 X10 3/uL Normal 2.0-7.7 [facility] Comment on above: Performed By: #### L 100.0100, L500.4050, L501.2450 #### [facility] [address] [place], [address] Basophils/100 WBC (Bld) 0.1 % Normal 0-1 [facility] Comment on above: Performed By: #### L 100.0100, L500.4050, L501.2450 #### [facility] [address] [place], [address] Eosinophils/100 WBC (Bld) 0.1 % Normal 0-5 [facility] Comment on above: Performed By: #### L 100.0100, L500.4050, L501.2450 #### [facility] [address] [place], [address] Erythrocyte distribution width (RBC) [Ratio] 12.5 % Normal 11.6-14.6 [facility] Comment on above: Performed By: #### L 100.0100, L500.4050, L501.2450 #### [facility] [address] [place], [address] Hematocrit (Bld) [Volume fraction] 38.0 % Normal 37-47 [facility] Comment on above: Performed By: #### L 100.0100, L500.4050, L501.2450 #### [facility] [address] [place], [address] Hemoglobin (Bld) [Mass/Vol] 12.4 g/dL Normal 12.0-15.0 [facility] Comment on above: Performed By: #### L 100.0100, L500.4050, L501.2450 #### [facility] [address] [place], [address] IG% 0.100 Normal 0.0-0.9 [facility] Comment on above: Result Comment: IG% - Immature Granulocytes (promyelocytes, myelocytes and metamyelocytes) > 1% indicates that a LEFT SHIFT is Present. Performed By: #### L 100.0100, L500.4050, L501.2450 #### [facility] [address] [place], [address] Lymphocytes/100 WBC (Bld) 30.4 % Normal 19-41 [facility] Comment on above: Performed By: #### L 100.0100, L500.4050, L501.2450 #### [facility] [address] [place], [address] MCH (RBC) [Entitic mass] 31.2 pg Normal 27.0-32.0 [facility] Comment on above: Performed By: #### L 100.0100, L500.4050, L501.2450 #### [facility] [address] [place], [address] MCHC (RBC) [Mass/Vol] 32.6 g/dL Normal 32-36 [facility] Comment on above: Performed By: #### L 100.0100, L500.4050, L501.2450 #### [facility] [address] [place], [address] MCV (RBC) [Entitic vol] 95.7 fL Normal 81-99 [facility] Comment on above: Performed By: #### L 100.0100, L500.4050, L501.2450 #### [facility] [address] [place], [address] Monocytes/100 WBC (Bld) 6.9 % Normal 0-10 [facility] Comment on above: Performed By: #### L 100.0100, L500.4050, L501.2450 #### [facility] [address] [place], [address] Neutrophils/100 WBC (Bld) 62.4 % Normal 47-70 [facility] Comment on above: Performed By: #### L 100.0100, L500.4050, L501.2450 #### [facility] [address] [place], [address] Nucleated RBC (Bld) [#/Vol] 0 10*3/uL Normal 0-5 [facility] Comment on above: Performed By: #### L 100.0100, L500.4050, L501.2450 #### [facility] [address] [place], [address] Platelet mean volume (Bld) [Entitic vol] 10.7 fL Normal 6.2-12.0 [facility] Comment on above: Performed By: #### L 100.0100, L500.4050, L501.2450 #### [facility] [address] [place], [address] Platelets (Bld) [#/Vol] 284 10*3/uL Normal 150-450 [facility] Comment on above: Performed By: #### L 100.0100, L500.4050, L501.2450 #### [facility] [address] [place], [address] RBC (Bld) [#/Vol] 3.97 10*6/uL Low 4.2-5.4 [facility] Comment on above: Performed By: #### L 100.0100, L500.4050, L501.2450 #### [facility] [address] [place], [address] RDW SD 43.9 fl Normal 35.1-43.9 [facility] Comment on above: Performed By: #### L 100.0100, L500.4050, L501.2450 #### [facility] [address] [place], [address] WBC (Bld) [#/Vol] 7.7 10*3/uL Normal 4.4-11.0 [facility] Comment on above: Performed By: #### L 100.0100, L500.4050, L501.2450 #### [facility] [address] [place], [address] Carbon dioxide, total [Moles /volume] in Central venous bloodOrdered By: Allan lCayton on 12-30-2024 CO2 [Moles/Vol] 22.5 mmol/L 21.0-32.0 [facility] Chloride assayOrdered By: Sergei Clayton on 12-30-2024 Chloride [Moles/Vol] 103 mmol/L 98-108 [facility] Comprehensive Metabolic Prof ilon 12-30-2024 Albumin [Mass/Vol] 4.3 g/dL Normal 3.5-5.0 [facility] Comment on above: Performed By: #### L 100.0100, L500.4050, L501.2450 #### [facility] [address] [place], [address] Albumin/Globulin [Mass ratio] 1.3 {ratio} Normal 0.9-2.4 [facility] Comment on above: Performed By: #### L 100.0100, L500.4050, L501.2450 #### [facility] [address] [place], [address] ALK PHOS 54 U/L Normal 35-104 [facility] Comment on above: Performed By: #### L 100.0100, L500.4050, L501.2450 #### [facility] [address] [place], [address] ALT [Catalytic activity/Vol] 10 U/L Normal <=34 [facility] Comment on above: Performed By: #### L 100.0100, L500.4050, L501.2450 #### [facility] [address] [place], [address] AST [Catalytic activity/Vol] 14 U/L Normal <=31 [facility] Comment on above: Performed By: #### L 100.0100, L500.4050, L501.2450 #### [facility] [address] [place], [address] Bilirubin [Mass/Vol] 0.22 mg/dL Normal 0.00-1.30 [facility] Comment on above: Performed By: #### L 100.0100, L500.4050, L501.2450 #### [facility] [address] [place], [address] BUN/CRE 22.8 RATIO High 10-20 [facility] Comment on above: Performed By: #### L 100.0100, L500.4050, L501.2450 #### [facility] [address] [place], [address] Calcium [Mass/Vol] 9.3 mg/dL Normal 7.6-11.0 [facility] Comment on above: Performed By: #### L 100.0100, L500.4050, L501.2450 #### [facility] [address] [place], [address] Chloride [Moles/Vol] 103 mmol/L Normal 98-108 [facility] Comment on above: Performed By: #### L 100.0100, L500.4050, L501.2450 #### [facility] [address] [place], [address] CO2 [Moles/Vol] 22.5 mmol/L Normal 21.0-32.0 [facility] Comment on above: Performed By: #### L 100.0100, L500.4050, L501.2450 #### [facility] [facility] [address] [place], [address] Creatinine [Mass/Vol] 0.53 mg/dL Low 0.70-1.20 [facility] Comment on above: Performed By: #### L 100.0100, L500.4050, L501.2450 #### [facility] [address] [place], [address] ECRCL 127.61 ml/min Normal 50-250 [facility] Comment on above: Performed By: #### L 100.0100, L500.4050, L501.2450 #### [facility] [address] [place], [address] GAP 11 Normal 5-15 [facility] Comment on above: Performed By: #### L 100.0100, L500.4050, L501.2450 #### [facility] [address] [place], [address] GFR/1.73 sq M.predicted among non-blacks MDRD (S/P/Bld) [Vol rate/Area] 136 mL/min/{1.73_m2} Normal >60 [facility] Comment on above: Result Comment: mL/m in/1.73m2 CKD-EPI Creatinine Equation (2020) Performed By: #### L 100.0100, L500.4050, L501.2450 #### [facility] [address] [place], [address] Globulin (S) [Mass/Vol] 3.3 g/dL Normal 2.2-4.2 [facility] Comment on above: Performed By: #### L 100.0100, L500.4050, L501.2450 #### [facility] [address] [place], [address] Glucose [Mass/Vol] 79 mg/dL Normal 70-99 [facility] Comment on above: Performed By: #### L 100.0100, L500.4050, L501.2450 #### [facility] [address] [place], [address] Potassium [Moles/Vol] 3.8 mmol/L Normal 3.3-5.1 [facility] Comment on above: Performed By: #### L 100.0100, L500.4050, L501.2450 #### [facility] [address] [place], [address] Sodium [Moles/Vol] 137 mmol/L Normal 133-145 [facility] Comment on above: Performed By: #### L 100.0100, L500.4050, L501.2450 #### [facility] [address] [place], [address] T PROT 7.6 g/dL Normal 5.9-8.4 [facility] Comment on above: Performed By: #### L 100.0100, L500.4050, L501.2450 #### [facility] [address] [place], [address] Urea nitrogen [Mass/Vol] 12 mg/dL Normal 4-19 [facility] Comment on above: Performed By: #### L 100.0100, L500.4050, L501.2450 #### [facility] [address] [place], [address] Emergency Department Summary on 12-30-2024 Emergency Department Summary [facility] Medical Records Department [address] [place] [address] Emergency Department Summary 12/30/24 MR#: [id number] Acct: [id number] Name: NORBERTO COTTON Rep #: [id number] : 2005 19 From: Allan Clayton DO [...] positive test. Patient states she follows with [facility] AIR QUALITY TECHNICIAN in which she had an ultrasound a [...] states she had another checkup with her AIR QUALITY TECHNICIAN today in which she saw a nurse. [...] intact Psych: Cooperative, appropriate mood and affect [facility] Medical History (Updated 12/30/24 @ 20:23 [...] occupational status: employed current occupation: [employer] current occupational exposures/hazards: No pets [...] times per week duration: < 15 minutes/day sarah/rastafarian: Scientologist seatbelt use: always do you feel safe at home: Yes additional social history: BF: Jeremiah - Traffic musical instrument mechanic/construction EXAM Physical Exam Const Vital Signs: [...] positive test. Patient states she follows with [facility] AIR QUALITY TECHNICIAN in which she had an ultr (more content not included)... Normal [facility] Eosinophil percentageOrdered By: Allan Clayton on 12-30-2024 Eosinophils/100 WBC (Bld) 0.1 % 0-5 [facility] Erythrocyte distribution wid th ratioOrdered By: Allan Clayton on 12-30-2024 Erythrocyte distribution width (RBC) [Ratio] 12.5 % 11.6-14.6 [facility] Erythrocyte distribution wid th standard deviationOrdered By: Allannik Busch on 12-30-2024 Erythrocyte distribution width (RBC) [Ratio] 43.9 fl 35.1-43.9 [facility] Glomerular filtration rate ( GFR) estimation/1.73 sq m using serum, plasma, or whole bOrdered By: Allan Clayton on 12-30-2024 GFR/1.73 sq M.predicted among non-blacks MDRD (S/P/Bld) [Vol rate/Area] 136 mL/min/{1.73_m2} >60 [facility] Comment on above: mL/min/1.73m2 CKD-EP I Creatinine Equation (2020) Hematocrit Auto (Bld) [Volum e fraction]Ordered By: Allan Clayton on 12-30-2024 Hematocrit (Bld) [Volume fraction] 38.0 % 37-47 [facility] Hemoglobin measurementOrdere d By: Allan Clayton on 12-30-2024 Hemoglobin (Bld) [Mass/Vol] 12.4 g/dL 12.0-15.0 [facility] Immature granulocytes/100 WB C Auto (Bld)Ordered By: Allan Clayton on 12-30-2024 Immature granulocytes/100 WBC (Bld) 0.100 % 0.0-0.9 [facility] Comment on above: IG% - Immature Granu locytes (promyelocytes, myelocytes and metamyelocytes) > 1% indicates that a LEFT SHIFT is Present. Ketones Test strip Ql (U)Ord ered By: Allan Clayton on 12-30-2024 Ketones Ql (U) Negative Negative [facility] Laboratory - Chemistry and C hemistry - challengeOrdered By: Allan Clayton on 12-30-2024 AST [Catalytic activity/Vol] 14 U/L <32 [facility] - Chemistry and C hemistry - challengeOrdered By: Antonia Connolly on 12-30-2024 HCG ( test) Ql (U) Positive [facility] Lipaseon 12-30-2024 Lipase [Catalytic activity/Vol] 24 U/L Normal 13-75 [facility] Comment on above: Result Comment: Delfino franco note: LIPASE revised reference range effective 22. New Lipase methodology. Expected to produce lower values than the previous assay method. NEW Reference Range: 13 - 75 U/L Performed By: #### L 100.0100, L500.4050, L501.2450 #### [facility] [place], [address] Lipase measurementOrdered By : Allan Clayton on 12-30-2024 Lipase [Catalytic activity/Vol] 24 U/L 13-75 [facility] Comment on above: Please note:LIPASE r evised reference range effective 22. New Lipase methodology. Expected to produce lower values than the previous assay method. NEW Reference Range: 13 - 75 U/L MCV (mean corpuscular volume ) determinationOrdered By: Allan Clayton on 12-30-2024 MCV (RBC) [Entitic vol] 95.7 fL 81-99 [facility] Mean corpuscular hemoglobin (MCH) determinationOrdered By: Allan Clayton on 12-30-2024 MCH (RBC) [Entitic mass] 31.2 pg 27.0-32.0 [facility] Mean corpuscular hemoglobin concentration (MCHC) determinationOrdered By: Allan Clayton on 12-30-2024 MCHC (RBC) [Mass/Vol] 32.6 g/dL 32-36 [facility] Mean platelet volume determi nationOrdered By: Allan Clayton on 12-30-2024 Platelet mean volume (Bld) [Entitic vol] 10.7 fL 6.2-12.0 [facility] Microscopic analysis of urin e for red blood cells (RBC)Ordered By: Allan Clayton on 12-30-2024 Microscopic analysis of urine for red blood cells (RBC) 0-5 SEEN /hpf 0-5 [facility] Monocyte percentageOrdered B y: Allan Clayton on 12-30-2024 Monocytes/100 WBC (Bld) 6.9 % 0-10 [facility] Mucus LM Ql (Urine sed)Order ed By: Allan Clayton on 12-30-2024 Mucus Ql (Urine sed) 0 SEEN /hpf [facility] Neutrophil percentageOrdered By: Allan Clayton on 12-30-2024 Neutrophils/100 WBC (Bld) 62.4 % 47-70 [facility] Nitrite Test strip Ql (U)Ord ered By: Allan Clayton on 12-30-2024 Nitrite Ql (U) Negative Negative [facility] Nucleated red blood cell per centageOrdered By: Allan Clayton on 12-30-2024 Nucleated RBC/100 WBC (Bld) [Ratio] 0 % 0-5 [facility] Office Visit Reporton 2024 Office Visit Report [facility] [address] [place] [address] OFFICE VISIT Date of Service: 12/30/24 MR#: [id number] Acct: [id number] Patient: NORBERTO COTTON Rep #: [id number] : 2005 Provider: TU khoury Age/Sex: 19/F Location: [facility] Status: Signed Intake Vital Signs 12/19/24 14:59 [...] or less, adult Plan Confirmed . RTO CHAPIS appt 12/30/24 1323 Date Deepti Snyder BANK CLERK BANK CLERK-C Cosigner Signature: Date (if applicable) CC: Normal [facility] Platelet countOrdered By: Sergei Clayton on 12-30-2024 Platelets (Bld) [#/Vol] 284 10*3/uL 150-450 [facility] Potassium measurement (mass/ volume)Ordered By: Allan Clayton on 12-30-2024 Potassium (Unsp spec) [Mass/Vol] 3.8 mmol/L 3.3-5.1 [facility] Protein Test strip Ql (U)Ord ered By: Allan Clayton on 12-30-2024 Protein Ql (U) Negative Negative [facility] RBC Auto (Bld) [#/Vol]Ordere d By: Allan Clayton on 12-30-2024 RBC (Bld) [#/Vol] 3.97 10*6/uL Low 4.2-5.4 [facility] Serum creatinine measurement (mass/volume)Ordered By: Allan Clayton on 12-30-2024 Creatinine [Mass/Vol] 0.53 mg/dL Low 0.70-1.20 [facility] Serum globulin measurementOr dered By: Allan Clayton on 12-30-2024 Globulin (S) [Mass/Vol] 3.3 g/dL 2.2-4.2 [facility] Serum glucose measurement (m ass/volume)Ordered By: Allan Claytno on 12-30-2024 Glucose [Mass/Vol] 79 mg/dL 70-99 [facility] Serum or plasma alanine lozano otransferase (ALT) measurementOrdered By: Allan Clayton on 12-30-2024 ALT [Catalytic activity/Vol] 10 U/L <35 [facility] Serum or plasma albumin nancy urement (mass/volume)Ordered By: Allan Busch on 12-30-2024 Albumin [Mass/Vol] 4.3 g/dL 3.5-5.0 [facility] Serum or plasma albumin/glob ulin mass ratioOrdered By: Allan Clayton on 12-30-2024 Albumin/Globulin [Mass ratio] 1.3 {ratio} 0.9-2.4 [facility] Serum or plasma alkaline jose manuel sphatase measurementOrdered By: Allan Clayton on 12-30-2024 ALP [Catalytic activity/Vol] 54 U/L 35-104 [facility] Serum or plasma calcium nancy urement (mass/volume)Ordered By: Allan Busch on 12-30-2024 Calcium [Mass/Vol] 9.3 mg/dL 7.6-11.0 [facility] Serum or plasma urea nitroge n measurement (mass/volume)Ordered By: Allan Clayton on 12-30-2024 Urea nitrogen [Mass/Vol] 12 mg/dL 4-19 [facility] Sodium levelOrdered By: Dexter Clayton on 12-30-2024 Sodium [Moles/Vol] 137 mmol/L 133-145 [facility] Squamous epithelial cells de tection in urine sediment by light microscopyOrdered By: Allan Clayton on 12-30-2024 Epithelial cells.squamous LM Ql (Urine sed) 0-5 SEEN /hpf 5-10 [facility] Total proteinOrdered By: Constantino Clayton on 12-30-2024 Protein [Mass/Vol] 7.6 g/dL 5.9-8.4 [facility] Transvaginal w/Preg USon Transvaginal w/Preg US [facility] [address] [place], [place] [address] Transvaginal w/Preg US MR#: [id number] Acct: [id number] Name: NORBERTO COTTON Rep #: [id number] : 2005 F 19 From: Ezequiel Villanueva MD PCP: Care Physician,No Primary Status: REG ER Study: Transvaginal w/Preg US Date of Exam: 12/30/24 Exam# [id number] Ordering Dr: Allan Clayton DO PROCEDURE: TRANSVAGINAL [...] recommended. Single live intrauterine . Reading Location: [id number] CC: Dr. Allan Clayton DO; No Primary Care Physician Leave Specialist: Signed Normal [facility] Urinalysis, Completeon 12-30 BACTERIA RARE Normal None Seen [facility] Comment on above: Order Comment: CLEAN CATCH Performed By: #### L 100.0100, L500.4050, L501.2450 #### [facility] [address] [place], [place], [id number] EPI,SQUAMOUS 0-5 SEEN Normal 5-10 [facility] Comment on above: Order Comment: CLEAN CATCH Performed By: #### L 100.0100, L500.4050, L501.2450 #### [facility] [address] [place], [address] RBC 0-5 SEEN Normal 0-5 [facility] Comment on above: Order Comment: CLEAN CATCH Performed By: #### L 100.0100, L500.4050, L501.2450 #### [facility] [address] [place], [address] WBC 0-5 SEEN Normal 0-5 [facility] Comment on above: Order Comment: CLEAN CATCH Performed By: #### L 100.0100, L500.4050, L501.2450 #### [facility] [address] [place], [address] Mucus Ql (Urine sed) 0 SEEN Normal [facility] Comment on above: Order Comment: CLEAN CATCH Performed By: #### L 100.0100, L500.4050, L501.2450 #### [facility] [address] [place], [address] Urine clarityOrdered By: Constantino Clayton on 12-30-2024 Clarity (U) Clear Clear [facility] Urine color determinationOrd ered By: Allan Clayton on 12-30-2024 Color (U) Straw Yellow [facility] Urine glucose detectionOrder ed By: Allan Clayton on 12-30-2024 Glucose Ql (U) Normal mg/dl Normal [facility] Urine leukocyte esterase det ection by dipstickOrdered By: Allan Clayton on 12-30-2024 Leukocyte esterase Test strip Ql (U) Negative Negative [facility] Urine pHOrdered By: Allan Biggs on 12-30-2024 pH (U) 6.5 [pH] 5.0 - 8.0 [facility] Urine sediment bacteria coun t by microscopy (number/high power field)Ordered By: Allan Clayton on 12-30-2024 Bacteria LM.HPF (Urine sed) [#/Area] RARE /hpf None Seen [facility] Urine specific gravity measu rementOrdered By: Allan Clayton on 12-30-2024 Specific gravity (U) [Rel density] 1.015 1.002-1.030 [facility] Urine urobilinogen measureme ntOrdered By: Allan Clayton on 12-30-2024 Urobilinogen Ql (U) Normal mg/dl Normal [facility] White blood cell (WBC) count Ordered By: Allan Clayton on 12-30-2024 WBC (Bld) [#/Vol] 7.7 10*3/uL 4.4-11.0 [facility] White blood cell countOrdere d By: Allan Clayton on 12-30-2024 White blood cell count 0-5 SEEN /hpf 0-5 [facility] Urine Cultureon 12-21-2024 URC Below infection leve l. Mixed Gram Positive Organisms [place] Count 1000-10,000 MIX[facility] Mixed contaminants. Submit a new specimen if indicated. Normal [facility] Comment on above: Performed By: #### L 100.0100, L500.4050, L501.2450 #### [facility] [address] [place], [place], [id number] Absolute lymphocyte countOrd ered By: Kelly Peterson on 12-19-2024 Lymphocytes Auto (Unsp spec) [#/Vol] 1.61 10*3/uL 0.83-4.51 [facility] Absolute neutrophil countOrd ered By: Kelly Peterson on 12-19-2024 Neutrophils (Bld) [#/Vol] 3.0 10*3/uL 2.0-7.7 [facility] Anion gap in Serum or Plasma Ordered By: Kelly Peterson on 12-19-2024 Anion gap [Moles/Vol] 11 mmol/L 5-15 [facility] Automated blood erythrocyte countOrdered By: Kelly Peterson on 12-19-2024 RBC (Bld) [#/Vol] 3.99 10*6/uL Low 4.2-5.4 [facility] Comment on above: Performed By: #### L 499.0042 #### [facility] [address] [place], [place], [address] Automated blood hematocrit ( percentage)Ordered By: Kelly Peterson on 12-19-2024 Hematocrit (Bld) [Volume fraction] 38.0 % Normal 37-47 [facility] Comment on above: Performed By: #### L 499.0042 #### [facility] [address] [place], [place], [address] Automated lymphocyte count a s percentage of total leukocytesOrdered By: Remus Ungann on 12-19-2024 Lymphocytes/100 WBC Auto (Unsp spec) 31.2 % 19-41 [facility] BUN/creatinine ratioOrdered By: Remus Ungann on 12-19-2024 Urea nitrogen/Creatinine [Mass ratio] 15.0 mg/mg 10-20 [facility] Basophil percentageOrdered B y: Remus Ungann on 12-19-2024 Basophils/100 WBC (Bld) 0.2 % Normal 0-1 [facility] Comment on above: Performed By: #### L 499.0042 #### [facility] [address] [place], [address] Bilirubin Test strip Ql (U)O rdered By: Remus Nicholas on 12-19-2024 Bilirubin Ql (U) Negative Negative [facility] Bilirubin, totalOrdered By: Remus Ungann on 12-19-2024 Bilirubin [Mass/Vol] 0.21 mg/dL Normal 0.00-1.30 [facility] Comment on above: Performed By: #### L 700.8000, L500.4050, L100.0100 #### [facility] [address] [place], [address] CBC W/Diff, Automatedon 11-24 Absolute Lymph 1.61 X10 3/uL Normal 0.83-4.51 [facility] Comment on above: Performed By: #### L 499.0042 #### [facility] [address] [place], [address] Absolute Neut 3.0 X10 3/uL Normal 2.0-7.7 [facility] Comment on above: Performed By: #### L 499.0042 #### [facility] [address] [place], [address] IG% 0.200 Normal 0.0-0.9 [facility] Comment on above: Result Comment: IG% - Immature Granulocytes (promyelocytes, myelocytes and metamyelocytes) > 1% indicates that a LEFT SHIFT is Present. Performed By: #### L 499.0042 #### [facility] [address] [place], [address] Lymphocytes/100 WBC (Bld) 31.2 % Normal 19-41 [facility] Comment on above: Performed By: #### L 499.0042 #### [facility] [address] [place], [address] Nucleated RBC (Bld) [#/Vol] 0 10*3/uL Normal 0-5 [facility] Comment on above: Performed By: #### L 499.0042 #### [facility] [address] [place], [address] RDW SD 43.1 fl Normal 35.1-43.9 [facility] Comment on above: Performed By: #### L 499.0042 #### [facility] [address] [place], [address] CRPon 12-19-2024 C-REACTIVE PROT 9.60 mg/L High 0.0-3.0 [facility] Comment on above: Performed By: #### L 101.9900, L501.6710 #### [facility] [address] [place], [address] Carbon dioxide, total [Moles /volume] in Central venous bloodOrdered By: Kelly Peterson on 12-19-2024 CO2 [Moles/Vol] 22.4 mmol/L Normal 21.0-32.0 [facility] Comment on above: Performed By: #### L 700.8000, L500.4050, L100.0100 #### [facility] [address] [place], [address] Chloride assayOrdered By: Leanne Peterson on 12-19-2024 Chloride [Moles/Vol] 104 mmol/L Normal 98-108 [facility] Comment on above: Performed By: #### L 700.8000, L500.4050, L100.0100 #### [facility] [address] [place], [address] Comprehensive Metabolic Prof ilon 12-19-2024 ALK PHOS 66 U/L Normal 35-104 [facility] Comment on above: Performed By: #### L 700.8000, L500.4050, L100.0100 #### [facility] [address] [place], [address] BUN/CRE 15.0 RATIO Normal 10-20 [facility] Comment on above: Performed By: #### L 700.8000, L500.4050, L100.0100 #### [facility] [address] [place], [address] ECRCL 96.11 ml/min Normal 50-250 [facility] Comment on above: Performed By: #### L 700.8000, L500.4050, L100.0100 #### [facility] [address] [place], [address] GAP 11 Normal 5-15 [facility] Comment on above: Performed By: #### L 700.8000, L500.4050, L100.0100 #### [facility] [address] [place], [address] Potassium [Moles/Vol] 3.8 mmol/L Normal 3.3-5.1 [facility] Comment on above: Performed By: #### L 700.8000, L500.4050, L100.0100 #### [facility] [address] [place], [address] T PROT 7.7 g/dL Normal 5.9-8.4 [facility] Comment on above: Performed By: #### L 700.8000, L500.4050, L100.0100 #### [facility] [address] [place], [address] Comprehensive Metabolic Prof ilOrdered By: Kelly Peterson on 12-19-2024 AST [Catalytic activity/Vol] 16 U/L Normal <=31 [facility] Comment on above: Performed By: #### L 700.8000, L500.4050, L100.0100 #### [facility] [address] [place], [address] Emergency Department Summary on 12-19-2024 Emergency Department Summary [facility] Medical Records Department [address] [place] [address] Emergency Department Summary 12/19/24 MR#: [id number] Acct: [id number] Name: NORBERTO COTTON Rep #: [id number] : 2005 19 From: Kelly Peterson DO PCP: Care Physician,No Primary Status:DEP ER Location: ED HPI HPI - GI History of Present Illness Chief Complaint: Abd Pain Detail of Chief Complaint: Abdominal pain Informant: patient Narrative Narrative: Patient presents with abdominal pain started several days ago. 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 She is G1, P0. [facility] Medical History (Updated 12/19/24 @ 17:44 [...] strength abnor (more content not included)... Normal [facility] Eosinophil percentageOrdered By: Kelly Peterson on 12-19-2024 Eosinophils/100 WBC (Bld) 0.6 % Normal 0-5 [facility] Comment on above: Performed By: #### L 499.0042 #### [facility] [address] [place], [place], [id number] Erythrocyte Sed Rateon 12-19 SED RATE 13 mm/hr Normal 0-30 [facility] Comment on above: Performed By: #### L 101.9900, L501.6710 #### [facility] [address] [facility] [place], [place], [address] Erythrocyte distribution wid th ratioOrdered By: Kelly Peterson on 12-19-2024 Erythrocyte distribution width (RBC) [Ratio] 12.4 % Normal 11.6-14.6 [facility] Comment on above: Performed By: #### L 499.0042 #### [facility] [address] [facility] [place], [place], [id number] (690) Erythrocyte distribution wid th standard deviationOrdered By: Kelly Peterson on 12-19-2024 Erythrocyte distribution width (RBC) [Ratio] 43.1 fl 35.1-43.9 [facility] Erythrocyte sedimentation ra teOrdered By: Kelly Peterson on 12-19-2024 ESR (Bld) [Velocity] 13 mm/h 0-30 [facility] Glomerular filtration rate ( GFR) estimation/1.73 sq m using serum, plasma, or whole bOrdered By: Kelly Peterson on 12-19-2024 GFR/1.73 sq M.predicted among non-blacks MDRD (S/P/Bld) [Vol rate/Area] 127 mL/min/{1.73_m2} Normal >60 [facility] Comment on above: mL/min/1.73m2 CKD-EP I Creatinine Equation (2020) Result Comment: mL/m in/1.73m2 CKD-EPI Creatinine Equation (2020) Performed By: #### L 700.8000, L500.4050, L100.0100 #### [facility] [address] [place], [place], [id number] Hemoglobin measurementOrdere d By: Kelly Peterson on 12-19-2024 Hemoglobin (Bld) [Mass/Vol] 12.6 g/dL Normal 12.0-15.0 [facility] Comment on above: Performed By: #### L 499.0042 #### [facility] [address] [place], [place], [address] Immature granulocytes/100 WB C Auto (Bld)Ordered By: Kelly Peterson on 12-19-2024 Immature granulocytes/100 WBC (Bld) 0.200 % 0.0-0.9 [facility] Comment on above: IG% - Immature Granu locytes (promyelocytes, myelocytes and metamyelocytes) > 1% indicates that a LEFT SHIFT is Present. Ketones Test strip Ql (U)Ord ered By: Kelly Peterson on 12-19-2024 Ketones Ql (U) 15 mg/dl High Negative [facility] MCV (mean corpuscular volume ) determinationOrdered By: Kelly Peterson on 12-19-2024 MCV (RBC) [Entitic vol] 95.2 fL Normal 81-99 [facility] Comment on above: Performed By: #### L 499.0042 #### [facility] [address] [place], [address] Mean corpuscular hemoglobin (MCH) determinationOrdered By: Kelly Peterson on 12-19-2024 MCH (RBC) [Entitic mass] 31.6 pg Normal 27.0-32.0 [facility] Comment on above: Performed By: #### L 499.0042 #### [facility] [address] [place], [address] Mean corpuscular hemoglobin concentration (MCHC) determinationOrdered By: Kelly Peterson on 12-19-2024 MCHC (RBC) [Mass/Vol] 33.2 g/dL Normal 32-36 [facility] Comment on above: Performed By: #### L 499.0042 #### [facility] [address] [place], [address] Mean platelet volume determi nationOrdered By: Kelly Peterson on 12-19-2024 Platelet mean volume (Bld) [Entitic vol] 9.8 fL Normal 6.2-12.0 [facility] Comment on above: Performed By: #### L 499.0042 #### [facility] [address] [place], [address] Microscopic analysis of urin e for red blood cells (RBC)Ordered By: Kelly Peterson on 12-19-2024 Microscopic analysis of urine for red blood cells (RBC) 0 SEEN /hpf 0-5 [facility] Monocyte percentageOrdered B y: Kelly Peterson on 12-19-2024 Monocytes/100 WBC (Bld) 10.5 % High 0-10 [facility] Comment on above: Performed By: #### L 499.0042 #### [facility] [address] [place], [address] Mucus LM Ql (Urine sed)Order ed By: Kelly Peterson on 12-19-2024 Mucus Ql (Urine sed) 2+ /hpf [facility] Neutrophil percentageOrdered By: Kelly Valentinann on 12-19-2024 Neutrophils/100 WBC (Bld) 57.3 % Normal 47-70 [facility] Comment on above: Performed By: #### L 499.0042 #### [facility] [address] [place], [place], [id number] Nitrite Test strip Ql (U)Ord ered By: Kelly Valentinann on 12-19-2024 Nitrite Ql (U) Negative Negative [facility] Nucleated red blood cell per centageOrdered By: Kelly Valentinann on 12-19-2024 Nucleated RBC/100 WBC (Bld) [Ratio] 0 % 0-5 [facility] Platelet countOrdered By: Re whitney Peterson on 12-19-2024 Platelets (Bld) [#/Vol] 259 10*3/uL Normal 150-450 [facility] Comment on above: Performed By: #### L 499.0042 #### [facility] [address] [place], [place], [address] Potassium measurement (mass/ volume)Ordered By: Kelly Nicholas on 12-19-2024 Potassium (Unsp spec) [Mass/Vol] 3.8 mmol/L 3.3-5.1 [facility] Protein Test strip Ql (U)Ord ered By: Kelly Valentinann on 12-19-2024 Protein Ql (U) 15 mg/dl High Negative [facility] Serum creatinine measurement (mass/volume)Ordered By: Kelly Valentinann on 12-19-2024 Creatinine [Mass/Vol] 0.69 mg/dL Low 0.70-1.20 [facility] Comment on above: Performed By: #### L 700.8000, L500.4050, L100.0100 #### [facility] [address] [place], [place], [address] Serum globulin measurementOr dered By: Kelly Nicholas on 12-19-2024 Globulin (S) [Mass/Vol] 3.5 g/dL Normal 2.2-4.2 [facility] Comment on above: Performed By: #### L 700.8000, L500.4050, L100.0100 #### [facility] [address] [place], [address] Serum glucose measurement (m ass/volume)Ordered By: Kelly Peterson on 12-19-2024 Glucose [Mass/Vol] 83 mg/dL Normal 70-99 [facility] Comment on above: Performed By: #### L 700.8000, L500.4050, L100.0100 #### [facility] [address] [place] [place], [address] Serum human chorionic gonado tropin detection for pregnancyOrdered By: Kelly Peterson on 12-19-2024 HCG ( test) Ql 4035 mIU/mL High <9 [facility] Comment on above: Gestational Age0.2-1 Week: 5-50 mIU/mL1-2 Weeks: 50-500 mIU/mL2-3 Weeks: 100-5000 mIU/mL3-4 Weeks: 500-10,000 mIU/mL4-5 Weeks:1000-50,000 mIU/mL5-6 Weeks: 10,000-100,000 mIU/mL6-8 Weeks: 15,000-200,000 mIU/mL2-3 Months:10,000-100,000 mIU/mL Serum or plasma C reactive p rotein measurement (mass/volume)Ordered By: Kelly Peterson on 12-19-2024 CRP [Mass/Vol] 9.60 mg/L High 0.0-3.0 [facility] Serum or plasma alanine lozano otransferase (ALT) measurementOrdered By: Kelly Peterson on 12-19-2024 ALT [Catalytic activity/Vol] 10 U/L Normal <=34 [facility] Comment on above: Performed By: #### L 700.8000, L500.4050, L100.0100 #### [facility] [address] [place], [address] Serum or plasma albumin nancy urement (mass/volume)Ordered By: Kelly Peterson on 12-19-2024 Albumin [Mass/Vol] 4.1 g/dL Normal 3.5-5.0 [facility] Comment on above: Performed By: #### L 700.8000, L500.4050, L100.0100 #### [facility] [address] [place], [address] Serum or plasma albumin/glob ulin mass ratioOrdered By: Remus Ungur on 12-19-2024 Albumin/Globulin [Mass ratio] 1.2 {ratio} Normal 0.9-2.4 [facility] Comment on above: Performed By: #### L 700.8000, L500.4050, L100.0100 #### [facility] [address] [place], [address] Serum or plasma alkaline jose manuel sphatase measurementOrdered By: Remus Ungann on 12-19-2024 ALP [Catalytic activity/Vol] 66 U/L 35-104 [facility] Serum or plasma calcium nancy urement (mass/volume)Ordered By: Remus Ungur on 12-19-2024 Calcium [Mass/Vol] 9.0 mg/dL Normal 7.6-11.0 [facility] Comment on above: Performed By: #### L 700.8000, L500.4050, L100.0100 #### [facility] [address] [place], [address] Serum or plasma urea nitroge n measurement (mass/volume)Ordered By: Remus Ungur on 12-19-2024 Urea nitrogen [Mass/Vol] 10 mg/dL Normal 4-19 [facility] Comment on above: Performed By: #### L 700.8000, L500.4050, L100.0100 #### [facility] [address] [place], [address] Sodium levelOrdered By: Remu s Ungur on 12-19-2024 Sodium [Moles/Vol] 137 mmol/L Normal 133-145 [facility] Comment on above: Performed By: #### L 700.8000, L500.4050, L100.0100 #### [facility] [address] [place], [address] Squamous epithelial cells de tection in urine sediment by light microscopyOrdered By: Remus Ungur on 12-19-2024 Epithelial cells.squamous LM Ql (Urine sed) 0-5 SEEN /hpf 5-10 [facility] Total proteinOrdered By: Rem us Ungur on 12-19-2024 Protein [Mass/Vol] 7.7 g/dL 5.9-8.4 [facility] Urinalysis, Completeon 12-19 BACTERIA 2+ /hpf Normal None Seen [facility] Comment on above: Order Comment: CLEAN CATCH Performed By: #### L 400.0001 #### [facility] [address] [place], [address] EPI,SQUAMOUS 0-5 SEEN Normal 5-10 [facility] Comment on above: Order Comment: CLEAN CATCH Performed By: #### L 400.0001 #### [facility] [address] [place], [address] Mucus Ql (Urine sed) 2+ /hpf Normal [facility] Comment on above: Order Comment: CLEAN CATCH Performed By: #### L 400.0001 #### [facility] [address] [place], [address] WBC 5-10 SEEN Normal 0-5 [facility] Comment on above: Order Comment: CLEAN CATCH Performed By: #### L 400.0001 #### [facility] [address] [place], [address] RBC 0 SEEN Normal 0-5 [facility] Comment on above: Order Comment: CLEAN CATCH Performed By: #### L 400.0001 #### [facility] [address] [place], [address] Urine clarityOrdered By: Rem us Ungur on 12-19-2024 Clarity (U) Sl. Cloudy Clear [facility] Urine color determinationOrd ered By: Kelly Peterson on 12-19-2024 Color (U) Yellow Yellow [facility] Urine cultureOrdered By: Sabine Peterson on 12-19-2024 Bacteria identified Cx Nom (U) Positive Abnormal [facility] Urine glucose detectionOrder ed By: Kelly Peterson on 12-19-2024 Glucose Ql (U) Normal mg/dl Normal [facility] Urine leukocyte esterase det ection by dipstickOrdered By: Kelly Peterson on 12-19-2024 Leukocyte esterase Test strip Ql (U) 100 /ul High Negative [facility] Urine pHOrdered By: Kelly Un gur on 12-19-2024 pH (U) 6.0 [pH] 5.0 - 8.0 [facility] Urine sediment bacteria coun t by microscopy (number/high power field)Ordered By: Kelly Peterson on 12-19-2024 Bacteria LM.HPF (Urine sed) [#/Area] 2 /[HPF] None Seen [facility] Urine specific gravity measu rementOrdered By: Kelly Peterson on 12-19-2024 Specific gravity (U) [Rel density] 1.025 1.002-1.030 [facility] Urine urobilinogen measureme ntOrdered By: Kelly Peterson on 12-19-2024 Urobilinogen Ql (U) Normal mg/dl Normal [facility] White blood cell (WBC) count Ordered By: Kelly Peterson on 12-19-2024 WBC (Bld) [#/Vol] 5.2 10*3/uL Normal 4.4-11.0 [facility] Comment on above: Performed By: #### L 499.0042 #### [facility] [address] [place] [address], [address] White blood cell countOrdere d By: Kelly Peterson on 12-19-2024 White blood cell count 5-10 SEEN /hpf 0-5 [facility] hCG Titer Quant., Serumon HCG QUANT. 4035 mIU/mL High <9 non-preg [facility] Comment on above: Result Comment: Gest ational Age 0.2-1 Week: 5-50 mIU/mL 1-2 Weeks: 50-500 mIU/mL 2-3 Weeks: 100-5000 mIU/mL 3-4 Weeks: 500-10,000 mIU/mL 4-5 Weeks:1000-50,000 mIU/mL 5-6 Weeks: 10,000-100,000 mIU/mL 6-8 Weeks: 15,000-200,000 mIU/mL 2-3 Months:10,000-100,000 mIU/mL Performed By: #### L 700.8000, L500.4050, L100.0100 #### [facility] [address] [place], [address] Laboratory - Chemistry and C hemistry - challengeOrdered By: Antonia Connolly on 12-18-2024 HCG ( test) Ql (U) Positive [facility] Control Operator Office Visit Reporton 12-18-2024 Control Operator Office Visit Report [facility] [address], [address] [place] [address] OFFICE VISIT Date of Service: 12/18/24 MR#: [id number] Acct: [id number] Name: NORBERTO COTTON Rep #: [id number] : 2005 Provider: Dr. Antonia lorenz MD Age/Sex: 19/F Location: [facility] Status: Signed Intake Vital Signs 12/18/24 10:39 12/18/24 10:52 Height 5 ft 4 in 5 ft 4 in Weight: 104 lb 8 oz BMI 17.9 BP 97/66 Intake Visit Reasons: Confirm UPT, Vitals Chief Complaint: COnfirm UPT, vitals Supervisor Ore Dressing Required: No Is patient in pain?: No [...] Nutritional Appearance: average body habitus Orientation: alert [facility] Head: normal to inspection and normocephalic Neck [...] fever or diarrhea 12/18/24 1117 Date Antonia Connolly MD [facility] Signature: Date (if applicable) CC: Normal [facility] CNOVon 06-29-2024 [facility] Office Visit (ROMÁN ) -- NOREBRTO COTTON ([id number]) 3 F Date Time Provider Department 06/29/24 1:25 PM МАРИНА MILLER During your visit today, we recorded the following information about you: Temperature Pulse Blood pressure Weight 99.2 degrees 95/minute 105/80 46.8 kg Марина Miller APRN.[employer] 06/29/2024 1:48 PM Signed This note was created using NoteWriter. Subjective Norberto Cotton is a 19 year old female. HPI by patient: Norberto Cotton is a 19 year old presenting to the office with the complaint of viral symptoms. Started approximately 4 days ago. Associated symptoms include cough, congestion, feeling hot/cold, body aches, fatigue, headaches, and ear pain. Covid Immunization Dates Overdue - Covid-19 Vaccine (2023- season) Never done No completion, postpone, frequency [...] hours, isolation in the interim. [facility]. -Bromfed for cough/congestion. -Drink lots of fluids [...] (tripod posit (more content not included)... Normal [facility] COVID AND INFLUENZA A/B AND RSV PCR, ROUTINEon 06-29-2024 SARS-CoV-2 (COVID-19) RNA DEVIKA+probe Ql (Unsp spec) SARS-COV-2 (AGENT OF COVID-19) RNA: Not detected INFLUENZA A RNA: Detected INFLUENZA B RNA: Not detected RESPIRATORY SYNCYTIAL VIRUS (RSV) RNA: Not detected Abnormal [facility] Comment on above: Performed By: #### C VFLRS #### [facility] CLIA [id number] [address] [place] [address] [place] BASIC METABOLIC PANELon 11-2 Anion gap [Moles/Vol] 7 mmol/L Normal 3-13 [facility] Comment on above: Performed By: #### L [id number], LAB15 #### Drip Pumper: NAVA GONZALEZ ([phone]) [facility] [address] [place] [address] Calcium [Mass/Vol] 9.9 mg/dL Normal 8.4-10.4 [facility] Comment on above: Performed By: #### L [id number], LAB15 #### Drip Pumper: NAVA GONZALEZ ([phone]) [facility] [address] [place] [address] [place] Chloride [Moles/Vol] 105 mmol/L Normal 98-107 [facility] Comment on above: Performed By: #### L [id number], LAB15 #### Drip Pumper: NAVA GONZALEZ ([phone]) [facility] [address] [place] [address] [place] CO2 [Moles/Vol] 26 mmol/L Normal 22-30 [facility] Comment on above: Performed By: #### L [id number], LAB15 #### Drip Pumper: NAVA GONZALEZ ([phone]) [facility] [address] [place] [address] [place] Creatinine [Mass/Vol] 0.73 mg/dL Normal 0.52-1.04 [facility] Comment on above: Performed By: #### L [id number], LAB15 #### Drip Pumper: NAVA GONZALEZ ([phone]) [facility] [place] [facility] [address] GLOMERULAR FILTRATION RATE ML/MIN/1.73 SQ M.PREDICTED >90.0 Normal >60.0 [facility] Comment on above: Result Comment: Calc ulation based on the Chronic Kidney Disease Epidemiology Collaboration (CKD-EPI) equation refit without adjustment for race Performed By: #### L AB129, LAB15 #### Drip Pumper: NAVA GONZALEZ ([phone]) [facility] [place] [address] [place] [address] Glucose [Mass/Vol] 109 mg/dL High 70-100 [facility] Comment on above: Performed By: #### L [id number], LAB15 #### Drip Pumper: NAVA GONZALEZ ([id number]) [facility] [facility] [address] [place] [address] Potassium [Moles/Vol] 3.8 mmol/L Normal 3.5-5.1 [facility] Comment on above: Performed By: #### L [id number], LAB15 #### Drip Pumper: NAVA GONZALEZ ([id number]) [facility] [address] [place] [address] [place] Sodium [Moles/Vol] 138 mmol/L Normal 135-145 [facility] Comment on above: Performed By: #### L [id number], LAB15 #### Drip Pumper: NAVA GONZALEZ ([id number]) [facility] [facility] [address] [place] [address] [place] Urea nitrogen [Mass/Vol] 14 mg/dL Normal 7-17 [facility] Comment on above: Performed By: #### L [id number], LAB15 #### Drip Pumper: NAVA GONZALEZ ([phone]) [facility] [address] [place] [address] Basic metabolic 1998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
[2025-04-27 20:08] LABS: Chlamydia By Nucleic Acid AMP Negative (Negative); Gonococcus By Nucleic Acid AMP Negative (Negative)
== END | disposition home or self-care (01) ==
LOC: LABSPEC 11:48
PROVIDERS: Visit Provider Nurse Practitioner Family
DX: Z20.2 Contact with and (suspected) exposure to infections with a predominantly sexual mode of transmission (principal); R10.20 Pelvic and perineal pain unspecified side
CPT/HCPCS: 87070; 87205; 87491; 87591

== ENCOUNTER → 2025-05-06 | Outpatient (CLI) | payer MEDICAID, SELFPAY ==
--- NOTE | 2025-05-06 13:37 | US_ITS ---
PROCEDURE: PELVIC W/ TRANSVAGINAL 05/06/2025 REASON FOR EXAM: PELVIC PAIN TECHNIQUE: Procedure Code: [id number] Modality: US Procedure: PELVIC W/ TRANSVAGINAL FINDINGS: Uterus measures 7.4 x 4.4 x 2.8 cm. It is anteverted position. No uterine fibroids are noted. Tiny cysts are noted within the endometrium. Endometrial stripe measures 7 mm. It is trilaminar. Right ovary measures 3.1 x 2.3 x 1.5 cm and left ovary measures 3.1 X 2.6 x 2.4 Cm. There is normal bilateral symmetrical blood flow within bilateral ovaries. Mild free fluid within the cul-de-sac. US/Pelvic w/ Transvaginal IMPRESSION: Endometrial stripe is 7mm and it is trilaminar, likely physiologic. No acute process. Mild pelvic free fluid. Reading Location: [facility]
== END | disposition home or self-care (01) ==
LOC: OPUS 13:34 → US 13:35
PROVIDERS: Referring Provider Nurse Practitioner Family; Visit Provider Nurse Practitioner Family
DX: R10.20 Pelvic and perineal pain unspecified side (principal)
CPT/HCPCS: 76830; 76856

== ENCOUNTER → 2025-05-26 | Outpatient (CLI) | payer MEDICAID, SELFPAY ==
[2025-05-29 07:07] LABS: Chlamydia By Nucleic Acid AMP Negative (Negative); Gonococcus By Nucleic Acid AMP Negative (Negative)
== END | disposition home or self-care (01) ==
LOC: LABSPEC 15:34
PROVIDERS: Visit Provider Obstetrics & Gynecology
DX: O09.90 Supervision of high risk pregnancy, unspecified, unspecified trimester (principal); Z3A.00 Weeks of gestation of pregnancy not specified; Z12.4 Encounter for screening for malignant neoplasm of cervix
CPT/HCPCS: 87086; 87491; 87591; 88175; G0145

== ENCOUNTER → 2025-06-16 | Outpatient (CLI) | payer MEDICAID, SELFPAY ==
--- NOTE | 2025-06-16 16:54 | US_ITS ---
PROCEDURE: TRANSVAGINAL W/PREG US 06/16/2025 REASON FOR EXAM: LT SIDE PELVIC PAIN, CONCERN FOR HETEROTOPIC PREG TECHNIQUE: Procedure Code: [id number] Modality: US Procedure: TRANSVAGINAL W/PREG US FINDINGS Uterus measures 10.1 x 6.9 x 4.6 Cm. No uterine fibroids are noted. Cervix is closed. Intrauterine with gestational sac measuring 3.7 cm, yolk sac measuring 4mm, and CRL measuring 22 mm corresponding with sonographic gestational age of 8 weeks and 5 days. heart rate of 171 bpm. Right ovary measures 2.4 x 1.9 x 1.2 Cm and left ovary measures 3.2 x 2.4 x 1.9 Cm. There is normal bilateral symmetrical blood flow within bilateral ovaries. 1.7 x 2 x 1.8 cm minimally hyperechoic structure with peripheral vascularity may reflect a complex cyst/hemorrhagic cyst/corpus luteal cyst likely not ectopic. No significant free fluid within the cul-de-sac. US/Transvaginal w/Preg US IMPRESSION: 1.7 x 2 x 1.8 cm minimally hyperechoic structure with peripheral vascularity ma y reflect a complex/hemorrhagic/corpus luteal cyst likely not ectopic. Intrauterine with CRL measuring 22 mm corresponding with sonographic gestational age of 8 weeks and 5 days. TELLO of 01/20/26. Reading Location: [facility]
--- OUTSIDE RECORDS SUMMARY | 2025-06-16 18:02 | XMS RPT_ITS | CCD ---
Author Organization [facility] Care Team Providers Care Nurse First Aid Name Role Phone Rashad Bajwa MD Primary [...] Attending Unavailable CHAPMAN, LAVERNE Primary Care Unavailable [facility], [facility] Care Provider Catlheen RABAGO, Dr. Knight Attending Provider Dr. Kelly Peterson DO Emergency Provider [phone] Care Physician, No Primary Primary Care Provider Unavailable Dr. Kelly Peterson DO Attending Provider [phone] Care Physician, No Primary Referring Provider Un available Deepti Mon Attending Provider [phone] Dr. Allan Clayton DO Emergency Provider Dr. Allan Clayton DO Attending Provider Cathleen RABAGO, Dr. Knight Referring Provider Delta RABAGO, Dr. Rai Emergency Provider Juan Brady DO, Dr. Villa Attending Provider Care Physician, No Primary Primary Care Unava ilable Cathleen, Antonia Consulting Unavailable Marcanthony, Antonia Referring Unavailable Marcanthtimoteo, Antonia Attending Unavailable Care Physician, No Primary Primary Care Unava ilable Care Physician, No Primary Referring Unava ilable Daisy Garner Attending Unavailabl e Care Physician, No Primary Primary Care Unava ilable Cathleen, Antonia Attending Unavailable Care Physician, No Primary Primary Care Unava ilable Tree Jones Attending Unavailable Care Physician, No Primary Primary Care Unava ilable Allan Clayton Attending Unavailabl e Care Physician, No Primary Primary Care Unava ilable Cathleen, Antonia Attending Unavailable Marccharito, Antonia Referring Unavailable Care Physician, No Primary Primary Care Unava ilable Prachi Su Attending Unavailable Care Physician, No Primary Primary Care Unava ilable Care Physician, No Primary Referring Unava ilable Prachi Su Attending Unavailable Care Physician, No Primary Referring Unava ilable Care Physician, No Primary Primary Care Unava ilable Claudio BACKEND TESTER, Deepti Attending Unavailable Care Physician, No Primary Primary Care Unava ilable Antonia Connolly Referring Unavailable Marccharito, Antonia Attending Unavailable Care Physician, No Primary Primary Care Unava ilable Fredi Sorenson Attending Unavailable Care Physician, No Primary Primary Care Unava ilable Care Physician, No Primary Referring Unava ilable MarcanthAntonia mahmood Attending Unavailable Care Physician, No Primary Primary Care Unava ilable Care Physician, No Primary Referring Unava ilable Cathleen, Antonia Attending Unavailable Care Physician, No Primary Primary Care Unava ilable Kelly Peterson Attending Unavailable Care Physician, No Primary Primary Care Unava ilable Marcanthony, Antonia Referring Unavailable MarcanthAntonia mahmood Attending Unavailable Prachi Su Attending Unavailable Care Physician, No Primary Primary Care Unava ilable Prachi Su Referring Unavailable Antonia Connolly Attending Unavailable Medications Current Medications Medication Drug [...] oral solution (1 source) alpha-Adrenergic Agonist, Uncompetitive Q-nkfxcw-D-aspartate Receptor Antagonist, Sigma-1 Agonist Start: 06-29-2024 take 10 mL by mouth four times daily as needed Dnftfhziwxtnpur-Uwlcevmrf-CM (BROMFED DM) 2-30-10 mg/5 mL syrup Indications: Viral upper respiratory tract infection with cough Take 10 mL by mouth four times a day as needed. 118 mL 06/29/2024 Active [place] (Nk) (3 sources) Start: 02-09-2025 [place] (Nk) Active February 09, 2025 12:00am Start: 12-18-2024 [place] (Nk) A ctive December 18, 2024 12:00am [...] Abdominal pain; Translations: [Unspecified abdominal pain] Onset: 05-05-2025 12-19-2024 Episodic Anxiety disorders (14 sources) Mixed anxiety and depressive disorder; Translations: [Other specified anxiety disorders] Onset: 02-25-2025 12-30-2024 Chronic Comment on above: refer to counseling Bacterial infection; unspecified site (1 source) Chlamydial infection, unspecified; Translations: [Chlamydial infection, unspecified] Onset: 02-25-2025 Episodic Cardiac dysrhythmias (8 sources) Palpitations; Translations: [Palpitations] Onset: 05-19-2024 05-19-2024 Episodic Fluid and electrolyte disorders (1 source) Dehydration; Translations: [Dehydration] Episodic Immunizations and screening for infectious disease (1 source) Contact with and (suspected) exposure to infections with a predominantly sexual mode of transmission; Translations: [Contact with and (suspected) exposure to infections with a predominantly sexual mode of transmission] Onset: 04-28-2025 Episodic Menstrual disorders (8 sources) Amenorrhea; Translations: [...] consciousness status, initial encounter] Onset: 12-09-2023 Unclassified (2 sources) Pelvic and perineal pain unspecified side; Translations: [Pelvic and perineal pain unspecified side] Onset: 04-24-2025 Unclassified (1 source) Other specified diseases and [...] Test Name Value Interpretation Reference Range Facility Chlamydia/GC DEVIKA aptimaon CHLAMY,NUC ACID Negative Normal Negative [facility] Comment on above: Performed By: #### M 100.1999, L7000.1800, M100.3200 ####[facility] [id number] [place], [place], [id number] GC BY NUC ACID Negative Normal Negative [facility] Comment on above: Result Comment: Perf ormed at: =G - [facility] [address] [id number] Specialty Plant Supervisor: Jacquelyn Clay MD, Phone: [phone] Performed By: #### M 100.1999, L7000.1800, M100.3200 ####[facility] [id number] [place], [place], [id number] Genital Culture Comprehensiv mian 04-25-2025 VAC Reason for Exam: pel bebo pain Normal vaginal molly isolated. No yeast, Gardnerella, Neisseria or beta-hemolytic Streptococcus isolated. Normal [facility] Comment on above: Performed By: #### M 100.2000, L7000.1800, M100.3200 ####[facility] [id number] [place], [address] Abdomen/Pelvis W IV Cont ONL Yon 04-24-2025 Abdomen/Pelvis W IV Cont ONLY [facility] Imaging Services [address] [place] [address] Abdomen/Pelvis W IV Cont ONLY MR#: [id number] Acct: [id number] Name: NORBERTO COTTON Rep #: [id number] : 2005 F 20 From: Du Crooks MD PCP: Care Physician,No Primary Status: REG ER Study: Abdomen/Pelvis W IV Cont ONLY Date of Exam: Exam# [id number] Ordering Dr: Tree Jones DO PROCEDURE: ABDOMEN/PELVIS W IV CONT ONLY 04/24/2025 REASON FOR EXAM: PELVIC PAIN TECHNIQUE: Procedure Code: CTABDPELIV Modality: CT Procedure: ABDOMEN/PELVIS W IV CONT ONLY Coronal and Sagittal reconstruction series were provided. CONTRAST: Isovue 370 VOLUME: 100 mL One or more dose reduction techniques were used (e.g., Automated exposure control, adjustment of the mA and/or kV according to patient size, use of iterative reconstruction technique. RADIATION DOSE SUMMARY: CTDlvol: 23 mGy DLP: 355 mGycm FINDINGS: Normal lumbar alignment. Normal vertebral body height. No subluxation. No compression deformity. , Gallbladder, spleen, pancreas, kidneys, and adrenal glands have an unremarkable CT appearance. There is no evidence of a bowel obstruction. There is a very small amount of free fluid in the pelvis. No dilatation of the sigmoid colon is identified. No wall thickening or dilatation of the colon to suggest colitis. The cecum extends into the right lower pelvis in the appendix appears normal. No retroperitoneal adenopathy CT/Abdomen/Pelvis W IV Cont ONLY IMPRESSION: No acute abnormality Reading Location: [facility] CC: Dr. Tree Jones DO; No Primary Care Physician Press Maintainer: Signed Normal [facility] Basic Metabolic Profile (BMP )on 04-24-2025 BUN/CRE 23.4 RATIO High 10-20 [facility] Comment on above: Performed By: #### L 700.6800, L500.2500, L100.0100 #### [facility] [address] [place], [address] Calcium [Mass/Vol] 9.5 mg/dL Normal 7.6-11.0 [facility] Comment on above: Performed By: #### L 700.6800, L500.2500, L100.0100 #### [facility] [address] [place], [address] Chloride [Moles/Vol] 106 mmol/L Normal 98-108 [facility] Comment on above: Performed By: #### L 700.6800, L500.2500, L100.0100 #### [facility] [address] [place], [address] CO2 [Moles/Vol] 25.6 mmol/L Normal 21.0-32.0 [facility] Comment on above: Performed By: #### L 700.6800, L500.2500, L100.0100 #### [facility] [address] [place], [address] Creatinine [Mass/Vol] 0.65 mg/dL Low 0.70-1.20 [facility] Comment on above: Performed By: #### L 700.6800, L500.2500, L100.0100 #### [facility] [address] [place], [address] ECRCL 107.35 ml/min Normal 50-250 [facility] Comment on above: Performed By: #### L 700.6800, L500.2500, L100.0100 #### [facility] [address] [place], [address] GAP 9 Normal 5-15 [facility] Comment on above: Performed By: #### L 700.6800, L500.2500, L100.0100 #### [facility] [address] [place], [address] GFR/1.73 sq M.predicted among non-blacks MDRD (S/P/Bld) [Vol rate/Area] 128 mL/min/{1.73_m2} Normal >60 [facility] Comment on above: Result Comment: mL/m in/1.73m2 CKD-EPI Creatinine Equation (2020) Performed By: #### L 700.6800, L500.2500, L100.0100 #### [facility] [address] [place], [address] Glucose [Mass/Vol] 103 mg/dL High 70-99 [facility] Comment on above: Performed By: #### L 700.6800, L500.2500, L100.0100 #### [facility] [address] [place], [address] Potassium [Moles/Vol] 3.7 mmol/L Normal 3.3-5.1 [facility] Comment on above: Performed By: #### L 700.6800, L500.2500, L100.0100 #### [facility] [address] [place], [address] Sodium [Moles/Vol] 141 mmol/L Normal 133-145 [facility] Comment on above: Performed By: #### L 700.6800, L500.2500, L100.0100 #### [facility] [address] [place], [address] Urea nitrogen [Mass/Vol] 15 mg/dL Normal 4-19 [facility] Comment on above: Performed By: #### L 700.6800, L500.2500, L100.0100 #### [facility] [address] [place], [address] CBC W/Diff, Automatedon 10-3 Absolute Lymph 2.13 X10 3/uL Normal 0.83-4.51 [facility] Comment on above: Performed By: #### L 700.6800, L500.2500, L100.0100 #### [facility] [address] [place], [address] Absolute Neut 2.8 X10 3/uL Normal 2.0-7.7 [facility] Comment on above: Performed By: #### L 700.6800, L500.2500, L100.0100 #### [facility] [address] [place], [address] Basophils/100 WBC (Bld) 0.2 % Normal 0-1 [facility] Comment on above: Performed By: #### L 700.6800, L500.2500, L100.0100 #### [facility] [address] [place], [address] Eosinophils/100 WBC (Bld) 0.4 % Normal 0-5 [facility] Comment on above: Performed By: #### L 700.6800, L500.2500, L100.0100 #### [facility] [address] [place], [address] Erythrocyte distribution width (RBC) [Ratio] 12.3 % Normal 11.6-14.6 [facility] Comment on above: Performed By: #### L 700.6800, L500.2500, L100.0100 #### [facility] [address] [place], [address] Hematocrit (Bld) [Volume fraction] 40.0 % Normal 37-47 [facility] Comment on above: Performed By: #### L 700.6800, L500.2500, L100.0100 #### [facility] [address] [place], [address] Hemoglobin (Bld) [Mass/Vol] 13.5 g/dL Normal 12.0-15.0 [facility] Comment on above: Performed By: #### L 700.6800, L500.2500, L100.0100 #### [facility] [address] [place], [address] IG% 0.200 Normal 0.0-0.9 [facility] Comment on above: Result Comment: IG% - Immature Granulocytes (promyelocytes, myelocytes and metamyelocytes) > 1% indicates that a LEFT SHIFT is Present. Performed By: #### L 700.6800, L500.2500, L100.0100 #### [facility] [address] [place], [address] Lymphocytes/100 WBC (Bld) 39.7 % Normal 19-41 [facility] Comment on above: Performed By: #### L 700.6800, L500.2500, L100.0100 #### [facility] [address] [place], [address] MCH (RBC) [Entitic mass] 32.0 pg Normal 27.0-32.0 [facility] Comment on above: Performed By: #### L 700.6800, L500.2500, L100.0100 #### [facility] [address] [place], [address] MCHC (RBC) [Mass/Vol] 33.8 g/dL Normal 32-36 [facility] Comment on above: Performed By: #### L 700.6800, L500.2500, L100.0100 #### [facility] [address] [place], [address] MCV (RBC) [Entitic vol] 94.8 fL Normal 81-99 [facility] Comment on above: Performed By: #### L 700.6800, L500.2500, L100.0100 #### [facility] [address] [place], [address] Monocytes/100 WBC (Bld) 8.0 % Normal 0-10 [facility] Comment on above: Performed By: #### L 700.6800, L500.2500, L100.0100 #### [facility] [address] [place], [address] Neutrophils/100 WBC (Bld) 51.5 % Normal 47-70 [facility] Comment on above: Performed By: #### L 700.6800, L500.2500, L100.0100 #### [facility] [address] [place], [address] Nucleated RBC (Bld) [#/Vol] 0 10*3/uL Normal 0-5 [facility] Comment on above: Performed By: #### L 700.6800, L500.2500, L100.0100 #### [facility] [address] [place], [address] Platelet mean volume (Bld) [Entitic vol] 10.4 fL Normal 6.2-12.0 [facility] Comment on above: Performed By: #### L 700.6800, L500.2500, L100.0100 #### [facility] [address] [place], [address] Platelets (Bld) [#/Vol] 241 10*3/uL Normal 150-450 [facility] Comment on above: Performed By: #### L 700.6800, L500.2500, L100.0100 #### [facility] [address] [place], [address] RBC (Bld) [#/Vol] 4.22 10*6/uL Normal 4.2-5.4 [facility] Comment on above: Performed By: #### L 700.6800, L500.2500, L100.0100 #### [facility] [address] [place], [address] RDW SD 42.5 fl Normal 35.1-43.9 [facility] Comment on above: Performed By: #### L 700.6800, L500.2500, L100.0100 #### [facility] [address] [place], [address] WBC (Bld) [#/Vol] 5.4 10*3/uL Normal 4.4-11.0 [facility] Comment on above: Performed By: #### L 700.6800, L500.2500, L100.0100 #### [facility] [address] [place], [address] Emergency Department Summary on 04-24-2025 Emergency Department Summary [facility] Medical Records Department [address] [facility] [place] [address] Emergency Department Summary 04/24/25 MR#: [id number] Acct: [id number] Name: NORBERTO COTTON Rep #: [id number] : 2005 20 From: Tree Jones DO PCP: Care Physician,No Primary Status:DEP ER Location: ED HPI HPI - GI History of Present Illness Chief Complaint: Abd Pain Informant: patient Abdominal Pain/Flank Pain Onset: Days (5) Context: Gradual Onset Timing: Continuous Quality: Aching and Cramping Location: RLQ and LLQ Worsened by: Nothing Relieved by: Nothing Nausea/Vomiting/Emesis GI Symptom: Positive for Nausea; Negative for Vomiting Diarrhea/Melena/Hematochez ia GI Symptom: Negative for Diarrhea, Melena or Hematochezia Associated Symptoms Associated Symptoms: Negative for Dysuria, Frequency or Hematuria LMP: 5 days ago Narrative Narrative: Patient presents with abdominal pain that has been getting worse over the past 5 days. Patient states it is constant. Patient states it is gradually getting worse. Patient describes it as aching and cramping. Patient states it is mainly over the pelvis but is now starting to move up to the right mid abdomen. Patient states nothing makes it better and nothing makes it worse. Patient admits to some nausea but denies any vomiting. Patient denies any diarrhea, melena, or hematochezia. Patient denies any dysuria, frequency, or hematuria. Patient states her last menstrual period was 5 days ago just before her pain started. [facility] Depression Anxiety History of Holter monitoring Chest pain Abdominal pain Home Medications ???Medication ???Instructions ???Recorded ???Last Taken ???Type NK 04/24/25 Unknown History Allergy/AdvReac Type Severity Reaction Status Date / Time No Known Allergies Allergy Verified 04/24/25 18:19 Family History Grandmother Uterine cancer Diabetes Grandfather Brain aneurysm Diabetes Surgical History H/O dilation and curettage Social History adopted: No household members: significant other and friend(s) number of children: 0 current occupational status: employed current occupation: [employer] current occupational exposures/hazards: No pets and animals: Yes pets and animals: dog(s) and other details: Duck (3) history of recent travel: No sexually active: Yes Smoking Status: Current every day smoker tobacco type: e-cigarettes second hand [...] times per week duration: < 15 minutes/day sarah/muslim: Alevism seatbelt use: always do you feel safe at home: Yes additional social history: BF: Jeremiah - Traffic electrical experimental mechanic/construction ROS ROS ED Constitutional Constitutional ED: Denies chills or fever(s) Eyes Eyes: Denies blurry vision or change in vision ENT ENT ED: Denies rhinorrhea or sore throat Cardiovascular Cardiovascular: Denies chest pain or palpitations Respiratory/Chest Respiratory/Chest: Denies cough or dyspnea Gastrointestinal Gastrointestinal: Reports abdominal pain and nausea; Denies vomiting Genitourinary Genitourinary ED: Denies dysuria or hematuria Musculoskeletal Musculoskeletal: Denies back pain or neck pain Integumentary Denies abscess or rash Neurologic Neurologic: Denies headache(s) or weakness Allergic/Immunologic Allergic/Immunologic ED: Denies mouth swelling or urticaria EXAM Physical Exam Const Vital Signs: 04/24/25 18:19 04/24/25 18:37 04/24/25 20:13 Temperature 96.7 F L Temperature Source Temporal Pulse Rate 72 66 65 Respiratory Rate 16 16 16 Blood Pressure 105/70 108/74 105/77 Blood Pressure Mean 81 85 86 Pulse Ox 98 99 100 Oxygen Delivery Method Room Air Room Air Room Air Positive well nourished and well developed Constitutional Narrative: BMI is 18.8. General Appearance ED: well developed and NAD HEENT Reports moist mucous membranes normocephalic and atraumatic Neck supple and no JVD Resp normal respiratory effort and clear to auscultation bilaterally Cardio regular rate and regular rhythm GI non-distended Palpation: soft and tender LLQ, RLQ, periumbilical and suprapubic; Negative for guarding or rebound (more content not included)... Normal [facility] Gram Stainon 04-24-2025 GS Reason for Exam: pel bebo pain Gram Stain 3+ Gram negative rods 2+ Gram positive rods No Gram negative diplococci Score = 5 Interpretation: 0-3 Normal, 4-6 Intermediate, 7-10 Positive BV Normal [facility] Comment on above: Performed By: #### M 100.2000, L7000.1800, M100.3200 ####[facility] [address] [place], [address] M8200.2203on 04-24-2025 M8200.2203 Chlamydia Trachomati s PCR NEGATIVE for Chlamydia trachomatis N. gonorrhoeae PCR Negative for N. gonorrhoeae Normal [facility] Comment on above: Performed By: #### L 101.9900, L501.6710 #### [facility] [address] [place], [address] [employer] Office Visit Reporton 04-24-2025 [employer] Office Visit Report [facility] [address], [address] [place] [address] OFFICE VISIT Date of Service: 04/24/25 MR#: [id number] Acct: [id number] Name: NORBERTO COTTON Rep #: [id number] : 2005 Provider: TU Rhoades Age/Sex: 20/F Location: [facility] Status: Signed Intake Vital Signs 02/26/25 10:27 04/24/25 08:29 Height 5 ft 4 in 5 ft 4 in Weight: 106 lb 3 oz 111 lb 2 oz BMI 18.2 19.1 BP 109/74 105/72 Intake Visit Reasons: Pelvic pain Event Mgr Required: No Is patient in pain?: No Allergies No Known Allergies Allergy (Verified 04/24/25 08:27) Medications ???Medication ???Instructions ???Recorded ???Confirmed ???Type NK 02/09/25 04/24/25 History Is last menstrual period known: Yes Last Menstrual Period: 04/19/25 Post menopausal: No Patient : No : No PFSH Medical History Depression Anxiety History of Holter monitoring Chest pain Abdominal pain Surgical History H/O dilation and curettage Family History Grandmother Uterine cancer Diabetes Grandfather Brain aneurysm Diabetes Social History adopted: No household members: significant other and friend(s) number of children: 0 current occupational status: employed current occupation: [employer] current occupational exposures/hazards: No pets and animals: [...] times per week duration: < 15 minutes/day sarah/muslim: Alevism seatbelt use: always do you feel safe at home: Yes additional social history: BF: Jeremiah - Traffic electrical experimental mechanic/construction HPI Pain in female pelvis Details: NORBERTO COTTON is a 20 year old who presents for pelvic pain; she had a D C in January. She feels like the cramping is similar to period cramps. She has had this pelvic pain since this surgery off and on; and then after her last period she feels her cramps have worsened and since her last menses has been constant. She rates her pain as a 6/10. Has tried tylenol and ibuprofen with no relief. She reports she had menses on Mar 17 and then April 15. She has been sexually active; unprotected. She was on vacation; did go in hot tub. Does not have burning with urination or frequency. Tested positive for CH during . She was retested after treatment however partner was not. Female Reproductive History Last Menstrual Period: 04/19/25 History 1 Elective abortions 0 Hx Para 0 Spontaneous abortions 1 Hx # Term Pregnancies Ectopic pregnancies Hx # Pregnancies Multiple births # of living children 0 Past Pregnancies Del. Date Name GA/Weeks Outcome Route Bth Weight Infant Gen Labor Lgth Anesthesia Del [facility] Provider FOB 02/12/25 13 spontaneous Delivery Date: 02/12/25 Last Updated by: FRANCK Houser C w/SM - measuring 9wks ROS Const Constitutional: Denies body ache, chills, fatigue or fever(s) Cardio Card: Denies chest pain at rest or palpitations Resp Resp: Denies dyspnea GI GI: Denies abdominal pain : Reports pelvic pain and vaginal discharge (milky white); Denies difficulty voiding, dysuria, urinary frequency, urinary hesitancy, urinary urgency, vaginal dryness, vaginal odor or vaginal pruritus Exam Const General: cooperative, healthy appearing, comfortable, no acute distress and well developed Nutritional Appearance: well nourished Orientation: alert, awake and oriented x3 Resp Effort Inspection: normal respiratory effort, able to speak in complete sentences and symmetric chest movement GI Inspection: normal to inspection Palpation: soft and no hepatosplenomegaly General: bladder normal to palpation External Female Exam: normal external appearance and normal appearance of the urethra Urethra: normal appearance of the urethra Speculum Exam - Vagina: normal appearance of the vagina, normal vaginal discharge, no lesions and nontender Speculum Exam - Cervix: normal appearance of the cervix, no lesions and no masses Bimanual Exam- Vagina Uterus: normal (more content not included)... Normal [facility] ,Serum,hCG Quali.on 04-24-2025 HCG, SERUM QUAL Negative Normal [facility] Comment on above: Performed By: #### L 700.6800, L500.2500, L100.0100 #### [facility] [address] [place], [address] Urinalysis, Completeon 04-24 EPI,SQUAMOUS 5-10 SEEN Normal 5-10 [facility] Comment on above: Order Comment: CLEAN CATCH Performed By: #### L 400.0001 #### [facility] [address] [place], [address] RBC 0-5 SEEN Normal 0-5 [facility] Comment on above: Order Comment: CLEAN CATCH Performed By: #### L 400.0001 #### [facility] [address] [place], [address] WBC 0-5 SEEN Normal 0-5 [facility] Comment on above: Order Comment: CLEAN CATCH Performed By: #### L 400.0001 #### [facility] [address] [place], [address] BACTERIA 0 SEEN Normal None Seen [facility] Comment on above: Order Comment: CLEAN CATCH Performed By: #### L 400.0001 #### [facility] [address] [place], [address] Mucus Ql (Urine sed) 0 SEEN Normal [facility] Comment on above: Order Comment: CLEAN CATCH Performed By: #### L 400.0001 #### [facility] [address] [place], [address] M8200.2203on 02-26-2025 M8200.2203 Pending Chlamydia Trachomatis PCR NEGATIVE for Chlamydia trachomatis N. gonorrhoeae PCR Negative for N. gonorrhoeae Normal [facility] Comment on above: Performed By: #### L 101.9900, L501.6710 #### [facility] [address] [place], [address] [employer] Office Visit Reporton 02-26-2025 [employer] Office Visit Report [facility] [address], [address] [place] [address] OFFICE VISIT Date of Service: 02/26/25 MR#: [id number] Acct: [id number] Name: NORBERTO COTTON Rep #: [id number] : 2005 Provider: Dr. Antonai lorenz MD Age/Sex: 20/F Location: [facility] Status: Signed Intake Vital Signs 02/12/25 06:56 02/19/25 15:15 02/26/25 10:27 Height 5 ft 4 in 5 ft 4 in 5 ft 4 in Weight: 106 lb 3 oz BMI 18.2 BP 109/74 Intake Visit Reasons: 2wk D C Event Mgr Required: No Is patient in pain?: No (some cramping) Allergies No Known Allergies Allergy (Verified 02/26/25 10:28) Medications ???Medication ???Instructions ???Recorded ???Confirmed ???Type NK 02/09/25 02/26/25 History Post menopausal: No Patient : No : No [facility] Medical History (Updated 02/17/25 @ 00:01 by [...] occupational status: employed current occupation: [employer] current occupational exposures/hazards: No pets and animals: [...] times per week duration: < 15 minutes/day sarah/muslim: Alevism seatbelt use: always do you feel safe at home: Yes additional social history: BF: Jeremiah - Traffic 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 Spec OB SEE PATHOLOGY REPORT Normal [facility] Comment on above: Order Comment: Comme nts: [...] testing. Performed By: #### L 350.1800 #### [facility] [address] [facility] [place], [address] Discharge Instructionon 01-24 Discharge Instruction [facility] Medical Records Department [address] [place] [address] Instructions for Home/Discharge Instructions 02/12/25 0753 MR#: [id number] Acct: [id number] Name: NORBERTO COTTON Rep #: [id number] : 2005 20 From: Antonia Connolly MD PCP: Care Physician,No Primary Status:DEP [facility] Discharge Instructions DC O2, CPAP, BIPAP needs [...] Up With: Antonia Connolly MD When: Call [phone] to schedule appointment. Test Results: Test results from this visit will be discussed in further detail at your follow-up appointment, if applicable. Discharge Plan Admission Attending Provider: Antonia Connolly Primary Care Provider: Care Physician,No Primary Instructions Print Language: Turkmen Discharge Orders/Prescriptions Prescriptions: No Action NK Referrals / Follow Up: Care Physician,No Primary [Primary Care Provider] - Disposition Disposition (needs filled in before D/C Order can be placed): Home, Self Care 02/13/25 0831 Antonia Connolly MD CC: No Primary Care Physician Signed Normal [facility] H AND P Exam - OB/GYNon 01-24 H&P Exam - COLORED LIQUID PLASTIC APPLIER [facility] Medical Records Department [address] [place] [address] H P Exam - COLORED LIQUID PLASTIC APPLIER 02/12/25 0715 MR#: [id number] Acct: [id number] Name: NORBERTO COTTON Rep #: [id number] : 2005 20 From: Antonia Connolly MD PCP: Care Physician,No Primary Status:REG [facility] Location: [place] [address] HPI - General HPI Narrative NORBERTO COTTON, [...] occupational status: employed current occupation: [employer] current occupational exposures/hazards: No pets and animals: [...] times per week duration: < 15 minutes/day sarah/muslim: Alevism seatbelt use: always do you feel safe at home: Yes additional social history: BF: Jeremiah - Traffic 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 ??-???-???-???-???-???- Negative -???-???-???-???-???-???-? ??-???-???-???-???-???- RENY- PHOEBE darell y is measuring weeks 1 day without heart tones. No signs of DARNELL. patient denies bleeding or cramping. She was seen in the ER recently for heart burn but had no OB complaints. Plan is for suction D C. grief counseling offered and oiaecx-wx-ixe basket given. ROS Constitutional Constitutional: Reports systems [...] except as d (more content not included)... [facility] MR/POSTOP.ANEon 02-12-2025 MR/POSTOP.ANE [facility] Medical Records Department [address] [facility] [place] [address] Anesthesia Postop Eval I 02/12/25928 MR#: [id number] Acct: [id number] Name: NORBERTO COTTON Rep #: [id number] : 2005 From: Cristóbal Holm CRNA PCP: Care Physician,No Primary Status:JOVANNY Bermudez Race: C Location: [facility] Anesthesia: Postop Eval I Current Vital Signs [...] 1 completed: Yes 02/12/25929 Date Cristóbal Holm FINANCIAL ASSISTANCE SPECIALIST Cosigner Signature: Date CC: Signed [facility] MR/WUUPSMBH3da 02-12-2025 MR/POSTOPAN2 [facility] Medical Records Department [address] [place] [address] Anesthesia Postop Eval II 02/12/25933 MR#: [id number] Acct: [id number] Name: NORBERTO COTTON Rep #: [id number] : 2005 From: Nawaf Wright MD PCP: Care Physician,No Primary Status:DEP SDC Y Race: C Location: [facility] Anesthesia Postop Eval I Sum Postop Eval Completion status Anesthesia document: Postop Eval 1 completed: Yes Anesthesia Postop Eval I Summary Anesthesia Postop Eval I Summary: Anesthesia Postop Eval I: Assessment Summary Airway patent Yes 02/12/25 09:30 FINANCIAL ASSISTANCE SPECIALIST.JBLOU Spontaneous unlabored Yes 02/12/25 09:30 FINANCIAL ASSISTANCE SPECIALIST.JBLOU respirations Mental status Awake,Calm 02/12/25 09:30 FINANCIAL ASSISTANCE SPECIALIST.JBLOU nausea No 02/12/25 09:30 FINANCIAL ASSISTANCE SPECIALIST.JBLOU Vomiting No 02/12/25 09:30 FINANCIAL ASSISTANCE SPECIALIST.JBLOU Anesthesia Postop Eval I: Fluid Summary Crystalloid volume administer 600 02/12/25 09:30 FINANCIAL ASSISTANCE SPECIALIST.JBLOU (ml) Colloids volume administered ( ml) Blood Product volume administered (ml) Total IV fluid infused 600 02/12/25 09:30 FINANCIAL ASSISTANCE SPECIALIST.JBLOU Anesthesia Postop Eval I: Summary Notes Anesthesia Complication No 02/12/25 09:30 FINANCIAL ASSISTANCE SPECIALIST.JBLOU Anesthesia Complication Comment: Post-operative progress note Anesthesia: Postop Eval II Evaluation Mental status: Awake Pain Level: 0 nausea: No Vomiting: No Complications Anesthesia Complication: No 02/12/25933 Date Nawaf Wright MD Cosigner Signature: Date CC: Signed Normal [facility] Operative Reporton 5 Operative Report [facility] Medical Records Department [address] [place] [address] Operative Report 02/12/25 0751 MR#: [id number] Acct: [id number] Name: NORBERTO COTTON Rep #: [id number] : 2005 20 From: Antonia Connolly MD PCP: Care Physician,No Primary Status:REG [facility] Location: AC AC22-1 Problems Associated Problem List Diagnoses (1) Missed with demise before 20 completed weeks of gestation: (2) H/O dilation and curettage: Procedures Urinary/Genital 52xxx-59xxx: 93960 Trmt of incomplete Ab, any TM Operative Report (Standard) Operative Information Date of Procedure: 02/12/25 Pre-Operative Diagnosis: see problem list comments Post-Operative Diagnosis: same Surgery/Procedure Performed: suction dilation and curettage date night caregiver: No Type of Anesthesia: IV Sedation and [...] to be 13 Complications Complications: No 02/12/25 08 Cosigner Signature (if applicable): CC: Dr. Antonia Connolly MD; No Primary Care Physician Signed ADDENDUM by Dr. Antonia Connolly MD on 02/12/25 at 0809 Multi Select Codes Urinary/Genital Urinary/Genital CPT Codes: 21885 Surg Trtmt missed Ab 1TM 02/12/25 0809 Cosigner Signature (if applicable): cc: Dr. Antonia Connolly MD; No Primary Care Physician * Signed Normal [facility] Surgery Specimen Level Edgar 02-12-2025 Surgery Specimen Level IV Patient Age/Sex Location Account Attending Physician LULANORBERTO DARYL [facility] [id number] Dr. Antonia Connolly MD Specimen: [id number] Received: 02/12/25 Status: DAMARIS Leiva Num: [id number] Spec Type: PROD CONC Subm Dr: Dr. [...] Chorionic villi is identified. parts are present. Rod Machine Operator sections are collected fresh for Anora testing. Rod Machine Operator sections are submitted in 3 cassettes, to include the parts in cassette A3. CO 02/12/2025 [facility]:[id number] Patient Age/Sex Location Account Attending Physician NORBERTO COTTON [facility] [id number] Dr. Antonia Connolly MD Signed (signature on file) Dr. Leti Garnica DO 02/13/25 1246 Normal [facility] Comment on above: Performed By: #### P SUIV ####[facility] [id number] [facility] [place], [place], [address] Type AND Screen - PAT ONLYon 02-12-2025 ABO and Rh group Nom (Bld) Blood group A Rh(D) positive Normal [facility] Comment on above: Order Comment: Surge ry Date: 02/12/25Reason for Laboratory Test [id number] D C Performed By: #### B TSPAT ####[facility] [id number] [facility] [place], [place], [address] MR/PAT.ANEon 02-11-2025 MR/PAT.ANE [facility] Medical Records Department [address] [place] [address] PAT - Anesthesia 02/11/25 1249 MR#: [id number] Acct: [id number] Name: NORBERTO COTTON Rep #: [id number] : 2005 20 From: Dwayne Flores MD PCP: Care Physician,No Primary Status:PRE [facility] Y Race: C Location: [facility] Pre-Assessment Diagnosis/Proposed Procedure Planned Operative Procedure(s): SUCTION D C Anesthesia History Anesthesia History - pharmaceutical service representative: Anesthesia History - pharmaceutical service representative Hx Hospitalization No 02/11/25 08:12 Any Problems [...] take am of surgery PONV PONV - pharmaceutical service representative: PONV - pharmaceutical service representative Female Yes 02/11/25 08:12 HX of Motion [...] 02/10/25 14:09 Respiratory Assessment Respiratory Assessment - pharmaceutical service representative: Respiratory Tract Infection Hx - pharmaceutical service representative Hx Respiratory Tract Infection No 02/11/25 08:12 STOP Sleep Apnea STOP Sleep Apnea - pharmaceutical service representative: STOP Sleep Apnea - pharmaceutical service representative Hx Hypertension No 02/11/25 08:12 Hx Sleep [...] Tobacco Use History Tobacco Use History - pharmaceutical service representative: Tobacco Use History - pharmaceutical service representative Tobacco Use Smoking Status Former smoker 02/11/25 08:12 Hx Tobacco Use No 02/11/25 08:12 Years Smoking Packs Smoked per Day Smoking Cessation Date was Yes - quit smoking within 15 02/11/25 08:12 within the last 15 years years Hx Smoking Cessation Date Hx Smoking Cessation Counseling Hematologic Medial History Hematologic Hx - pharmaceutical service representative: Hematologic Medical Hx - manager marketing communication Hx of Blood Transfusion No 02/11/25 08:12 [...] confused, unrespo /Reproduction History /Reproductive History - pharmaceutical service representative: /Reproductive Hx- pharmaceutical service representative Hx Now SUCTION D C 02/11/25 08:12 [...] friend(s) nu (more content not included)... Normal [facility] [employer] Office Visit Reporton 02-10-2025 [employer] Office Visit Report [facility] [address], [address] [place] [address] OFFICE VISIT Date of Service: 02/10/25 MR#: [id number] Acct: [id number] Name: NORBERTO COTTON Rep #: [id number] : 2005 Provider: Dr. Daisy Pacheco DO Age/Sex: 20/F Location: [facility] Status: Signed Intake Vital Signs 12/19/24 14:59 02/09/25 00:08 02/10/25 14:09 Height 5 ft 4 in 5 ft 4 in 5 ft 4 in Weight: 106 lb 5 oz BMI 18.2 BP 98/64 Intake Visit Reasons: 13wk OB, discuss recent tx for STD Chief Complaint: 13 Week OB/discuss tx for std Event Mgr Required: No Is patient in pain?: No [...] current occupational status: employed current occupation: [employer] current occupational exposures/hazards: No pets and animals: [...] times per week duration: < 15 minutes/day sarah/muslim: Alevism seatbelt use: always do you feel safe at home: Yes additional social history: BF: Jeremiah - 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 grief counseling offered and vuavyl-qd-xan basket given. ACOG First Trimester First Trimester: Desire for , Alcohol, Tobacco Cessation, Illicit/Recreational Drug/Substance Use, Intimate Partner Violence, Barriers to care, Unstable Housing, Communication Barriers, Environmental/Work Hazards, Anticipated Course of Care, Toxoplasmosis P (more content not included)... Normal [facility] 12 Lead EKGon 02-09-2025 12 Lead EKG [facility] Cardiovascular Services [address] [place] [address] 12 Lead EKG 02/09/25 0015 MR#: [id number] Acct: [id number] Name: NORBERTO COTTON Rep #: [id number] : 2005 20 From: Yoshi Downs MD [...] short ID Otherwise normal ECG Confirmed by RACHAEL RABAGO, YOSHI ([id number]), editor in chief newspaper [address] ([id number]) on 02/10/2025 6:13:20 AM Referred By: Confirmed By: YOSHI DOWNS MD 02/10/25612 Date Yoshi Downs MD CC: Dr. Fredi Sorenson MD; No Primary Care Physician Signed Normal [facility] Absolute lymphocyte countOrd ered By: Fredi Sorenson on 02-09-2025 Lymphocytes Auto (Unsp spec) [#/Vol] 2.53 10*3/uL 0.83-4.51 [facility] Absolute neutrophil countOrd ered By: Fredi Sorenson on 02-09-2025 Neutrophils (Bld) [#/Vol] 2.5 10*3/uL 2.0-7.7 [facility] Anion gap in Serum or Plasma Ordered By: Fredi Sorenson on 02-09-2025 Anion gap [Moles/Vol] 10 mmol/L 5-15 [facility] Automated lymphocyte count a s percentage of total leukocytesOrdered By: Fredi Sorenson on 02-09-2025 Lymphocytes/100 WBC Auto (Unsp spec) 45.1 % High 19-41 [facility] BUN/creatinine ratioOrdered By: Fredi Sorenson on 02-09-2025 Urea nitrogen/Creatinine [Mass ratio] 24.2 mg/mg High 10-20 [facility] Basic Metabolic Profile (BMP )on 02-09-2025 BUN/CRE 24.2 RATIO High 10- [facility] Comment on above: Performed By: #### L 101.9900, L501.6710 #### [facility] [address] [place], [address] Calcium [Mass/Vol] 9.0 mg/dL Normal 7.6-11.0 [facility] Comment on above: Performed By: #### L 101.9900, L501.6710 #### [facility] [address] [place], [address] Chloride [Moles/Vol] 107 mmol/L Normal 98-108 [facility] Comment on above: Performed By: #### L 101.9900, L501.6710 #### [facility] [address] [place], [address] CO2 [Moles/Vol] 21.4 mmol/L Normal 21.0-32.0 [facility] Comment on above: Performed By: #### L 101.9900, L501.6710 #### [facility] [address] [place], [address] Creatinine [Mass/Vol] 0.51 mg/dL Low 0.70-1.20 [facility] Comment on above: Performed By: #### L 101.9900, L501.6710 #### [facility] [address] [place], [address] ECRCL 150.68 ml/min Normal 50-250 [facility] Comment on above: Performed By: #### L 101.9900, L501.6710 #### [facility] [address] [place], [address] GAP 10 Normal 5-15 [facility] Comment on above: Performed By: #### L 101.9900, L501.6710 #### [facility] [address] [place], [address] GFR/1.73 sq M.predicted among non-blacks MDRD (S/P/Bld) [Vol rate/Area] 136 mL/min/{1.73_m2} Normal >60 [facility] Comment on above: Result Comment: mL/m in/1.73m2 CKD-EPI Creatinine Equation (2020) Performed By: #### L 101.9900, L501.6710 #### [facility] [address] [place], [address] Glucose [Mass/Vol] 103 mg/dL High 70-99 [facility] Comment on above: Performed By: #### L 101.9900, L501.6710 #### [facility] [address] [place], [address] Potassium [Moles/Vol] 3.7 mmol/L Normal 3.3-5.1 [facility] Comment on above: Performed By: #### L 101.9900, L501.6710 #### [facility] [address] [place], [address] Sodium [Moles/Vol] 138 mmol/L Normal 133-145 [facility] Comment on above: Performed By: #### L 101.9900, L501.6710 #### [facility] [address] [place], [address] Urea nitrogen [Mass/Vol] 12 mg/dL Normal 4-19 [facility] Comment on above: Performed By: #### L 101.9900, L5.10 #### [facility] [address] [place], [address] Basophil percentageOrdered B y: Fredi Sorenson on 02-09-2025 Basophils/100 WBC (Bld) 0.4 % 0-1 [facility] CBC W/Diff, Automatedon 01-23 Absolute Lymph 2.53 X10 3/uL Normal 0.83-4.51 [facility] Comment on above: Performed By: #### L 101.9900, L5.6710 #### [facility] [address] [place], [address] Absolute Neut 2.5 X10 3/uL Normal 2.0-7.7 [facility] Comment on above: Performed By: #### L 101.9900, L501.6710 #### [facility] [address] [place], [address] Basophils/100 WBC (Bld) 0.4 % Normal 0-1 [facility] Comment on above: Performed By: #### L 101.9900, L501.6710 #### [facility] [address] [place], [address] Eosinophils/100 WBC (Bld) 0.7 % Normal 0-5 [facility] Comment on above: Performed By: #### L 101.9900, L501.6710 #### [facility] [address] [place], [address] Erythrocyte distribution width (RBC) [Ratio] 12.8 % Normal 11.6-14.6 [facility] Comment on above: Performed By: #### L 101.9900, L501.6710 #### [facility] [address] [place], [address] Hematocrit (Bld) [Volume fraction] 32.3 % Low 37-47 [facility] Comment on above: Performed By: #### L 101.9900, L5.10 #### [facility] [address] [place], [address] Hemoglobin (Bld) [Mass/Vol] 10.8 g/dL Low 12.0-15.0 [facility] Comment on above: Performed By: #### L 101.9900, L501.6710 #### [facility] [address] [place], [address] IG% 0.200 Normal 0.0-0.9 [facility] Comment on above: Result Comment: IG% - Immature Granulocytes (promyelocytes, myelocytes and metamyelocytes) > 1% indicates that a LEFT SHIFT is Present. Performed By: #### L 101.9900, L501.6710 #### [facility] [address] [place], [address] Lymphocytes/100 WBC (Bld) 45.1 % High 19-41 [facility] Comment on above: Performed By: #### L 101.9900, L5.6710 #### [facility] [address] [place], [address] MCH (RBC) [Entitic mass] 31.5 pg Normal 27.0-32.0 [facility] Comment on above: Performed By: #### L 101.9900, L501.6710 #### [facility] [address] [place], [address] MCHC (RBC) [Mass/Vol] 33.4 g/dL Normal 32-36 [facility] Comment on above: Performed By: #### L 101.9900, L501.6710 #### [facility] [address] [place], [address] MCV (RBC) [Entitic vol] 94.2 fL Normal 81-99 [facility] Comment on above: Performed By: #### L 101.9900, L501.6710 #### [facility] [address] [place], [address] Monocytes/100 WBC (Bld) 8.7 % Normal 0-10 [facility] Comment on above: Performed By: #### L 101.9900, L501.6710 #### [facility] [address] [place], [address] Neutrophils/100 WBC (Bld) 44.9 % Low 47-70 [facility] Comment on above: Performed By: #### L 101.9900, L501.6710 #### [facility] [address] [place], [address] Nucleated RBC (Bld) [#/Vol] 0 10*3/uL Normal 0-5 [facility] Comment on above: Performed By: #### L 101.9900, L501.6710 #### [facility] [address] [place], [address] Platelet mean volume (Bld) [Entitic vol] 9.7 fL Normal 6.2-12.0 [facility] Comment on above: Performed By: #### L 101.9900, L501.6710 #### [facility] [address] [place], [address] Platelets (Bld) [#/Vol] 218 10*3/uL Normal 150-450 [facility] Comment on above: Performed By: #### L 101.9900, L501.6710 #### [facility] [address] [place], [address] RBC (Bld) [#/Vol] 3.43 10*6/uL Low 4.2-5.4 [facility] Comment on above: Performed By: #### L 101.9900, L501.6710 #### [facility] [address] [place], [place], [address] RDW SD 44.5 fl High 35.1-43.9 [facility] Comment on above: Performed By: #### L 101.9900, L501.6710 #### [facility] [address] [place], [address] WBC (Bld) [#/Vol] 5.6 10*3/uL Normal 4.4-11.0 [facility] Comment on above: Performed By: #### L 101.9900, L501.6710 #### [facility] [address] [place], [address] Carbon dioxide, total [Moles /volume] in Central venous bloodOrdered By: Fredi Sorenson on 02-09-2025 CO2 [Moles/Vol] 21.4 mmol/L 21.0-32.0 [facility] Chloride assayOrdered By: Nate Sorenson on 02-09-2025 Chloride [Moles/Vol] 107 mmol/L 98-108 [facility] D-Dimer Quantitative (DVT/PE )on 02-09-2025 D-DIMER QUANT < 0.27 Low 0.27-0.49 [facility] Comment on above: Result Comment: NORM AL D-Dimer level (<0.50) indicates no DVT or PE. Performed By: #### L 101.9900, L501.6710 #### [facility] [address] [place], [address] Emergency Department Summary on 02-09-2025 Emergency Department Summary [facility] Medical Records Department [address] [place] [address] Emergency Department Summary 02/09/25 MR#: [id number] Acct: [id number] Name: NORBERTO COTTON Rep #: [id number] : 2005 20 From: Fredi Sorenson MD [...] TAD Risk Factors: Negative for Marfan's Syndrome [facility] Medical History Abdominal pain Home Medications ???Medication ???Instructions ???Recorded ???Last Taken ???Type NK 02/09/25 Unknown History Allergy/AdvReac Type Severity Reaction Status Date / Time No Known Allergies Allergy Verified 01/12/25 10:43 Family History Grandmother Uterine cancer Diabetes Grandfather Brain aneurysm Diabetes Social History adopted: No household members: significant other and friend(s) number of children: 0 current occupational status: employed current occupation: [employer] current occupational exposures/hazards: No pets and animals: [...] times per week duration: < 15 minutes/day sarah/muslim: Alevism seatbelt use: always do you feel safe at home: Yes additional social history: BF: [employer] 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 Normal [facility] Eosinophil percentageOrdered By: Fredi Sorenson on 02-09-2025 Eosinophils/100 WBC (Bld) 0.7 % 0-5 [facility] Erythrocyte distribution wid th ratioOrdered By: Fredi Sorenson on 02-09-2025 Erythrocyte distribution width (RBC) [Ratio] 12.8 % 11.6-14.6 [facility] Erythrocyte distribution wid th standard deviationOrdered By: Fredi Sorenson on 02-09-2025 Erythrocyte distribution width (RBC) [Ratio] 44.5 fl High 35.1-43.9 [facility] Glomerular filtration rate ( GFR) estimation/1.73 sq m using serum, plasma, or whole bOrdered By: Fredi Sorenson on 02-09-2025 GFR/1.73 sq M.predicted among non-blacks MDRD (S/P/Bld) [Vol rate/Area] 136 mL/min/{1.73_m2} >60 [facility] Comment on above: mL/min/1.73m2 CKD-EP I Creatinine Equation (2020) Hematocrit Auto (Bld) [Volum e fraction]Ordered By: Fredi Sorenson on 02-09-2025 Hematocrit (Bld) [Volume fraction] 32.3 % Low 37-47 [facility] Hemoglobin measurementOrdere d By: Fredi Sorenson on 02-09-2025 Hemoglobin (Bld) [Mass/Vol] 10.8 g/dL Low 12.0-15.0 [facility] Immature granulocytes/100 WB C Auto (Bld)Ordered By: Fredi Sorenson on 02-09-2025 Immature granulocytes/100 WBC (Bld) 0.200 % 0.0-0.9 [facility] Comment on above: IG% - Immature Granu locytes (promyelocytes, myelocytes and metamyelocytes) > 1% indicates that a LEFT SHIFT is Present. L501.4021on 02-09-2025 Trop T High Sen < 6 Normal <=14 [facility] Comment on above: Performed By: #### L 101.9900, L501.6710 #### [facility] [place], [address] MCV (mean corpuscular volume ) determinationOrdered By: Fredi Sorenson on 02-09-2025 MCV (RBC) [Entitic vol] 94.2 fL 81-99 [facility] Mean corpuscular hemoglobin (MCH) determinationOrdered By: Fredi Sorenson on 02-09-2025 MCH (RBC) [Entitic mass] 31.5 pg 27.0-32.0 [facility] Mean corpuscular hemoglobin concentration (MCHC) determinationOrdered By: Fredi Sorenson on 02-09-2025 MCHC (RBC) [Mass/Vol] 33.4 g/dL 32-36 [facility] Mean platelet volume determi nationOrdered By: Fredi Sorenson on 02-09-2025 Platelet mean volume (Bld) [Entitic vol] 9.7 fL 6.2-12.0 [facility] Monocyte percentageOrdered B y: Fredi Sorenosn on 02-09-2025 Monocytes/100 WBC (Bld) 8.7 % 0-10 [facility] Neutrophil percentageOrdered By: Fredi Sorenson on 02-09-2025 Neutrophils/100 WBC (Bld) 44.9 % Low 47-70 [facility] Nucleated red blood cell per centageOrdered By: Fredi Sorenson on 02-09-2025 Nucleated RBC/100 WBC (Bld) [Ratio] 0 % 0-5 [facility] Platelet countOrdered By: Nate Sorenson on 02-09-2025 Platelets (Bld) [#/Vol] 218 10*3/uL 150-450 [facility] Potassium measurement (mass/ volume)Ordered By: Fredi Sorenson on 02-09-2025 Potassium (Unsp spec) [Mass/Vol] 3.7 mmol/L 3.3-5.1 [facility] RBC Auto (Bld) [#/Vol]Ordere d By: Fredi Sorenson on 02-09-2025 RBC (Bld) [#/Vol] 3.43 10*6/uL Low 4.2-5.4 [facility] Serum creatinine measurement (mass/volume)Ordered By: Fredi Sorenson on 02-09-2025 Creatinine [Mass/Vol] 0.51 mg/dL Low 0.70-1.20 [facility] Serum glucose measurement (m ass/volume)Ordered By: Fredi Sorenson on 02-09-2025 Glucose [Mass/Vol] 103 mg/dL High 70-99 [facility] Serum or plasma calcium nancy urement (mass/volume)Ordered By: Fredi Sorenson on 02-09-2025 Calcium [Mass/Vol] 9.0 mg/dL 7.6-11.0 [facility] Serum or plasma urea nitroge n measurement (mass/volume)Ordered By: Fredi Sorenson on 02-09-2025 Urea nitrogen [Mass/Vol] 12 mg/dL 4-19 [facility] Sodium levelOrdered By: Fredi Sorenson on 02-09-2025 Sodium [Moles/Vol] 138 mmol/L 133-145 [facility] Troponin T HS 2 HRon 025 Trop T High Sen Normal <=14 [facility] Comment on above: Result Comment: Shelby cordoba via OM: Ordered Performed By: #### L 499.0042 #### [facility] [address] [place], [address] Troponin T.cardiac [Mass/vol ume] in Serum or Plasma by High sensitivity methodOrdered By: Fredi Sorenson on 02-09-2025 Troponin T.cardiac High sensitivity method [Mass/Vol] < 6 ng/L <14 [facility] White blood cell (WBC) count Ordered By: Fredi Sorenson on 02-09-2025 WBC (Bld) [#/Vol] 5.6 10*3/uL 4.4-11.0 [facility] Vitamin B1, Thiamineon 01-22 VIT B1 THIAMINE 98.0 nmol/L Normal 66.5-200.0 [facility] Comment on above: Order Comment: Test( s) 039161-Akm. B1, Whole Bloodwas developed and its performance characteristicsdetermined by [facility]. It has not been cleared or approvedby the Food and Drug Administration.NIPT w/gender Result Comment: Perf ormed at: - [address] [id number] Specialty Plant Supervisor: Elaine Hernández MD, Phone: [phone] Performed By: #### L 3890.6301, L3300.8000, L100.0100, L503.6030, BTS, L3890.6006, L503.6550, L509.4006, L3890.6102, L900.0098, L503.0106, L509.8002 ####[facility] [address] [place], [place], [id number] Absolute lymphocyte countOrd ered By: Antonia Connolly on 01-20-2025 Lymphocytes Auto (Unsp spec) [#/Vol] 1.87 10*3/uL 0.83-4.51 [facility] Absolute neutrophil countOrd ered By: Antonia Connolly on 01-20-2025 Neutrophils (Bld) [#/Vol] 3.7 10*3/uL 2.0-7.7 [facility] Automated lymphocyte count a s percentage of total leukocytesOrdered By: Antonia Connolly on 01-20-2025 Lymphocytes/100 WBC Auto (Unsp spec) 31.4 % 19-41 [facility] Basophil percentageOrdered B y: Antonia Connolly on 01-20-2025 Basophils/100 WBC (Bld) 0.3 % 0-1 [facility] CBC W/Diff, Automatedon - Absolute Lymph 1.87 X10 3/uL Normal 0.83-4.51 [facility] Comment on above: Performed By: #### L 499.0042 #### [facility] [address] [place], [place], [id number] Absolute Neut 3.7 X10 3/uL Normal 2.0-7.7 [facility] Comment on above: Performed By: #### L 499.0042 #### [facility] [address] [place], [address] Basophils/100 WBC (Bld) 0.3 % Normal 0-1 [facility] Comment on above: Performed By: #### L 499.0042 #### [facility] [address] [place], [address] Eosinophils/100 WBC (Bld) 0.2 % Normal 0-5 [facility] Comment on above: Performed By: #### L 499.0042 #### [facility] [address] [place], [address] Erythrocyte distribution width (RBC) [Ratio] 12.6 % Normal 11.6-14.6 [facility] Comment on above: Performed By: #### L 499.0042 #### [facility] [address] [place], [address] Hematocrit (Bld) [Volume fraction] 33.4 % Low 37-47 [facility] Comment on above: Performed By: #### L 499.0042 #### [facility] [address] [place], [address] Hemoglobin (Bld) [Mass/Vol] 11.0 g/dL Low 12.0-15.0 [facility] Comment on above: Performed By: #### L 499.0042 #### [facility] [address] [place], [address] IG% 0.200 Normal 0.0-0.9 [facility] Comment on above: Result Comment: IG% - Immature Granulocytes (promyelocytes, myelocytes and metamyelocytes) > 1% indicates that a LEFT SHIFT is Present. Performed By: #### L 499.0042 #### [facility] [address] [place], [address] Lymphocytes/100 WBC (Bld) 31.4 % Normal 19-41 [facility] Comment on above: Performed By: #### L 499.0042 #### [facility] [address] [place], [address] MCH (RBC) [Entitic mass] 31.2 pg Normal 27.0-32.0 [facility] Comment on above: Performed By: #### L 499.0042 #### [facility] [address] [place], [address] MCHC (RBC) [Mass/Vol] 32.9 g/dL Normal 32-36 [facility] Comment on above: Performed By: #### L 499.0042 #### [facility] [address] [place], [address] MCV (RBC) [Entitic vol] 94.6 fL Normal 81-99 [facility] Comment on above: Performed By: #### L 499.0042 #### [facility] [address] [place], [address] Monocytes/100 WBC (Bld) 5.9 % Normal 0-10 [facility] Comment on above: Performed By: #### L 499.0042 #### [facility] [address] [place], [address] Neutrophils/100 WBC (Bld) 62.0 % Normal 47-70 [facility] Comment on above: Performed By: #### L 499.0042 #### [facility] [address] [place], [address] Nucleated RBC (Bld) [#/Vol] 0 10*3/uL Normal 0-5 [facility] Comment on above: Performed By: #### L 499.0042 #### [facility] [address] [place], [address] Platelet mean volume (Bld) [Entitic vol] 11.6 fL Normal 6.2-12.0 [facility] Comment on above: Performed By: #### L 499.0042 #### [facility] [address] [place], [address] Platelets (Bld) [#/Vol] 165 10*3/uL Normal 150-450 [facility] Comment on above: Performed By: #### L 499.0042 #### [facility] [address] [place], [address] RBC (Bld) [#/Vol] 3.53 10*6/uL Low 4.2-5.4 [facility] Comment on above: Performed By: #### L 499.0042 #### [facility] [address] [place], [address] RDW SD 43.6 fl Normal 35.1-43.9 [facility] Comment on above: Performed By: #### L 499.0042 #### [facility] [address] [place], [address] WBC (Bld) [#/Vol] 6.0 10*3/uL Normal 4.4-11.0 [facility] Comment on above: Performed By: #### L 499.0042 #### [facility] [address] [place], [address] Eosinophil percentageOrdered By: Antonia Connolly on 01-20-2025 Eosinophils/100 WBC (Bld) 0.2 % 0-5 [facility] Erythrocyte distribution wid th ratioOrdered By: Antonia Connolly on 01-20-2025 Erythrocyte distribution width (RBC) [Ratio] 12.6 % 11.6-14.6 [facility] Erythrocyte distribution wid th standard deviationOrdered By: Antonia Connolly on 01-20-2025 Erythrocyte distribution width (RBC) [Ratio] 43.6 fl 35.1-43.9 [facility] Ferritinon 01-20-2025 Ferritin [Mass/Vol] 193 ng/mL Normal 22-378 [facility] Comment on above: Performed By: #### L 499.0042 #### [facility] [address] [place], [address] HIVon 01-20-2025 HIV Non-Reactive Normal Nonreactive [facility] Comment on above: Result Comment: Non- Reactive Reactive Repeatedly reactive samples must be confirmed according to CDC recommended confirmatory algorithms. The subresults for either HIVAG or AHIV can be used as an aid in the selection of the confirmation algorithm for reactive samples. Send out specimens with Reactive results to [facility] for confirmation. Order the HIV antibody detection and differentiation: lc#[id number] Performed By: #### L 499.0042 #### [facility] [address] [place], [address] Hematocrit Auto (Bld) [Volum e fraction]Ordered By: Antonia Connolly on 01-20-2025 Hematocrit (Bld) [Volume fraction] 33.4 % Low 37-47 [facility] Hemoglobin measurementOrdere d By: Antonia Connolly on 01-20-2025 Hemoglobin (Bld) [Mass/Vol] 11.0 g/dL Low 12.0-15.0 [facility] Hepatitis C Antibodyon 01-20 Hepatitis C Ab Non-Reactive Normal Nonreactive [facility] Comment on above: Result Comment: Reac tive: Presumptive evidence of antibodies to HCV. Follow CDC recommendations for supplemental testing. Non-Reactive: Antibodies to HCV were not detected; does not exclude the possibility of exposure to HCV Reactive Results are presumptive evidence of antibodies to HCV. Follow CDC recommendations for supplemental testing. Order confirmation testing: HCV Quant by PCR testing - HCVPCR #[id number] Non Reactive: < 0.8 Equivocal: >/= 0.8 to < 1.0 Reactive: >/= 1.0 The CDC requires that a reactive/equivocal HCV antibody result be sent out for confirmation. HCV Quant by PCR testing. Performed By: #### L 499.0042 #### [facility] [address] [place], [address] Immature granulocytes/100 WB C Auto (Bld)Ordered By: Antonia Connolly on 01-20-2025 Immature granulocytes/100 WBC (Bld) 0.200 % 0.0-0.9 [facility] Comment on above: IG% - Immature Granu locytes (promyelocytes, myelocytes and metamyelocytes) > 1% indicates that a LEFT SHIFT is Present. Iron measurement (mass/mass) Ordered By: Antonia Connolly on 01-20-2025 Iron (Unsp spec) [Mass/Mass] 111 ug/dL 50-170 [facility] Iron+Iron Binding Capacityon 01-20-2025 Iron [Mass/Vol] 111 ug/dL Normal 50-170 [facility] Comment on above: Order Comment: NIPT w/gender Performed By: #### L 499.0042 #### [facility] [address] [place], [address] IRON SATURATION 44.0 Normal 13-59 [facility] Comment on above: Order Comment: NIPT w/gender Performed By: #### L 499.0042 #### [facility] [address] [place], [address] TIBC 254 ug/dL Normal 250-450 [facility] Comment on above: Order Comment: NIPT w/gender Performed By: #### L 499.0042 #### [facility] [address] [place], [address] UIBC 143 ug/dL Low 228-428 [facility] Comment on above: Order Comment: NIPT w/gender Performed By: #### L 499.0042 #### [facility] [address] [place], [address] L3890.6102on 01-20-2025 HEP B Surf Ag Non-Reactive Normal Nonreactive [facility] Comment on above: Result Comment: Reac tive: Presumptive evidence of HBV. Repeatedly reactive samples must be confirmed using a neutralization test ([employer] HBsAg Confirmatory Test) Non-Reactive: HBsAg not detected; does not exclude the possibility of exposure to HBV Performed By: #### L 499.0042 #### [facility] [address] [place], [address] L509.4006on 01-20-2025 Rubella IgG REAC Normal Nonreactive [facility] Comment on above: Result Comment: Anti body Result: Interpretation Non-Reactive: Non-Immune Reactive: Immune The following results were obtained with the [employer] Rubella IgG assay. Results from assays of other manufacturers cannot be used interchangeably. Performed By: #### L 499.0042 #### [facility] [address] [place], [place], [address] Laboratory - Microbiology an d Antimicrobial susceptibilityOrdered By: Antonia Connolly on 01-20-2025 HBV surface Ag Ql (S) Non-Reactive Nonreactive [facility] Comment on above: Reactive: Presumptiv e evidence of HBV. Repeatedly reactive samples must be confirmed using a neutralization test ([employer] HBsAg Confirmatory Test)Non-Reactive: HBsAg not detected; does not exclude the possibility of exposure to HBV MCV (mean corpuscular volume ) determinationOrdered By: Antonia Connolly on 01-20-2025 MCV (RBC) [Entitic vol] 94.6 fL 81-99 [facility] Mean corpuscular hemoglobin (MCH) determinationOrdered By: Antonia Connolly on 01-20-2025 MCH (RBC) [Entitic mass] 31.2 pg 27.0-32.0 [facility] Mean corpuscular hemoglobin concentration (MCHC) determinationOrdered By: Antonia Connolly on 01-20-2025 MCHC (RBC) [Mass/Vol] 32.9 g/dL 32-36 [facility] Mean platelet volume determi nationOrdered By: Antonia Connolly on 01-20-2025 Platelet mean volume (Bld) [Entitic vol] 11.6 fL 6.2-12.0 [facility] Monocyte percentageOrdered B y: Antonia Connolly on 01-20-2025 Monocytes/100 WBC (Bld) 5.9 % 0-10 [facility] NATERAon 01-20-2025 NATURA SEE SCANNED REPORT Normal [facility] Comment on above: Order Comment: Comme nts: NIPT w/gender Performed By: #### L 499.0042 #### [facility] [address] [place], [place], [address] Neutrophil percentageOrdered By: Antonia Connolly on 01-20-2025 Neutrophils/100 WBC (Bld) 62.0 % 47-70 [facility] No Panel InformationOrdered By: Antonia Connolly on 01-20-2025 HIV (1&2) Antibody Non-Reactive Nonreactive [facility] Comment on above: Non-ReactiveReactive Repeatedly reactive samples must be confirmed according to CDC recommended confirmatory algorithms. The subresults for either HIVAG or AHIV can be used as an aid in the selection of the confirmation algorithm for reactive samples.Send out specimens with Reactive results to [facility] for confirmation.Order the HIV antibody detection and differentiation: #[id number] Unsaturated Iron Binding Capacity 143 ug/dL Low 228-428 [facility] Nucleated red blood cell per centageOrdered By: Antonia Connolly on 01-20-2025 Nucleated RBC/100 WBC (Bld) [Ratio] 0 % 0-5 [facility] Platelet countOrdered By: Juanita Connolly on 01-20-2025 Platelets (Bld) [#/Vol] 165 10*3/uL 150-450 [facility] RBC Auto (Bld) [#/Vol]Ordere d By: [...] Iron saturation [Mass fraction] 44.0 % 13-59 [facility] Serum or plasma thiamine cameron surement (mass/volume)Ordered By: Antonia Connolly on 01-20-2025 Thiamine [Mass/Vol] 98.0 nmol/L 66.5-200.0 [facility] Comment on above: Performed at: - [address] [id number] Director: Elaine Hernández MD, Phone: [phone] Syphilis Antibodieson 2024 Syphilis Abs Non-Reactive Normal Nonreactive [facility] Comment on above: Performed By: #### L 499.0042 #### [facility] [address] [place], [address] Type AND Screenon 01-20-2025 Ab SCREEN GEL Negative Normal [facility] Comment on above: Order Comment: PN Performed By: #### L 3890.6301, L3300.8000, L100.0100, L503.6030, BTS, L3890.6006, L503.6550, L509.4006, L3890.6102, L900.0098, L503.0106, L509.8002 ####[facility] [address] [place], [address] Vitamin B12on 01-20-2025 Cobalamin (Vitamin B12) [Mass/Vol] 393 pg/mL Normal 180-914 [facility] Comment on above: Performed By: #### L 499.0042 #### [facility] [address] [place], [address] Vitamin B12 ser/plasOrdered By: Antonia Connolly on 01-20-2025 Cobalamin (Vitamin B12) [Mass/Vol] 393 pg/mL 180-914 [facility] White blood cell (WBC) count Ordered By: Antonia Connolly on 01-20-2025 WBC (Bld) [#/Vol] 6.0 10*3/uL 4.4-11.0 [facility] Chlamydia/GC DEVIKA aptimaon CHLAMY,NUC ACID Positive Abnormal Negative [facility] Comment on above: Result Comment: Clie nt Requested Flag Performed By: #### L 101.9900, L501.6710 #### [facility] [address] [place], [address] GC BY NUC ACID Negative Normal Negative [facility] Comment on above: Result Comment: Perf ormed at: =G - [facility] [address] [id number] Specialty Plant Supervisor: Jacuqelyn Clay MD, Phone: [phone] Performed By: #### L 101.9900, L501.6710 #### [facility] [address] [place], [place], [address] Urine Cultureon 01-13-2025 URC Culture exhibits no growth. Normal [facility] Comment on above: Performed By: #### L 101.9900, L501.6710 #### [facility] [address] [place], [place], [address] Chlamydia trachomatis rRNA d etection by probe and target amplification methodOrdered By: Antonia Connolly on 01-12-2025 C. trachomatis rRNA DEVIKA+probe Ql (Unsp spec) Positive High Negative [facility] Comment on above: Client Requested [place] Neisseria gonorrhoeae nuclei c acid detection by amplified probe techniqueOrdered By: Antonia Connolly on 01-12-2025 N. gonorrhoeae DNA DEVIKA+probe Ql (Unsp spec) Negative Negative [facility] Comment on above: Performed at: =[address] [id number] Director: Jacquelyn Clay MD, Phone: [phone] [employer] Office Visit Reporton 01-12-2025 [employer] Office Visit Report [facility] [address], [address] [place] [address] OFFICE VISIT Date of Service: 01/12/25 MR#: [id number] Acct: [id number] Name: NORBERTO COTTON Rep #: [id number] : 2005 Provider: Dr. Antonia lorenz MD Age/Sex: 19/F Location: [facility] Status: Signed Intake Vital Signs 12/30/24 17:38 01/12/25 10:42 Height 5 ft 4 in 5 ft 4 in Weight: 105 lb 8 oz BMI 18.1 BP 100/65 Intake Visit Reasons: *NEW* NEW OB LMP 11/10 TELLO 08/17 Event Mgr Required: No Is patient in pain?: No [...] current occupational status: employed current occupation: [employer] current occupational exposures/hazards: No pets and animals: [...] times per week duration: < 15 minutes/day sarah/muslim: Alevism seatbelt use: always do you feel safe at home: Yes additional social history: BF: 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 Normal [facility] Urine cultureOrdered By: Shorty Connolly on 01-12-2025 Bacteria identified Cx Nom (U) Culture exhibits no growth. [facility] Absolute lymphocyte countOrd ered By: Allan Clayton on 12-30-2024 Lymphocytes Auto (Unsp spec) [#/Vol] 2.35 10*3/uL 0.83-4.51 [facility] Absolute neutrophil countOrd ered By: Allan Clayton on 12-30-2024 Neutrophils (Bld) [#/Vol] 4.8 10*3/uL 2.0-7.7 [facility] Anion gap in Serum or Plasma Ordered By: Allan Clayton on 12-30-2024 Anion gap [Moles/Vol] 11 mmol/L 5-15 [facility] Automated lymphocyte count a s percentage of total leukocytesOrdered By: Allan Clayton on 12-30-2024 Lymphocytes/100 WBC Auto (Unsp spec) 30.4 % 19-41 [facility] BUN/creatinine ratioOrdered By: Allan Clayton on 12-30-2024 Urea nitrogen/Creatinine [Mass ratio] 22.8 mg/mg High 10-20 [facility] Basophil percentageOrdered B y: Allan Clayton on 12-30-2024 Basophils/100 WBC (Bld) 0.1 % 0-1 [facility] Bilirubin Test strip Ql (U)O rdered By: Allan Clayton on 12-30-2024 Bilirubin Ql (U) Negative Negative [facility] Bilirubin, totalOrdered By: Allan Clayton on 12-30-2024 Bilirubin [Mass/Vol] 0.22 mg/dL 0.00-1.30 [facility] CBC W/Diff, Automatedon 07-0 Absolute Lymph 2.35 X10 3/uL Normal 0.83-4.51 [facility] Comment on above: Performed By: #### L 101.9900, L501.6710 #### [facility] [address] [place], [address] Absolute Neut 4.8 X10 3/uL Normal 2.0-7.7 [facility] Comment on above: Performed By: #### L 101.9900, L501.6710 #### [facility] [address] [place], [address] Basophils/100 WBC (Bld) 0.1 % Normal 0-1 [facility] Comment on above: Performed By: #### L 101.9900, L501.6710 #### [facility] [address] [place], [address] Eosinophils/100 WBC (Bld) 0.1 % Normal 0-5 [facility] Comment on above: Performed By: #### L 101.9900, L501.6710 #### [facility] [address] [place], [address] Erythrocyte distribution width (RBC) [Ratio] 12.5 % Normal 11.6-14.6 [facility] Comment on above: Performed By: #### L 101.9900, L501.6710 #### [facility] [address] [place], [address] Hematocrit (Bld) [Volume fraction] 38.0 % Normal 37-47 [facility] Comment on above: Performed By: #### L 101.9900, L501.6710 #### [facility] [address] [place], [address] Hemoglobin (Bld) [Mass/Vol] 12.4 g/dL Normal 12.0-15.0 [facility] Comment on above: Performed By: #### L 101.9900, L501.6710 #### [facility] [address] [place], [address] IG% 0.100 Normal 0.0-0.9 [facility] Comment on above: Result Comment: IG% - Immature Granulocytes (promyelocytes, myelocytes and metamyelocytes) > 1% indicates that a LEFT SHIFT is Present. Performed By: #### L 101.9900, L5.6710 #### [facility] [address] [place], [address] Lymphocytes/100 WBC (Bld) 30.4 % Normal 19-41 [facility] Comment on above: Performed By: #### L 101.9900, L5.10 #### [facility] [address] [place], [address] MCH (RBC) [Entitic mass] 31.2 pg Normal 27.0-32.0 [facility] Comment on above: Performed By: #### L 101.9900, L5.6710 #### [facility] [address] [place], [address] MCHC (RBC) [Mass/Vol] 32.6 g/dL Normal 32-36 [facility] Comment on above: Performed By: #### L 101.9900, L501.6710 #### [facility] [address] [place], [address] MCV (RBC) [Entitic vol] 95.7 fL Normal 81-99 [facility] Comment on above: Performed By: #### L 101.9900, L5.6710 #### [facility] [address] [place], [address] Monocytes/100 WBC (Bld) 6.9 % Normal 0-10 [facility] Comment on above: Performed By: #### L 101.9900, L501.6710 #### [facility] [address] [place], [address] Neutrophils/100 WBC (Bld) 62.4 % Normal 47-70 [facility] Comment on above: Performed By: #### L 101.9900, L501.6710 #### [facility] [address] [place], [address] Nucleated RBC (Bld) [#/Vol] 0 10*3/uL Normal 0-5 [facility] Comment on above: Performed By: #### L 101.9900, L501.6710 #### [facility] [address] [place], [address] Platelet mean volume (Bld) [Entitic vol] 10.7 fL Normal 6.2-12.0 [facility] Comment on above: Performed By: #### L 101.9900, L501.6710 #### [facility] [address] [place], [address] Platelets (Bld) [#/Vol] 284 10*3/uL Normal 150-450 [facility] Comment on above: Performed By: #### L 101.9900, L501.6710 #### [facility] [address] [place], [address] RBC (Bld) [#/Vol] 3.97 10*6/uL Low 4.2-5.4 [facility] Comment on above: Performed By: #### L 101.9900, L501.6710 #### [facility] [address] [place], [address] RDW SD 43.9 fl Normal 35.1-43.9 [facility] Comment on above: Performed By: #### L 101.9900, L501.6710 #### [facility] [address] [place], [address] WBC (Bld) [#/Vol] 7.7 10*3/uL Normal 4.4-11.0 [facility] Comment on above: Performed By: #### L 101.9900, L501.6710 #### [facility] [address] [place], [address] Carbon dioxide, total [Moles /volume] in Central venous bloodOrdered By: Allan Clayton on 12-30-2024 CO2 [Moles/Vol] 22.5 mmol/L 21.0-32.0 [facility] Chloride assayOrdered By: Sergei Clayton on 12-30-2024 Chloride [Moles/Vol] 103 mmol/L 98-108 [facility] Comprehensive Metabolic Prof ilon 12-30-2024 Albumin [Mass/Vol] 4.3 g/dL Normal 3.5-5.0 [facility] Comment on above: Performed By: #### L 101.9900, L501.6710 #### [facility] [address] [place], [address] Albumin/Globulin [Mass ratio] 1.3 {ratio} Normal 0.9-2.4 [facility] Comment on above: Performed By: #### L 101.9900, L501.6710 #### [facility] [address] [place], [address] ALK PHOS 54 U/L Normal 35-104 [facility] Comment on above: Performed By: #### L 101.9900, L501.6710 #### [facility] [address] [place], [address] ALT [Catalytic activity/Vol] 10 U/L Normal <=34 [facility] Comment on above: Performed By: #### L 101.9900, L501.6710 #### [facility] [address] [place], [address] AST [Catalytic activity/Vol] 14 U/L Normal <=31 [facility] Comment on above: Performed By: #### L 101.9900, L501.6710 #### [facility] [address] [place], [address] Bilirubin [Mass/Vol] 0.22 mg/dL Normal 0.00-1.30 [facility] Comment on above: Performed By: #### L 101.9900, L501.6710 #### [facility] [address] [place], [address] BUN/CRE 22.8 RATIO High 10-20 [facility] Comment on above: Performed By: #### L 101.9900, L501.6710 #### [facility] [address] [place], [address] Calcium [Mass/Vol] 9.3 mg/dL Normal 7.6-11.0 [facility] Comment on above: Performed By: #### L 101.9900, L501.6710 #### [facility] [address] [place], [address] Chloride [Moles/Vol] 103 mmol/L Normal 98-108 [facility] Comment on above: Performed By: #### L 101.9900, L501.6710 #### [facility] [address] [place], [address] CO2 [Moles/Vol] 22.5 mmol/L Normal 21.0-32.0 [facility] Comment on above: Performed By: #### L 101.9900, L501.6710 #### [facility] [address] [place], [address] Creatinine [Mass/Vol] 0.53 mg/dL Low 0.70-1.20 [facility] Comment on above: Performed By: #### L 101.9900, L501.6710 #### [facility] [address] [place], [address] ECRCL 127.61 ml/min Normal 50-250 [facility] Comment on above: Performed By: #### L 101.9900, L501.6710 #### [facility] [address] [place], [address] GAP 11 Normal 5-15 [facility] Comment on above: Performed By: #### L 101.9900, L501.6710 #### [facility] [address] [place], [address] GFR/1.73 sq M.predicted among non-blacks MDRD (S/P/Bld) [Vol rate/Area] 136 mL/min/{1.73_m2} Normal >60 [facility] Comment on above: Result Comment: mL/m in/1.73m2 CKD-EPI Creatinine Equation (2020) Performed By: #### L 101.9900, L501.6710 #### [facility] [address] [place], [address] Globulin (S) [Mass/Vol] 3.3 g/dL Normal 2.2-4.2 [facility] Comment on above: Performed By: #### L 101.9900, L501.6710 #### [facility] [address] [place], [address] Glucose [Mass/Vol] 79 mg/dL Normal 70-99 [facility] Comment on above: Performed By: #### L 101.9900, L501.6710 #### [facility] [address] [place], [address] Potassium [Moles/Vol] 3.8 mmol/L Normal 3.3-5.1 [facility] Comment on above: Performed By: #### L 101.9900, L501.6710 #### [facility] [address] [place], [address] Sodium [Moles/Vol] 137 mmol/L Normal 133-145 [facility] Comment on above: Performed By: #### L 101.9900, L501.6710 #### [facility] [address] [place], [address] T PROT 7.6 g/dL Normal 5.9-8.4 [facility] Comment on above: Performed By: #### L 101.9900, L501.6710 #### [facility] [address] [place], [address] Urea nitrogen [Mass/Vol] 12 mg/dL Normal 4-19 [facility] Comment on above: Performed By: #### L 101.9900, L501.6710 #### [facility] [address] [place], [address] Emergency Department Summary on 12-30-2024 Emergency Department Summary [facility] Medical Records Department [address] [place] [address] Emergency Department Summary 12/30/24 MR#: [id number] Acct: [id number] Name: NORBERTO COTTON Rep #: [id number] : 2005 19 From: Allan Clayton DO [...] positive test. Patient states she follows with [facility] in which she had an ultrasound a [...] states she had another checkup with her [facility] today in which she saw a nurse. 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 Patient states she follows with [facility] in which she had an ultr (more content not included)... Normal [facility] Eosinophil percentageOrdered By: Allan Clayton on 12-30-2024 Eosinophils/100 WBC (Bld) 0.1 % 0-5 [facility] Erythrocyte distribution wid th ratioOrdered By: Allan Clayton on 12-30-2024 Erythrocyte distribution width (RBC) [Ratio] 12.5 % 11.6-14.6 [facility] Erythrocyte distribution wid th standard deviationOrdered By: Allan Busch on 12-30-2024 Erythrocyte distribution width (RBC) [Ratio] 43.9 fl 35.1-43.9 [facility] Glomerular filtration rate ( GFR) estimation/1.73 sq m using serum, plasma, or whole bOrdered By: Allan Clayton on 12-30-2024 GFR/1.73 sq M.predicted among non-blacks MDRD (S/P/Bld) [Vol rate/Area] 136 mL/min/{1.73_m2} >60 [facility] Comment on above: mL/min/1.73m2 CKD-EP I Creatinine Equation (2020) Hematocrit Auto (Bld) [Volum e fraction]Ordered By: Allan Clayton on 12-30-2024 Hematocrit (Bld) [Volume fraction] 38.0 % 37-47 [facility] Hemoglobin measurementOrdere d By: Allan Clayton on 12-30-2024 Hemoglobin (Bld) [Mass/Vol] 12.4 g/dL 12.0-15.0 [facility] Immature granulocytes/100 WB C Auto (Bld)Ordered By: Allan Clayton on 12-30-2024 Immature granulocytes/100 WBC (Bld) 0.100 % 0.0-0.9 [facility] Comment on above: IG% - Immature Granu locytes (promyelocytes, myelocytes and metamyelocytes) > 1% indicates that a LEFT SHIFT is Present. Ketones Test strip Ql (U)Ord ered By: Allan Clayton on 12-30-2024 Ketones Ql (U) Negative Negative [facility] Laboratory - Chemistry and C hemistry - challengeOrdered By: Allan Clayton on 12-30-2024 AST [Catalytic activity/Vol] 14 U/L <32 [facility] - Chemistry and C hemistry - challengeOrdered By: Antonia Connolly on 12-30-2024 HCG ( test) Ql (U) Positive [facility] Lipaseon 12-30-2024 Lipase [Catalytic activity/Vol] 24 U/L Normal 13-75 [facility] Comment on above: Result Comment: Delfino franco note: LIPASE revised reference range effective 22. New Lipase methodology. Expected to produce lower values than the previous assay method. NEW Reference Range: 13 - 75 U/L Performed By: #### L 101.9900, L501.6710 #### [facility] [address] [place], [address] Lipase measurementOrdered By : Allan Clayton on 12-30-2024 Lipase [Catalytic activity/Vol] 24 U/L 13-75 [facility] Comment on above: Please note:LIPASE r evised reference range effective 22. New Lipase methodology. Expected to produce lower values than the previous assay method. NEW Reference Range: 13 - 75 U/L MCV (mean corpuscular volume ) determinationOrdered By: Allan Clayton on 12-30-2024 MCV (RBC) [Entitic vol] 95.7 fL 81-99 [facility] Mean corpuscular hemoglobin (MCH) determinationOrdered By: Allan Clayton on 12-30-2024 MCH (RBC) [Entitic mass] 31.2 pg 27.0-32.0 [facility] Mean corpuscular hemoglobin concentration (MCHC) determinationOrdered By: Allan Clayton on 12-30-2024 MCHC (RBC) [Mass/Vol] 32.6 g/dL 32-36 [facility] Mean platelet volume determi nationOrdered By: Allan Clayton on 12-30-2024 Platelet mean volume (Bld) [Entitic vol] 10.7 fL 6.2-12.0 [facility] Microscopic analysis of urin e for red blood cells (RBC)Ordered By: Allan Clayton on 12-30-2024 Microscopic analysis of urine for red blood cells (RBC) 0-5 SEEN /hpf 0-5 [facility] Monocyte percentageOrdered B y: Allan Clayton on 12-30-2024 Monocytes/100 WBC (Bld) 6.9 % 0-10 [facility] Mucus LM Ql (Urine sed)Order ed By: Allan Clayton on 12-30-2024 Mucus Ql (Urine sed) 0 SEEN /hpf [facility] Neutrophil percentageOrdered By: Allan Clayton on 12-30-2024 Neutrophils/100 WBC (Bld) 62.4 % 47-70 [facility] Nitrite Test strip Ql (U)Ord ered By: Allan Clayton on 12-30-2024 Nitrite Ql (U) Negative Negative [facility] Nucleated red blood cell per centageOrdered By: Allan Clayton on 12-30-2024 Nucleated RBC/100 WBC (Bld) [Ratio] 0 % 0-5 [facility] Office Visit Reporton 2024 Office Visit Report [facility] [address] [place] [address] OFFICE VISIT Date of Service: 12/30/24 MR#: [id number] Acct: [id number] Patient: NORBERTO COTTON Rep #: [id number] : 2005 Provider: TU khoury Age/Sex: 19/F Location: [facility] Status: Signed Intake Vital Signs 12/19/24 14:59 [...] RTO NOB appt 12/30/24 1323 Date Deepti Snyder NP [employer] Cosigner Signature: Date (if applicable) CC: Normal [facility] Platelet countOrdered By: Sergei Clayton on 12-30-2024 Platelets (Bld) [#/Vol] 284 10*3/uL 150-450 [facility] Potassium measurement (mass/ volume)Ordered By: Allan Clayton on 12-30-2024 Potassium (Unsp spec) [Mass/Vol] 3.8 mmol/L 3.3-5.1 [facility] Protein Test strip Ql (U)Ord ered By: Allan Clayton on 12-30-2024 Protein Ql (U) Negative Negative [facility] RBC Auto (Bld) [#/Vol]Ordere d By: Allan Clayton on 12-30-2024 RBC (Bld) [#/Vol] 3.97 10*6/uL Low 4.2-5.4 [facility] Serum creatinine measurement (mass/volume)Ordered By: Allan Clayton on 12-30-2024 Creatinine [Mass/Vol] 0.53 mg/dL Low 0.70-1.20 [facility] Serum globulin measurementOr dered By: Allan Clayton on 12-30-2024 Globulin (S) [Mass/Vol] 3.3 g/dL 2.2-4.2 [facility] Serum glucose measurement (m ass/volume)Ordered By: Allan Clayton on 12-30-2024 Glucose [Mass/Vol] 79 mg/dL 70-99 [facility] Serum or plasma alanine lozano otransferase (ALT) measurementOrdered By: Allan Clayton on 12-30-2024 ALT [Catalytic activity/Vol] 10 U/L <35 [facility] Serum or plasma albumin nancy urement (mass/volume)Ordered By: Allan Busch on 12-30-2024 Albumin [Mass/Vol] 4.3 g/dL 3.5-5.0 [facility] Serum or plasma albumin/glob ulin mass ratioOrdered By: Allan Clayton on 12-30-2024 Albumin/Globulin [Mass ratio] 1.3 {ratio} 0.9-2.4 [facility] Serum or plasma alkaline jose manuel sphatase measurementOrdered By: Allan Clayton on 12-30-2024 ALP [Catalytic activity/Vol] 54 U/L 35-104 [facility] Serum or plasma calcium nancy urement (mass/volume)Ordered By: Allan Busch on 12-30-2024 Calcium [Mass/Vol] 9.3 mg/dL 7.6-11.0 [facility] Serum or plasma urea nitroge n measurement (mass/volume)Ordered By: Allan Clayton on 12-30-2024 Urea nitrogen [Mass/Vol] 12 mg/dL 4-19 [facility] Sodium levelOrdered By: Dexter Clayton on 12-30-2024 Sodium [Moles/Vol] 137 mmol/L 133-145 [facility] Squamous epithelial cells de tection in urine sediment by light microscopyOrdered By: Allan Clayton on 12-30-2024 Epithelial cells.squamous LM Ql (Urine sed) 0-5 SEEN /hpf 5-10 [facility] Total proteinOrdered By: Constantino Clayton on 12-30-2024 Protein [Mass/Vol] 7.6 g/dL 5.9-8.4 [facility] Transvaginal w/Preg USon Transvaginal w/Preg US [facility] Imaging Services [address] [place], [place] [id number] Transvaginal w/Preg US MR#: [id number] Acct: [id number] Name: NORBERTO COTTON Rep #: [id number] : 2005 F 19 From: Ezequiel Villanueva MD PCP: Care Physician,No Primary Status: REG ER Study: Transvaginal w/Preg US Date of Exam: 12/30/24 Exam# [id number] Ordering Dr: Allan Clayton DO PROCEDURE: TRANSVAGINAL [...] recommended. Single live intrauterine . Reading Location: [id number] CC: Dr. Allan Clayton DO; No Primary Care Physician Press Maintainer: Signed Normal [facility] Urinalysis, Completeon 12-30 BACTERIA RARE Normal None Seen [facility] Comment on above: Order Comment: CLEAN CATCH Performed By: #### L 400.0001 ####[facility] [address] [place], [address] EPI,SQUAMOUS 0-5 SEEN Normal 5-10 [facility] Comment on above: Order Comment: CLEAN CATCH Performed By: #### L 400.0001 ####[facility] [address] [place], [place], [address] RBC 0-5 SEEN Normal 0-5 [facility] Comment on above: Order Comment: CLEAN CATCH Performed By: #### L 400.0001 ####[facility] [address] [place], [place], [id number] WBC 0-5 SEEN Normal 0-5 [facility] Comment on above: Order Comment: CLEAN CATCH Performed By: #### L 400.0001 ####[facility] [address] [place], [place], [address] Mucus Ql (Urine sed) 0 SEEN Normal [facility] Comment on above: Order Comment: CLEAN CATCH Performed By: #### L 400.0001 ####[facility] [address] [place], [place], [id number] Urine clarityOrdered By: Constantino Clayton on 12-30-2024 Clarity (U) Clear Clear [facility] Urine color determinationOrd ered By: Allan Clayton on 12-30-2024 Color (U) Straw Yellow [facility] Urine glucose detectionOrder ed By: Allan Clayton on 12-30-2024 Glucose Ql (U) Normal mg/dl Normal [facility] Urine leukocyte esterase det ection by dipstickOrdered By: Allan Clayton on 12-30-2024 Leukocyte esterase Test strip Ql (U) Negative Negative [facility] Urine pHOrdered By: Allan Biggs on 12-30-2024 pH (U) 6.5 [pH] 5.0 - 8.0 [facility] Urine sediment bacteria coun t by microscopy (number/high power field)Ordered By: Allan Clayton on 12-30-2024 Bacteria LM.HPF (Urine sed) [#/Area] RARE /hpf None Seen [facility] Urine specific gravity measu rementOrdered By: Allan Clayton on 12-30-2024 Specific gravity (U) [Rel density] 1.015 1.002-1.030 [facility] Urine urobilinogen measureme ntOrdered By: Allan Clayton on 12-30-2024 Urobilinogen Ql (U) Normal mg/dl Normal [facility] White blood cell (WBC) count Ordered By: Allan Clayton on 12-30-2024 WBC (Bld) [#/Vol] 7.7 10*3/uL 4.4-11.0 [facility] White blood cell countOrdere d By: Allan Clayton on 12-30-2024 White blood cell count 0-5 SEEN /hpf 0-5 [facility] Urine Cultureon 12-21-2024 URC Below infection leve l. Mixed Gram Positive Organisms [place] Count 1000-10,000 MIXC Mixed contaminants. Submit a new specimen if indicated. Normal [facility] [facility] Comment on above: Performed By: #### L 101.9900, L501.6710 #### [facility] [address] [place], [address] Absolute lymphocyte countOrd ered By: Kelly Peterson on 12-19-2024 Lymphocytes Auto (Unsp spec) [#/Vol] 1.61 10*3/uL 0.83-4.51 [facility] Absolute neutrophil countOrd ered By: Kelly Peterson on 12-19-2024 Neutrophils (Bld) [#/Vol] 3.0 10*3/uL 2.0-7.7 [facility] Anion gap in Serum or Plasma Ordered By: Kelly Peterson on 12-19-2024 Anion gap [Moles/Vol] 11 mmol/L 5-15 [facility] Automated blood erythrocyte countOrdered By: Kelly Peterson on 12-19-2024 RBC (Bld) [#/Vol] 3.99 10*6/uL Low 4.2-5.4 [facility] Comment on above: Performed By: #### L 700.6800, L500.2500, L100.0100 #### [facility] [address] [place], [place], [id number] Automated blood hematocrit ( percentage)Ordered By: Kelly Peterson on 12-19-2024 Hematocrit (Bld) [Volume fraction] 38.0 % Normal 37-47 [facility] Comment on above: Performed By: #### L 700.6800, L500.2500, L100.0100 #### [facility] [address] [place], [address] Automated lymphocyte count a s percentage of total leukocytesOrdered By: Kelly Nicholas on 12-19-2024 Lymphocytes/100 WBC Auto (Unsp spec) 31.2 % 19-41 [facility] BUN/creatinine ratioOrdered By: Remus Barbieann on 12-19-2024 Urea nitrogen/Creatinine [Mass ratio] 15.0 mg/mg 10-20 [facility] Basophil percentageOrdered B y: Remus Barbieann on 12-19-2024 Basophils/100 WBC (Bld) 0.2 % Normal 0-1 [facility] Comment on above: Performed By: #### L 700.6800, L500.2500, L100.0100 #### [facility] [address] [place], [address] Bilirubin Test strip Ql (U)O rdered By: Kelly Valentinann on 12-19-2024 Bilirubin Ql (U) Negative Negative [facility] Bilirubin, totalOrdered By: Kelly Valentinann on 12-19-2024 Bilirubin [Mass/Vol] 0.21 mg/dL Normal 0.00-1.30 [facility] Comment on above: Performed By: #### L 101.9900, L501.6710 #### [facility] [address] [place], [address] CBC W/Diff, Automatedon 11-24 Absolute Lymph 1.61 X10 3/uL Normal 0.83-4.51 [facility] Comment on above: Performed By: #### L 700.6800, L500.2500, L100.0100 #### [facility] [address] [place], [address] Absolute Neut 3.0 X10 3/uL Normal 2.0-7.7 [facility] Comment on above: Performed By: #### L 700.6800, L500.2500, L100.0100 #### [facility] [address] [place], [address] IG% 0.200 Normal 0.0-0.9 [facility] Comment on above: Result Comment: IG% - Immature Granulocytes (promyelocytes, myelocytes and metamyelocytes) > 1% indicates that a LEFT SHIFT is Present. Performed By: #### L 700.6800, L500.2500, L100.0100 #### [facility] [address] [place], [address] Lymphocytes/100 WBC (Bld) 31.2 % Normal 19-41 [facility] Comment on above: Performed By: #### L 700.6800, L500.2500, L100.0100 #### [facility] [address] [place], [address] Nucleated RBC (Bld) [#/Vol] 0 10*3/uL Normal 0-5 [facility] Comment on above: Performed By: #### L 700.6800, L500.2500, L100.0100 #### [facility] [address] [place], [address] RDW SD 43.1 fl Normal 35.1-43.9 [facility] Comment on above: Performed By: #### L 700.6800, L500.2500, L100.0100 #### [facility] [address] [place], [address] CRPon 12-19-2024 C-REACTIVE PROT 9.60 mg/L High 0.0-3.0 [facility] Comment on above: Performed By: #### L 101.9900, L501.6710 #### [facility] [address] [place], [address] Carbon dioxide, total [Moles /volume] in Central venous bloodOrdered By: Kelly Peterson on 12-19-2024 CO2 [Moles/Vol] 22.4 mmol/L Normal 21.0-32.0 [facility] Comment on above: Performed By: #### L 101.9900, L501.6710 #### [facility] [address] [place], [address] Chloride assayOrdered By: Leanne Peterson on 12-19-2024 Chloride [Moles/Vol] 104 mmol/L Normal 98-108 [facility] Comment on above: Performed By: #### L 101.9900, L501.6710 #### [facility] [address] [place], [address] Comprehensive Metabolic Prof ilon 12-19-2024 ALK PHOS 66 U/L Normal 35-104 [facility] Comment on above: Performed By: #### L 101.9900, L501.6710 #### [facility] [address] [place], [address] BUN/CRE 15.0 RATIO Normal 10-20 [facility] Comment on above: Performed By: #### L 101.9900, L501.6710 #### [facility] [address] [place], [address] ECRCL 96.11 ml/min Normal 50-250 [facility] Comment on above: Performed By: #### L 101.9900, L501.6710 #### [facility] [address] [place], [address] GAP 11 Normal 5-15 [facility] Comment on above: Performed By: #### L 101.9900, L501.6710 #### [facility] [address] [place], [address] Potassium [Moles/Vol] 3.8 mmol/L Normal 3.3-5.1 [facility] Comment on above: Performed By: #### L 101.9900, L501.6710 #### [facility] [address] [place], [address] T PROT 7.7 g/dL Normal 5.9-8.4 [facility] Comment on above: Performed By: #### L 101.9900, L501.6710 #### [facility] [address] [place], [address] Comprehensive Metabolic Prof ilOrdered By: Kelly Peterson on 12-19-2024 AST [Catalytic activity/Vol] 16 U/L Normal <=31 [facility] Comment on above: Performed By: #### L 101.9900, L501.6710 #### [facility] [address] [place], [address] Emergency Department Summary on 12-19-2024 Emergency Department Summary [facility] Medical Records Department [address] [place] [address] Emergency Department Summary 12/19/24 MR#: [id number] Acct: [id number] Name: NORBERTO COTTON Rep #: [id number] : 2005 19 From: Kelly Peterson DO PCP: Care Physician,No Primary Status:DEP ER Location: ED HPI HPI - GI History of Present Illness Chief Complaint: Abd Pain Detail of Chief Complaint: Abdominal pain Informant: patient Narrative Narrative: Patient presents with abdominal pain started several days ago. She was seen by her COLORED LIQUID PLASTIC APPLIER in the office yesterday and had an [...] was November 10. She is G1, P0. [facility] Medical History (Updated 12/19/24 @ 17:44 by [...] strength abnor (more content not included)... Normal [facility] Eosinophil percentageOrdered By: Kelly Peterson on 12-19-2024 Eosinophils/100 WBC (Bld) 0.6 % Normal 0-5 [facility] Comment on above: Performed By: #### L 700.6800, L500.2500, L100.0100 #### [facility] [address] [facility] [place], [address] Erythrocyte Sed Rateon 12-19 SED RATE 13 mm/hr Normal 0-30 [facility] Comment on above: Performed By: #### L 101.9900, L501.6710 #### [facility] [address] [place], [address] Erythrocyte distribution wid th ratioOrdered By: Kelly Peterson on 12-19-2024 Erythrocyte distribution width (RBC) [Ratio] 12.4 % Normal 11.6-14.6 [facility] Comment on above: Performed By: #### L 700.6800, L500.2500, L100.0100 #### [facility] [address] [place], [address] Erythrocyte distribution wid th standard deviationOrdered By: Kelly Peterson on 12-19-2024 Erythrocyte distribution width (RBC) [Ratio] 43.1 fl 35.1-43.9 [facility] Erythrocyte sedimentation ra teOrdered By: Kelly Peterson on 12-19-2024 ESR (Bld) [Velocity] 13 mm/h 0-30 [facility] Glomerular filtration rate ( GFR) estimation/1.73 sq m using serum, plasma, or whole bOrdered By: Kelly Peterson on 12-19-2024 GFR/1.73 sq M.predicted among non-blacks MDRD (S/P/Bld) [Vol rate/Area] 127 mL/min/{1.73_m2} Normal >60 [facility] Comment on above: mL/min/1.73m2 CKD-EP I Creatinine Equation (2020) Result Comment: mL/m in/1.73m2 CKD-EPI Creatinine Equation (2020) Performed By: #### L 101.9900, L501.6710 #### [facility] [address] [facility] [place], [place], [address] Hemoglobin measurementOrdere d By: Kelly Peterson on 12-19-2024 Hemoglobin (Bld) [Mass/Vol] 12.6 g/dL Normal 12.0-15.0 [facility] Comment on above: Performed By: #### L 700.6800, L500.2500, L100.0100 #### [facility] [address], [place], [id number] Immature granulocytes/100 WB C Auto (Bld)Ordered By: Kelly Peterson on 12-19-2024 Immature granulocytes/100 WBC (Bld) 0.200 % 0.0-0.9 [facility] Comment on above: IG% - Immature Granu locytes (promyelocytes, myelocytes and metamyelocytes) > 1% indicates that a LEFT SHIFT is Present. Ketones Test strip Ql (U)Ord ered By: Kelly Peterson on 12-19-2024 Ketones Ql (U) 15 mg/dl High Negative [facility] MCV (mean corpuscular volume ) determinationOrdered By: Kelly Peterson on 12-19-2024 MCV (RBC) [Entitic vol] 95.2 fL Normal 81-99 [facility] Comment on above: Performed By: #### L 700.6800, L500.2500, L100.0100 #### [facility] [address] [place], [address] Mean corpuscular hemoglobin (MCH) determinationOrdered By: Kelly Peterson on 12-19-2024 MCH (RBC) [Entitic mass] 31.6 pg Normal 27.0-32.0 [facility] Comment on above: Performed By: #### L 700.6800, L500.2500, L100.0100 #### [facility] [address] [place], [address] Mean corpuscular hemoglobin concentration (MCHC) determinationOrdered By: Kelly Peterson on 12-19-2024 MCHC (RBC) [Mass/Vol] 33.2 g/dL Normal 32-36 [facility] Comment on above: Performed By: #### L 700.6800, L500.2500, L100.0100 #### [facility] [address] [place], [address] Mean platelet volume determi nationOrdered By: Kelly Peterson on 12-19-2024 Platelet mean volume (Bld) [Entitic vol] 9.8 fL Normal 6.2-12.0 [facility] Comment on above: Performed By: #### L 700.6800, L500.2500, L100.0100 #### [facility] [address] [place], [address] Microscopic analysis of urin e for red blood cells (RBC)Ordered By: Kelly Peterson on 12-19-2024 Microscopic analysis of urine for red blood cells (RBC) 0 SEEN /hpf 0-5 [facility] Monocyte percentageOrdered B y: Kelly Peterson on 12-19-2024 Monocytes/100 WBC (Bld) 10.5 % High 0-10 [facility] Comment on above: Performed By: #### L 700.6800, L500.2500, L100.0100 #### [facility] [address] [place], [address] Mucus LM Ql (Urine sed)Order ed By: Kelly Peterson on 12-19-2024 Mucus Ql (Urine sed) 2+ /hpf [facility] Neutrophil percentageOrdered By: Kelly Peterson on 12-19-2024 Neutrophils/100 WBC (Bld) 57.3 % Normal 47-70 [facility] Comment on above: Performed By: #### L 700.6800, L500.2500, L100.0100 #### [facility] [address] [place], [place], [id number] Nitrite Test strip Ql (U)Ord ered By: Kelly Peterson on 12-19-2024 Nitrite Ql (U) Negative Negative [facility] Nucleated red blood cell per centageOrdered By: Kelly Peterson on 12-19-2024 Nucleated RBC/100 WBC (Bld) [Ratio] 0 % 0-5 [facility] Platelet countOrdered By: Re whitney Peterson on 12-19-2024 Platelets (Bld) [#/Vol] 259 10*3/uL Normal 150-450 [facility] Comment on above: Performed By: #### L 700.6800, L500.2500, L100.0100 #### [facility] [address] [place], [place], [address] Potassium measurement (mass/ volume)Ordered By: Kelly Peterson on 12-19-2024 Potassium (Unsp spec) [Mass/Vol] 3.8 mmol/L 3.3-5.1 [facility] Protein Test strip Ql (U)Ord ered By: Remus Nicholas on 12-19-2024 Protein Ql (U) 15 mg/dl High Negative [facility] Serum creatinine measurement (mass/volume)Ordered By: Remus Peterson on 12-19-2024 Creatinine [Mass/Vol] 0.69 mg/dL Low 0.70-1.20 [facility] Comment on above: Performed By: #### L 101.9900, L501.6710 #### [facility] [address] [place], [place], [address] Serum globulin measurementOr dered By: Kelly Peterson on 12-19-2024 Globulin (S) [Mass/Vol] 3.5 g/dL Normal 2.2-4.2 [facility] Comment on above: Performed By: #### L 101.9900, L501.6710 #### [facility] [address] [place], [place], [address] Serum glucose measurement (m ass/volume)Ordered By: Kelly Peterson on 12-19-2024 Glucose [Mass/Vol] 83 mg/dL Normal 70-99 [facility] Comment on above: Performed By: #### L 101.9900, L501.6710 #### [facility] [address] [place], [place], [address] Serum human chorionic gonado tropin detection for pregnancyOrdered By: Kelly Peterson on 12-19-2024 HCG ( test) Ql 4035 mIU/mL High <9 [facility] Comment on above: Gestational Age0.2-1 Week: 5-50 mIU/mL1-2 Weeks: 50-500 mIU/mL2-3 Weeks: 100-5000 mIU/mL3-4 Weeks: 500-10,000 mIU/mL4-5 Weeks:1000-50,000 mIU/mL5-6 Weeks: 10,000-100,000 mIU/mL6-8 Weeks: 15,000-200,000 mIU/mL2-3 Months:10,000-100,000 mIU/mL Serum or plasma C reactive p rotein measurement (mass/volume)Ordered By: Kelly Peterson on 12-19-2024 CRP [Mass/Vol] 9.60 mg/L High 0.0-3.0 [facility] Serum or plasma alanine lozano otransferase (ALT) measurementOrdered By: Kelly Peterson on 12-19-2024 ALT [Catalytic activity/Vol] 10 U/L Normal <=34 [facility] Comment on above: Performed By: #### L 101.9900, L501.6710 #### [facility] [address] [place], [address] Serum or plasma albumin nancy urement (mass/volume)Ordered By: Remus Ungur on 12-19-2024 Albumin [Mass/Vol] 4.1 g/dL Normal 3.5-5.0 [facility] Comment on above: Performed By: #### L 101.9900, L501.6710 #### [facility] [address] [place], [address] Serum or plasma albumin/glob ulin mass ratioOrdered By: Remus Ungur on 12-19-2024 Albumin/Globulin [Mass ratio] 1.2 {ratio} Normal 0.9-2.4 [facility] Comment on above: Performed By: #### L 101.9900, L501.6710 #### [facility] [address] [place], [address] Serum or plasma alkaline jose manuel sphatase measurementOrdered By: Remus Ungur on 12-19-2024 ALP [Catalytic activity/Vol] 66 U/L 35-104 [facility] Serum or plasma calcium nancy urement (mass/volume)Ordered By: Remus Ungur on 12-19-2024 Calcium [Mass/Vol] 9.0 mg/dL Normal 7.6-11.0 [facility] Comment on above: Performed By: #### L 101.9900, L501.6710 #### [facility] [address] [place], [address] Serum or plasma urea nitroge n measurement (mass/volume)Ordered By: Remus Ungur on 12-19-2024 Urea nitrogen [Mass/Vol] 10 mg/dL Normal 4-19 [facility] Comment on above: Performed By: #### L 101.9900, L501.6710 #### [facility] [address] [place], [address] Sodium levelOrdered By: Sabineu s Barbieann on 12-19-2024 Sodium [Moles/Vol] 137 mmol/L Normal 133-145 [facility] Comment on above: Performed By: #### L 101.9900, L501.6710 #### [facility] [address] [place], [address] Squamous epithelial cells de tection in urine sediment by light microscopyOrdered By: Remus Nicholas on 12-19-2024 Epithelial cells.squamous LM Ql (Urine sed) 0-5 SEEN /hpf 5-10 [facility] Total proteinOrdered By: Rem us Ungann on 12-19-2024 Protein [Mass/Vol] 7.7 g/dL 5.9-8.4 [facility] Urinalysis, Completeon 12-19 BACTERIA 2+ /hpf Normal None Seen [facility] Comment on above: Order Comment: CLEAN CATCH Performed By: #### L 400.0001 #### [facility] [address] [place], [address] EPI,SQUAMOUS 0-5 SEEN Normal 5-10 [facility] Comment on above: Order Comment: CLEAN CATCH Performed By: #### L 400.0001 #### [facility] [address] [place], [address] Mucus Ql (Urine sed) 2+ /hpf Normal [facility] Comment on above: Order Comment: CLEAN CATCH Performed By: #### L 400.0001 #### [facility] [address] [place], [address] WBC 5-10 SEEN Normal 0-5 [facility] Comment on above: Order Comment: CLEAN CATCH Performed By: #### L 400.0001 #### [facility] [address] [place], [address] RBC 0 SEEN Normal 0-5 [facility] Comment on above: Order Comment: CLEAN CATCH Performed By: #### L 400.0001 #### [facility] [address] [place], [place], [address] Urine clarityOrdered By: Rem us Peterson on 12-19-2024 Clarity (U) Sl. Cloudy Clear [facility] Urine color determinationOrd ered By: Kelly Peterson on 12-19-2024 Color (U) Yellow Yellow [facility] Urine cultureOrdered By: Rem Nicholas on 12-19-2024 Bacteria identified Cx Nom (U) Positive Abnormal [facility] Urine glucose detectionOrder ed By: Kelly Peterson on 12-19-2024 Glucose Ql (U) Normal mg/dl Normal [facility] Urine leukocyte esterase det ection by dipstickOrdered By: Kelly Peterson on 12-19-2024 Leukocyte esterase Test strip Ql (U) 100 /ul High Negative [facility] Urine pHOrdered By: Kelly Un gur on 12-19-2024 pH (U) 6.0 [pH] 5.0 - 8.0 [facility] Urine sediment bacteria coun t by microscopy (number/high power field)Ordered By: Kelly Peterson on 12-19-2024 Bacteria LM.HPF (Urine sed) [#/Area] 2 /[HPF] None Seen [facility] Urine specific gravity measu rementOrdered By: Kelly Peterson on 12-19-2024 Specific gravity (U) [Rel density] 1.025 1.002-1.030 [facility] Urine urobilinogen measureme ntOrdered By: Kelly Peterson on 12-19-2024 Urobilinogen Ql (U) Normal mg/dl Normal [facility] White blood cell (WBC) count Ordered By: Kelly Peterson on 12-19-2024 WBC (Bld) [#/Vol] 5.2 10*3/uL Normal 4.4-11.0 [facility] Comment on above: Performed By: #### L 700.6800, L500.2500, L100.0100 #### [facility] [address] [place], [place], [address] White blood cell countOrdere d By: Kelly Peterson on 12-19-2024 White blood cell count 5-10 SEEN /hpf 0-5 [facility] hCG Titer Quant., Serumon HCG QUANT. 4035 mIU/mL High <9 non-preg [facility] Comment on above: Result Comment: Gest ational Age 0.2-1 Week: 5-50 mIU/mL 1-2 Weeks: 50-500 mIU/mL 2-3 Weeks: 100-5000 mIU/mL 3-4 Weeks: 500-10,000 mIU/mL 4-5 Weeks:1000-50,000 mIU/mL 5-6 Weeks: 10,000-100,000 mIU/mL 6-8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 shigelloides, Salmonella, Vibrio species, Vibrio cholerae, Yersinia enterocolitica, Shiga toxin-producing E coli (STEC) including E coli O157, Enterotoxigenic E coli (ETEC), Shigella/Enteroinvasive E coli (EIEC), Cryptosporidium, Cyclospora cayetanensis, Entamoeba histolytica, Giardia lamblia, Adenovirus F 40/41, Astrovirus, Norovirus GI/GII, Rotavirus A, Sapovirus _ The [email or web address] Gastrointestinal PCR Panel can detect the following targets: Campylobacter, Plesiomonas shigelloides, Salmonella, Vibrio species, Vibrio cholerae, Yersinia enterocolitica, Shiga toxin-producing E coli (STEC) including E coli O157, Enterotoxigenic E coli (ETEC), Shigella/Enteroinvasive E coli (EIEC), Cryptosporidium, Cyclospora cayetanensis, Entamoeba histolytica, Giardia lamblia, Adenovirus F 40/41, Astrovirus, Norovirus GI/GII, Rotavirus A, Sapovirus Abnormal [facility] Comment on above: Performed By: #### B FGI #### [facility] [address] [place] [address] Basic Metabolic Panelon 01-23 eGFR Not Calculated Normal >60 [facility] Comment on above: Performed By: #### B MP3 #### [facility] [address] [place] [address] eGFR OTHER Not Calculated Normal >60 [facility] Comment on above: Result Comment: KDIG [...] secretion. Performed By: #### B MP3 #### [facility] [address] [place] [address] Calcium [Mass/Vol] 9.3 mg/dL Normal 8.4-10.4 [facility] Comment on above: Performed By: #### B MP3 #### [facility] [address] [place] [address] Anion gap [Moles/Vol] 9 mmol/L Normal 3-13 [facility] Comment on above: Performed By: #### B MP3 #### [facility] [address] [place] [address] CO2 [Moles/Vol] 25 mmol/L Normal 22-30 [facility] Comment on above: Performed By: #### B MP3 #### [facility] [address] [place] [address] Creatinine [Mass/Vol] 0.80 mg/dL Normal 0.52-1.25 [facility] Comment on above: Performed By: #### B MP3 #### [facility] [address] [place] [address] Glucose [Mass/Vol] 91 mg/dL Normal 70-100 [facility] Comment on above: Performed By: #### B MP3 #### [facility] [address] [place] [address] Urea nitrogen [Mass/Vol] 17 mg/dL Normal 9-20 [facility] Comment on above: Performed By: #### B MP3 #### [facility] [address] [place] [address] Chloride [Moles/Vol] 100 mmol/L Normal 98-107 [facility] Comment on above: Performed By: #### B MP3 #### [facility] [address] [place] [address] Potassium [Moles/Vol] 3.7 mmol/L Normal 3.5-5.1 [facility] Comment on above: Performed By: #### B MP3 #### [facility] [address] [place] [address] Sodium [Moles/Vol] 134 mmol/L Low 135-145 [facility] Comment on above: Performed By: #### B MP3 #### [facility] [address] [place] [address] Anion gap [Moles/Vol] 9 mmol/L 3 - 13 mmol/L [facility] Work Phone: Calcium [Mass/Vol] 9.3 mg/dL 8.4 - 10. 4 mg/dL [facility] Work Phone: Chloride [Moles/Vol] 100 mmol/L 98 - 10 7 mmol/L [facility] Work Phone: CO2 [Moles/Vol] 25 mmol/L 22 - 30 mmol/L [facility] Work Phone: Creatinine [Mass/Vol] 0.8 mg/dL 0.52 - 1.25 mg/dL [facility] Work Phone: eGFR Not Calculated 60 - PINF mL/min [facility] Work Phone: EGFR IF NonAfrican Stateless Not Calculated 60 - PINF mL/min [facility] Work Phone: Comment on above: KDIGO guidelines [...] [Mass/Vol] 91 mg/dL 70 - 100 mg/dL [facility] Work Phone: Interpretation and review of laboratory results Abnormal [facility] Work Phone: Potassium [Moles/Vol] 3.7 mmol/L 3.5 - 5.1 mmol/L [facility] Work Phone: Sodium [Moles/Vol] 134 mmol/L Low 135 - 145 mmol/L [facility] Work Phone: Urea nitrogen (BldV) [Mass/Vol] 17 mg/dL 9 - 20 mg/dL [facility] Work Phone: Test Performed by [facility], [address] , [address] LAB [facility] Work Phone: Complete Urinalysison 2021 Bacteria Few (1-5) Abnormal Negative [facility] Comment on above: Result Comment: . Performed By: #### H CGUR, CUA2 #### [facility] [address] [place] [address] RBC, Urine 0 - 2 Normal 0-2 [facility] Comment on above: Result Comment: . Performed By: #### H CGUR, CUA2 #### [facility] [address] [place] [address] Squamous Epithelial 6 - 10 Abnormal 3-5 [facility] Comment on above: Result Comment: . Performed By: #### H CGUR, CUA2 #### [facility] [address] [place] [address] VOLUME, URINE 12 ml Normal [facility] Comment on above: Result Comment: . Performed By: #### H CGUR, CUA2 #### [facility] [address] [place] [address] WBC, Urine 6 - 10 Abnormal 0-5 [facility] Comment on above: Result Comment: . Performed By: #### H CGUR, CUA2 #### [facility] [address] [place] [address] Appearance (U) Clear Normal Clear [facility] Comment on above: Result Comment: . Performed By: #### H CGUR, CUA2 #### [facility] [address] [place] [address] Bilirubin,Urine Negative Normal Negative [facility] Comment on above: Result Comment: . Performed By: #### H CGUR, CUA2 #### [facility] [address] [place] [address] Color (U) YELLOW Normal Lt. Yellow [facility] Comment on above: Result Comment: . Performed By: #### H CGUR, CUA2 #### [facility] [address] [place] [address] Glucose Ql (U) Normal Normal Normal (<70) [facility] Comment on above: Result Comment: . Performed By: #### H CGUR, CUA2 #### [facility] [address] [place] [address] Ketone,Urine > 150 Abnormal Negative [facility] Comment on above: Result Comment: . Performed By: #### H CGUR, CUA2 #### [facility] [address] [place] [address] Leukocytes,Urine Negative Normal Negative [facility] Comment on above: Result Comment: . Performed By: #### H CGANN, CUA2 #### [facility] [address] [place] [address] Nitrites,Urine Negative Normal Negative [facility] Comment on above: Result Comment: . Performed By: #### H CGANN, CUA2 #### [facility] [address] [place] [address] Occult Blood,Urine Negative Normal Negative [facility] Comment on above: Result Comment: . Performed By: #### H CGANN, CUA2 #### [facility] [address] [place] [address] pH,Urine 6.0 Normal 5.0-8.0 [facility] Comment on above: Result Comment: . Performed By: #### H CGANN, CUA2 #### [facility] [address] [place] [address] Protein (U) [Mass/Vol] 30 mg/dL Abnormal Negative [facility] Comment on above: Result Comment: . Performed By: #### H CGANN, CUA2 #### [facility] [address] [place] [address] Specific Asher,Urine > 1.030 Abnormal 1.005 - 1.030 [facility] Comment on above: Result Comment: . Performed By: #### H CGANN, CUA2 #### [facility] [address] [place] [address] Urobilinogen,Urine 2 mg/dL Abnormal Normal (0-1) [facility] Comment on above: Result Comment: . Performed By: #### H CGANN, CUA2 #### [facility] [address] [place] [address] HCG,Urine Qualon 02-03-2022 Beta HCG ( test) Ql (U) Negative Normal Negative [facility] Comment on above: Result Comment: Plea se note: Very dilute urine specimens, as indicated by a low specific gravity, may not contain sales training representative levels of hCG. If is still suspected, a first morning urine specimen should be collected 48 hours later and tested. is the most common reason for HCG in urine, although choriocarcinoma, hydatidiform mole, and certain nontropho- blastic malignancies also result in detectable urinary HCG levels. Sensitivity = 20mIU/mL. Performed By: #### H CGANN, CUA2 #### [facility] [address] [place], [place] [id number] [place] [address] Urine Qual [place] 2021 Beta HCG ( test) Ql (U) Negative Negative NA [facility] Work Phone: Comment on above: Please note: Very di lute urine specimens, as indicated by a low specific gravity, may not contain sales training representative levels of hCG. If is still suspected, a first morning urine specimen should be collected 48 hours later and tested. is the most common reason for HCG in urine, although choriocarcinoma, hydatidiform mole, and certain nontropho- blastic malignancies also result in detectable urinary HCG levels. Sensitivity = 20mIU/mL. Test Performed by [facility], [address] , [place], [place] [id number] [place] [address] LAB [facility] Work Phone: Urinalysison 02-03-2022 Appearance (U) Clear Clear NA [facility] Work Phone: Comment on above: . Bacteria, UA Few (1-5) Abnormal Negative /[HPF] [facility] Work Phone: Comment on above: . Bilirubin Urine Negative Negative mg/dL [facility] Work Phone: Comment on above: . Color (U) YELLOW Lt. Yellow NA [facility] Work Phone: Comment on above: . Glucose, Ur Normal Normal (<70) mg/dL [facility] Work Phone: Comment on above: . Interpretation and review of laboratory results Abnormal [facility] Work Phone: Ketones Ql (U) >150 Abnormal Negative mg/dL [facility] Work Phone: Comment on above: . LEUKOCYTES, UA Negative Negative Spencer/uL [facility] Work Phone: Comment on above: . Nitrite, Urine Negative Negative NA [facility] Work Phone: Comment on above: . Occult Blood,Urine Negative Negative mg/dL [facility] Work Phone: Comment on above: . pH (U) 6.0 [pH] [facility] Work Phone: Comment on above: . Protein (U) [Mass/Vol] 30 mg/dL Abnormal Negative [facility] Work Phone: Comment on above: . RBC, UA /[HPF] 0 - 2 /[HPF] [facility] Work Phone: Comment on above: . Specific Asher, Urine Abnormal [facility] Work Phone: Comment on above: . Squam Epithel, UA 6-10 Abnormal 3 - 5 /[HPF] [facility] Work Phone: Comment on above: . Urobilinogen, Urine 2 mg/dL Abnormal Normal (0-1) [facility] Work Phone: Comment on above: . Volume 12 ml [facility] Work Phone: Comment on above: . WBC, UA /[HPF] Abnormal 0 - 5 /[HPF] [facility] Work Phone: Comment on above: . Test Performed by [facility], [address] [place] [address] LAB [facility] Work Phone: CR Knee 3 Views Lefton 09-01 CR Knee 3 Views Left Patient Name: NORBERTO COTTON Diagnostic Radiology ACCESSION EXAM DATE/TIME PROCEDURE ORDERING PROVIDER [id number] 09/01/2021 20:30 EST CR Knee 3 Views Left MD NICOLA, ANDRZEJ CPT code 34065 Reason For Exam (CR Knee 3 Views Left) knee pain Report Left knee three views HISTORY: Injury, pain No fracture or dislocation. No obvious joint effusion. IMPRESSION: Normal examination. Report Dictated on Final Dictating Physician: MD MURPHY MALAY Signed Date and Time: 09/01/2021 8:33 pm Signed by: MD MURPHY MALAY Transcribed Date and Time: 09/01/2021 8:34 Normal [facility] XR KNEE LEFT (3 VIEWS)on Patient Name: NORBERTO COTTON Diagnostic Radiology ACCESSION EXAM DATE/TIME PROCEDURE ORDERING PROVIDER [id number] 09/01/2021 20:30 EST CR Knee 3 Views Left MD PETERSEN VIJAY CPT code 94530 Reason For Exam (CR Knee 3 Views Left) knee pain Report Left knee three views HISTORY: Injury, pain No fracture or dislocation. No obvious joint effusion. IMPRESSION: Normal examination. Report Dictated on --- Final --- Dictating Physician: MD MURPHY MALAY Signed Date and Time: 09/01/2021 8:33 pm Signed by: MD MURPHY MALAY Transcribed Date and Time: 09/01/2021 8:34 [facility] Speedy Murphy MD - 09/01/2021 Patient Name: NORBERTO COTTON Diagnostic Radiology ACCESSION EXAM DATE/TIME PROCEDURE ORDERING PROVIDER [id number] 09/01/2021 20:30 EST CR Knee 3 Views Left MD PETERSEN VIJAY CPT code 96221 Reason For Exam (CR Knee 3 Views Left) knee pain Report Left knee three views HISTORY: Injury, pain No fracture or dislocation. No obvious joint effusion. IMPRESSION: Normal examination. Report Dictated on --- Final --- Dictating Physician: MD MURPHY MALAY Signed Date and Time: 09/01/2021 8:33 pm Signed by: MD MURPHY MALAY Transcribed Date and Time: 09/01/2021 8:34 [facility] Work Phone: Radiology Study observation (narrative) [facility] Work Phone: XR KNEE LEFT (3 VIEWS)Ordere d By: Speedy Murphy on 09-01-2021 [facility] Work Phone: CT Head WO Contraston 2021 Patient Name: NORBERTO COTTON Computed Tomography ACCESSION EXAM DATE/TIME PROCEDURE ORDERING PROVIDER [id number] 07/25/2021 21:[address] Head or Brain w/o 5787 -PORTIA, PATRICIA Contrast CPT code 05454 Reason For Exam (CT Head or Brain [...] Date and Time: 07/25/2021 10:03 [facility] Yusuf Sparrow MD - 07/25/2021 Patient Name: NORBERTO COTTON Computed Tomography ACCESSION EXAM DATE/TIME PROCEDURE ORDERING PROVIDER [id number] 07/25/2021 21:[address] Head or Brain w/o 5787 -PORTIA, PATRICIA Contrast CPT code 14328 Reason For Exam (CT Head or Brain [...] Brain w/o Contrast Patient Name: [id number] Computed Tomography ACCESSION EXAM DATE/TIME PROCEDURE ORDERING PROVIDER [id number] 07/25/2021 21:[address] Head or Brain w/o PATRICIA TORO Contrast CPT code 51610 Reason For Exam (CT Head or Brain [...] SHARMA Transcribed Date and Time: 07/25/2021 10:03 [facility] ED Provider Noteon ED Provider Note [facility] ED EMERGENCY DEPARTMENT ENCOUNTER Pt Name: [...] ? Drug use: Not Currently Types: Marijuana (Dixon) ? Sexual activity: Yes Other Topics Concern [...] and Family: Not on file ? Attends [employer] Services: Not on file ? Active Member [...] distress. Marley (more content not included)... Normal [facility] Vital Signs Date Time Vital Sign Value Performing Clinician Ralf jamison 02-10-2025 14:09-0400 Body height 162.[address] Kelly Peterson DO Work Phone: [facility] 02-10-2025 14:09-0400 Body mass index (BMI) [Ratio] 18.2 kg/m2 Dr. Kelly Peterson DO Work Phone: [facility] 02-10-2025 14:09-0400 Body weight 48.[address] Kelly Peterson DO Work Phone: [facility] 02-10-2025 14:09-0400 Diastolic blood pressure 64 mm[Hg] Dr. Kelly Peterson DO Work Phone: [facility] 02-10-2025 14:09-0400 Systolic blood pressure 98 mm[Hg] Dr. Kelly Peterson DO Work Phone: 0(805)935-003977 [place] [address] 02-09-2025 02:06-0400 Body temperature 97.8 [degF] Dr. Kelly Peterson DO Work Phone: 7(957)374-461777 [place] [address] 02-09-2025 02:06-0400 Diastolic blood pressure 61 mm[Hg] Dr. Kelly Peterson DO Work Phone: 0(294)941-042677 [place] [address] 02-09-2025 02:06-0400 Heart rate 73 /min Dr. Kelly Peterson DO Work Phone: 9(702)448-168677 [place] [address] 02-09-2025 02:06-0400 Respiratory rate 18 /min Dr. Kelly Peterson DO Work Phone: 8(502)902-390077 [place] [address] 02-09-2025 02:06-0400 SaO2% (BldA) [Mass fraction] 99 % Dr. Kelly Peterson DO Work Phone: 7(218)285-307977 [place] [address] 02-09-2025 02:06-0400 Systolic blood pressure 92 mm[Hg] Dr. Kelly Peterson DO Work Phone: 8(563)967-224077 [place] [address] 02-09-2025 00:08-0400 Body height 162.[address] Kelly Peterson DO Work Phone: 7(081)422-422777 [place] [address] 02-09-2025 00:08-0400 Body mass index (BMI) [Ratio] 21.2 kg/m2 Dr. Kelly Peterson DO Work Phone: 0(675)693-417577 [place] [address] 02-09-2025 00:08-0400 Body weight [address] Kelly Peterson DO Work Phone: 0(651)411-192977 [place] [address] 01-12-2025 10:42-0400 Body height 162.[address] Kelly Peterson DO Work Phone: 4(582)607-888277 [place] [address] 01-12-2025 10:42-0400 Body mass index (BMI) [Ratio] 18.1 kg/m2 Dr. Kelly Peterson DO Work Phone: 5(359)092-016077 [place] [address] 01-12-2025 10:42-0400 Body weight 47.[address] Kelly Peterson DO Work Phone: 4(491)784-078677 [place] [address] 01-12-2025 10:42-0400 Diastolic blood pressure 65 mm[Hg] Dr. Kelly Peterson DO Work Phone: 0(524)606-529277 [place] [address] 01-12-2025 10:42-0400 Systolic blood pressure 100 mm[Hg] Dr. Kelly Petreson DO Work Phone: 8(691)190-217577 [place] [address] 12-30-2024 20:45-0400 Body temperature 97.3 [degF] Dr. Kelly Peterson DO Work Phone: 5(475)086-480477 [place] [address] 12-30-2024 20:45-0400 Diastolic blood pressure 62 mm[Hg] Dr. Kelly Peterson DO Work Phone: 3(547)278-740377 [place] [address] 12-30-2024 20:45-0400 Heart rate 63 /min Dr. Kelly Peterson DO Work Phone: 9(006)655-284477 [place] [address] 12-30-2024 20:45-0400 Respiratory rate 18 /min Dr. Kelly Peterson DO Work Phone: 3(910)458-660577 [place] [address] 12-30-2024 20:45-0400 SaO2% (BldA) [Mass fraction] 100 % Dr. Kelly Peterson DO Work Phone: 9(078)844-210177 [place] [address] 12-30-2024 20:45-0400 Systolic blood pressure 96 mm[Hg] Dr. Kelly Peterson DO Work Phone: 3(379)441-210777 [place] [address] 12-30-2024 17:38-0400 Body height 162.[address] Kelly Peterson DO Work Phone: 9(531)941-498677 [place] [address] 12-30-2024 17:38-0400 Body mass index (BMI) [Ratio] 18 kg/m2 Dr. Kelly Peterson DO Work Phone: 7(088)375-148377 [place] [address] 12-30-2024 17:38-0400 Body weight 47.[address] Kelly Peterson DO Work Phone: 6(998)346-760677 [place] [address] 12-30-2024 11:49-0400 Body mass index (BMI) [Ratio] 18 kg/m2 Dr. Kelly Peterson DO Work Phone: 0(171)470-340134 [place] [address] 12-30-2024 11:49-0400 Body weight 47.[address] Kelly Peterson DO Work Phone: 3(929)948-129834 [place] [address] 12-30-2024 11:49-0400 Diastolic blood pressure 62 mm[Hg] Dr. Kelly Peterson DO Work Phone: 2(675)489-721977 [place] [address] 12-30-2024 11:49-0400 Systolic blood pressure 90 mm[Hg] Dr. Kelly Peterson DO Work Phone: 7(769)987-085977 [place] [address] 12-19-2024 17:55-0400 Body temperature 98.2 [degF] Dr. Kelly Peterson DO Work Phone: 7(534)841-107977 [place] [address] 12-19-2024 17:55-0400 Diastolic blood pressure 66 mm[Hg] Dr. Kelly Peterson DO Work Phone: 1(063)099-853077 [place] [address] 12-19-2024 17:55-0400 Heart rate 61 /min Dr. Kelly Peterson DO Work Phone: 1(413)203-487377 [place] [address] 12-19-2024 17:55-0400 Respiratory rate 16 /min Dr. Kelly Peterson DO Work Phone: 6(478)368-720377 [place] [address] 12-19-2024 17:55-0400 SaO2% (BldA) [Mass fraction] 99 % Dr. Kelly Peterson DO Work Phone: 4(691)900-320277 [place] [address] 12-19-2024 17:55-0400 Systolic blood pressure 101 mm[Hg] Dr. Kelly Peterson DO Work Phone: 0(853)511-301177 [place] [address] 12-19-2024 14:59-0400 Body height 162.[address] Kelly Peterson DO Work Phone: 5(807)660-727477 [place] [address] 12-19-2024 14:59-0400 Body mass index (BMI) [Ratio] 17.6 kg/m2 Dr. Kelly Peterson DO Work Phone: 7(030)159-325277 [place] [address] 12-19-2024 14:59-0400 Body weight 46.[address] Kelly Peterson DO Work Phone: [facility] 12-18-2024 10:52-0400 Body height 162.[address] Antonia Connolly MD Work Phone: [facility] 12-18-2024 10:39-0400 Body mass index (BMI) [Ratio] 17.9 kg/m2 Dr. Antonia Connolly MD Work Phone: [facility] 12-18-2024 10:39-0400 Body weight 47.[address] Antonia Connolly MD Work Phone: [facility] 12-18-2024 10:39-0400 Diastolic blood pressure 66 mm[Hg] Dr. Antonia Connolly MD Work Phone: [facility] 12-18-2024 10:39-0400 Systolic blood pressure 97 mm[Hg] Dr. Antonia Connolly MD Work Phone: [facility] 06-29-2024 13:34-0500 Body mass index (BMI) [Ratio] 17.71 kg/m2 Марина Miller SCRAPE GATHERER.AUTOMATION MANAGER Work Phone: [facility] 06-29-2024 13:34-0500 Body temperature 99.19 [degF] Марина Miller SCRAPE GATHERER.AUTOMATION MANAGER Work Phone: [facility] 06-29-2024 13:34-0500 Body weight 46.8 kg Марина Miller SCRAPE GATHERER.AUTOMATION MANAGER Work Phone: [facility] 06-29-2024 13:34-0500 Diastolic blood pressure 80 mm[Hg] Марина Miller SCRAPE GATHERER.AUTOMATION MANAGER Work Phone: [facility] 06-29-2024 13:34-0500 Heart rate 95 /min Марина Miller SCRAPE GATHERER.AUTOMATION MANAGER Work Phone: [facility] 06-29-2024 13:34-0500 SaO2% (BldA) [Mass fraction] 98 % Марина Miller SCRAPE GATHERER.AUTOMATION MANAGER Work Phone: [facility] 06-29-2024 13:34-0500 Systolic blood pressure 105 mm[Hg] Марина Miller APRN.AUTOMATION MANAGER Work Phone: [facility] 05-19-2024 02:43-0500 Diastolic blood pressure 70 mm[Hg] Rashad Carbajal MD Work Phone: [facility] 05-19-2024 02:43-0500 Heart rate 67 /min Rashad Carbajal MD Work Phone: [facility] 05-19-2024 02:43-0500 Respiratory rate 12 /min Rashad Carbajal MD Work Phone: [facility] 05-19-2024 02:43-0500 SaO2% (BldA) [Mass fraction] 100 % Rashad Carbajal MD Work Phone: [facility] 05-19-2024 02:43-0500 Systolic blood pressure 101 mm[Hg] Rashad Carbajal MD Work Phone: [facility] 05-19-2024 01:12-0500 Body height 162.6 cm Rashad Carbajal MD Work Phone: [facility] 05-19-2024 01:12-0500 Body mass index (BMI) [Ratio] 18.02 kg/m2 Rashad Carbajal MD Work Phone: [facility] 05-19-2024 01:12-0500 Body temperature 98.91 [degF] Rashad Carbajal MD Work Phone: [facility] 05-19-2024 01:12-0500 Body weight 47.63 kg Rashad Carbajal MD Work Phone: [facility] [employer] 07-28-2023 15:03-0500 Body temperature 97.5 [degF] Bill Guillen MD Work Phone: [facility] [employer] 07-28-2023 15:03-0500 Body weight 47.63 kg Bill Guillen MD Work Phone: [facility] [employer] 07-28-2023 15:03-0500 Diastolic blood pressure 77 mm[Hg] Bill Guillen MD Work Phone: [facility] [employer] 07-28-2023 15:03-0500 Heart rate 62 /min Bill Guillen MD Work Phone: [facility] 07-28-2023 15:03-0500 Respiratory rate 14 /min Bill Guillen MD Work Phone: [facility] [employer] 07-28-2023 15:03-0500 SaO2% (BldA) [Mass fraction] 100 % Bill Guillen MD Work Phone: [facility] [employer] 07-28-2023 15:03-0500 Systolic blood pressure 121 mm[Hg] Bill Guillen MD Work Phone: [facility] 02-03-2022 19:52-0400 Diastolic blood pressure 60 mm[Hg] Andrzej Petersen MD Work Phone: [facility] 02-03-2022 19:52-0400 Heart rate 67 /min Andrzej Petersen MD Work Phone: [facility] 02-03-2022 19:52-0400 Respiratory rate 16 /min Andrzej Petersen MD Work Phone: [facility] 02-03-2022 19:52-0400 SaO2% (BldA) [Mass fraction] 100 % Andrzej Petersen MD Work Phone: [facility] 02-03-2022 19:52-0400 Systolic blood pressure 98 mm[Hg] Andrzej Petersen MD Work Phone: [facility] 02-03-2022 17:19-0400 Body height 162.6 cm Andrzej Petersen MD Work Phone: [facility] 02-03-2022 17:19-0400 Body mass index (BMI) [Percentile] Per age and sex 17.71 % Andrzej Petersen MD Work Phone: [facility] 02-03-2022 17:19-0400 Body mass index (BMI) [Ratio] 18.88 kg/m2 Andrzej Petersen MD Work Phone: [facility] 02-03-2022 17:19-0400 Body temperature 98.1 [degF] Andrzej Petersen MD Work Phone: [facility] 02-03-2022 17:19-0400 Body weight 49.9 kg Andrzej Petersen MD Work Phone: [facility] 09-01-2021 20:08-0500 Body temperature 97.7 [degF] Andrzej Petersen MD Work Phone: [facility] 09-01-2021 20:08-0500 Body weight 47.63 kg Andrzej Petersen MD Work Phone: [facility] 09-01-2021 20:08-0500 Diastolic blood pressure 73 mm[Hg] Andrzej Petersen MD Work Phone: [facility] 09-01-2021 20:08-0500 Heart rate 69 /min Andrzej Petersen MD Work Phone: [facility] 09-01-2021 20:08-0500 Respiratory rate 18 /min Andrzej Petersen MD Work Phone: [facility] 09-01-2021 20:08-0500 SaO2% (BldA) [Mass fraction] 100 % Andrzej Petersen MD Work Phone: [facility] 09-01-2021 20:08-0500 Systolic blood pressure 117 mm[Hg] Andrzej Petersen MD Work Phone: [facility] 07-25-2021 22:20-0500 Body temperature 97.9 [degF] Patricia Pearce MD Work Phone: [facility] 07-25-2021 22:20-0500 Diastolic blood pressure 65 mm[Hg] Patricia Pearce MD Work Phone: [facility] 07-25-2021 22:20-0500 Heart rate 60 /min Patricia Pearce MD Work Phone: [facility] 07-25-2021 22:20-0500 Respiratory rate 18 /min Patricia Pearce MD Work Phone: [facility] 07-25-2021 22:20-0500 SaO2% (BldA) [Mass fraction] 100 % Patricia Pearce MD Work Phone: [facility] 07-25-2021 22:20-0500 Systolic blood pressure 112 mm[Hg] Patricia Pearce MD Work Phone: [facility] 07-25-2021 19:38-0500 Body height 162.6 cm Patricia Pearce MD Work Phone: [facility] 07-25-2021 19:38-0500 Body mass index (BMI) [Percentile] Per age and sex 10.15 % Patricia Pearce MD Work Phone: [facility] 07-25-2021 19:38-0500 Body mass index (BMI) [Ratio] 18.02 kg/m2 Patricia Pearce MD Work Phone: [facility] 07-25-2021 19:38-0500 Body weight 47.63 kg Patricia Pearce MD Work Phone: [facility] Encounters Encounter Date Encounter Type Care Provider Facility Start: 05-06-2025 [facility] Facility :[facility] Start: 04-24-2025 End: 04-24-2025 Emergency department patient visit No Primary Care Physician Facility:[facility] Start: 04-24-2025 End: 04-24-2025 ambulatory No Primary Care Physician Facility:[facility] [place] Start: 04-24-2025 End: 04-24-2025 ambulatory No Primary Care Physician Facility:[facility] Start: 02-26-2025 End: 02-26-2025 ambulatory No Primary Care Physician Facility:[facility] [place] Start: 02-26-2025 End: 02-26-2025 ambulatory No Primary Care Physician Facility:[facility] Start: 02-25-2025 Encounter for other preprocedural examination Antonia Connolly [facility] Start: 02-12-2025 ambulatory No Primary Car e Physician Facility:[facility] [place] Start: 02-12-2025 End: 02-12-2025 ambulatory No Primary Care Physician Facility:[facility] Start: 02-10-2025 End: 02-10-[address] Daisy Garner DO -[facility] Work Phone: Start: 02-10-2025 End: 02-10-[address] Kelly Peterson DO Work Phone: [facility] [place] Start: 02-09-2025 End: 02-09-2025 Emergency department patient visit Dr. Kelly Peterson DO Work Phone: -Emergency Department Work Phone: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
== END | disposition home or self-care (01) ==
LOC: US 16:54
PROVIDERS: Referring Provider Advanced Practice Midwife; Visit Provider Advanced Practice Midwife
DX: O20.9 Hemorrhage in early pregnancy, unspecified (principal); R10.22 Pelvic and perineal pain left side; Z3A.08 8 weeks gestation of pregnancy
CPT/HCPCS: 76817

== ENCOUNTER → 2025-06-16 | Outpatient (CLI) | payer MEDICAID, SELFPAY ==
[2025-06-16 16:36] LABS: Hematocrit 37.5 % (37-47); Hemoglobin 12.6 g/dL (12.0-15.0); Immature Granulocytes Count 0.010 X10^3/uL (0.0-0.0); Mean Corp Hgb Conc 33.6 g/dL (32-36); Mean Corpuscular Volume 94.2 fL (81-99); Mean Platelet Vol. 10.6 fl (6.2-12.0); NRBC Flagged by Analyzer 0 % (0-5); Platelet Count 241 K/mm3 (150-450); RBC Distribution Width CV 12.2 % (11.6-14.6); RBC Distribution Width SD 42.4 fl (35.1-43.9); Red Blood Count 3.98 M/mm3 (4.2-5.4); White Blood Count 6.8 K/mm3 (4.4-11.0)
== END | disposition home or self-care (01) ==
LOC: BWCLAB 14:28
PROVIDERS: Visit Provider Advanced Practice Midwife
DX: O09.91 Supervision of high risk pregnancy, unspecified, first trimester (principal); Z3A.08 8 weeks gestation of pregnancy
CPT/HCPCS: 36415; 85025; 86850; 86900; 86901